=== PATIENT | male | born 1960 | race Caucasian/White ===

== ENCOUNTER 2023-09-28 21:39 | Inpatient (IN) | payer BC, SELFPAY ==
[2023-09-28 18:53] VITALS: BMI 35.2
--- NOTE | 2023-09-28 18:55 | ED.GENMED ---
History of Present Illness
General
Chief Complaint: Withdrawal Symptoms
Time Seen by Provider: 09/28/23 18:55
History of Present Illness
History of Present Illness:
HPI: The patient presents due to concerns for DTs/alcohol withdrawal. He was seen here in 2021 with chest pain and alcoholism. He states that he last drank alcohol yesterday. EMS found him to be in atrial fibrillation. The patient has a vague
general unwell feeling. He feels tremulous and somewhat anxious. He also describes paresthesias
EXAM:
GENERAL: Well appearing in no distress
HEENT: Moist oral mucosa
CARDIOVASCULAR: No murmurs, tachycardic heart rate, r irregular egular rhythm, No chest wall tenderness
PULMONARY: No respiratory distress, breath sounds are clear and equal
ABDOMEN: Soft with no peritoneal signs, no tenderness
NEUROLOGIC: Good strength in all extremities, asterixis is noted
PSYCHIATRIC: Appropriate mental status, normal insight and judgement
EXTREMITIES: Nontender, no edema, moves all extremities equally
SKIN: No rash, no lesions
TIME OF INITIAL ENCOUNTER: 7 PM
NUMBER AND COMPLEXITY OF PROBLEMS ADDRESSED AT THE ENCOUNTER
� Chronic conditions affecting care: High blood pressure, has had A-fib in the past, alcoholism
� Acute Exacerbation and/or Progression of Chronic Illness: This is an acute problem
� Differential Diagnosis includes: Alcohol withdrawal, delirium tremens, dehydration, electrolyte abnormality, atrial fibrillation
AMOUNT AND/OR COMPLEXITY OF DATA TO BE REVIEWED AND ANALYZED
� I performed an independent evaluation of and my interpretation is:
EKG: EKG shows A-fib with a rate of 111 and right bundle branch block, the post cardioversion 10/19/2021 EKG also showed right bundle branch block
CT:
X-rays:
Laboratory Studies: CBC unremarkable, MCV 74, potassium slightly low 3.4, magnesium normal at 0.8, troponin 0.035
Other:
� Review of other/old records: I reviewed old records including cardiac evaluation�the patient had normal coronaries but was found to have an EF of 35 to 40% with moderate global hypokinesis
� Clinical information was obtained by an independent historian: EMS
� Prescriptions/Medications Considered but not given:
� Further testing considered but not performed:
RISK OF COMPLICATIONS AND/OR MORBIDITY OR MORTALITY OF PATIENT MANAGEMENT
� Social determinants of health affecting care: Lives at home
� Discussion with other providers: Discussed with Dr. Smith treatment for alcohol withdrawal as opposed to going on [facility]. Hospitalist for admission
� Escalation of care including admission/observation vs risk of discharge considered: The patient was tachycardic and tremulous upon arrival. He was given IV fluids and 2 mg of IV Ativan. His initial CIWA score is 15. The
patient does not appear well enough to return home at this time. He is persistently tachycardic.
Past History
Past History
ED Past Medical History: HTN and Other (Gout, pilonidal cyst)
ED Past Surgical History: Orthopedic
Social History
Tobacco: Non-smoker
Alcohol: Daily
Drug: None
Personal:
Living: with family
Employment: Employed
Family History
Family History: Other (Nonsignificant)
Phy Exam
Physical Exam
Physical Exam:
See HPI
Course
Orders/Labs/Results
Orders:
Orders
09/28/23 18:56
ECG [Electrocardiogram (*1)] Urgent
Reason for Study: Atrial Fibrillation
EKG- Treatment ONCE
09/28/23 19:00
0.9% Sodium Chloride 1000 ml [Nss] 1,000 ml IV BOLUS
Lorazepam [Ativan] 2 mg IV NOW STA
09/28/23 19:05
Alcohol Urgent
Complete Blood Count/With Diff Urgent
Comprehensive Metabolic Panel Urgent
Magnesium Urgent
TSH Reflex To Free T4 Urgent
Troponin I Urgent
09/28/23 19:42
Lorazepam [Ativan] 2 mg IV NOW STA
09/28/23 19:48
Magnesium Sulfate 4 Gram/100Ml [Magnesium Sulfate] 4 gram in 100 ml IV NOW
09/28/23 20:21
Metoprolol [Lopressor] 5 mg IV NOW STA
CR Chest - 2 Views Stat
Comment:
Reason For Exam: sob
09/28/23 20:22
Potassium Chloride [KCl] 40 meq PO NOW STA
09/28/23 20:31
Admit/Transfer Patient As Directed
Co-Sign Provider:
Level of Care: Inpatient admission
Assign to:: Telemetry
Physician / Group: avelino
Diagnosis: alcohol withdrawal
Reason for Telemetry: Arrhythmia
Date to Stop Telemetry: 10/01/23
Time to Stop Telemetry: 11:00
Reason for Hospitalization: alcohol withdrawal
Expected length of stay greater than two midnights?: Yes
ELOS- Estimated Length of Stay in days: 3
I certify the patient meets the requirements for IP care: Yes
09/28/23 20:32
Code Status As Directed
Resuscitation Status: Full Code
09/28/23 21:37
Add On- LAB Urgent
Tests Added?: Alcohol
10/01/23 11:00
DC Protocol for Telemetry ONCE
Abnormal Lab Results
09/28/23
19:05
MCV 73.6 L fL
(80.0-94.0)
MCH 24.6 L pg
(27.0-31.0)
RDW 21.6 H %
(11.5-14.5)
Absolute Neuts (auto) 6.6 H 10^3/uL
(1.4-6.5)
Absolute Monos (auto) 0.8 H 10^3/uL
(0.1-0.6)
Lymphocytes % 18.6 L %
(20.5-51.1)
Sodium 127 L mmol/L
(135-145)
Potassium 3.4 L mmol/L
(3.5-5.1)
Chloride 83 L mmol/L
(98-107)
BUN 8 L mg/dl
(9-20)
Glucose 100 H mg/dl
(70-99)
Magnesium 0.8 L* mg/dl
(1.6-2.3)
AST 133 H U/L
(17-59)
ALT 65 H U/L
(0-50)
Alkaline Phosphatase 205 H U/L
(38-126)
Troponin I 0.035 H* ng/ml
Total Protein 8.4 H g/dl
(6.3-8.2)
09/28/23 19:05
09/28/23 19:05
Vital Signs
Initial and Last Documented VS:
Initial Vital Signs
Temp Pulse Resp Pulse Ox
97.5 F 114 20 95
09/28/23 18:53 09/28/23 18:53 09/28/23 18:53 09/28/23 18:53
Last Documented Vital Signs
Temp Pulse Resp BP Pulse Ox
97.5 F 117 21 158/104 96
09/28/23 18:53 09/28/23 21:30 09/28/23 21:30 09/28/23 20:39 09/28/23 21:30
*Critical Care Note
Total Time (30-74mins, 75-104mins- exclusive of procedures): 60minutes
comment:
The patient is persistently tachycardic with rapid atrial fibrillation. I emergently discussed case with cardiology. He was given benzos and vital signs were continuously monitored. His magnesium is critically low and was given IV replacement
emergently.
ED Attending Note
-
Portions of this chart may have been created with voice recognition software.� Occasional wrong word or��sound alike� substitutions may have occurred due to the inherent limitations of voice recognition software.
Discharge Plan
Departure
Patient Disposition: Admit
Date of Disposition: 09/28/23
Time of Disposition: 20:01
Presentation/result/management discussed w/ accepting MD/DO: Hospitalist
Patient with high blood pressure during this ER visit?: Yes
Discharge Problem:
Atrial fibrillation with rapid ventricular response, Alcohol withdrawal, Hypomagnesemia
Interventions
Interventions:
*Risk Screen - Suicide Last Done: 09/28/23 18:53
*General Assessment Last Done: 09/28/23 18:53
*Neglect/Abuse Screening Last Done: 09/28/23 18:53
ED- Fall Risk Assessment Last Done: 09/28/23 19:37
*ED COVID-19 Vaccine History Last Done: 09/28/23 19:10
ED- Neurological Assessment Last Done: 09/28/23 19:37
ED-Psychological Assessment Last Done: 09/28/23 19:37
[2023-09-28] MEDS: ATIVAN 2 MG IV ×2 (19:07→19:47)
[2023-09-28] MEDS: NSS 1000 IV ×2 (19:07→23:39)
[2023-09-28 19:10] LABS: % Basophils 1.1 % (0-2); % Eosinophils 0.4 % (0-6); % Immature Granulocytes 0.3 % (0-0.5); % Lymphocytes 18.6 % (20.5-51.1); % Monocytes 8.8 % (1.7-9.3); % Neutrophils 70.8 % (42.2-75.2); Absolute Basophils 0.1 10^3/uL (0-0.2); Absolute Lymphocytes 1.8 10^3/uL (1.2-3.4); Absolute Monocytes 0.8 10^3/uL (0.1-0.6); Absolute Neutrophils 6.6 10^3/uL (1.4-6.5); Hemoglobin 14.7 g/dL (13.0-18.0); Mean Corp Hgb Conc. 33.4 g/dL (33.0-37.0); Mean Corpuscular Hgb 24.6 pg (27.0-31.0); Mean Corpuscular Volume 73.6 fL (80.0-94.0); Mean Platelet Volume 8.6 fL (7.4-10.4); Nucleated Red Blood Cells % 0 % (-); Platelet Count 252 10^3/uL (130-400); Red Blood Cell Count 5.98 10^6/uL (4.70-6.10); Red Cell Dist. Width 21.6 % (11.5-14.5); White Blood Cell Count 9.4 10^3/uL (4.8-10.8)
[2023-09-28 19:39] LABS: Troponin I 0.035 ng/ml
[2023-09-28 19:42] LABS: ALT (SGPT) 65 U/L (0-50); AST (SGOT) 133 U/L (17-59); Albumin 4.8 g/dl (3.5-5.0); Alkaline Phosphatase 205 U/L (38-126); Blood Urea Nitrogen 8 mg/dl (9-20); Calcium 9.7 mg/dl (8.4-10.2); Carbon Dioxide 23 mmol/L (22-30); Estimated Creatinine Clearance 116 ml/min; Glucose 100 mg/dl (70-99); Magnesium 0.8 mg/dl (1.6-2.3); Total Bilirubin 1.3 mg/dl (0.2-1.3); Total Protein 8.4 g/dl (6.3-8.2); eGFR > 60.00
[2023-09-28 19:50] LABS: Chloride 83 mmol/L (98-107); Potassium 3.4 mmol/L (3.5-5.1); Sodium 127 mmol/L (135-145)
[2023-09-28 19:56] LABS: TSH Reflex To Free T4 1.22 uIU/ml (0.47-4.68)
[2023-09-28 20:00] VITALS: BP 149/102
--- NOTE | 2023-09-28 20:02 | HPS.HSE ---
Family Physician
<YOANA Lemus - Last Filed: 09/28/23 20:42>
-
Family Physician:
Chief Complaint
<YOANA Lemus - Last Filed: 09/28/23 20:42>
-
Muscle cramps
Tremors
History of Present Illness
63-year-old with past medical history for A-fib presented to us with numbness to his feet and muscle cramps. Patient complained of short of breath, worse with activity. Denied any chest pain. Patient denied any headache dizziness syncopal
episode. Patient denied any fever chills, congestion or cough. Denied abdominal pain, nausea, vomiting or diarrhea. Patient denied dysuria hematuria. Since 2021, he was not drinking alcohol until a month ago. He started drinking 3 glasses of
vodka with Gatorade. His last drink was yesterday. Today he feels very shaky.
Patient received a dose of Ativan in the ER. Neuro electrolyte imbalance. Repleted with IV mag, oral KCl admitted for further management.
Medical History
<YOANA Lemus - Last Filed: 09/28/23 20:42>
Past Medical History
Past Medical History: Reports Other
Additional Past Medical History:
Permanent A-fib
Hypertension
Right bundle branch block
Gout
Alcohol abuse
Past Surgical History: Reports Other
Additional Past Surgical History:
Cardioversion
Teeth implant
Social History
Tobacco: Non-smoker
Alcohol: Daily
Drug: None
Personal:
Living: With Family
Employment: Employed
Family History
Family History: Not pertinent
Allergies / Home Medications
Allergies reflects when Allergies were last updated in [facility].
Home Medications with original date entered in [facility]
Allergy/Medication List:
Allergies
Allergy/AdvReac Type Severity Reaction Status Date / Time
losartan potassium Allergy Swelling Verified 10/16/21 19:18
[From Cozaar]
Home Medications
apixaban 5 mg tablet (Eliquis) 5 mg PO BID #60 tabs 10/19/21
metoprolol succinate 100 mg tablet,extended release 24 hr 100 mg PO BID #60 tabs 10/19/21
diltiazem HCl 180 mg capsule,extended release 24 hr, controlled (DILT-XR) 180 mg PO DAILY 09/28/23
Review of Systems
<YOANA Lemus - Last Filed: 09/28/23 20:42>
-
Constitutional: Reports No Symptoms
EENT: Reports No Symptoms
Respiratory: Reports Trouble Breathing
Cardiac: Reports No Symptoms
Abdomen/GI: Reports No Symptoms
: Reports No Symptoms
Musculoskeletal: Reports Other (Muscle cramps, numbness)
Skin: Reports No Symptoms
Neurological: Reports No Symptoms
Endocrine: Reports No Symptoms
Hematologic/Lymphatic: Reports No Symptoms
Psych: Reports No Symptoms
Physical Exam
<YOANA Lemus - Last Filed: 09/28/23 20:42>
Vital Signs
Vital Signs
Temp Pulse Resp Pulse Ox
97.5 F 114 20 95
09/28/23 18:53 09/28/23 18:53 09/28/23 18:53 09/28/23 18:53
Physical Exam
General: Well Developed, Well Nourished and No Apparent Distress
HEENT: NormoCephalic, Moist mucous membranes and Atraumatic
Respiratory: Clear
Cardiac: S1/S2 and Regular Rhythm; No Murmur or Rub
GI: Soft, Non Tender, Non Distended and Normal Bowel Sounds; No Organomegaly
Rectal: Deferred by Provider
Musculoskeletal: No Clubbing, No Cyanosis and No Edema
Skin: No Rash
Neuro: AO x 3 and Nonfocal/grossly intact
Psych: Calm
Laboratory Results
<YOANA Lemus - Last Filed: 09/28/23 20:42>
-
09/28/23 19:05
09/28/23 19:05
Laboratory Results
Total Bilirubin 1.3 mg/dl (0.2-1.3) 09/28/23 19:05
AST 133 U/L (17-59) H 09/28/23 19:05
ALT 65 U/L (0-50) H 09/28/23 19:05
Alkaline Phosphatase 205 U/L (38-126) H 09/28/23 19:05
Troponin I 0.035 ng/ml H* 09/28/23 19:05
Data Reviewed
<YOANA Lemus - Last Filed: 09/28/23 20:42>
-
Lab Data: Labs Reviewed by me
Impression/Plan
<YOANA Lemus - Last Filed: 09/28/23 20:42>
-
# Alcohol withdrawal
-On arrival CIWA score is 15
-Monitor MSAS score
-alcohol protocol
-CM consulted
# Permanent A-fib with RVR
-Heart rate in 120s in ER
-EKG A-fib with RVR, right bundle branch block, T wave abnormality
-Will give a dose of Lopressor 5 mg IV in the ER
-Metoprolol and diltiazem continued
-Eliquis continued
-Cardiology consulted
# Hypomagnesemia/hyponatremia likely from alcohol abuse
-Sodium 127, K3.4, mag 0.8
-Received magnesium in the ER
-Repleted with oral KCl
-received one liter NS in ER
-Will initiate on fluids once a chest x-ray resulted
-Monitor BMP in a.m.
# Elevated transaminase likely from alcohol intake
-AST 133, ALT 65, alkaline phosphatase 205
-No complaints of abdominal pain
-Monitor LFTs in a.m.
# Chronic troponin elevation
- Trop 0.035
-No complaints of chest pain
-Continue to trend
# Hypertension
-Blood pressure elevated in ER
-IV Lopressor in ER
-Monitor vital signs
# DVT prophylaxis
-Eliquis
# CODE STATUS
-Full code
<Gaurav Argueta, DO - Last Filed: 09/28/23 21:44>
-
# Alcohol withdrawal
-On arrival CIWA score is 15
-Monitor MSAS score
-alcohol protocol
-CM consulted
# Permanent A-fib with RVR
-Heart rate in 120s in ER
-EKG A-fib with RVR, right bundle branch block, T wave abnormality
-Will give a dose of Lopressor 5 mg IV in the ER
-Metoprolol and diltiazem continued
-Eliquis continued
-Cardiology consulted
# Hypomagnesemia/hyponatremia likely from alcohol abuse
-Sodium 127, K3.4, mag 0.8
-Received magnesium in the ER
-Repleted with oral KCl
-received one liter NS in ER
-Will initiate on fluids once a chest x-ray resulted
-Monitor BMP in a.m.
# Elevated transaminase likely from alcohol intake
-AST 133, ALT 65, alkaline phosphatase 205
-No complaints of abdominal pain
-Monitor LFTs in a.m.
# Chronic troponin elevation
- Trop 0.035
-No complaints of chest pain
-Continue to trend
# Hypertension
-Blood pressure elevated in ER
-IV Lopressor in ER
-Monitor vital signs
# DVT prophylaxis
-Eliquis
# CODE STATUS
-Full code
Attending Attestation:
HPI:
Briefly this is a 63yo M with PMH Atrial Fibrillation on Eliquis, Alcohol Abuse, Alcoholic Hepatitis who presents to ER for malaise and concern for ETOH withdrawal'DTs'. Pt reports relapse and drinking 3 glasses of vodka/Gatorade daily, last drink
last night. States he was previously at [facility] and is interested in quitting but unable to give further details. Reports feet being cold, numbness in lips, muscle cramps. +tremors worsening. Denies RUSSELL, recent illness, dizziness/LH, CP,
Palps, wheezing, cough, sob, abd pain, n/v/d/c, dysuria, calf or leg pain. Lives with and child. Regarding afib pt does state he was prescribed Cardizem recently but never picked up from pharmacy.
ER course: Presents Tmax 97.5, HR 131, BP 158/104, RR 22, Sat 90% RA. CXR NAD. EKG AFib RVR. Na 127. K 3.4. Mag 0.8. Cl 83. Tbili 1.3. AST/ALT 135/65. AP 205. Trop 0.035. TSH wnl. S/P 4gm IV mag and 2mg IV ativan x 2 in ER.
Physical Exam
General: Tremulous, No apparent distress, Following commands
HEENT: NC/AT. No scleral icterus. No exudates in oropharynx. Dry MM.
Cardiac: IRR, Tachy, +S1/S2, No M/R/G.
Pulm: CTA b/l, no accessory muscle use.
GI: Soft, NT/ND. +BS, no rebound/guarding
: No CVA tenderness. No Feliz
Ext: MAEx4. No LE Edema.
MSK: 5/5 throughout. Sensation grossly intact.
Neuro: AAOx3, No focal deficits
A/P:
Alcohol withdrawal
- CIWA 15 on admission. S/P 2mg IV ativan with marked improvement
- Continue CIWA monitoring. Alcohol withdrawal protocol, Prn Ativan
- MV/FA/Thiamine
- Monitor electrolytes and replete accordingly.
- Check ETOH level
- CM consult. Pt does report being interested in cessation
Atrial Fibrillation wtih RVR / Elevated Trop
- Likely precipitated by ETOH abuse/electrolyte def
- EKG reviewed. No acute ischemic changes
- Trop 0.035. Trend
- Replete K> 4.0. Mag >2.0.
- Give 5mg IV lopressorx1. Continue cardizem (pt never picked up from pharmacy)
- Continue home BB and eliquis for A.C.
- Cardio consulted in ER
Hypokalemia/Hypomag - Replete and trend
Hyponatremia
- Na 127. Examines volume depleted. Will give IVF and trend
- Consider fluid restriction in setting of beerpotomania.
Transaminitis
- Consistent with alcoholic hepatitis
- Abdominal exam benign. Trend LFTs
HTN
- Continue home cardizem and BB.
- Further recs per cardio
Code Status: Full code
DVT ppx: Eliquis
[2023-09-28] MEDS: MAGNESIUM SULFATE 100 IV (20:16)
[2023-09-28] MEDS: KCL 40 MEQ PO (20:37)
[2023-09-28 20:38] VITALS: BP 158/104
[2023-09-28] MEDS: LOPRESSOR 5 MG IV (20:39)
[2023-09-28 22:28] VITALS: BP 164/111
[2023-09-28 22:33] LABS: Alcohol None Detected
[2023-09-28] MEDS: ATIVAN 1 MG IV (22:35)
[2023-09-28 22:57] VITALS: BMI 34.4
[2023-09-28 23:00] VITALS: BP 154/113
--- NOTE | 2023-09-28 23:19 | W.PN.UPDATE ---
Update Note
Progress Note Update
Please refer to attestation to MAINTENANCE ENGINEER note for attending history/assessment/plan
[2023-09-28] MEDS: THIAMINE INJECTION 200 MG IV (23:38)
[2023-09-28 23:50] LABS: GGTP 463 U/L (15-73); Phosphorus 2.9 mg/dl (2.5-4.5)
[2023-09-28 23:53] LABS: APTT 35.2 Sec (23.4-35.0); INR 1.33; PT 16.3 Sec (11.4-14.6)
[2023-09-28 23:56] LABS: B-Hydroxybutyrate 3.44 mmol/L (0.02-0.27)
[2023-09-28 23:58] LABS: Alcohol None Detected
[2023-09-29] VITALS (8 sets, daily range): BP systolic 129–177; BP diastolic 78–117; BMI 34.4; BMI 35.5
[2023-09-29] MEDS: ATIVAN 1 MG PO ×6 (00:43→20:27)
--- NOTE | 2023-09-29 00:51 | PTCARENOTE ---
Patient arrived from the ED via stretcher at approximately 2245. Patient slid self from stretcher to bed x1 assist. Patient AAOx3, drowsy. Slightly forgetful @ times. MSAS completed upon arrival to floor - see documentation. Vital signs as
documented. Assessment as documented. Patient oriented to room. Bed in lowest position. Call george within reach. Bed alarm in place due to patient being forgetful @ times.
--- NOTE | 2023-09-29 00:55 | PTCARENOTE ---
Patient's BP elevated on admission at 154/113, HR 112. Patient offering no complaints. Patient's BP rechecked at approximately 0000 - BP 152/109. Manual BP done - 156/98. Patient continues to offer no complaints. RESOURCE DEVELOPMENT MANAGER notified. No new orders at this
time.
[2023-09-29 03:12] LABS: Troponin I 0.043 ng/ml
[2023-09-29] MEDS: LOPRESSOR 5 MG IV ×2 (03:34→09:39)
--- NOTE | 2023-09-29 03:48 | PTCARENOTE ---
Patient's 0300 BP 162/117, HR 109. Manual BP taken - 166/104. Patient offering no complaints. Patient's HR on telemonitor alarming up to 150s while ambulating to bathroom. Patient's only complaint is 'feeling shaky' when sitting to standing. JOB SITE SUPERINTENDENT
notified. One time dose of IV lopressor ordered and given. Telemonitor strip placed in chart.
[2023-09-29 03:57] LABS: Urine Albumin 2+ (Neg - Trace); Urine Bilirubin Negative (Negative); Urine Character Clear (Clear); Urine Color Yellow; Urine Glucose Negative (Negative); Urine Ketone 2+ (Negative); Urine Leukocyte Negative (Negative); Urine Nitrite Negative (Negative); Urine Occult Blood 1+ (Negative); Urine Specific Gravity 1.015 (<1.030); Urine Urobilinogen Negative (Neg - 1+); Urine pH 6.5 (5.0-9.0)
[2023-09-29 04:11] LABS: Benzodiazepines Positive (Negative)
[2023-09-29 04:12] LABS: Amphetamines Negative (Negative); Barbiturates Negative (Negative); Buprenorphine Negative (Negative); Cocaine Negative (Negative); Marijuana Negative (Negative); Methadone Negative (Negative); Methamphetamines Negative (Negative); Opiates Negative (Negative); Phencyclidine Negative (Negative); Tricyclic Antidepressants Negative (Negative)
[2023-09-29 04:26] LABS: Fentanyl, Urine Negative (Negative); Urine Bacteria Few (Negative); Urine Squamous Cell 0-2 /LPF (Few); Urine White Cell 0-2 /HPF (0-5)
--- NOTE | 2023-09-29 08:00 | PTCARENOTE ---
Patient lethargic, difficult to rouse with sternal rub, able to be woken up and answer orientation questions correctly before quickly falling back asleep. Patient with mild tremor, moderately diaphoretic, denies any chest pain, SOB, or nausea. HR
120s-130s afib on tele monitor. MD made aware, to come to bedside to assess patient.
[2023-09-29 08:15] LABS: Hematocrit 40.8 % (39.0-52.0); Hemoglobin 12.7 g/dL (13.0-18.0); Mean Corp Hgb Conc. 31.1 g/dL (33.0-37.0); Mean Corpuscular Hgb 24.5 pg (27.0-31.0); Mean Corpuscular Volume 78.6 fL (80.0-94.0); Mean Platelet Volume 9.3 fL (7.4-10.4); Platelet Count 189 10^3/uL (130-400); Red Blood Cell Count 5.19 10^6/uL (4.70-6.10); Red Cell Dist. Width 21.3 % (11.5-14.5); White Blood Cell Count 7.1 10^3/uL (4.8-10.8)
[2023-09-29 08:28] LABS: Glycohemoglobin (HgbA1c) 5.4 % (4.0-5.6)
[2023-09-29 08:41] LABS: Blood Urea Nitrogen 9 mg/dl (9-20); Carbon Dioxide 29 mmol/L (22-30); Chloride 90 mmol/L (98-107); Estimated Creatinine Clearance 116 ml/min; Glucose 79 mg/dl (70-99); Magnesium 1.7 mg/dl (1.6-2.3); Potassium 4.5 mmol/L (3.5-5.1); Sodium 130 mmol/L (135-145); eGFR > 60.00
[2023-09-29 08:47] LABS: Troponin I 0.052 ng/ml
[2023-09-29] MEDS: THERAGRAN 1 TABLET PO (09:13)
[2023-09-29] MEDS: CARDIZEM CD 180 MG PO (09:13)
[2023-09-29] MEDS: TOPROL XL 100 MG PO ×2 (09:13→20:16)
[2023-09-29] MEDS: FOLVITE 1 MG PO (09:14)
[2023-09-29] MEDS: ELIQUIS 5 MG PO ×2 (09:14→20:18)
[2023-09-29] MEDS: THIAMINE INJECTION 200 MG IV ×2 (09:17→15:00)
--- NOTE | 2023-09-29 10:00 | PTCARENOTE ---
Addendum entered by Emmanuelle Martínez RN 09/29/23 11:16:
Patient HR after PRN lopressor improved to 90s-low 100s afib on monitor. Patient resting in bed. MD made aware, no new orders at this time.
Original Note:
Patient OOB to bathroom with x1 assist, HR increased to 160s afib sustained on monitor. Patient denies any chest pain, lightheadedness or SOB. made aware, PRN lopressor ordered, administered by this RN.
--- NOTE | 2023-09-29 10:36 | W.PN.HOSP.TC ---
Today's Communication/Plan
-
Continue with withdrawal protocol
Continue with p.o. meds
IV Lopressor
Monitor electrolytes closely
Trend troponin
Assessment / Plan
Assessment / Plan
# Alcohol withdrawal
# Acute alcohol abuse on daily basis
-On arrival CIWA score is 15
-Monitor MSAS score
-alcohol protocol
-CM consulted
# Permanent A-fib with RVR
-Currently sinus tachycardia at times
-Lopressor as needed ordered
-Metoprolol and diltiazem continued
-Eliquis continued
# Elevated troponin likely secondary to tachycardia
-No chest pain. Monitor. Continue to trend till downtrend noted.
# Hypomagnesemia/hyponatremia likely from alcohol abuse
-Tolerating diet. Monitor electrolytes.
-Sodium improving.
# Elevated transaminase likely from alcohol intake
-AST 133, ALT 65, alkaline phosphatase 205
-No complaints of abdominal pain
-Monitor LFTs in a.m.
# Primary hypertension likely elevated in the setting of withdrawal
-Continue Lopressor and Cardizem
-Monitor vital signs
# DVT prophylaxis
-Eliquis
# CODE STATUS
-Full code
Anticipated Discharge: > 48 hours
Subjective/Interval History
-
Date of Service: September 29, 2023
Patient stated he relapsed and drinks on a daily basis.
Last drink was 2 days ago
Currently sinus tachycardia
Received multiple doses of Ativan
Woke up and ate 100% of his breakfast
Objective Data
-
Labs:
Laboratory Results
09/28/23 09/29/23
23:27 06:57
WBC 7.1
Hgb 12.7 L
Hct 40.8
Plt Count 189 D
PT 16.3 H
INR 1.33
APTT 35.2 H
Sodium 130 L
Potassium 4.5 D
Chloride 90 L
Carbon Dioxide 29
BUN 9
Creatinine 0.9
Glucose 79
Calcium 9.0
Vital Signs:
Vital Signs
Temp Pulse Resp BP Pulse Ox
97.4 F 160 20 149/88 95
09/29/23 07:10 09/29/23 09:39 09/29/23 07:10 09/29/23 09:39 09/29/23 07:10
I&O
09/28/23 09/29/23 09/30/23
06:59 06:59 06:59
Intake Total 1060 / 1060
Balance 1060 / 1060
Physical Exam
-
General: Well Developed and No Apparent Distress
HEENT: Normocephalic, Atraumatic and Moist Mucous Membranes
Respiratory: Clear to Auscultation
Cardiac: Regular Rhythm, S1/S2 and Tachycardic; Negative Murmur, Rub or Gallop
GI: Soft, Nontender, Nondistended and Normal Bowel Sounds; Negative Organomegaly
Rectal: Deferred by Provider
Musculoskeletal: No Clubbing, No Cyanosis and No Edema
Skin: Negative Rash
Neuro: Awake, No Motor Deficits and Nonfocal/Grossly Intact
Psych: Anxious
Data Reviewed
-
Total Time Spent with Patient (in minutes): 56
--- NOTE | 2023-09-29 11:48 | CM ---
CM attempted to meet with pt bedside- sleeping soundly
Woke up briefly and fell back asleep
Call with spouse/Deborah
They reside in a [address] with 1 [address] through front
Full flight to 2nd floor
Pt is independent with his [facility]
No DME/VN/SNF hx
PCP- Phil Almodovar
Rx- [facility]
Pt attended an inpt detox center in [place] in Jun 2023
He was attending outpt services at [facility] in [place]
Spouse is hopeful that pt will resume D/A services on dc
Plan to follow up with pt regarding [facility] and D/A services
Will follow for dc planning needs
Pt is not on home oxygen
Discharge Disposition- home, follow for [facility] and oxygen needs
[2023-09-29 13:31] LABS: Troponin I 0.049 ng/ml
[2023-09-29] MEDS: MOTRIN 400 MG PO (14:59)
--- NOTE | 2023-09-29 16:45 | PTCARENOTE ---
Patient's SaO2 in mid 80s while asleep, breathing through mouth; patient's 2L NC increased to 4L without improvement. MD made aware, nonrebreather mask placed on patient while asleep, SaO2 improved to 100%.
[2023-09-30] MEDS: THIAMINE INJECTION 200 MG IV ×3 (00:04→15:56)
[2023-09-30 03:29] VITALS: BP 160/107
[2023-09-30 07:10] VITALS: BP 142/102
[2023-09-30 07:51] LABS: Hematocrit 42.5 % (39.0-52.0); Hemoglobin 13.1 g/dL (13.0-18.0); Mean Corp Hgb Conc. 30.8 g/dL (33.0-37.0); Mean Corpuscular Hgb 24.4 pg (27.0-31.0); Mean Corpuscular Volume 79.3 fL (80.0-94.0); Mean Platelet Volume 9.2 fL (7.4-10.4); Platelet Count 189 10^3/uL (130-400); Red Blood Cell Count 5.36 10^6/uL (4.70-6.10); Red Cell Dist. Width 21.3 % (11.5-14.5)
[2023-09-30 08:12] LABS: Blood Urea Nitrogen 10 mg/dl (9-20); Carbon Dioxide 29 mmol/L (22-30); Chloride 91 mmol/L (98-107); Estimated Creatinine Clearance 95 ml/min; Glucose 88 mg/dl (70-99); Magnesium 1.4 mg/dl (1.6-2.3); Potassium 4.2 mmol/L (3.5-5.1); Sodium 131 mmol/L (135-145); eGFR > 60.00
[2023-09-30] MEDS: CARDIZEM CD 240 MG PO (08:24)
[2023-09-30] MEDS: THERAGRAN 1 TABLET PO (08:25)
[2023-09-30] MEDS: ELIQUIS 5 MG PO ×2 (08:25→21:10)
[2023-09-30] MEDS: FOLVITE 1 MG PO (08:25)
[2023-09-30] MEDS: TOPROL XL 100 MG PO ×2 (08:25→21:10)
[2023-09-30] MEDS: MAGNESIUM SULFATE 100 IV (09:18)
--- NOTE | 2023-09-30 10:17 | W.PN.HOSP.TC ---
Today's Communication/Plan
-
ECHO in am
replete mag
MSAS protocol
Assessment / Plan
Assessment / Plan
# Alcohol withdrawal
# Acute alcohol abuse on daily basis
-On arrival CIWA score is 15
-Monitor MSAS score
-alcohol protocol
-CM consulted
# Permanent A-fib with RVR
-Lopressor as needed ordered
-Metoprolol and diltiazem continued. diltiazem dose increased to 240mg
-Eliquis continued
# Elevated troponin likely secondary to tachycardia/alcohol abuse
-No chest pain. Monitor.
-ECHO in am
# Hypomagnesemia/hyponatremia likely from alcohol abuse
-Tolerating diet. Monitor electrolytes.
-Sodium improving.
# Elevated transaminase likely from alcohol intake
-AST 133, ALT 65, alkaline phosphatase 205
-No complaints of abdominal pain
-Monitor LFTs in a.m.
#Nocturnal hypoxemia
-Nocturnal O2 studied
-Suspected JULY/OHSA. OP sleep study recommended
# Primary hypertension likely elevated in the setting of withdrawal
-Continue Lopressor and Cardizem
-Monitor vital signs
# DVT prophylaxis
-Eliquis
# CODE STATUS
-Full code
Anticipated Discharge: 24 - 48 hours
Subjective/Interval History
-
Date of Service: September 30, 2023
requiring o2 and NRB at night
Objective Data
-
Labs:
Laboratory Results
09/30/23
06:32
WBC 8.0
Hgb 13.1
Hct 42.5
Plt Count 189
Sodium 131 L
Potassium 4.2
Chloride 91 L
Carbon Dioxide 29
BUN 10
Creatinine 1.1
Glucose 88
Calcium 10.0
Vital Signs:
Vital Signs
Temp Pulse Resp BP Pulse Ox
97.9 F 92 18 142/102 98
09/30/23 07:10 09/30/23 08:25 09/30/23 07:10 09/30/23 08:25 09/30/23 10:10
I&O
09/29/23 09/30/23 10/01/23
06:59 06:59 06:59
Intake Total 1060 / 1060 2099
Balance 1060 / 1060 2099
Physical Exam
-
General: Well Developed and No Apparent Distress
HEENT: Normocephalic, Atraumatic, Moist Mucous Membranes and Oxygen
Respiratory: Clear to Auscultation
Cardiac: Regular Rhythm, S1/S2 and Tachycardic; Negative Murmur, Rub or Gallop
GI: Soft, Nontender, Nondistended and Normal Bowel Sounds; Negative Organomegaly
Rectal: Deferred by Provider
Musculoskeletal: No Clubbing, No Cyanosis and No Edema
Skin: Negative Rash
Neuro: Awake, No Motor Deficits and Nonfocal/Grossly Intact
Psych: Calm and Anxious
Data Reviewed
-
Total Time Spent with Patient (in minutes): 55
[2023-09-30 11:30] VITALS: BP 136/100
[2023-09-30 15:10] VITALS: BP 133/94
--- NOTE | 2023-09-30 15:45 | PTCARENOTE ---
Patient's tele monitor alarming noting episode of pause; HR recovered on monitor immediately after episode to controlled afib in 80-90s. Patient resting in bed, states no complaints at this time. MD made aware, telemetry strip sent to MD and placed
in chart; no new orders at this time.
[2023-09-30 19:10] VITALS: BP 130/93
[2023-09-30 22:44] VITALS: BP 137/81
[2023-10-01] MEDS: THIAMINE INJECTION 200 MG IV ×3 (00:42→15:04)
[2023-10-01 03:33] VITALS: BP 139/96
--- NOTE | 2023-10-01 06:28 | W.PN.HOSP.TC ---
Today's Communication/Plan
-
discharge
Assessment / Plan
Assessment / Plan
General: Well Developed and No Apparent Distress
HEENT: Normocephalic, Atraumatic, Moist Mucous Membranes and Oxygen
Respiratory: Clear to Auscultation
Cardiac: Regular Rhythm, S1/S2 and Tachycardic; Negative Murmur, Rub or Gallop
GI: Soft, Nontender, Nondistended and Normal Bowel Sounds; Negative Organomegaly
Musculoskeletal: No Clubbing, No Cyanosis and No Edema
Skin: Negative Rash
Neuro: Awake, No Motor Deficits and Nonfocal/Grossly Intact
Psych: Calm cooperative
63M afib htn RBBB Gout ETOH use d/o p/w ETOH withdrawal and afib rvr.
# Alcohol withdrawal
# Acute alcohol abuse on daily basis
-On arrival CIWA score is 15
-Withdrawal symptoms since improved, no Ativan since 09/28
-Case mgmt consult appreciated
-patient reported preference to follow up with outpatient ETOH rehab
# Permanent A-fib with RVR
-Lopressor as needed ordered
-Metoprolol and diltiazem continued. diltiazem dose increased to 240mg
-Eliquis continued
# Elevated troponin likely secondary to tachycardia/alcohol abuse
-No chest pain. Trended to peak 0.052 since trended down
-ECHO appreciated EF 50-55% non significant change from prior ECHO 10/17/2021
# Hypomagnesemia/hyponatremia likely from alcohol abuse
-Tolerating diet. Monitor electrolytes.
-Sodium improving.
-Fluid Restriction
-Mag supplementation started
# Mild transaminitis likely from alcohol intake
-outpt follow up lab with primary care recommneded
#Nocturnal hypoxemia
-Nocturnal O2 study appreciated significant desaturation overnight. Bedtime oxygen supplementation 3L recommended while awaiting outpatient sleep study for CPAP.
-Patient reported having oxygen already available at home. Declined home oxygen set up.
# Primary hypertension likely elevated in the setting of withdrawal
-Continue Lopressor and Cardizem
-Monitor vital signs
# DVT prophylaxis
-Eliquis
# CODE STATUS
-Full code
Medically stable for discharge home with outpatient follow up recommendations
Total Time Preparing Discharge ___50____ minutes including examination of the patient, summary of the hospital stay, instructions for continuing care to all relevant caregivers; and preparation of discharge records, prescriptions, and referral
forms if necessary.
Anticipated Discharge: Today
Subjective/Interval History
-
Date of Service: October 01, 2023
Seen and examined at bedside in no acute distress sitting up comfortably in bed. Denies any new acute issues at this time. Reports overall feeling well. Ambulating without issues. Eager to go home.
Objective Data
-
Labs:
Laboratory Results
10/01/23
05:03
WBC Pending
Hgb Pending
Hct Pending
Plt Count Pending
Sodium Pending
Potassium Pending
Chloride Pending
Carbon Dioxide Pending
BUN Pending
Creatinine Pending
Glucose Pending
Calcium Pending
Vital Signs:
Vital Signs
Temp Pulse Resp BP Pulse Ox
97.6 F 100 20 139/96 95
10/01/23 03:33 10/01/23 03:33 10/01/23 03:33 10/01/23 03:33 10/01/23 03:58
I&O
09/29/23 09/30/23 10/01/23
06:59 06:59 06:59
Intake Total 1060 / 1060 2099 264
Balance 1060 / 1060 2099
[2023-10-01 06:39] LABS: Hematocrit 39.5 % (39.0-52.0); Hemoglobin 12.3 g/dL (13.0-18.0); Mean Corp Hgb Conc. 31.1 g/dL (33.0-37.0); Mean Corpuscular Hgb 24.5 pg (27.0-31.0); Mean Corpuscular Volume 78.7 fL (80.0-94.0); Mean Platelet Volume 9.2 fL (7.4-10.4); Platelet Count 178 10^3/uL (130-400); Red Blood Cell Count 5.02 10^6/uL (4.70-6.10); Red Cell Dist. Width 21.2 % (11.5-14.5); White Blood Cell Count 10.5 10^3/uL (4.8-10.8)
[2023-10-01 07:00] VITALS: BP 127/93
[2023-10-01 07:06] LABS: Blood Urea Nitrogen 14 mg/dl (9-20); Calcium 9.7 mg/dl (8.4-10.2); Carbon Dioxide 28 mmol/L (22-30); Chloride 92 mmol/L (98-107); Estimated Creatinine Clearance 95 ml/min; Glucose 85 mg/dl (70-99); Potassium 3.7 mmol/L (3.5-5.1); Sodium 128 mmol/L (135-145); eGFR > 60.00
[2023-10-01] MEDS: THERAGRAN 1 TABLET PO (08:25)
[2023-10-01] MEDS: ELIQUIS 5 MG PO (08:25)
[2023-10-01] MEDS: FOLVITE 1 MG PO (08:25)
[2023-10-01] MEDS: TOPROL XL 100 MG PO (08:25)
[2023-10-01] MEDS: CARDIZEM CD 240 MG PO (08:25)
[2023-10-01 09:45] LABS: Magnesium 1.5 mg/dl (1.6-2.3)
[2023-10-01 11:00] VITALS: BP 110/70
[2023-10-01 15:00] VITALS: BP 140/94
[2023-10-01] MEDS: MAGNESIUM OXIDE 500 MG PO (15:04)
--- NOTE | 2023-10-01 15:55 | W.DCSUMMARY ---
Discharge Summary
Discharge Data
Date of Admission: 09/28/23
Date of Discharge: 10/01/23
-
Pending Results: No
Hospital Course
63M afib htn RBBB Gout ETOH use d/o p/w ETOH withdrawal and afib rvr. On arrival CIWA score was 15, withdrawal symptoms since improved, no Ativan since 09/28. Alcohol cessation was counseled. Patient reported preference to follow up with
outpatient drug/alcohol rehab on discharge. Permanent A-fib with RVR, home Metoprolol and diltiazem were continued. Rate control improved with diltiazem dose increase to 240mg daily. Home Eliquis was continued. Elevated troponin likely secondary
to tachycardia/alcohol abuse. No chest pain. Troponin trended to peak 0.052 since trended down. ECHO appreciated EF 50-55% non significant change from prior ECHO 10/17/2021. Hypomagnesemia/hyponatremia likely from alcohol abuse, Sodium
improving, patient was recommended to continue with Fluid Restriction and oral Mag supplementation started. Mild transaminitis likely from alcohol intake, outpt follow up lab with primary care was recommended. Nocturnal hypoxemia, nocturnal O2
study appreciated significant desaturation overnight. Bedtime oxygen supplementation 3L recommended while awaiting outpatient sleep study for CPAP. Patient reported having oxygen already available at home. Declined home oxygen set up. Medically
stable, patient was discharged home with outpatient follow up recommendations.
Discharge Plan
-
Patient Disposition: Home (Routine Discharge)
Discharge Diagnosis/Procedures: Alcohol Withdrawal, atrial fibrillation with rapid ventricular rate, hypomagnesemia, hyponatremia, mild transaminitis likely secondary to alcohol use, hypertension
Condition: Fair
Diet: Low Cholesterol and Restrict fluids to 64 oz
Activity: As tolerated
Driving Restrictions: Not until seen by your Dr
Bathing Restrictions: None
Blood Work: Please repeat CBC, CMP, and Magnesium level with primary care provider in 1 week of discharge.
Others Tests: Please follow up with primary care provider for outpatient sleep study.
Activity Restrictions/Additional Instructions:
Please follow up with primary care provider in 1 week of discharge.
Cardizem has been increased to 240 mg daily for better rate and blood pressure control.
Magnesium supplementation has been started for low magnesium.
Multivitamin has been prescribed for nutrition support.
Colchicine is recommended to remain on hold for now due to potential source of muscle pain and potential interaction with Cardizem. Please follow up with primary care provider and/or other healthcare provider involved in your care before
considering to resume.
Please take medications as prescribed/recommended and follow up with primary care provider and/or other healthcare provider involved in your care for refills and/or further adjustments to your medication regimen as necessary.
Instructions: Alcohol Use Disorder (DC)
Referrals:
Isac Almodovar, [Family Provider] - in one week
Prescriptions:
New
diltiazem HCl 240 mg Capsule,Extended Release 24hr
240 mg PO DAILY 30 Days Qty: 30 0RF
magnesium oxide 500 mg magnesium Tablet
500 mg PO DAILY 30 Days Qty: 30 0RF
multivitamin with folic acid [Tab-A-Jay Jay] 400 mcg Tablet
1 tab PO DAILY 30 Days Qty: 30 0RF
Continued
metoprolol succinate 100 MG tablet extended release 24 hr
100 mg PO BID Qty: 60 0RF
Eliquis 5 MG tablet
5 mg PO BID Qty: 60 0RF
Held
colchicine 0.6 mg Tablet
0.6 mg PO DAILY
Hold Instructions: Possible source of muscle pain, also potential interaction with Cardizem. Follow up with primary care provider before considering to resume
Discontinued
diltiazem HCl [DILT-XR] 180 mg Capsule,Ext.Rel 24h Degradable
180 mg PO DAILY
Discharge Orders:
Discharge Patient (As Directed); Ordered 10/01/23
Ordered By: Jose J Ochoa
Discharge Date and Time
Discharge Date/Time: 10/01/23 16:38
Print Language: [place]OT[place]
--- NOTE | 2023-10-01 17:11 | CM ---
Discharged to home with no recommendations for additional skilled services. Patient arranged for transport home.
== END 2023-10-01 16:38 | disposition home or self-care (01) | DRG 897 ==
LOC: 2 NORTH 21:39
PROVIDERS: Hospitalist; Registered Nurse; ADMITTING PHYSICIAN Internal Medicine; ATTENDING PHYSICIAN Internal Medicine; EMERGENCY PHYSICIAN Emergency Medicine; FAMILY PHYSICIAN Family Medicine
DX: F10.239 Alcohol dependence with withdrawal, unspecified (principal); I48.21 Permanent atrial fibrillation; E87.1 Hypo-osmolality and hyponatremia; E83.42 Hypomagnesemia; I11.9 Hypertensive heart disease without heart failure; Z79.01 Long term (current) use of anticoagulants
CPT/HCPCS: 71046; 80048; 80053; 80306; 80307; 81003; 81015; 82010; 82077; 82977; 83036; 83735; 84100; 84443; 84484; 85025; 85027; 85610; 85730; 93005; 93306; 94762; 96361; 96365; 96366; 96375; 96376; 99291

== ENCOUNTER 2023-11-15 15:52 | Inpatient (IN) | payer BC, SELFPAY ==
[2023-11-15] VITALS (15 sets, daily range): BP systolic 140–188; BP diastolic 88–123; BMI 36.5
--- NOTE | 2023-11-15 12:41 | ED.GENMED ---
History of Present Illness
General
Chief Complaint: Withdrawal Symptoms
Source: patient
Exam Limitations: none
Time Seen by Provider: 11/15/23 12:36
Travel History
Have you had any contact with someone who has COVID-19?: No
Do you have any symptoms of coronavirus? Fever > 100 degrees, chills, cough, shortness of breath, sore throat, loss of taste or smell, muscle aches, or headache?: No
History of Present Illness
History of Present Illness:
See MDM
Past History
Past History
ED Past Medical History: HTN and Other (Gout, pilonidal cyst)
ED Past Surgical History: Orthopedic
Social History
Tobacco: Non-smoker
Alcohol: Daily
Drug: None
Personal:
Living: with family
Employment: Employed
Family History
Family History: Other (Nonsignificant)
Phy Exam
Physical Exam
Physical Exam:
See MDM
Scores
Withdrawal Assessment of Alcohol
Withdrawal Assessment Completed?: Yes
Nausea and Vomiting: Mild nausea with no vomiting
Tactile Disturbances: Very mild itching, pins and needles, burning or numbness
Tremor: Not visible, but can be felt fingertip to fingertip
Auditory Disturbances: Not present
Paroxysmal Sweats: No sweat visible
Visual Disturbances: Not present
Anxiety: Mild anxiety
Headache, Fullness in Head: Very mild
Agitation: Normal activity
Orientation and clouding of sensorium: Oriented and can do serial additions
Total CIWA Score: 5
Alcohol Withdrawal Medication Recommendation: Equal to MSAS Score 0-4. Monitor & re-assess q2hrs, NO MEDICATION NEEDED
Course
Orders/Labs/Results
Orders:
Orders
11/15/23 12:32
Complete Blood Count/With Diff Urgent
Comprehensive Metabolic Panel Urgent
11/15/23 12:40
Lorazepam [Ativan] 2 mg IV NOW STA
11/15/23 12:43
0.9% Sodium Chloride 1000 ml [Nss] 1,000 ml IV BOLUS
Abnormal Lab Results
11/15/23
12:32
Hgb 12.7 L g/dL
(13.0-18.0)
Hct 38.1 L %
(39.0-52.0)
MCV 76.7 L fL
(80.0-94.0)
MCH 25.6 L pg
(27.0-31.0)
RDW 15.2 H %
(11.5-14.5)
Absolute Neuts (auto) 7.3 H 10^3/uL
(1.4-6.5)
Absolute Lymphs (auto) 0.6 L 10^3/uL
(1.2-3.4)
Neutrophils % 83.9 H %
(42.2-75.2)
Lymphocytes % 7.4 L %
(20.5-51.1)
Sodium 123 L mmol/L
(135-145)
Chloride 81 L mmol/L
(98-107)
Glucose 137 H mg/dl
(70-99)
Total Bilirubin 1.4 H mg/dl
(0.2-1.3)
AST 97 H U/L
(17-59)
Alkaline Phosphatase 177 H U/L
(38-126)
Total Protein 8.3 H g/dl
(6.3-8.2)
11/15/23 12:32
11/15/23 12:32
Vital Signs
Initial and Last Documented VS:
Initial Vital Signs
Temp Pulse Resp BP Pulse Ox
98.7 F 104 26 188/119 88
11/15/23 12:24 11/15/23 12:24 11/15/23 12:24 11/15/23 12:24 11/15/23 12:24
Last Documented Vital Signs
Temp Pulse Resp BP Pulse Ox
98.7 F 90 20 185/114 94
11/15/23 12:24 11/15/23 13:30 11/15/23 13:30 11/15/23 13:00 11/15/23 13:30
MDM/Problems Addressed
Differential Diagnosis Includes:
HPI and MDM Narrative:
63-year-old male presenting for evaluation of alcohol withdrawal. Patient was drinking a pint of alcohol a day and he tripled this over the past few days. He stopped drinking altogether last night and developed shortness of breath, nausea and
shakiness. Patient feels he is going through alcohol withdrawal. I discussed admission versus [facility] versus discharge. Patient thinks he will be able to go home. Will give IV Ativan and continue to reassess
Physical exam
General: Mildly uncomfortable
HEENT: protecting airway. Mildly dry mucous membranes
Neck: appears supple
CV: No evidence of cyanosis. Tachycardic and irregular
Resp: No accessory muscle use
Abd: Non-distended
Extremities: No deformities
Neuro: alert
Psych: Normal affect
Skin: Intact
Problems Addressed including Acute and Chronic Conditions affecting care:
1. Alcohol withdrawal
Acuity: acute
Prognosis: unstable
Details: Will give IV Ativan and continue to reassess
2. hyponatremia
Acuity: acute
Prognosis: un likely in setting of alcohol abuse. Patient clinically dry. Patient was already started IV stable
Details:
Updates
On reassessment after IV Ativan, patient appears much more comfortable. However, patient found to have sodium of 123. Will admit
Differential Diagnosis (but not limited to): Alcohol withdrawal, dehydration
Testing considered: UDS
Drug therapy (if applicable): OTC meds, please see d/c instruction regarding Rx drugs
Amount and/or Complexity of Data Reviewed
Clinical info obtained from: Patient
External data reviewed: N/A
Labs I independently reviewed (but not limited to): Hyponatremia
Radiology: N/A
Pulse Ox: not hypoxic
EKG independently reviewed: N/A
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
Critical Care: N/A
Risk of Complication:
Social Determinants of health: Good social support
Discussed with other providers: Hospitalist
Escalation of Care includes Admit/Obs: given the history of alcohol abuse and the low sodium, will admit
Occasional wrong word or 'sound a like' substitutions may have occurred due to the inherent limitations of voice recognition software. Read the chart carefully and recognize, using context, where substitutions have occurred.
*Critical Care Note
Total Time (30-74mins, 75-104mins- exclusive of procedures): Not Applicable
ED Attending Note
-
Portions of this chart may have been created with voice recognition software.� Occasional wrong word or��sound alike� substitutions may have occurred due to the inherent limitations of voice recognition software.
Discharge Plan
Departure
Patient Disposition: Admit
Date of Disposition: 11/15/23
Time of Disposition: 14:14
Admit to: Telemetry
Presentation/result/management discussed w/ accepting MD/DO: Hospitalist
Discharge Problem:
Acute hyponatremia, Alcohol withdrawal
Prescriptions:
No Action
metoprolol succinate 100 MG tablet extended release 24 hr
100 mg PO BID Qty: 60 0RF
Eliquis 5 MG tablet
5 mg PO BID Qty: 60 0RF
colchicine 0.6 mg Tablet
0.6 mg PO DAILY
Hold Instructions: Possible source of muscle pain, also potential interaction with Cardizem. Follow up with primary care provider before considering to resume
diltiazem HCl 240 mg Capsule,Extended Release 24hr
240 mg PO DAILY 30 Days Qty: 30 0RF
magnesium oxide 500 mg magnesium Tablet
500 mg PO DAILY 30 Days Qty: 30 0RF
multivitamin with folic acid [Tab-A-Jay Jay] 400 mcg Tablet
1 tab PO DAILY 30 Days Qty: 30 0RF
Referrals:
UNKNOWN - PT DOES,NOT KNOW [Family Provider] -
Interventions
Interventions:
*Risk Screen - Suicide Last Done: 11/15/23 12:28
*General Assessment Last Done: 11/15/23 12:28
*Neglect/Abuse Screening Last Done: 11/15/23 12:28
ED- Fall Risk Assessment Last Done: 11/15/23 13:10
*ED COVID-19 Vaccine History Last Done: 11/15/23 12:28
ED- Neurological Assessment Last Done: 11/15/23 12:30
ED-Psychological Assessment Last Done: 11/15/23 12:30
Discharge Date and Time
Print Language: [place]
[2023-11-15] MEDS: ATIVAN 2 MG IV (12:43)
[2023-11-15] MEDS: NSS 1000 IV (12:45)
[2023-11-15 12:46] LABS: % Basophils 0.7 % (0-2); % Eosinophils 0.1 % (0-6); % Immature Granulocytes 0.5 % (0-0.5); % Lymphocytes 7.4 % (20.5-51.1); % Monocytes 7.4 % (1.7-9.3); % Neutrophils 83.9 % (42.2-75.2); Absolute Basophils 0.1 10^3/uL (0-0.2); Absolute Lymphocytes 0.6 10^3/uL (1.2-3.4); Absolute Monocytes 0.6 10^3/uL (0.1-0.6); Absolute Neutrophils 7.3 10^3/uL (1.4-6.5); Hematocrit 38.1 % (39.0-52.0); Hemoglobin 12.7 g/dL (13.0-18.0); Mean Corp Hgb Conc. 33.3 g/dL (33.0-37.0); Mean Corpuscular Hgb 25.6 pg (27.0-31.0); Mean Corpuscular Volume 76.7 fL (80.0-94.0); Mean Platelet Volume 8.6 fL (7.4-10.4); Nucleated Red Blood Cells % 0 % (-); Platelet Count 238 10^3/uL (130-400); Red Blood Cell Count 4.97 10^6/uL (4.70-6.10); Red Cell Dist. Width 15.2 % (11.5-14.5); White Blood Cell Count 8.7 10^3/uL (4.8-10.8)
[2023-11-15 13:13] LABS: ALT (SGPT) 41 U/L (0-50); AST (SGOT) 97 U/L (17-59); Albumin 4.4 g/dl (3.5-5.0); Alkaline Phosphatase 177 U/L (38-126); Blood Urea Nitrogen 13 mg/dl (9-20); Calcium 9.3 mg/dl (8.4-10.2); Carbon Dioxide 26 mmol/L (22-30); Chloride 81 mmol/L (98-107); Estimated Creatinine Clearance > 125 ml/min; Glucose 137 mg/dl (70-99); Potassium 3.5 mmol/L (3.5-5.1); Sodium 123 mmol/L (135-145); Total Bilirubin 1.4 mg/dl (0.2-1.3); Total Protein 8.3 g/dl (6.3-8.2); eGFR > 60.00
--- NOTE | 2023-11-15 15:07 | HPS.HSE ---
Family Physician
-
Family Physician: NOT KNOW UNKNOWN - PT DOES
Chief Complaint
-
Nausea
History of Present Illness
63M Obesity Afib HTN Gout chronic hypomagnesemia ETOH use d/o p/w nausea dry heaves shaking patient attributes to alcohol withdrawal. Patient was recently evaluated and treated at this facility for alcohol withdrawal early September 2023. Since
discharge patient reports obtaining dental implants and subsequently starting drinking heavily for the last month d/t the pain. Reports trying to taper himself to 3 glasses of vodka yesterday and subsequently started familiar symptoms of
withdrawal. Symptoms improve in ED with once IV ativan 2 mg. However ED evaluation was notable for afib rvr hypertensive urgency and Hyponatremia 123. Patient subsequently admitted for further evaluation mgmt alcohol withdrawal, afib rvr, and
hyponatremia.
Medical History
Past Medical History
Past Medical History: Reports Other (as above)
Past Surgical History: Reports Other (as above)
Social History
Tobacco: Non-smoker
Alcohol: Daily
Drug: None
Personal:
Living: With Family
Employment: Employed
Family History
Family History: Not pertinent (reviewed)
Allergies / Home Medications
Allergies reflects when Allergies were last updated in [employer]
Home Medications with original date entered in [employer]
Allergy/Medication List:
Allergies
Allergy/AdvReac Type Severity Reaction Status Date / Time
losartan potassium Allergy Swelling Verified 10/16/21 19:18
[From Cozaar]
Home Medications
apixaban 5 mg tablet (Eliquis) 5 mg PO BID Blood Clot Prevention/Tx 11/15/23
diltiazem HCl 240 mg capsule,extended release 24 hr 240 mg PO DAILY Arrhythmia 11/15/23
magnesium oxide 500 mg PO DAILY Electrolyte Repletion 11/15/23
metoprolol succinate 100 mg tablet,extended release 24 hr 100 mg PO BID Blood Pressure 11/15/23
Review of Systems
-
A 12 point ROS was completed and negative except as noted: Yes
Constitutional: Reports Other (as below)
Physical Exam
Vital Signs
Vital Signs
Temp Pulse Resp BP Pulse Ox
98.7 F 101 23 169/106 92
11/15/23 12:24 11/15/23 15:00 11/15/23 15:00 11/15/23 14:00 11/15/23 15:00
Physical Exam
General: Other (as below)
Laboratory Results
-
11/15/23 12:32
11/15/23 12:32
Laboratory Results
Total Bilirubin 1.4 mg/dl (0.2-1.3) H 11/15/23 12:32
AST 97 U/L (17-59) H 11/15/23 12:32
ALT 41 U/L (0-50) 11/15/23 12:32
Alkaline Phosphatase 177 U/L (38-126) H 11/15/23 12:32
Impression/Plan
-
ROS
General: Denies fever chills unexpected weight loss, reports sweating
Neuro: Denies seizure loss of consciousness reports dizziness shaking
Psych: denies depression hallucinations confusion manic episodes
Endocrine: Denies polyuria polydipsia polyphagia heat/cold intolerance
HEENT: Denies blindness visual disturbances epistaxis
Pulmonary: denies coughing hemoptysis sneezing sob dyspnea on exertion
Cardiovascular: denies chest pain palpitations leg swelling
Hematology: denies signs symptoms of anemia easy bruising/bleeding
Gastrointestinal: reports nausea dry heaves
Genito-Urinary: denies retention incontinence dysuria
Musculoskeletal: denies joint pain weakness
Dermatology: denies rash laceration bruising
Physical Exam
General: No pallor, cyanosis, or jaundice Obese
HEENT: Throat clear. PERRLA Normocephalic atraumatic
NECK: Supple. No JVD Carotid Bruits
RESPIRATORY: Lungs clear to auscultation. No crackles wheezes stridor
CVS: Irregularly Irregular tachy
ABDOMEN: Soft, non-tender. No distension. BS+/normal.
EXTREMITIES: No peripheral cyanosis or edema.
CAR MANAGER: AOx3 fine tremors noted on outstretched hands
IMPRESSION:
63M Obesity Afib HTN Gout chronic hypomagnesemia ETOH use d/o p/w nausea dry heaves shaking patient attributes to alcohol withdrawal. Patient was recently evaluated and treated at this facility for alcohol withdrawal early September 2023. Since
discharge patient reports obtaining dental implants and subsequently starting drinking heavily for the last month d/t the pain. Reports trying to taper himself to 3 glasses of vodka yesterday and subsequently started familiar symptoms of
withdrawal. Symptoms improve in ED with once IV ativan 2 mg. However ED evaluation was notable for afib rvr hypertensive urgency and Hyponatremia 123. Patient subsequently admitted for further evaluation mgmt alcohol withdrawal, afib rvr, and
hyponatremia.
PLAN:
#Hyponatremia likely 2/2 ETOH abuse
received 1L NS bolus in ED
monitor Na
Fluid restriction 60 oz
#A-fib with RVR
-Patient reports compliance with medications, though with alcohol abuse withdrawal nausea, unclear how much and how consistently patient has actually received.
-IVU admit dilt gtt, IV lopressor prn for now
-cont home metoprolol with holding parameters tonight, eventually restart home cardizem PO in AM depending on clinical progress.
-Home Eliquis continued
# Primary hypertension likely elevated in the setting of withdrawal
-Cardizem, Metoprolol as above
-prn Hydralazine SBP>160 or DBP>100
# Alcohol withdrawal
# Daily Heavy Drinking
#mild transaminitis likely d/t alcohol abuse (LFTs improved from prior values however)
Case mgmt consult
Cont MSAS protocol
Ativan prn
Thiamine Folate supplementation
PT/OT eval
#Chronic Hypomagnesemia
cont jaida oral Mag
check level
# DVT prophylaxis
-Eliquis
# CODE STATUS
-Full code
I spent a total of 80 minutes with the patient or on the floor. More than 50% of this time involved counseling and coordination of care.
[2023-11-15] MEDS: CARDIZEM 125 IV (15:47)
[2023-11-15] MEDS: ATIVAN 1 MG PO ×2 (17:05→19:10)
[2023-11-15] MEDS: MAGNESIUM SULFATE 100 IV (17:49)
--- NOTE | 2023-11-15 19:33 | PTCARENOTE ---
Received patient from the ED to 2244. IV cardizem infusing at 5mg/hr, remains in AF with HR 100's. Mag rider ordered, INT LAC flushed and infiltrated. IV access obtained by IV team. Oriented to the room and plan of care. Admission assessment
completed. Patient appears calm and is cooperative. Call george within reach.
[2023-11-15] MEDS: ELIQUIS 5 MG PO (19:56)
[2023-11-15] MEDS: THIAMINE INJECTION 200 MG IV (19:56)
[2023-11-15] MEDS: TOPROL XL 100 MG PO (19:56)
--- NOTE | 2023-11-15 20:00 | PTCARENOTE ---
Received pt at handoff. AOX3. Drowsy but arousable to voice. Tele- afib w/ pvcs. Cardizem gtt infusing at 5ml/hr in L arm and Magnesium gtt infusing at 25ml/hr in R arm. At 1905 pt rings and reports 'feeling funny.' Appears anxious. BP 163/113. HR
100s. POX 97% RA. MSAS 5. Pt reports feeling tingling in feet. Mildly diaphoretic. Reports feeling nausea but no vomiting. 1mg PO ativan given as ordered per MSAS protocol. Pt reports drinking about 1 pint per day before coming into the hospital.
Plan of care reviewed w/ pt. Call ariel w/in reach.
--- NOTE | 2023-11-15 21:10 | PTCARENOTE ---
Pt reports feeling better. MSAS 3. HR 100s. Mildly diaphoretic. Pt remains drowsy and arousable to voice. Currently in bed; call george w/in reach.
[2023-11-16] VITALS (13 sets, daily range): BP systolic 96–147; BP diastolic 51–97; PULSE 111–128; O2SAT 93; BMI 35.8
[2023-11-16 05:03] LABS: Hematocrit 36.6 % (39.0-52.0); Hemoglobin 12.2 g/dL (13.0-18.0); Mean Corp Hgb Conc. 33.3 g/dL (33.0-37.0); Mean Corpuscular Hgb 25.6 pg (27.0-31.0); Mean Corpuscular Volume 76.9 fL (80.0-94.0); Mean Platelet Volume 8.8 fL (7.4-10.4); Platelet Count 245 10^3/uL (130-400); Red Blood Cell Count 4.76 10^6/uL (4.70-6.10); Red Cell Dist. Width 15.7 % (11.5-14.5); White Blood Cell Count 11.5 10^3/uL (4.8-10.8)
[2023-11-16 06:26] LABS: Blood Urea Nitrogen 16 mg/dl (9-20); Calcium 9.1 mg/dl (8.4-10.2); Carbon Dioxide 32 mmol/L (22-30); Chloride 84 mmol/L (98-107); Estimated Creatinine Clearance > 125 ml/min; Glucose 108 mg/dl (70-99); Magnesium 1.9 mg/dl (1.6-2.3); Potassium 4.1 mmol/L (3.5-5.1); Sodium 124 mmol/L (135-145); eGFR > 60.00
--- NOTE | 2023-11-16 07:25 | W.PN.HOSP.TC ---
Today's Communication/Plan
-
MSAS protocol
blood pressure control
rate control
cont anticoagulation
PT/OT
Avoid QT prolonging medications
Assessment / Plan
Assessment / Plan
Physical Exam
General: No pallor, cyanosis, or jaundice Obese
HEENT: Throat clear. PERRLA Normocephalic atraumatic
NECK: Supple. No JVD Carotid Bruits
RESPIRATORY: Lungs clear to auscultation. No crackles wheezes stridor
CVS: Irregularly Irregular tachy
ABDOMEN: Soft, non-tender. No distension. BS+/normal.
EXTREMITIES: No peripheral cyanosis or edema.
SEARCH ANALYST: AOx3
IMPRESSION:
63M Obesity Afib HTN Gout chronic hypomagnesemia ETOH use d/o p/w nausea dry heaves shaking patient attributes to alcohol withdrawal. Patient was recently evaluated and treated at this facility for alcohol withdrawal early September 2023. Since
discharge patient reports obtaining dental implants and subsequently starting drinking heavily for the last month d/t the pain. Reports trying to taper himself to 3 glasses of vodka yesterday and subsequently started familiar symptoms of
withdrawal. Symptoms improve in ED with once IV ativan 2 mg. However ED evaluation was notable for afib rvr hypertensive urgency and Hyponatremia 123. Patient subsequently admitted for further evaluation mgmt alcohol withdrawal, afib rvr, and
hyponatremia.
PLAN:
#Hyponatremia likely 2/2 ETOH abuse
received 1L NS bolus in ED
monitor Na
Fluid restriction 60 oz
#A-fib with RVR
#QT prolongation
-Patient reports compliance with medications, though with alcohol abuse withdrawal nausea, unclear how much and how consistently patient has actually received.
-IVU admit dilt gtt transitioned to home PO cardizem
-IV lopressor prn
-cont home metoprolol with holding parameters
-Home Eliquis continued
-Cardio eval appreciated
-monitor and replete electrolytes as necessary
Mentation slow possible metabolic encephalopathy
-CT head appreciated no acute abn's, small to mod volume of nonspecific leukoariosis
-MRI head appreciated not acute abn's, signs of relatively advanced atrophy for patient's age noted
# Primary hypertension likely elevated in the setting of withdrawal
-Cardizem, Metoprolol as above
-prn Hydralazine SBP>160 or DBP>100
# Alcohol withdrawal
# Daily Heavy Drinking
#mild transaminitis likely d/t alcohol abuse (LFTs improved from prior values however)
Case mgmt consult
Cont MSAS protocol
Ativan prn
Thiamine Folate supplementation
PT/OT eval
#Chronic Hypomagnesemia
cont jaida oral Mag
check level
# DVT prophylaxis
-Eliquis
PT/OT appreciated home health
# CODE STATUS
-Full code
Discussed with patient at bedside and patient's Deborah over phone
I spent a total of 56 minutes with the patient or on the floor. More than 50% of this time involved counseling and coordination of care.
Anticipated Discharge: > 48 hours
Subjective/Interval History
-
Date of Service: November 16, 2023
Seen and examined at bedside in no acute distress sitting up comfortably in chair. Reports overall feeling well resolution of numbness sensation lips.
Objective Data
-
Labs:
Laboratory Results
11/16/23 11/16/23
04:33 05:54
WBC 11.5 H
Hgb 12.2 L
Hct 36.6 L
Plt Count 245
Sodium Cancelled 124 L
Potassium Cancelled 4.1
Chloride Cancelled 84 L
Carbon Dioxide Cancelled 32 H
BUN Cancelled 16
Creatinine Cancelled 0.8
Glucose Cancelled 108 H
Calcium Cancelled 9.1
Vital Signs:
Vital Signs
Temp Pulse Resp BP Pulse Ox
98.2 F 65 22 105/51 95
11/16/23 07:07 11/16/23 07:07 11/16/23 07:07 11/16/23 07:07 11/16/23 07:07
I&O
11/15/23 11/16/23 11/17/23
06:59 06:59 06:59
Intake Total 540 / 540
Output Total 1700 / 1700
Balance -1160 / -1160
[2023-11-16] MEDS: CARDIZEM CD 240 MG PO (08:52)
[2023-11-16] MEDS: ELIQUIS 5 MG PO ×2 (08:55→19:53)
[2023-11-16] MEDS: TOPROL XL 100 MG PO ×2 (08:55→19:53)
[2023-11-16] MEDS: FOLVITE 1 MG PO (08:55)
[2023-11-16] MEDS: THIAMINE INJECTION 200 MG IV ×2 (08:56→19:53)
[2023-11-16] MEDS: MAGNESIUM OXIDE 500 MG PO (08:56)
--- NOTE | 2023-11-16 10:10 | CON.CAR ---
Addendum entered and electronically signed by Ana Paula Sandoval MD 11/16/23 11:59:
I saw and examined the patient.
The SIGNAL TOWER DIRECTOR's note was reviewed and I agree with the note.
Comment: He is feeling much better. Rates are improved with home medications. He is withdrawing from ETOH so may see some lability in his rates. Continue current medications.
Original Note:
Consultation
Consultation Request
Date/Time Consultation Requested: 11/16/23 9:20a
Date/Time Consultation Performed: 11/16/23 10a
Requesting Provider: Dr. Ochoa
Performing Provider: YOANA Frausto for Dr. Sandoval
Reason for Consultation: rapid Afib
Medical History
-
Chief Complaint: ETOH withdrawl
History of Present Illness:
Mr. Suárez is a 63 yo male with paroxysmal atrial fibrillation on Eliquis (DCCV 10/2021), nonischemic cardiomyopathy EF 40% 10/2021 echo now with improved EF 50-55% on echo 10/01/23 and 04/2023, obesity, and EtOH abuse,�who presents to the ER with ETOH
withdrawal symptoms. He usually drinks a pint of ETOH a day and tried cutting back to 3 drinks a day, then yesterday he stopped drinking completely. He is admitted to the hospitalist service and we are consulted for rapid Afib rates and
hypertensive emergency on admit. He denies any cardiac symptoms presently. He is continued on his outpatient Toprol and Diltiazem and Eliquis. He is unaware of his irregular rapid heart beat currently. OAC with Eliquis, no missed doses or
abnormal bleeding. �
Past Medical History
Past Medical History: Other (as above)
Past Surgical History: Other (as above)
Social History
Tobacco: Non-Smoker
Alcohol: Daily
Employment: Employed
Family History
Family History: Reviewed & Not Pertinent
Allergies / Home Medications
Allergy/AdvReac Type Severity Reaction Status Date / Time
losartan potassium Allergy Swelling Verified 10/16/21 19:18
[From [facility]]
�Medication �Instructions �Recorded �Confirmed �Type
apixaban 5 mg tablet (Eliquis) 5 mg PO BID Blood Clot 11/15/23 11/15/23 History
Prevention/Tx
diltiazem HCl 240 mg 240 mg PO DAILY Arrhythmia 11/15/23 11/15/23 History
capsule,extended release 24 hr
magnesium oxide 500 mg PO DAILY Electrolyte 11/15/23 11/15/23 History
Repletion
metoprolol succinate 100 mg 100 mg PO BID Blood Pressure 11/15/23 11/15/23 History
tablet,extended release 24 hr
Review of Systems
-
History Source: Patient
All other systems: Negative unless noted
Physical Exam
Vital Signs
Temp Pulse Resp BP Pulse Ox
98.2 F 123 22 97/68 92
11/16/23 07:07 11/16/23 10:04 11/16/23 07:07 11/16/23 10:04 11/16/23 10:04
Lab Results
11/16/23 04:33
11/16/23 05:54
Physical Exam
General: Well Developed, No Apparent Distress and Other (morbidly obese)
HEENT: Normocephalic and Anicteric
Respiratory: Clear and Non Labored Respirations
Cardiac: S1/S2 and Irregular Rhythm (rapid Afib)
Breast: Deferred by me
GI: Soft, Non Tender and Normal Bowel Sounds
Rectal: Deferred by Provider
Genito-urinary: No Costovertebral Tender
Musculoskeletal: No Clubbing, No Cyanosis and No Edema
Skin: Warm and Dry
Neuro: AO x 3
Hematologic/Lymphatic: No Lymphadenopathy
Psych: Calm
Impression / Plan
-
Afib - paroxysmal, recurrent.
- in the setting of acute ETOH withdrawal and HTN emergency.
- rates improving with Toprol and Diltiazem PO, continue.
- OAC with Eliquis, no missed doses or abnormal bleeding, continue Eliquis.
HTN emergency - acute on admit.
- improved BP on meds, continue.
NICM - resolved, normal LVEF 50-55% on echo 09/2023.
- continue Toprol and Diltiazem.
ETOH abuse - acute withdrawal symptoms.
- he tried to cut back on ETOH then stopped yesterday at home.
- h/o rehab/withdrawal symptoms September 2023.
Morbid obesity - chronic.
- lifestyle modifications, diet/exercise guidelines were reviewed with patient.
Data Reviewed
-
EKG: Other (ordered EKG today)
Medical Tests (Nuc Med, Echo etc): Report Reviewed by me (echo 10/01/23: EF 50-55%, enlarged RV with normal RV function. echo 04/25/2023: EF 50 to 55%. Prior echo 10/19/2021 with EF 40%)
Labs: Labs Reviewed by me
Old Records: Reviewed
[2023-11-16 10:56] LABS: Iron 112 ug/dl (49-181)
[2023-11-16 11:05] LABS: Percent Saturation 27 % (20-50); Total Iron Binding Capacity 411 ug/dl (261-462)
[2023-11-16 12:30] LABS: Venous Blood Gas HCO3 32.5 mmol/L (22-27); Venous Blood Gas pCO2 49 mmHg (35-48); Venous Blood Gas pH 7.43 (7.32-7.43); Venous Blood Gas pO2 69 mmHg (30-50)
[2023-11-16 12:55] LABS: Folate > 20.0 ng/ml (2.76-20); Vitamin B12 668 pg/ml (239-931)
--- NOTE | 2023-11-16 15:22 | CM ---
spoke to pt in room, he is prev indep, lives with his in a 2 story home with 2 steps to enter. he refused any etoh conseling information or [employer] phone number. he denies any dc planning needs. plan is for dc to home when medically stable.
[2023-11-16] MEDS: MELATONIN 5 MG PO (22:17)
[2023-11-17] VITALS (7 sets, daily range): BP systolic 111–142; BP diastolic 72–92
--- NOTE | 2023-11-17 00:47 | PTCARENOTE ---
Assumed care of patient at change of shift. Patient AAOx3, tele monitor shows Afib w/ BBBC, and HR in the 90-110's. Denies any pain. Patient rings appropriately for assistance, and requires standby assist to bathroom. Denies any dizziness. MSAS
scored a 1-2 d/t HR. Call george in reach.
[2023-11-17 03:02] LABS: Hematocrit 32.5 % (39.0-52.0); Hemoglobin 11.1 g/dL (13.0-18.0); Mean Corp Hgb Conc. 34.2 g/dL (33.0-37.0); Mean Corpuscular Volume 76.1 fL (80.0-94.0); Mean Platelet Volume 8.6 fL (7.4-10.4); Platelet Count 214 10^3/uL (130-400); Red Blood Cell Count 4.27 10^6/uL (4.70-6.10); Red Cell Dist. Width 15.9 % (11.5-14.5); White Blood Cell Count 12.7 10^3/uL (4.8-10.8)
[2023-11-17 03:28] LABS: Blood Urea Nitrogen 20 mg/dl (9-20); Calcium 10.3 mg/dl (8.4-10.2); Carbon Dioxide 28 mmol/L (22-30); Chloride 85 mmol/L (98-107); Estimated Creatinine Clearance 75 ml/min; Glucose 110 mg/dl (70-99); Magnesium 1.7 mg/dl (1.6-2.3); Phosphorus 2.5 mg/dl (2.5-4.5); Potassium 3.7 mmol/L (3.5-5.1); Sodium 124 mmol/L (135-145); eGFR 56.83
--- NOTE | 2023-11-17 08:23 | W.PN.HOSP.TC ---
Today's Communication/Plan
-
IVF NS gentle hydration HORTENSIA
cont diet fluid restriction for hyponatremia
Alcohol withdrawal protocol
start prednisone for gout flare
Assessment / Plan
Assessment / Plan
Physical Exam
General: No pallor, cyanosis, or jaundice Obese
HEENT: Throat clear. PERRLA Normocephalic atraumatic
NECK: Supple. No JVD Carotid Bruits
RESPIRATORY: Lungs clear to auscultation. No crackles wheezes stridor
CVS: Irregularly Irregular tachy
ABDOMEN: Soft, non-tender. No distension. BS+/normal.
EXTREMITIES: No peripheral cyanosis or edema. Erythema tenderness swelling b/l feet big toes
RELATIONSHIP CONSULTANT: AOx3
IMPRESSION:
63M Obesity Afib HTN Gout chronic hypomagnesemia ETOH use d/o p/w nausea dry heaves shaking patient attributes to alcohol withdrawal. Patient was recently evaluated and treated at this facility for alcohol withdrawal early September 2023. Since
discharge patient reports obtaining dental implants and subsequently starting drinking heavily for the last month d/t the pain. Reports trying to taper himself to 3 glasses of vodka yesterday and subsequently started familiar symptoms of
withdrawal. Symptoms improve in ED with once IV ativan 2 mg. However ED evaluation was notable for afib rvr hypertensive urgency and Hyponatremia 123. Patient subsequently admitted for further evaluation mgmt alcohol withdrawal, afib rvr, and
hyponatremia.
PLAN:
#A-fib with RVR
#QT prolongation
-Patient reports compliance with medications, though with alcohol abuse withdrawal nausea, unclear how much and how consistently patient has actually received.
-IVU admit dilt gtt transitioned to home PO cardizem
-IV lopressor prn
-cont home metoprolol with holding parameters
-Home Eliquis continued
-Cardio eval appreciated
-monitor and replete electrolytes as necessary
Mentation slow possible metabolic encephalopathy
-CT head appreciated no acute abn's, small to mod volume of nonspecific leukoariosis
-MRI head appreciated not acute abn's, signs of relatively advanced atrophy for patient's age noted
-mentation since improved
# Primary hypertension likely elevated in the setting of withdrawal
-Cardizem, Metoprolol as above
-prn Hydralazine SBP>160 or DBP>100
# Alcohol withdrawal
# Daily Heavy Drinking
#mild transaminitis likely d/t alcohol abuse (LFTs improved from prior values however)
Case mgmt consult
Cont MSAS protocol
Ativan prn
Thiamine Folate supplementation
PT/OT eval
#Hyponatremia likely 2/2 ETOH abuse
received 1L NS bolus in ED
monitor Na
Fluid restriction 60 oz reduced to 50 oz with persistent hyponatremia
HORTENSIA
likely prerenal dehydration
IVF gentle hydration
#Hypomagnesemia
Initial Mg 1.0 since improved
monitor and replete as necessary
#Gout flare
prednisone 40 mg daily started
# DVT prophylaxis
-Eliquis
PT/OT appreciated home health
# CODE STATUS
-Full code
Discussed with patient at bedside and patient's Deborah over phone
I spent a total of 56 minutes with the patient or on the floor. More than 50% of this time involved counseling and coordination of care.
Anticipated Discharge: 24 - 48 hours
Subjective/Interval History
-
Date of Service: November 17, 2023
New onset b/l feet pain. Patient reports similar to prior gout attacks. Tremors resolved.
Objective Data
-
Labs:
Laboratory Results
11/17/23
02:52
WBC 12.7 H
Hgb 11.1 L
Hct 32.5 L
Plt Count 214
Sodium 124 L
Potassium 3.7
Chloride 85 L
Carbon Dioxide 28
BUN 20
Creatinine 1.4 H
Glucose 110 H
Calcium 10.3 H
Vital Signs:
Vital Signs
Temp Pulse Resp BP Pulse Ox
98.6 F 100 22 137/88 94
11/17/23 08:20 11/17/23 05:00 11/17/23 08:20 11/17/23 02:41 11/17/23 08:20
I&O
11/16/23 11/17/23 11/18/23
06:59 06:59 06:59
Intake Total 540 / 540 240 / 240
Output Total 1700 / 1700
Balance -1160 / -1160 240 / 240
[2023-11-17] MEDS: CARDIZEM CD 240 MG PO (09:10)
[2023-11-17] MEDS: FOLVITE 1 MG PO (09:11)
[2023-11-17] MEDS: ELIQUIS 5 MG PO ×2 (09:11→20:05)
[2023-11-17] MEDS: TOPROL XL 100 MG PO ×2 (09:11→20:04)
[2023-11-17] MEDS: MAGNESIUM OXIDE 500 MG PO (09:11)
[2023-11-17] MEDS: THIAMINE INJECTION 200 MG IV ×2 (09:12→20:05)
[2023-11-17] MEDS: DELTASONE 40 MG PO (10:20)
[2023-11-17] MEDS: NSS 1000 IV ×2 (10:22→23:36)
--- NOTE | 2023-11-17 14:19 | W.PN.CD ---
Today's Communication / Plan
-
cotninue typical op medications
I will sign off an return as needed.
Impression / Plan
-
Afib - paroxysmal, recurrent.
- in the setting of acute ETOH withdrawal and HTN emergency.
- rates improving with Toprol and Diltiazem PO, continue.
- OAC with Eliquis, no missed doses or abnormal bleeding, continue Eliquis.
-continue current doses, some mariam noted with sleep but likely sleep apnea--recommend op eval
HTN emergency - acute on admit.
- improved BP on meds, continue.
NICM - resolved, normal LVEF 50-55% on echo 09/2023.
- continue Toprol and Diltiazem.
ETOH abuse - acute withdrawal symptoms.
- he tried to cut back on ETOH then stopped yesterday at home.
- h/o rehab/withdrawal symptoms September 2023.
Morbid obesity - chronic.
- lifestyle modifications, diet/exercise guidelines were reviewed with patient.
Sujective:
he has no complaint
Physical Exam
Vital Signs/Labs
Vital Signs
Temp Pulse Resp BP Pulse Ox
98.3 F 102 20 118/85 95
11/17/23 11:42 11/17/23 12:00 11/17/23 11:42 11/17/23 11:43 11/17/23 11:42
11/16/23 11/17/23 11/18/23
06:59 06:59 06:59
Actual Weight 125.5 kg 123 kg
11/17/23 02:52
11/17/23 02:52
Magnesium 1.7 mg/dl (1.6-2.3) 11/17/23 02:52
Physical Exam
Constitutional: No acute distress, Comfortable and Confusion
Cardiovascular: Pedal edema is absent, JVD pressure is normal, Systolic murmur absent, Diastolic murmur absent and Rhythm/rate is irregular
Respiratory: Respiratory effort normal, Lungs clear to auscul., Wheeze Absent, Crackles Absent and Rhonchi Absent
Neuro/Psych: AO x 3
Data Reviewed
-
Date of Service: November 17, 2023
--- NOTE | 2023-11-17 16:10 | PTCARENOTE ---
Pt remains in atrial fib with RBBB at a rate 90-120's. Some bradycardia noted while pt was sleeping down to 37-40's, pt denies any knowledge of having sleep apnea, 2L oxygen placed on pt while sleeping. notified.
--- NOTE | 2023-11-17 17:21 | PTCARENOTE ---
Pt reported 'flare up' of his gout in both feet with pain rated at 5/10. notified, prednisone given, pain stayed @4-5/10 which pt states is acceptable.
[2023-11-18] VITALS (8 sets, daily range): BP systolic 110–151; BP diastolic 67–95; PULSE 80; O2SAT 94; BMI 36.0
[2023-11-18 04:36] LABS: Hemoglobin 11.3 g/dL (13.0-18.0); Mean Corp Hgb Conc. 32.3 g/dL (33.0-37.0); Mean Corpuscular Volume 80.5 fL (80.0-94.0); Mean Platelet Volume 9.1 fL (7.4-10.4); Platelet Count 250 10^3/uL (130-400); Red Blood Cell Count 4.35 10^6/uL (4.70-6.10); Red Cell Dist. Width 15.9 % (11.5-14.5); White Blood Cell Count 11.2 10^3/uL (4.8-10.8)
[2023-11-18 05:02] LABS: Blood Urea Nitrogen 21 mg/dl (9-20); Calcium 10.3 mg/dl (8.4-10.2); Carbon Dioxide 30 mmol/L (22-30); Chloride 87 mmol/L (98-107); Estimated Creatinine Clearance 81 ml/min; Glucose 115 mg/dl (70-99); Magnesium 1.7 mg/dl (1.6-2.3); Phosphorus 4.3 mg/dl (2.5-4.5); Potassium 4.3 mmol/L (3.5-5.1); Sodium 126 mmol/L (135-145); eGFR > 60.00
--- NOTE | 2023-11-18 07:58 | W.PN.HOSP.TC ---
Today's Communication/Plan
-
Stable for downgrade to Tele
cont fluid restriction, IVF NS
monitor Na renal function
cont steroids
ETOH withdrawal appears resolved at this time
Assessment / Plan
Assessment / Plan
Physical Exam
General: No pallor, cyanosis, or jaundice Obese
HEENT: Throat clear. PERRLA Normocephalic atraumatic
NECK: Supple. No JVD Carotid Bruits
RESPIRATORY: Lungs clear to auscultation. No crackles wheezes stridor
CVS: Irregularly Irregular tachy
ABDOMEN: Soft, non-tender. No distension. BS+/normal.
EXTREMITIES: No peripheral cyanosis or edema. Erythema tenderness swelling b/l feet big toes
CHROME PLATER: AOx3
IMPRESSION:
63M Obesity Afib HTN Gout chronic hypomagnesemia ETOH use d/o p/w nausea dry heaves shaking patient attributes to alcohol withdrawal. Patient was recently evaluated and treated at this facility for alcohol withdrawal early September 2023. Since
discharge patient reports obtaining dental implants and subsequently starting drinking heavily for the last month d/t the pain. Reports trying to taper himself to 3 glasses of vodka yesterday and subsequently started familiar symptoms of
withdrawal. Symptoms improve in ED with once IV ativan 2 mg. However ED evaluation was notable for afib rvr hypertensive urgency and Hyponatremia 123. Patient subsequently admitted for further evaluation mgmt alcohol withdrawal, afib rvr, and
hyponatremia.
PLAN:
#A-fib with RVR
#QT prolongation
-Patient reports compliance with medications, though with alcohol abuse withdrawal nausea, unclear how much and how consistently patient has actually received.
-IVU admit dilt gtt transitioned to home PO cardizem
-IV lopressor prn
-cont home metoprolol with holding parameters
-Home Eliquis continued
-Cardio eval appreciated
-monitor and replete electrolytes as necessary
Mentation slow possible metabolic encephalopathy
-CT head appreciated no acute abn's, small to mod volume of nonspecific leukoariosis
-MRI head appreciated not acute abn's, signs of relatively advanced atrophy for patient's age noted
-mentation since improved, appears baseline at this time
# Primary hypertension likely elevated in the setting of withdrawal
-Cardizem, Metoprolol as above
-prn Hydralazine SBP>160 or DBP>100
# Alcohol withdrawal
# Daily Heavy Drinking
#mild transaminitis likely d/t alcohol abuse (LFTs improved from prior values however)
Case mgmt consult
Cont MSAS protocol
Ativan prn (has not required since 11/14)
Thiamine Folate supplementation
#Hyponatremia likely 2/2 ETOH abuse
monitor Na
Fluid restriction 60 oz reduced to 50 oz with persistent hyponatremia, cont
HORTENSIA
likely prerenal dehydration
IVF gentle hydration, cont
#Hypomagnesemia
Initial Mg 1.0 since improved
monitor and replete as necessary
#Gout flare
prednisone 40 mg daily started, cont
# DVT prophylaxis
-Eliquis
PT/OT appreciated no needs
# CODE STATUS
-Full code
Medically stable for downgrade to Tele
Discussed with patient at bedside and patient's Deborah over phone
I spent a total of 50 minutes with the patient or on the floor. More than 50% of this time involved counseling and coordination of care.
Anticipated Discharge: 24 - 48 hours
Subjective/Interval History
-
Date of Service: November 18, 2023
Reports bilateral feet pain but otherwise feels well. Withdrawal symptoms resolved.
Objective Data
-
Labs:
Laboratory Results
11/18/23
04:00
WBC 11.2 H
Hgb 11.3 L
Hct 35.0 L
Plt Count 250
Sodium 126 L
Potassium 4.3
Chloride 87 L
Carbon Dioxide 30
BUN 21 H
Creatinine 1.3
Glucose 115 H
Calcium 10.3 H
Vital Signs:
Vital Signs
Temp Pulse Resp BP Pulse Ox
98.0 F 96 18 143/92 94
11/18/23 07:54 11/18/23 07:50 11/18/23 07:54 11/18/23 07:50 11/18/23 07:54
I&O
11/17/23 11/18/23 11/19/23
06:59 06:59 06:59
Intake Total 240 / 240 2430 / 2430
Balance 240 / 240 2430 / 2430
[2023-11-18] MEDS: FOLVITE 1 MG PO (08:39)
[2023-11-18] MEDS: ELIQUIS 5 MG PO ×2 (08:39→19:55)
[2023-11-18] MEDS: TOPROL XL 100 MG PO ×2 (08:39→19:56)
[2023-11-18] MEDS: MAGNESIUM OXIDE 500 MG PO (08:39)
[2023-11-18] MEDS: DELTASONE 40 MG PO (08:39)
[2023-11-18] MEDS: CARDIZEM CD 240 MG PO (08:39)
[2023-11-18] MEDS: THIAMINE INJECTION 200 MG IV (08:40)
[2023-11-18] MEDS: NSS 1000 IV (13:38)
--- NOTE | 2023-11-18 19:31 | PTCARENOTE ---
Pt reports that his gout pain is under control at a 09/25. Pt seen by PT and walked independently in halls. Telemetry shows atrial fib with RBBB at a rate of 80-110.IV fluids continuing today.
[2023-11-18] MEDS: VITAMIN B1 100 MG PO (19:56)
[2023-11-19] VITALS (11 sets, daily range): BP systolic 129–147; BP diastolic 79–102; BMI 36.9
[2023-11-19] MEDS: NSS 1000 IV (03:24)
[2023-11-19 04:19] LABS: Hematocrit 31.2 % (39.0-52.0); Mean Corp Hgb Conc. 32.1 g/dL (33.0-37.0); Mean Corpuscular Hgb 25.9 pg (27.0-31.0); Mean Corpuscular Volume 80.8 fL (80.0-94.0); Platelet Count 214 10^3/uL (130-400); Red Blood Cell Count 3.86 10^6/uL (4.70-6.10); Red Cell Dist. Width 16.5 % (11.5-14.5); White Blood Cell Count 15.2 10^3/uL (4.8-10.8)
[2023-11-19 04:40] LABS: Calcium 9.9 mg/dl (8.4-10.2); Carbon Dioxide 29 mmol/L (22-30); Estimated Creatinine Clearance 76 ml/min; Magnesium 1.6 mg/dl (1.6-2.3); Phosphorus 4.5 mg/dl (2.5-4.5); eGFR 56.83
[2023-11-19 04:50] LABS: Blood Urea Nitrogen 30 mg/dl (9-20); Chloride 95 mmol/L (98-107); Glucose 97 mg/dl (70-99); Potassium 4.5 mmol/L (3.5-5.1); Sodium 132 mmol/L (135-145)
[2023-11-19] MEDS: DELTASONE 40 MG PO (09:08)
[2023-11-19] MEDS: VITAMIN B1 100 MG PO ×2 (09:08→20:07)
[2023-11-19] MEDS: CARDIZEM CD 240 MG PO (09:09)
[2023-11-19] MEDS: ELIQUIS 5 MG PO ×2 (09:09→20:06)
[2023-11-19] MEDS: FOLVITE 1 MG PO (09:09)
[2023-11-19] MEDS: MAGNESIUM OXIDE 500 MG PO ×2 (09:09→20:06)
[2023-11-19] MEDS: TOPROL XL 100 MG PO ×2 (09:10→20:06)
--- NOTE | 2023-11-19 09:35 | W.PN.HOSP.TC ---
Today's Communication/Plan
-
Check urinalysis, urine sodium
Bladder scan
Change fluids to hypertonic
Assessment / Plan
Assessment / Plan
CVS: S1-S2 normal
Chest: CTA B/L
Abdomen: Soft, NT / Bowel sounds present
Extremities: No edema, normal pulses
PLUGGER: Non focal exam
63M Obesity Afib HTN Gout chronic hypomagnesemia ETOH use d/o p/w nausea dry heaves shaking patient attributes to alcohol withdrawal. Patient was recently evaluated and treated at this facility for alcohol withdrawal early September 2023. Since
discharge patient reports obtaining dental implants and subsequently starting drinking heavily for the last month d/t the pain. Reports trying to taper himself to 3 glasses of vodka yesterday and subsequently started familiar symptoms of
withdrawal. Symptoms improve in ED with once IV ativan 2 mg. However ED evaluation was notable for afib rvr hypertensive urgency and Hyponatremia 123. Patient subsequently admitted for further evaluation mgmt alcohol withdrawal, afib rvr, and
hyponatremia.
#A-fib with RVR
#QT prolongation
-Patient reports compliance with medications, though with alcohol abuse withdrawal nausea, unclear how much and how consistently patient has actually received.
-Cardizem gtt transitioned to home PO cardizem
-IV lopressor prn
-cont home metoprolol with holding parameters
-Home Eliquis continued
# Leukocytosis-likely secondary to steroids
# Anemia-check iron studies
#Mentation slow possible metabolic encephalopathy
-CT head appreciated no acute abn's, small to mod volume of nonspecific leukoariosis
-MRI head appreciated not acute abn's, signs of relatively advanced atrophy for patient's age noted
-mentation since improved, appears baseline at this time
# Primary hypertension likely elevated in the setting of withdrawal
-Cardizem, Metoprolol as above
-prn Hydralazine SBP>160 or DBP>100
# Alcohol withdrawal
# Daily Heavy Drinking
#mild transaminitis likely d/t alcohol abuse (LFTs improved from prior values however)
Case mgmt consult
Cont MSAS protocol
Ativan prn (has not required since 11/14)
Thiamine Folate supplementation
#Hyponatremia likely 2/2 ETOH abuse
monitor Na
Fluid restriction 60 oz reduced to 50 oz with persistent hyponatremia, cont
Check urinalysis and urine sodium
#HORTENSIA
Bladder scan for PVR
likely prerenal dehydration
IVF gentle hydration,
#Hypomagnesemia
Initial Mg 1.0 since improved
monitor and replete as necessary
#Gout flare
prednisone 40 mg daily started, cont
Check uric acid level
# Obesity-BMI 36.9
# Ex-smoker
# DVT prophylaxis
-Eliquis
# CODE STATUS
-Full code
D/W RN
Anticipated Discharge: Within 24 hours
Subjective/Interval History
-
Date of Service: November 19, 2023
Objective Data
-
Labs:
Laboratory Results
11/19/23
03:24
WBC 15.2 H
Hgb 10.0 L
Hct 31.2 L
Plt Count 214
Sodium 132 L
Potassium 4.5
Chloride 95 L
Carbon Dioxide 29
BUN 30 H
Creatinine 1.4 H
Glucose 97
Calcium 9.9
Vital Signs:
Vital Signs
Temp Pulse Resp BP Pulse Ox
98.8 F 86 16 134/88 97
11/19/23 07:12 11/19/23 09:10 11/19/23 07:12 11/19/23 09:10 11/19/23 07:12
I&O
11/18/23 11/19/23 11/20/23
06:59 06:59 06:59
Intake Total 2430 / 2430 2220 / 2220
Balance 0 / 24290 / 2219
[2023-11-19 10:20] LABS: Uric Acid 7.5 mg/dl (3.5-8.5)
[2023-11-19 10:48] LABS: Urine Albumin 1+ (Neg - Trace); Urine Bilirubin Negative (Negative); Urine Character Clear (Clear); Urine Color Yellow; Urine Glucose Negative (Negative); Urine Ketone Negative (Negative); Urine Leukocyte Negative (Negative); Urine Nitrite Negative (Negative); Urine Occult Blood Negative (Negative); Urine Urobilinogen Negative (Neg - 1+)
--- NOTE | 2023-11-19 10:49 | PTCARENOTE ---
received patient this am, monitor shows NSR with BBC. VSS. patient ambulates in hallway with IV pole, NSS @ 70cc/hr. MSAS completed as ordered. Dr. Perez in room, aware of Cr 1.4, urine obtained and sent to lab. patient able to shower. will
bladder scan patient on next void. IVF changed to D5NS infusing at 75cc/hr.
[2023-11-19 10:55] LABS: Urine Bacteria Few (Negative); Urine Red Blood Cell 0-2 /HPF (0-2); Urine Squamous Cell 0-2 /LPF (Few); Urine White Cell 0-2 /HPF (0-5)
[2023-11-19] MEDS: D5/0.9% SODIUM CHLORIDE 1000 IV (11:20)
[2023-11-19 11:38] LABS: Urine Sodium 60 mmol/L (30-90)
--- NOTE | 2023-11-19 15:10 | CM ---
Chart reviewed. Patient is independent of ADLS, lives with his in a 2 STH, 2STE, 0 DME. Patient currently with no discharge needs. Plan is to return home. CM to follow
--- NOTE | 2023-11-19 15:34 | PTOTSP ---
Received new PT consult. Patient is independent with functional mobility. No skilled PT needs at this time. Will D/C PT services.
[2023-11-20] MEDS: D5/0.9% SODIUM CHLORIDE 1000 IV (00:08)
[2023-11-20 04:08] VITALS: BP 142/95
--- NOTE | 2023-11-20 04:34 | PTCARENOTE ---
Pt reports sleeping well t/o night. Tele- afib w/ BBBC. Pt has no c/o pain/discomfort/SOB. Labs drawn and sent. Call ariel w/in mig[facility].
[2023-11-20 04:56] LABS: Blood Urea Nitrogen 38 mg/dl (9-20); Calcium 10.3 mg/dl (8.4-10.2); Carbon Dioxide 27 mmol/L (22-30); Chloride 102 mmol/L (98-107); Estimated Creatinine Clearance 82 ml/min; Glucose 117 mg/dl (70-99); Magnesium 1.7 mg/dl (1.6-2.3); Potassium 4.6 mmol/L (3.5-5.1); Sodium 138 mmol/L (135-145); eGFR > 60.00
[2023-11-20 07:39] VITALS: BP 134/88
--- NOTE | 2023-11-20 08:15 | PTCARENOTE ---
Assumed care of pt from prev nsg shift AAOx3 w/no c/o pain or SOB. Pt OOB to CH & ambulating freq in the rm & halls. Pt's VS stable w/HR in the 70's, BP 134/88. Pt is in Afib in a controlled rate on tlemetry monitoring. Pt anticipated D/C today.
Advised pt he needs to be seen by the MDs first. Pt agreeable to plan of care. Call george within reach & no addtl needs at this time.
--- NOTE | 2023-11-20 08:48 | W.PN.HOSP.TC ---
Today's Communication/Plan
-
Mag rider
Then discharge
Assessment / Plan
Assessment / Plan
CVS: S1-S2 normal
Chest: CTA B/L
Abdomen: Soft, NT / Bowel sounds present
Extremities: No edema, normal pulses
3RD GRADE TEACHER: Non focal exam
63M Obesity Afib HTN Gout chronic hypomagnesemia ETOH use d/o p/w nausea dry heaves shaking patient attributes to alcohol withdrawal. Patient was recently evaluated and treated at this facility for alcohol withdrawal early September 2023. Since
discharge patient reports obtaining dental implants and subsequently starting drinking heavily for the last month d/t the pain. Reports trying to taper himself to 3 glasses of vodka yesterday and subsequently started familiar symptoms of
withdrawal. Symptoms improve in ED with once IV ativan 2 mg. However ED evaluation was notable for afib rvr hypertensive urgency and Hyponatremia 123. Patient subsequently admitted for further evaluation mgmt alcohol withdrawal, afib rvr, and
hyponatremia.
#A-fib with RVR
#QT prolongation
-Patient reports compliance with medications, though with alcohol abuse withdrawal nausea, unclear how much and how consistently patient has actually received.
-Cardizem gtt transitioned to home PO cardizem
-cont home metoprolol
-Home Eliquis continued
# Leukocytosis-likely secondary to steroids
# Anemia-check iron studies
#Mentation slow possible metabolic encephalopathy
-CT head appreciated no acute abn's, small to mod volume of nonspecific leukoariosis
-MRI head appreciated not acute abn's, signs of relatively advanced atrophy for patient's age noted
-mentation since improved, appears baseline at this time
# Primary hypertension likely elevated in the setting of withdrawal
-Cardizem, Metoprolol as above
-prn Hydralazine SBP>160 or DBP>100
# Alcohol withdrawal
# Daily Heavy Drinking
#mild transaminitis likely d/t alcohol abuse (LFTs improved from prior values however)
Case mgmt consult
Cont MSAS protocol
Ativan prn (has not required since 11/14)
Thiamine Folate supplementation
#Hyponatremia likely 2/2 ETOH abuse
Normalized with FR
#HORTENSIA
Likely pre renal
Improving.
Will do BMP as OP
#Hypomagnesemia
Initial Mg 1.0 since improved
monitor and replete as necessary
#Gout flare
prednisone 40 mg daily started, cont
uric acid level- 7.5
# Obesity-BMI 36.9
# Ex-smoker
# DVT prophylaxis
-Eliquis
# CODE STATUS
-Full code
D/W RN
Spoke to and updated.
Follow up care discussed.
Discharge coordination time 32 min
Anticipated Discharge: Today
Subjective/Interval History
-
Date of Service: November 20, 2023
Objective Data
-
Labs:
Laboratory Results
11/20/23
04:16
Sodium 138
Potassium 4.6
Chloride 102
Carbon Dioxide 27
BUN 38 H
Creatinine 1.3
Glucose 117 H
Calcium 10.3 H
Vital Signs:
Vital Signs
Temp Pulse Resp BP Pulse Ox
98.8 F 77 16 134/88 96
11/20/23 07:36 11/20/23 08:00 11/20/23 07:36 11/20/23 07:39 11/20/23 07:36
I&O
11/19/23 11/20/23 11/21/23
06:59 06:59 06:59
Intake Total 2220 / 2220 580 / 580
Balance 2220 / 2220 580 / 580
--- NOTE | 2023-11-20 08:58 | W.DS.TRANS ---
Addendum entered and electronically signed by Missael Perez MD 11/20/23 16:48:
Dictation- [id number]
Original Note:
DC Summary - Financial Services Assistant
-
Discharge Instructions:
Discharge Diagnosis/Procedures Atrial fibrillation, anemia alcohol withdrawal,
hypertension, low sodium, acute kidney injury,
hypomagnesemia, gout flare
Diet Restrict fluids to 48 oz
Activity As tolerated
Driving Restrictions As prior to admission
Blood Work CMP 1 week
Instructions:
Stand-Alone Forms:
Changes to Home Medications: Yes
Discharge Medications:
DC Medications w/original date entered in [facility]
apixaban 5 mg tablet (Eliquis) 5 mg PO BID Blood Clot Prevention/Tx 11/15/23
diltiazem HCl 240 mg capsule,extended release 24 hr 240 mg PO DAILY Arrhythmia 11/15/23
magnesium oxide 500 mg PO DAILY Electrolyte Repletion 11/15/23
metoprolol succinate 100 mg tablet,extended release 24 hr 100 mg PO BID Blood Pressure 11/15/23
famotidine 20 mg tablet (Pepcid) 20 mg PO BID Gastrointestinal issue #20 tabs 11/20/23
prednisone 10 mg tablet See Rx Instructions .Route .COMPLEX Gout #20 tabs 11/20/23
thiamine HCl (vitamin B1) 100 mg tablet 100 mg PO BID Supplement #20 tabs 11/20/23
Home Medication Changes
new
famotidine 20 mg tablet (Pepcid) 20 mg PO BID Gastrointestinal issue #20 tabs 11/20/23
prednisone 10 mg tablet See Rx Instructions .Route .COMPLEX Gout #20 tabs 11/20/23
thiamine HCl (vitamin B1) 100 mg tablet 100 mg PO BID Supplement #20 tabs 11/20/23
Pending Results: No
[2023-11-20] MEDS: MAGNESIUM OXIDE 500 MG PO (08:59)
[2023-11-20] MEDS: DELTASONE 40 MG PO (08:59)
[2023-11-20] MEDS: VITAMIN B1 100 MG PO (08:59)
[2023-11-20] MEDS: MAGNESIUM SULFATE 102 GRAMS IV (08:59)
[2023-11-20] MEDS: ELIQUIS 5 MG PO (09:00)
[2023-11-20] MEDS: CARDIZEM CD 240 MG PO (09:00)
[2023-11-20] MEDS: TOPROL XL 100 MG PO (09:00)
[2023-11-20] MEDS: FOLVITE 1 MG PO (09:00)
[2023-11-20] MEDS: FLUSH (NSS) 2 FLUSH IV (09:04)
[2023-11-20 10:26] VITALS: BP 134/90
--- NOTE | 2023-11-20 11:00 | PTCARENOTE ---
Pt D/C'd to w/personal belongings including cell phone & recreation coordinator & clothing. Pt's IV lines D/C'd & instructions discussed w/pt. Pt escorted via WC by staff w/ providing transportation to home.
== END 2023-11-20 11:36 | disposition home or self-care (01) | DRG 896 ==
LOC: IVU 15:52
PROVIDERS: ADMITTING PHYSICIAN Internal Medicine; ATTENDING PHYSICIAN Hospitalist; CONSULT PHYSICIAN Internal Medicine Cardiovascular Disease; EMERGENCY PHYSICIAN Student in an Organized Health Care Education/Training Program
DX: F10.139 Alcohol abuse with withdrawal, unspecified (principal); G93.41 Metabolic encephalopathy; E87.1 Hypo-osmolality and hyponatremia; N17.9 Acute kidney failure, unspecified; I48.0 Paroxysmal atrial fibrillation; E66.01 Morbid (severe) obesity due to excess calories; I10 Essential (primary) hypertension; M1A.9XX0 Chronic gout, unspecified, without tophus (tophi); I16.0 Hypertensive urgency; E83.42 Hypomagnesemia; D64.9 Anemia, unspecified; K29.20 Alcoholic gastritis without bleeding; Z68.36 Body mass index [BMI] 36.0-36.9, adult; Z79.01 Long term (current) use of anticoagulants; Z79.899 Other long term (current) drug therapy; Z87.891 Personal history of nicotine dependence
CPT/HCPCS: 70450; 70551; 80048; 80053; 81003; 81015; 82607; 82746; 82805; 83540; 83550; 83735; 84100; 84300; 84550; 85025; 85027; 93005; 96361; 96374; 97116; 97163; 97167; 99285

== ENCOUNTER 2024-01-14 18:58 | Inpatient (IN) | payer BC, SELFPAY ==
[2024-01-14] VITALS (20 sets, daily range): BP systolic 89–138; BP diastolic 46–92; PULSE 2–82; BMI 43.3; BMI 42.4
[2024-01-14 15:26] LABS: Hemoglobin 10.8 g/dL (13.0-18.0); Mean Corp Hgb Conc. 28.4 g/dL (33.0-37.0); Mean Corpuscular Hgb 22.5 pg (27.0-31.0); Mean Corpuscular Volume 79.2 fL (80.0-94.0); Mean Platelet Volume 9.1 fL (7.4-10.4); Platelet Count 317 10^3/uL (130-400); Red Cell Dist. Width 16.8 % (11.5-14.5); White Blood Cell Count 7.8 10^3/uL (4.8-10.8)
[2024-01-14 15:28] LABS: INR 1.42; PT 17.2 Sec (11.4-14.6)
[2024-01-14 15:29] LABS: APTT 39.2 Sec (23.4-35.0)
[2024-01-14 15:34] LABS: Ammonia 17 umol/L (9-30)
[2024-01-14 15:43] LABS: ALT (SGPT) 27 U/L (0-50); AST (SGOT) 46 U/L (17-59); Alkaline Phosphatase 158 U/L (38-126); Blood Urea Nitrogen 36 mg/dl (9-20); Calcium 9.4 mg/dl (8.4-10.2); Carbon Dioxide 26 mmol/L (22-30); Chloride 104 mmol/L (98-107); Estimated Creatinine Clearance 87 ml/min; Glucose 80 mg/dl (70-99); Potassium 5.2 mmol/L (3.5-5.1); Sodium 139 mmol/L (135-145); Total Bilirubin 0.5 mg/dl (0.2-1.3); Total Protein 7.2 g/dl (6.3-8.2); eGFR > 60.00
[2024-01-14 15:48] LABS: Alcohol 62 mg/dl
[2024-01-14 16:11] LABS: % Basophils 1.2 % (0-2); % Eosinophils 4.3 % (0-6); % Immature Granulocytes 0.3 % (0-0.5); % Lymphocytes 31.6 % (20.5-51.1); % Monocytes 18.8 % (1.7-9.3); % Neutrophils 43.8 % (42.2-75.2); Absolute Basophils 0.1 10^3/uL (0-0.2); Absolute Eosinophils 0.3 10^3/uL (0-0.7); Absolute Lymphocytes 2.5 10^3/uL (1.2-3.4); Absolute Monocytes 1.5 10^3/uL (0.1-0.6); Absolute Neutrophils 3.4 10^3/uL (1.4-6.5); Nucleated Red Blood Cells % 0 % (-)
[2024-01-14 16:12] LABS: Hypochromasia 1+; Normal RBC Morphology No
[2024-01-14 16:12] LABS: Venous Blood Gas B.E. -4.1 mmol/L (-4 to +4); Venous Blood Gas HCO3 24.8 mmol/L (22-27); Venous Blood Gas pCO2 65 mmHg (35-48); Venous Blood Gas pO2 73 mmHg (30-50)
[2024-01-14 16:13] LABS: Ovalocytes 1+; Polychromasia Slight
[2024-01-14 16:21] LABS: Venous Blood Gas pH 7.19 (7.32-7.43)
--- NOTE | 2024-01-14 16:56 | ED.GENMED ---
History of Present Illness
General
Chief Complaint: Fainting/Passed Out
Source: patient and spouse
Time Seen by Provider: 01/14/24 15:01
History of Present Illness
History of Present Illness:
63-year-old male who presents after a syncopal episode. The patient recently has been little more sleepy during the day and falls asleep easily. states he also snores. Today he was working on his car and at his baseline when she saw that he
collapsed. She went out and saw that he was breathing shallow and was unconscious. EMS arrived. pt had an apparent minor head injury. Patient offers no complaints but is altered on arrival. He is somewhat somnolent but does answer questions. He
does report he had am alcohol drink or 2. Denies any other complaints but it is notable that his history taking is difficult.
Past History
Past History
ED Past Medical History: Arrthythmia (Atrial fibrillation), HTN and Other (Gout, pilonidal cyst)
ED Past Surgical History: Orthopedic
Social History
Tobacco: Former smoker
Alcohol: Daily
Drug: None
Personal:
Living: with family
Employment: Employed
Family History
Family History: Other (Nonsignificant)
Phy Exam
Physical Exam
Physical Exam:
CONSTITUTIONAL Patient alert and oriented to person. Obese. Somnolent. Vital signs reviewed.
HEAD small scalp hematoma noted
EYES eyelids normal to inspection, Pupils equally round and reactive to light, Extraocular muscles intact, Conjunctiva normal, Sclera normal.
NECK normal range of motion, Trachea midline, no jugular venous distention.
RESPIRATORY CHEST No respiratory distress noted, Chest expansion equal, diminished at bilateral bases
CARDIOVASCULAR irregularly irregular.
ABDOMEN lower abdominal edema noted at the pannus
UPPER EXTREMITY range of motion normal, Motor strength normal, no cyanosis, no edema.
LOWER EXTREMITY range of motion normal, Motor strength normal, no cyanosis, bilateral edema noted.
NEURO no pronator drift. No focal deficits. Somewhat somnolent does arouse to voice
Course
Orders/Labs/Results
Orders:
Orders
01/14/24 14:50
Electrocardiogram (*1) Urgent
Reason for Study: Syncope
EKG- Treatment ONCE
01/14/24 14:59
CT Head W/o Iv Contrast Urgent
Comment:
Reason For Exam: hit head.
01/14/24 15:01
Alcohol Urgent
B-Hydroxybutyrate Urgent
Comment: ADDON
Complete Blood Count/With Diff Urgent
Comprehensive Metabolic Panel Urgent
Protime/PTT Urgent
01/14/24 15:08
Ammonia Urgent
NT-proBNP Urgent
Comment: ADDON
01/14/24 16:04
Venous Blood Gas Urgent
%Oxygen/Room Air: 2L
01/14/24 16:27
CR Chest Portable - 1 View Urgent
Comment:
Reason For Exam: hypoxia
Reason Study Needs to be Portable: Patient Unstable
01/14/24 16:55
Furosemide [Lasix] 40 mg IV NOW STA
Bipap [RESP] Urgent
Patient to use own unit?: No
Inspiratory Pressure (cm H2O): 15
Expiratory Pressure (cm H2O): 5
01/14/24 16:58
Add On- LAB Urgent
Tests Added?: bnp
01/14/24 18:02
Rx Incentive Spirometry [RESP] Routine
Frequency: q1h while awake
01/14/24 18:03
Case Management Consult Once
Case Management Consult: Other
Comment: Substance abuse counseling
0.9% Sodium Chloride [Nss (Preservative Free)] See Protocol IV PRN PRN
FOLic ACID [Folvite] 1 mg 0.9% Sodium Chloride 50 ml [Nss] 50 ml IV DAILYPRN
Lorazepam [Ativan] 1 mg IV Q1HPRN PRN
Lorazepam [Ativan] 1 mg PO Q2HPRN PRN
Lorazepam [Ativan] 2 mg IV Q1HPRN PRN
MSAS SCORE As Directed
MSAS Score 0-4: Repeat MSAS every 2 hours until 0-4 for three consecutive assessments, then every 4 hours x 48
hours.
MSAS Score 5-7: For MILD withdrawl symptoms. Repeat MSAS and RASS every 2 hours
MSAS Score 8-11: For MODERATE withdrawal symptoms. Repeat MSAS and RASS every 1 hour. Consider ICU or IMU
level of care.
MSAS Score > 11: For SEVERE withdrawal symptoms. Repeat MSAS and RASS every 1 hour. Notify provider, consider
ICU level of care.
MSAS Additional Instructions: If no improvement or no decrease in score from severe to moderate within 12
hours, consult psychiatry
MSAS Notify Provider: Notify provider if patient requires more than 10 mg of Lorazepam in eight hour period.
01/14/24 18:07
Admit/Transfer Patient As Directed
Co-Sign Provider:
Level of Care: Inpatient admission
Assign to:: ICU
Physician / Group: gallito
Diagnosis: acute hypoxic respiratory failure
Reason for Hospitalization: acute hypoxic respiratory failure
Expected length of stay greater than two midnights?: Yes
ELOS- Estimated Length of Stay in days: 3
I certify the patient meets the requirements for IP care: Yes
PRN Pain Medication Management As Directed
May give lesser potent ordered pain med per pt: Yes
preference::
Protocol:: Medication orders for pain may be administered in a
manner that supports deferring to patient preference
when the pt is:
- Requesting an ordered lesser potent pain medication.
Least to most potent pain medications are defined
as: acetaminophen < NSAID < tramadol < opioids
(morphine, oxycodone, hydromorphone).
- Requesting a lesser dose of the same medication IF
ORDERED.
- Requesting a less intrusive route of administration
if both routes are prescribed by the provider (PO <
IV).
01/14/24 18:09
Code Status As Directed
Resuscitation Status: Full Code
01/14/24 18:11
Solar [employer] Consult Routine
Consulting Provider: Simon Chavez
Was physician already notified: Yes
01/14/24 18:14
Arterial Blood Gas Urgent
%Oxygen/Room Air: bipap
01/14/24 18:37
Add On- LAB Urgent
Tests Added?: b-hydroxybutyrate
01/14/24 20:00
Thiamine Injection 200 mg IV Q12
01/15/24 08:00
FOLic ACID [Folvite] 1 mg PO DAILY
01/17/24 20:00
Thiamine HCl [Vitamin B1] 100 mg PO BID
Abnormal Lab Results
01/14/24 01/14/24 01/14/24
15:01 16:04 18:14
Hgb 10.8 L g/dL
(13.0-18.0)
Hct 38.0 L %
(39.0-52.0)
MCV 79.2 L fL
(80.0-94.0)
MCH 22.5 L pg
(27.0-31.0)
MCHC 28.4 L g/dL
(33.0-37.0)
RDW 16.8 H %
(11.5-14.5)
Absolute Monos (auto) 1.5 H 10^3/uL
(0.1-0.6)
Monocytes % 18.8 H %
(1.7-9.3)
PT 17.2 H Sec
(11.4-14.6)
APTT 39.2 H Sec
(23.4-35.0)
pH 7.22 L
(7.35-7.45)
pCO2 65 H mmHg
(35-48)
pO2 79 L mmHg
(83-108)
VBG pH 7.19 L*
(7.32-7.43)
VBG pCO2 65 H mmHg
(35-48)
VBG pO2 73 H mmHg
(30-50)
Potassium 5.2 H mmol/L
(3.5-5.1)
BUN 36 H mg/dl
(9-20)
Alkaline Phosphatase 158 H U/L
(38-126)
01/14/24 15:01
01/14/24 15:01
Vital Signs
Initial and Last Documented VS:
Initial Vital Signs
Temp Pulse Resp BP Pulse Ox
98.2 F 103 24 95/50 81
01/14/24 14:49 01/14/24 14:49 01/14/24 14:49 01/14/24 14:49 01/14/24 14:49
Last Documented Vital Signs
Temp Pulse Resp BP Pulse Ox
98.2 F 71 30 105/63 95
01/14/24 14:49 01/14/24 18:52 01/14/24 18:52 01/14/24 18:52 01/14/24 18:30
MDM/Problems Addressed
MDM/Problems Addressed:
Hypercarbic respiratory failure, hypoxia, RV failure, LV failure, volume overload, chronic atrial fibrillation, head injury, change in mental status
*Radiology
Radiology exam reviewed: preliminary read by ED provider (Enlarged cardiac silhouette, pulmonary edema)
*Pulse Oximetry
Patient hypoxic: yes
*EKG
Interpreted by ED Provider?: Yes
Interpretation: abnormal
Rate: tachycardiac
Rhythm: a-fib
Ischemia: non-specific ST changes
*Implementation Director Interpretation
Rate: normal
Interpretation: abnormal
Rhythm: a-fib
*Critical Care Note
Total Time (30-74mins, 75-104mins- exclusive of procedures): 65 minutes
Data Reviewed
Source: patient and spouse
Prescriptions/Medications Considered But Not Given:
Considered antibiotics but do not suspect infectious source as he is afebrile and white count normal
Patient Management
Discussion with other providers: Hospitalist
Escalation/DeEscalation of care consider admission/obs:
63-year-old male who presents hypoxic and altered. Found to be acidotic and hypercarbic. I suspect he has longstanding obstructive sleep apnea now hypercarbia with RV failure. Likely has had pulmonary hypertension. Bedside ultrasound shows trace
pericardial effusion but no large pericardial effusion. Trial of BiPAP. If this fails, may need intubation. Being diuresed now. Admit to ICU. Case discussed with Dr. Arnold
ED Attending Note
-
Portions of this chart may have been created with voice recognition software.� Occasional wrong word or��sound alike� substitutions may have occurred due to the inherent limitations of voice recognition software.
Discharge Plan
Departure
Patient Disposition: Admit
Date of Disposition: 01/14/24
Time of Disposition: 16:57
Admit to: IMU
Presentation/result/management discussed w/ accepting MD/DO: Hospitalist
Discharge Problem:
Acute respiratory failure with hypoxia and hypercapnia, JULY (obstructive sleep apnea), Volume overload, RVF (right ventricular failure), CHF (congestive heart failure)
Interventions
Interventions:
*Risk Screen - Suicide Last Done: 01/14/24 14:49
*General Assessment Last Done: 01/14/24 14:49
*Neglect/Abuse Screening Last Done: 01/14/24 14:49
ED- Fall Risk Assessment Last Done: 01/14/24 14:49
*ED COVID-19 Vaccine History Last Done: 01/14/24 14:49
ED- Cardiac Assessment Last Done: 01/14/24 14:49
ED- Neurological Assessment Last Done: 01/14/24 14:49
[2024-01-14] MEDS: LASIX 40 MG IV (17:05)
--- NOTE | 2024-01-14 17:23 | HPS.HSE ---
Family Physician
-
Family Physician: Juan C Weaver
Chief Complaint
-
syncope
History of Present Illness
63 year old with PMH fort atrial fib, HTN, GOUT presented to us with syncopal episode at home. as per , she saw working in the garage. he was behind the car. she saw him slowly falling backwards. he did hit the side of the head on the floor. he
lost LOC for few seconds. noticed his hands and face were changing to purplish color. patient denied chest pain, sob. denied RUSSELL. denied fever, chills. denied abdominal pain,n,v,d. denied dysuria or hematuria. noted B/L LE edema.
patient received iv Lasix in ER. patient on BiPAP. admitting for further management.
Medical History
Past Medical History
Past Medical History: Reports Other
Additional Past Medical History:
Alcoholic cardiomyopathy
Hyperlipidemia
Bundle branch block
Paroxysmal A-fib
Hypertension
Sleep-related hypoventilation
Gout
Alcohol abuse
Past Surgical History: Reports None and Other
Social History
Tobacco: Non-smoker
Alcohol: Daily
Drug: None
Personal:
Living: With Family
Family History
Family History: Not pertinent
Allergies / Home Medications
Allergies reflects when Allergies were last updated in [employer].
Home Medications with original date entered in [employer]
Allergy/Medication List:
Allergies
Allergy/AdvReac Type Severity Reaction Status Date / Time
losartan potassium Allergy Swelling Verified 10/16/21 19:18
[From [facility]]
Home Medications
apixaban 5 mg tablet (Eliquis) 5 mg PO BID Blood Clot Prevention/Tx 11/15/23
metoprolol succinate 100 mg tablet,extended release 24 hr 100 mg PO BID Blood Pressure 11/15/23
thiamine HCl (vitamin B1) 100 mg tablet 100 mg PO BID Supplement #20 tabs 11/20/23
diltiazem HCl 180 mg capsule,24 hr,extended release 180 mg PO DAILY 01/14/24
magnesium oxide 500 mg PO DAILY 01/14/24
naproxen sodium 220 mg tablet (Aleve) 440 mg PO DAILYPRN PRN mild pain 01/14/24
Review of Systems
-
Constitutional: Reports No Symptoms
EENT: Reports No Symptoms
Respiratory: Reports No Symptoms
Cardiac: Reports No Symptoms
Abdomen/GI: Reports No Symptoms
: Reports No Symptoms
Musculoskeletal: Reports No Symptoms
Skin: Reports No Symptoms
Neurological: Reports No Symptoms and Other (passed out)
Endocrine: Reports No Symptoms
Hematologic/Lymphatic: Reports No Symptoms
Psych: Reports No Symptoms
Physical Exam
Vital Signs
Vital Signs
Temp Pulse Resp BP Pulse Ox
98.2 F 73 24 109/72 90
01/14/24 14:49 01/14/24 17:00 01/14/24 17:00 01/14/24 17:00 01/14/24 17:00
Physical Exam
General: Well Developed, Well Nourished and No Apparent Distress
HEENT: NormoCephalic, Moist mucous membranes and Atraumatic
Respiratory: Decreased Breath Sounds
Cardiac: S1/S2 and Regular Rhythm; No Murmur or Rub
GI: Soft, Non Tender, Non Distended and Normal Bowel Sounds; No Organomegaly
Rectal: Deferred by Provider
Musculoskeletal: No Clubbing, No Cyanosis and Other (LE edema)
Skin: No Rash
Neuro: AO x 3 and Nonfocal/grossly intact
Psych: Calm
Laboratory Results
-
01/14/24 15:01
01/14/24 15:01
Laboratory Results
PT 17.2 Sec (11.4-14.6) H 01/14/24 15:01
INR 1.42 01/14/24 15:01
APTT 39.2 Sec (23.4-35.0) H 01/14/24 15:01
Total Bilirubin 0.5 mg/dl (0.2-1.3) 01/14/24 15:01
AST 46 U/L (17-59) 01/14/24 15:01
ALT 27 U/L (0-50) 01/14/24 15:01
Alkaline Phosphatase 158 U/L (38-126) H 01/14/24 15:01
Data Reviewed
-
Diagnostic Radiology: Report Reviewed by me
Lab Data: Labs Reviewed by me
Impression/Plan
-
# Syncopal episode likely from acute respiratory failure with hypoxia and hypercapnia
-head CT with No acute intracranial abnormality. Right frontoparietal subgaleal hematoma without underlying acute calvarial fracture.
-PT/OT consult
-Bipap continued
-wean BiPAP as tolerated.
#Acute respiratory failure with hypoxia and hypercapnia likely from CHF exacerbation
-chest x ray with Moderate bilateral lower lobe opacities (right larger than left). Diagnostic possibilities are (1) bilateral lower lobe atelectasis or (2) aspiration pneumonitis. Suspected small bilateral pleural effusions.Pulmonary vascular
distention with suggestion of mild pulmonary edema.Stable severe enlargement of the cardiomediastinal silhouette.ly from CHF exacerbation
-Bedside ultrasound shows trace pericardial effusion but no large pericardial effusion
-continue BiPAP
-wean as tolerated
-lasix 40mg iv daily
-Obtain echocardiogram
-Repeat ABG at 1900
-Trend troponin
-Cardiology consulted
-
#Right frontoparietal subgaleal hematoma without underlying acute calvarial fracture.
-continue to monitor.
#anemia likely chronic
-hgb 10.8
-no active bleeding
-ctm
#hyperkalemia likely from fluid overload
- K 5.2
-diuresing patient
-ctm
# Permanent A-fib
-Metoprolol, diltiazem and Eliquis continued
-EKG with A-fib with right bundle branch block
# Alcohol abuse
-Start drinking last week
-Cont MSAS protocol
# Obesity-BMI 43.2
# Ex-smoker
# DVT prophylaxis
-Eliquis
# CODE STATUS
-Full code
--- NOTE | 2024-01-14 17:57 | W.PN.UPDATE ---
Update Note
Progress Note Update
I saw and examined the patient.
The INSTRUCTOR MILITARY SCIENCE or PA's note was reviewed and I agree with the note.
Comment: This note is in addition to INSTRUCTOR [employer]'s H&P
63-year-old male with past medical history of atrial fibrillation, hypertension, gout, alcohol use with abuse, morbid obesity came to the hospital after syncopal episode. Per spouse at bedside she is outpatient passing out in the garage. Per
spouse patient skin color also turned blue at that time. In the ER patient was found to be hypercarbic and hypoxic respiratory failure. Currently slowly improving on BiPAP. Chest x-ray with fluid overload. Check echo. Cardiology evaluation.
Lasix. Patient will need sleep study. Admit to ICU at this time as still tachypneic on BiPAP. Discussed with CT surgery nothing acute at this time. If patient exam changes then get CT head. Repeat labs later today. Patient appears to be still
drinking, alcohol level 62 on admission. Chest x-ray with possible atelectasis and aspiration pneumonitis. Currently without any leukocytosis, fever. Will hold off on antibiotics.
General: Well Developed, Well Nourished and No Apparent Distress
HEENT: NormoCephalic, Moist mucous membranes and Atraumatic
Respiratory: Decreased Breath Sounds
Cardiac: S1/S2 and Regular Rhythm; No Murmur or Rub
GI: Soft, Non Tender, Non Distended and Normal Bowel Sounds; No Organomegaly
Rectal: Deferred by Provider
Musculoskeletal: No Clubbing, No Cyanosis and Other (LE edema)
Skin: No Rash
Neuro: AO x 3 and Nonfocal/grossly intact
Psych: Calm
Total Critical Care Time___62__ minutes. I was immediately available to the patient and staff. I personally examined, reviewed labs, diagnostic images/reports, interpretations, treatment plans, discussed patient care with other providers and
family or caregivers (if patient is unable to make decisions), entered orders as appropriate and documented the medical record.
[2024-01-14 18:03] LABS: NT-proBNP 4160 pg/ml
[2024-01-14 18:29] LABS: B.E. -2.1 mmol/L; HCO3 26.6 mmol/L (21-28); O2 Saturation % 95.2 % (94-98); PCO2 65 mmHg (35-48); PO2 79 mmHg (83-108); pH 7.22 (7.35-7.45)
[2024-01-14 19:41] LABS: B-Hydroxybutyrate 0.12 mmol/L (0.02-0.27)
--- NOTE | 2024-01-14 20:30 | PTCARENOTE ---
re'd patient from ER. MSAS 1. pt drowsy but arousable to voice, oriented x3. afib on monitor w/ BBB, HR 70-80s. on bipap 16/8 6L, denies SOB, diminished breath sounds. urinal at bedside, voioded 450ml upon arrival. repeat ABG sent. call george with
patient, care ongoing.
[2024-01-14] MEDS: TOPROL XL 100 MG PO (20:42)
[2024-01-14] MEDS: THIAMINE INJECTION 200 MG IV (20:42)
[2024-01-14] MEDS: ELIQUIS 5 MG PO (20:42)
[2024-01-14 20:54] LABS: B.E. -0.9 mmol/L; HCO3 27.4 mmol/L (21-28); PCO2 64 mmHg (35-48); PO2 75 mmHg (83-108); pH 7.24 (7.35-7.45)
[2024-01-14 21:19] LABS: Troponin I 0.042 ng/ml
--- NOTE | 2024-01-14 22:27 | PTCARENOTE ---
pt more lethargic, opens eyes and groans to sternal rub, ICU SIGN PAINTER made aware and at bedside. pt remains on bipap 16/5 5L, satting 92%. VBG sent.
[2024-01-14 22:32] LABS: Venous Blood Gas B.E. -0.6 mmol/L (-4 to +4); Venous Blood Gas HCO3 29.1 mmol/L (22-27); Venous Blood Gas O2 Sat % 88.4 %; Venous Blood Gas pO2 61 mmHg (30-50)
[2024-01-14 22:33] LABS: Venous Blood Gas pCO2 78 mmHg (35-48); Venous Blood Gas pH 7.18 (7.32-7.43)
[2024-01-14] MEDS: DIPRIVAN 100 IV (23:09)
--- NOTE | 2024-01-14 23:18 | W.PN.ANESINT ---
Anesthesia Intubation Note
- Intubation Note
Intubation Note:
Diagnosis: respiratory failure
Blade: live glidescope 3
Tube Size: 8.0
Depth: 24cm at lip
Side Taped center
Drugs Used: 200 mg propofol, 50mg rocuronium
Grade View: 1
EtCO2 Present: + ETCO2 change
Atraumatic: yes
Attempts: 1
Insertion Start and Stop Time: 3121-8701
SaO2 Pre: 90
SaO2 Post: 100
Glidescope Used: yes
Other Airway Adjustments:
Pre-Oxygenated: yes
Portable Chest X-Ray:
RSI:
Suctioned:
Bilateral Breath Sounds Confirmed: b/l breath sounds confirmed, no breath sounds audible over abdomen.
Vent Settings:
Settings per ___Attending Physician
Amarilis Harris CRNA
--- NOTE | 2024-01-14 23:20 | W.PN.UPDATE ---
Update Note
Progress Note Update
Notify by bedside nurse that patient is less responsive. On assessment, patient moans�to noxious, unable to keep eye open and communicate. Venous blood gas ordered. Results showed worsen hypercapnia and acidosis despite in bipap therapy .
Decision made to intubate patient. �Patient intubated uneventfully. updated.�
[2024-01-14] MEDS: SUBLIMAZE 50 MCG IV (23:24)
[2024-01-14 23:31] LABS: Triglycerides 144 mg/dl (10-149)
[2024-01-15] VITALS (54 sets, daily range): BP systolic 76–124; BP diastolic 33–75; BMI 42.4
[2024-01-15] MEDS: SUBLIMAZE 50 MCG IV ×3 (00:04→20:00)
[2024-01-15] MEDS: SUBLIMAZE 100 IV ×2 (00:05→16:28)
[2024-01-15] MEDS: LEVOPHED 250 IV (00:27)
[2024-01-15 00:35] LABS: B.E. 0.5 mmol/L; O2 Saturation % 96.9 % (94-98); PCO2 45 mmHg (35-48); PO2 82 mmHg (83-108); pH 7.37 (7.35-7.45)
--- NOTE | 2024-01-15 00:45 | PTCARENOTE ---
2245- pt remains lethargic, VBG worsening. ICU PROJECT LANDSCAPE ARCHITECT contacetd via phone, decision to intubate made. MULTICRAFT OPERATOR at bedside.
2300- intubated with #8 ETT, 24 at lip. vent settings: AC 05-008-1-100%. coarse breath sounds noted. CXR obtained. copious amount of clear, thick oral secretions noted. benjamin inserted, 1100mL drained initially. OGT inserted and connected to LIWS.
prop and fent gtts initiated. BP 80s/50s, levo initiated to maintain MAP >65. b/l soft wrist restraints placed.
0045- ABG sent, vent settings adjusted: AC 16-550-8-90%. pt satting 99%. care ongoing.
--- NOTE | 2024-01-15 02:19 | PTCARENOTE ---
repeat head CT done for mental status change prior to intubation.
[2024-01-15] MEDS: DIPRIVAN 100 IV ×6 (02:54→23:30)
[2024-01-15 03:29] LABS: Hematocrit 30.7 % (39.0-52.0); Hemoglobin 9.2 g/dL (13.0-18.0); Mean Corpuscular Hgb 22.2 pg (27.0-31.0); Mean Corpuscular Volume 74.2 fL (80.0-94.0); Mean Platelet Volume 9.2 fL (7.4-10.4); Platelet Count 294 10^3/uL (130-400); Red Blood Cell Count 4.14 10^6/uL (4.70-6.10); Red Cell Dist. Width 16.6 % (11.5-14.5); White Blood Cell Count 7.1 10^3/uL (4.8-10.8)
--- NOTE | 2024-01-15 03:49 | PTCARENOTE ---
AM labs sent. afib, HR 60s on monitor. levo gtt currently off. ETT adjusted, vent settings: AC 16-16/550/8/80%. pt continues with large amount of clear thick secretions. OGT and benjamin intact. care ongoing.
[2024-01-15 03:58] LABS: ALT (SGPT) 22 U/L (0-50); AST (SGOT) 38 U/L (17-59); Albumin 3.2 g/dl (3.5-5.0); Alkaline Phosphatase 133 U/L (38-126); Blood Urea Nitrogen 34 mg/dl (9-20); Carbon Dioxide 26 mmol/L (22-30); Chloride 105 mmol/L (98-107); Direct Bilirubin 0.3 mg/dl (0.0-0.4); Estimated Creatinine Clearance 86 ml/min; Glucose 59 mg/dl (70-99); HDL Cholesterol 43 mg/dl; LDL Cholesterol, Calculated 43 mg/dl; Magnesium 1.5 mg/dl (1.6-2.3); Potassium 4.7 mmol/L (3.5-5.1); Sodium 138 mmol/L (135-145); Total Bilirubin 0.8 mg/dl (0.2-1.3); Total Cholesterol 109 mg/dl (50-199); Total Protein 5.9 g/dl (6.3-8.2); Triglyceride 119 mg/dl (10-149); Very Low Density Lipoprotein 23 mg/dl (0-30); eGFR > 60.00
[2024-01-15 04:08] LABS: Calcium 9.4 mg/dl (8.4-10.2)
[2024-01-15 04:15] LABS: Troponin I 0.056 ng/ml
[2024-01-15 04:27] LABS: TSH Reflex To Free T4 0.81 uIU/ml (0.47-4.68)
[2024-01-15] MEDS: DEXTROSE 50% SYRINGE 12.5 GRAMS IV (04:33)
[2024-01-15] MEDS: MAGNESIUM SULFATE 50 IV (04:33)
[2024-01-15 05:11] LABS: Glucose - Point of Care 98 mg/dl (70-99)
[2024-01-15] MEDS: TOPROL XL PO (07:50)
[2024-01-15] MEDS: MIRALAX 17 GRAMS TUBE (07:56)
[2024-01-15] MEDS: FOLVITE 1 MG PO (07:56)
[2024-01-15] MEDS: THIAMINE INJECTION 200 MG IV ×2 (07:56→19:39)
[2024-01-15] MEDS: ELIQUIS 5 MG PO (07:56)
[2024-01-15] MEDS: LASIX 40 MG IV ×2 (07:57→16:28)
[2024-01-15] MEDS: NSS (PRESERVATIVE FREE) 10 ML IV (07:57)
[2024-01-15] MEDS: PROTONIX IV 40 MG IV (07:57)
--- NOTE | 2024-01-15 08:57 | CON.INTV ---
Addendum entered and electronically signed by Simon Chavez MD 01/15/24 19:45:
Additional problem: Suspected aspiration pneumonia
- Check sputum Cx, check urine antigens for Legionella + strep pneumonia, and blood culture. Empirically start antibiotics with Unasyn � will treat for at least 7 days.
- Trend procal to assure we have source control
Original Note:
Consultation
Consultation Request
Date/Time Consultation Requested: 01/14/2024 - 1810
Date/Time Consultation Performed: 01/15/2024 - 854
Requesting Provider: YOANA Lemus
Performing Provider: Simon Chavez MD
Reason for Consultation: Respiratory Failure/Intubated
Medical History
-
Chief Complaint: Passed out and hit head on car
History of Present Illness:
63-year-old male with a past medical history of alcoholism, gout, hypertension and history of A-fib on [email or web address] who presents with passing out while working on his car. He reported that he hit the right side of his head on the car. He states he had
a couple beers earlier in the afternoon. Patient was drowsy in the ER. CT head showed no acute intracranial abnormality. It did show a 1.3 cm calcified right frontal parietal meningioma. Initial vitals showed he was afebrile to 98.2 �F,
tachycardic to 103 bpm, breathing at 24 breaths/min, BP 95/50 and saturating 81% on room air which improved to 93% with 6 L/min nasal cannula. Initial labs showed WBC 7.8, Hb 10.8, acute hypercapnia with blood gas pH 7.19 with pCO2 65, initial
serum bicarbonate of 26, potassium 5.2, proBNP 4160 (no prior to compare to), with alcohol level of 62 and beta hydroxybutyrate 0.12. Initial CXR showed moderate bilateral lower lobe opacities (R >L) with small bilateral pleural effusions and
pulmonary vascular distention suggestive of mild pulmonary edema. Lasix 40 mg IV push x 1 was given, and patient required BiPAP. Patient was admitted to the ICU for further care. Unfortunately his hypercapnia persisted and worsened with pCO2 rise
in the 78 and he was intubated. Critical care services consulted for additional management/recommendations.
Pt seen this AM and was evaluated. Pt was briefly started on vasopressors after being intubated, now off with BP 109/63, HR 79, SpO2 93% on AC/VC 550/16/50/8. VTe is 540mL, PIP is [id number], breathing at 16 b/min. Sedated on fentanyl at 50mcg/hr
and prop at 30mcg/kg/min. I spoke with patient's who said that the patient had been hiding drinking alcohol from her at least for the last several days or so. He had previously stopped for over a month.
PMHx: Hypertension, gout, alcoholism, history of A-fib on Eliquis
PSHx: Cardiac cath
Past Medical History
Past Medical History: Other (Above as per HPI)
Past Surgical History: Other (Above as per HPI)
Social History
Tobacco: Non-smoker
Alcohol: Chronic Alcoholic
Drug: None
Personal:
Living: With Family
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
Family History
Family History: Reviewed & Not Pertinent and CAD (No pertinent history of CAD)
Allergies / Home Medications
Allergies
Allergy/AdvReac Type Severity Reaction Status Date / Time
losartan potassium Allergy Swelling Verified 10/16/21 19:18
[From Cozaar]
Home Medications
�Medication �Instructions �Recorded �Confirmed �Last Taken �Type
apixaban 5 mg tablet (Eliquis) 5 mg PO BID Blood Clot 11/15/23 01/14/24 Unknown History
Prevention/Tx
metoprolol succinate 100 mg 100 mg PO BID Blood Pressure 11/15/23 01/14/24 Unknown History
tablet,extended release 24 hr
thiamine HCl (vitamin B1) 100 mg 100 mg PO BID Supplement #20 tabs 11/20/23 01/14/24 1 Month Ago Rx
tablet ~12/15/23
diltiazem HCl 180 mg capsule,24 180 mg PO DAILY 01/14/24 01/14/24 Unknown History
hr,extended release
magnesium oxide 500 mg PO DAILY 01/14/24 01/14/24 Unknown History
naproxen sodium 220 mg tablet 440 mg PO DAILYPRN PRN mild pain 01/14/24 01/14/24 Unknown History
(Aleve)
Review of Systems
-
Unable to Obtain full review of systems at this time due to: Patient Intubation
Vitals / Labs / Diagnostic Testing
Vital Signs
Temp Pulse Resp BP Pulse Ox
97.5 F 75 16 107/59 95
01/15/24 08:18 01/15/24 07:45 01/15/24 07:45 01/15/24 07:30 01/15/24 07:54
Lab Data
01/15/24 02:59
01/15/24 02:59
Laboratory Results
01/14/24 01/14/24 01/14/24
15:01 18:14 20:45
PT 17.2 H
INR 1.42
APTT 39.2 H
pH 7.22 L 7.24 L
pCO2 65 H 64 H
pO2 79 L 75 L
HCO3 26.6 27.4
O2 Delivery Level Not Reportable
01/15/24
00:26
PT
INR
APTT
pH 7.37
pCO2 45
pO2 82 L
HCO3 26.0
O2 Delivery Level
Diagnostic Testing:
Physical Exam
-
HEENT: Normocephalic, Anicteric, Other (Thick neck) and Other (ETT in place)
Cardiovascular: S1/S2 and Peripheral Edema (+1 lower extremity pitting edema)
Respiratory: Wheeze (Negative), Rales (Bibasilar), Rhonchi (Negative), Accessory Resp Muscle Use (Negative) and Other (Mechanical breath sounds are bilaterally)
GI: Soft, Distended (Abdominal obesity), Non Tender and Normal Bowel Sounds
Neurology: Tremors (Negative) and Other (Sedated)
Skin: Warm and Dry
General: Respiratory Distress (Negative) and Chills (Negative)
Assessment
-
Assessment: 63-year-old male with a past medical history of alcoholism, gout, hypertension and history of A-fib on [employer] who presents with passing out while working on his car. He reported that he hit the right side of his head on the car. He
states he had a couple beers earlier in the afternoon. Patient was drowsy in the ER. CT head showed no acute intracranial abnormality. It did show a 1.3 cm calcified right frontal parietal meningioma. Initial vitals showed he was afebrile to
98.2 �F, tachycardic to 103 bpm, breathing at 24 breaths/min, BP 95/50 and saturating 81% on room air which improved to 93% with 6 L/min nasal cannula. Initial labs showed WBC 7.8, Hb 10.8, acute hypercapnia with blood gas pH 7.19 with pCO2 65,
initial serum bicarbonate of 26, potassium 5.2, proBNP 4160 (no prior to compare to), with alcohol level of 62 and beta hydroxybutyrate 0.12. Initial CXR showed moderate bilateral lower lobe opacities (R >L) with small bilateral pleural effusions
and pulmonary vascular distention suggestive of mild pulmonary edema. Lasix 40 mg IV push x 1 was given, and patient required BiPAP. Patient was admitted to the ICU for further care. Unfortunately his hypercapnia persisted and worsened with pCO2
rise in the 78 and he was intubated. Critical care services consulted for additional management/recommendations.
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
Impression:
#Acute respiratory failure with hypercapnia + hypoxia requiring mechanical ventilation
#Abnormal CXR with pulmonary vascular congestion and pleural effusions likely due to acute decompensated heart failure
#Elevated troponin likely due to demand ischemia with type II CA
#Syncopal episode with fall resulting in right frontoparietal hematoma without acute calvarial fracture
#Alcoholism
#Anemia
#Hx of A-fib on Eliquis
Plan:
- Continue mechanical ventilation with daily SAT/SBT
- Maintain SpO2 >90-94% by titrating PEEP + FiO2
- Daily blood gas and adjust ventialtor as needed
- Goal plateau pressure <30
- Aggressively diurese to maintain net negative fluid balance of >1.5-2L per day, as BP and sCr tolerate
- Replete electrolytes with K>4, Mg>2
- Check 2D-echo with cardiology consult
- Continue MSAS with thiamine and folate
- Once extubated, have [facility] speak with him about alcohol rehab/AA
- Rate control with goal HR<110
- Continue CCB and BB, but use short acting given he is intubated and meds will go through NGT
- Trend troponin until peaks
- Maintain MAP>65
- Maintain euglycemia with goal BG 140-180
- prn nebulized bronchodilators
- After pt extubated then will start incentive spirometer
- stress ulcer ppx
- DVT ppx: Initially his Eliquis was held given right frontoparietal hematoma; ok to resume Eliquis tonight, would re-check CT head in 12-24 hrs after giving Eliquis to assure hematoma not expanding
Critical care statement: A total of 40 minutes of critical care time was provided for this patient today. This includes management of unstable vital signs, evaluation of the patient at bedside, reviewing the patient's pertinent medical records
including radiographs, microbiology, laboratory evaluations, and discussion with primary team, consultants, pharmacy, nutrition, physical therapy, case management, charge nurse, critical care nursing, and respiratory therapy.
--- NOTE | 2024-01-15 09:05 | CON.CAR ---
Addendum entered and electronically signed by Rex Machado MD 01/15/24 10:58:
Patient seen and examined in collaboration with [employer]; agree with below.
-63-year-old male with nonischemic cardiomyopathy (with recovered EF), persistent atrial fibrillation (on Eliquis), alcohol abuse, and obesity who presented with syncope; patient was found to have hypercapnic respiratory failure and was subsequently
intubated.
-Will obtain echocardiogram to reassess cardiac function.
-Lasix 40 mg IV BID.
-Eliquis being held for now for right frontoparietal hematoma.
-Continue dispute resolution specialist; will follow.
Original Note:
Consultation
Consultation Request
Date/Time Consultation Requested: 01/14/2024 20:00
Date/Time Consultation Performed: 01/15/2024 09:05
Requesting Provider: YOANA Lemus
Performing Provider: YOANA Ayala for Dr. Machado
Reason for Consultation: Acute heart failure exacerbation
Medical History
-
Chief Complaint: Syncope
History of Present Illness:
Jus Suárez is a 63-year-old male with persistent atrial fibrillation (on apixaban), nonischemic cardiomyopathy (LVEF 40% 10/2021, normalized), gout, and EtOH abuse who presented to the emergency department with a syncopal episode. No
tonic-clonic activity but he did have cyanosis. He was brought in by his . Per the medical record, he was working on his car when he collapsed. On arrival he was somnolent but was able to answer questions. A head CT in the ER demonstrated no
acute findings other than a right frontoparietal subgaleal hematoma without fracture. His chest x-ray showed moderate bilateral lower lobe opacities, small bilateral pleural effusions, and mild pulmonary edema. He was placed on BiPAP. He was
given intravenous furosemide. His weight today is 141 kg, last documented weight here in November 126 kg. Overnight, he became less responsive. VBG showed worsening hypercapnia and acidosis and he was intubated.
Past Medical History
Past Medical History: Arrhythmias (Persistent atrial fibrillation), CHF (NICM with recovered EF), HTN, Psychiatric (EtOH abuse) and Other (Gout)
Social History
Tobacco: Other (Unable to obtain)
Alcohol: Other (Unable to obtain)
Personal:
Living: With Family
Family History
Family History: Unable to Obtain
Allergies / Home Medications
Allergy/AdvReac Type Severity Reaction Status Date / Time
losartan potassium Allergy Swelling Verified 10/16/21 19:18
[From Cozaar]
�Medication �Instructions �Recorded �Confirmed �Type
apixaban 5 mg tablet (Eliquis) 5 mg PO BID Blood Clot 11/15/23 01/14/24 History
Prevention/Tx
metoprolol succinate 100 mg 100 mg PO BID Blood Pressure 11/15/23 01/14/24 History
tablet,extended release 24 hr
thiamine HCl (vitamin B1) 100 mg 100 mg PO BID Supplement #20 tabs 11/20/23 01/14/24 Rx
tablet
diltiazem HCl 180 mg capsule,24 180 mg PO DAILY 01/14/24 01/14/24 History
hr,extended release
magnesium oxide 500 mg PO DAILY 01/14/24 01/14/24 History
naproxen sodium 220 mg tablet 440 mg PO DAILYPRN PRN mild pain 01/14/24 01/14/24 History
(Aleve)
Review of Systems
-
Unable to obtain full review of systems at this time due to: Patient Intubation
Physical Exam
Vital Signs
Temp Pulse Resp BP Pulse Ox
97.5 F 75 16 107/59 95
01/15/24 08:18 01/15/24 07:45 01/15/24 07:45 01/15/24 07:30 01/15/24 07:54
Lab Results
01/15/24 02:59
01/15/24 02:59
Troponin I 0.056 ng/ml H* D 01/15/24 02:59
[id number] Pept Cancelled 01/14/24 16:56
Physical Exam
General: No Apparent Distress, Comfortable and Intubated
HEENT: Moist Mucous Membranes
Respiratory: Crackles and Other (Ventilator assisted respirations)
Cardiac: S1/S2, Irregular Rhythm and Peripheral Edema
Breast: Deferred by me
GI: Soft, Non Tender, Non Distended and Normal Bowel Sounds
Rectal: Deferred by Provider
Genito-urinary: No Costovertebral Tender
Musculoskeletal: No Clubbing, No Cyanosis and Edema (Bilateral lower extremity edema)
Skin: Warm and Dry
Neuro: AO x 3
Hematologic/Lymphatic: No Lymphadenopathy
Psych: Calm
Impression / Plan
-
Acute hypoxic respiratory failure with hypercapnia
-Failed BiPAP, currently intubated on 60% FiO2 and PEEP 12.0
-Heart failure management as below
HFpEF, recovered NICM, acute
-Diuresis with furosemide 40 mg IV twice daily, he will require a diuretic on discharge
-Admit weight 141.7 kg, last admission weight 11/2023 was 126.7 kg
-Case management to brown SGLT2i
-Daily weight, I/O, and BMP with diuresis
-Heart failure education after extubation
-Update echocardiogram
Persistent atrial fibrillation
-Currently rate controlled, will need to convert diltiazem and metoprolol succinate to short acting medications so that can be crushed for NG tube
-Oral Anticoagulation: Apixaban 5 mg twice daily unable to confirm if he had missed doses
-[id number]: score at least 2 (Heart failure, HTN)
Abnormal troponin, likely nonischemic myocardial injury in the setting of acute heart failure exacerbation
-Troponin 0.056, trend to peak
-EKG appears stable
Hypertension, some hypotension overnight
Right frontal parietal subgaleal hematoma status post syncope
RBBB, chronic
EtOH abuse, per primary service, full cessation recommended
Obesity, BMI 42, he would benefit from weight loss
Data Reviewed
-
EKG: Report Reviewed by me (Atrial fibrillation, RB, inferior T wave abnormality, rate 84)
Radiology: Report Reviewed by me (CXR: Moderate bilateral lower lobe opacities (right larger than left). Diagnostic possibilities are (1) bilateral lower lobe atelectasis or (2) aspiration pneumonitis. Suspected small bilateral pleural effusions.)
CT Scan: Report Reviewed by me (Head: No acute intracranial abnormality. Right frontoparietal subgaleal hematoma without underlying acute calvarial fracture.)
Labs: Labs Reviewed by me
Old Records: Reviewed
--- NOTE | 2024-01-15 10:02 | CM ---
CM following re: discharge planning.
Reviewed pt's chart, met with pt.
Pt is a 63 year old male, admitted with primary dx of Syncope. Pt currently intubated, continue supportive care.
Pt lives with spouse in a 2SH, 1 step to enter. Pt is independent ion all areas [employer]OND[employer] CONNECTOR [employer]. Pt with sig history of alcohol abuse. Pt went to [facility] for detox in June 2023 and was going to [facility] for outpatient services.
CM will meet with pt regarding substance abuse problem to offer resources when clinically appropriate.
Leal checked for:
Jardiance 10 mg daily - $50.00 for 30 day supply
Farxiga 10 mg daily - $10.00 for 30 day supply
PCP: Juan C Valdez
Pharmacy: [facility]
D/C plan: uncertain at this time, probably home with family.
CM will follow with discharge plan updates as hospitalization progresses
[2024-01-15 10:54] LABS: Glucose - Point of Care 73 mg/dl (70-99)
[2024-01-15 11:22] LABS: Procalcitonin 0.27 ng/ml (0.0-0.25)
[2024-01-15 12:04] LABS: Glycohemoglobin (HgbA1c) 5.6 % (4.0-5.6)
[2024-01-15] MEDS: LOPRESSOR 25 MG TUBE ×2 (12:32→18:33)
--- NOTE | 2024-01-15 13:20 | PTCARENOTE ---
Pt sedated on fentanyl and propofol. Afib with BBB. Vent settings A/C 16/550/50%/8 Lungs CTA. DRAWER UPFITTER weaning FiO2. OG tube d/c'd. DHT placed. XRAY ordered for placement. New order received for tube feeds. Feliz with large amount clear yellow
urine. At times UO >400ml/hr after pt received IV Lasix this am. See I&Os. All other assessments unchanged.
--- NOTE | 2024-01-15 13:20 | W.PN.HOSP.TC ---
Today's Communication/Plan
-
monitor vital signs and see plan
Currently intubated and sedated
Check echo
Continue with rate control meds
Continue with IV Lasix
Monitor urine output
check procal
wean sedation as tolerated
Assessment / Plan
Assessment / Plan
General: Well Developed, intubated
HEENT: NormoCephalic, intubated
Respiratory: ventillator Breath Sounds
Cardiac: S1/S2 and irregular Rhythm
GI: Soft, Non Tender, Non Distended and Normal Bowel Sounds
Musculoskeletal: No Clubbing, No Cyanosis and Other (LE edema)
Neuro: sedated
Psych: Calm
Acute hypercarbic hypoxic respiratory failure
Suspect secondary to acute CHF with preserved EF, recovered nonischemic cardiomyopathy
Continue with IV Lasix
Echo
Cardiology following
CXR noted; could have pneumonemia vs atelectasis. check procal
Persistent atrial fibrillation
Currently rate controlled; on metoprolol, Dilt
Eliquis currently on hold due to hematoma, restart per auction clerk
Syncopal episode likely from acute respiratory failure with hypoxia and hypercapnia
-head CT with No acute intracranial abnormality. Right frontoparietal subgaleal hematoma without underlying acute calvarial fracture.
#Right frontoparietal subgaleal hematoma without underlying acute calvarial fracture.
-continue to monitor. This was discussed on admission with neurosurgery recommended to monitor.
Mild troponin elevation likely nonischemic myocardial injury
Monitor
#anemia likely chronic
-no active bleeding
-ctm
Hypomagnesemia
Replete
#hyperkalemia
Improving
# Alcohol abuse
-Start back drinking last week
-Cont MSAS protocol
# Obesity-BMI 43.2
# Ex-smoker
# DVT prophylaxis
-Eliquis
# CODE STATUS
-Full code
I spent a total of 53 minutes with the patient or on the floor. More than 50% of this time involved counseling and coordination of care.
Anticipated Discharge: > 48 hours
Subjective/Interval History
-
Date of Service: January 15, 2024
intubated
Objective Data
-
Labs:
Laboratory Results
01/15/24
02:59
WBC 7.1
Hgb 9.2 L
Hct 30.7 L
Plt Count 294
Sodium 138
Potassium 4.7
Chloride 105
Carbon Dioxide 26
BUN 34 H
Creatinine 1.3
Glucose 59 L
Calcium 9.4
Total Bilirubin 0.8
AST 38
ALT 22
Alkaline Phosphatase 133 H
Vital Signs:
Vital Signs
Temp Pulse Resp BP Pulse Ox
97.5 F 75 16 107/59 93
01/15/24 12:37 01/15/24 07:45 01/15/24 07:45 01/15/24 07:30 01/15/24 11:45
I&O
01/14/24 01/15/24 01/16/24
06:59 06:59 06:59
Intake Total 534.2 / 564.8 304.2 / 304.2
Output Total 1979 1550 / 1550
Balance -1445.8 / -1415.2 -1245.8 / -1245.8
[2024-01-15] MEDS: UNASYN IV ×2 (14:49→19:39)
[2024-01-15] MEDS: CARDIZEM 60 MG TUBE (16:52)
--- NOTE | 2024-01-15 17:54 | PTCARENOTE ---
SpO2 decreased to 88% while turned during bed bath. Placed on 100% FiO2, sat pt up and suctioned for clear thin sputum. Remained 90% on 50% Fio2. Increased FiO2 to 60%, SpO2 92% at this time.
Urine output >2500ml so far this shift.
All other assessments unchanged.
[2024-01-15] MEDS: ELIQUIS 5 MG TUBE (19:39)
--- NOTE | 2024-01-15 20:30 | PTCARENOTE ---
rec'd patient. assessment as documented. pt intubated, prop/fent gtts infusing. opens eyes, nods y/n. b/l soft wrist restraints in place. afib on monitor, HR 60s with BBB. #8 ETT, 24 at lip, vent settings: AC 16/550/8/60%. large amt of clear thick
secretions. diminished breath sounds. TF infusing through R nare DHT. benjamin intact. CHG bath, oral care and sxn, benjamin care provided. pt repositioned, extremities elevated on pillows. care ongoing.
[2024-01-15] MEDS: LOPRESSOR TUBE (23:29)
[2024-01-15] MEDS: CARDIZEM TUBE (23:29)
[2024-01-16] VITALS (21 sets, daily range): BP systolic 104–133; BP diastolic 56–89; BMI 40.9
[2024-01-16] MEDS: UNASYN IV ×4 (01:59→19:02)
[2024-01-16] MEDS: DIPRIVAN 100 IV ×7 (03:08→22:53)
[2024-01-16 03:24] LABS: Venous Blood Gas B.E. 5.3 mmol/L (-4 to +4); Venous Blood Gas O2 Sat % 99.2 %; Venous Blood Gas pCO2 38 mmHg (35-48); Venous Blood Gas pH 7.49 (7.32-7.43); Venous Blood Gas pO2 144 mmHg (30-50)
--- NOTE | 2024-01-16 03:27 | PTCARENOTE ---
AM labs sent. prop/fent gtts continue. oral care/sxn provided. vent settings unchanged. pt repositioned, extremities elevated. care ongoing.
[2024-01-16 03:28] LABS: Hematocrit 30.9 % (39.0-52.0); Hemoglobin 9.6 g/dL (13.0-18.0); Mean Corp Hgb Conc. 31.1 g/dL (33.0-37.0); Mean Corpuscular Hgb 22.5 pg (27.0-31.0); Mean Corpuscular Volume 72.4 fL (80.0-94.0); Mean Platelet Volume 9.6 fL (7.4-10.4); Platelet Count 262 10^3/uL (130-400); Red Blood Cell Count 4.27 10^6/uL (4.70-6.10); Red Cell Dist. Width 16.9 % (11.5-14.5); White Blood Cell Count 6.8 10^3/uL (4.8-10.8)
[2024-01-16 03:54] LABS: ALT (SGPT) 19 U/L (0-50); AST (SGOT) 33 U/L (17-59); Alkaline Phosphatase 130 U/L (38-126); Blood Urea Nitrogen 35 mg/dl (9-20); Calcium 9.2 mg/dl (8.4-10.2); Carbon Dioxide 29 mmol/L (22-30); Chloride 103 mmol/L (98-107); Direct Bilirubin 0.3 mg/dl (0.0-0.4); Estimated Creatinine Clearance 80 ml/min; Glucose 97 mg/dl (70-99); Magnesium 1.7 mg/dl (1.6-2.3); Phosphorus 3.6 mg/dl (2.5-4.5); Potassium 3.9 mmol/L (3.5-5.1); Sodium 137 mmol/L (135-145); Total Bilirubin 0.8 mg/dl (0.2-1.3); Total Protein 5.8 g/dl (6.3-8.2); eGFR 56.83
[2024-01-16] MEDS: LOPRESSOR TUBE ×4 (05:05→23:55)
[2024-01-16] MEDS: FOLVITE 1 MG PO (07:04)
[2024-01-16] MEDS: ELIQUIS 5 MG TUBE ×2 (07:04→19:02)
[2024-01-16] MEDS: CARDIZEM 60 MG TUBE ×2 (07:04→16:43)
[2024-01-16] MEDS: THIAMINE INJECTION 200 MG IV ×2 (07:04→19:02)
[2024-01-16] MEDS: MIRALAX 17 GRAMS TUBE (07:04)
[2024-01-16] MEDS: NSS (PRESERVATIVE FREE) 10 ML IV (07:05)
[2024-01-16] MEDS: PROTONIX IV 40 MG IV (07:05)
[2024-01-16] MEDS: LASIX 40 MG IV ×2 (07:05→15:11)
--- NOTE | 2024-01-16 07:31 | PTCARENOTE ---
pt received from previous rn- ett to vent- see settings as charted. oral care provided- pt suctioned for thick clear secretions. pt arouses to name and tactile- able to nod yes and no appropriately, and follow simple commands. afib with a bundle
branch block on the monitor. benjamin draining yellow urine. right nare dobhoff at 65cm- tolerating tube feeds, advanced rate as per order. all safety precautions in place.
--- NOTE | 2024-01-16 08:34 | W.PN.CD ---
Today's Communication / Plan
-
continue diuresis
continue rate control
monitor for etoh w/d
Impression / Plan
-
Acute hypoxic respiratory failure with hypercapnia
-Failed BiPAP, currently intubated on 60% FiO2 and PEEP 12.0
-Heart failure management as below
HFpEF, recovered NICM, acute
-persistent RVE with hypokinesis, doesn't appear new. LVEF normal
-Diuresing with furosemide 40 mg IV twice daily,will continue
- he will require a diuretic on discharge
-Admit weight 141.7 kg, last admission weight 11/2023 was 126.7 kg
-Case management to brown SGLT2i
-Daily weight, I/O, and BMP with diuresis
-Heart failure education after extubation
Persistent atrial fibrillation
-Currently rate controlled, continue diltiazem and metoprolol short acting formulations through the NG tube
-Oral Anticoagulation: Apixaban 5 mg twice daily unable to confirm if he had missed doses
-once extubated will need to discuss etoh use and eliquis to ensure ongoing candidacy
-[id number]: score at least 2 (Heart failure, HTN)
Abnormal troponin, likely nonischemic myocardial injury in the setting of acute heart failure exacerbation and hypercapceic respiratory failure
-Troponin 0.056 peak
-EKG appears stable
Hypertension, some hypotension overnight
Right frontal parietal subgaleal hematoma status post syncope
RBBB, chronic
EtOH abuse, per primary service, full cessation recommended
-monitor for withdrawal
Obesity, BMI 42, he would benefit from weight loss
Subjective:
he is inubated and sedated
CCT 31 minutes
Data Reviewed:
TTE 01/15/24:
CONCLUSIONS
Normal left ventricular size and systolic function without regional wall motion
abnormality.
Mild concentric left ventricular hypertrophy.
In limited views, the right ventricle appears to be dilated with reduced
systolic function
No significant valvular disease.
Compared to the echo images on 10/01/2023, the findings are likely similar.
However on today's study the proximal ascending aorta was not well-seen.
Physical Exam
Vital Signs/Labs
Vital Signs
Temp Pulse Resp BP Pulse Ox
97.7 F 80 16 122/74 94
01/16/24 06:55 01/16/24 07:04 01/16/24 06:30 01/16/24 07:04 01/16/24 07:30
01/15/24 01/16/24 01/17/24
06:59 06:59 06:59
Actual Weight 141.7 kg 136.8 kg
01/16/24 03:13
01/16/24 03:13
PT 17.2 Sec (11.4-14.6) H 01/14/24 15:01
INR 1.42 01/14/24 15:01
APTT 39.2 Sec (23.4-35.0) H 01/14/24 15:01
Magnesium 1.7 mg/dl (1.6-2.3) 01/16/24 03:13
Triglycerides 119 mg/dl (10-149) 01/15/24 02:59
LDL Cholesterol, Calc 43 mg/dl 01/15/24 02:59
VLDL Cholesterol, Calc 23 mg/dl (0-30) 01/15/24 02:59
HDL Cholesterol 43 mg/dl 01/15/24 02:59
01/14/24 01/14/24
15:08 16:56
[id number] Pept 4160 Cancelled
LAB Results
01/14/24 01/15/24 01/15/24
20:38 02:59 10:33
Troponin I 0.042 H* 0.056 H* D 0.040 H* D
Physical Exam
Constitutional: Comfortable and Other (sedated and intubated)
Cardiovascular: Systolic murmur absent, Diastolic murmur absent, Rhythm/rate is irregular and Pedal edema present (1+ legs b;l)
Respiratory: Respiratory effort normal, Lungs clear to auscul., Wheeze Absent, Crackles Absent and Rhonchi Absent
Neuro/Psych: AO x 3
Data Reviewed
-
Date of Service: January 16, 2024
EKG: Other (tele: rate controlled fib with rbbb)
X-Ray/CT/US/MRI/NUC/PET: Image Personally Visualized and interpreted (ett high, mod pulm edema persists report states c/f right ll pna vs effusion)
--- NOTE | 2024-01-16 08:49 | W.PN.INTV ---
Today's Communication / Plan
Recommendations
Aggressive diuresis
Mechanical ventilation with daily SAT/SBT
BB + CCB
Monitor for alcohol withdrawal/DT
Consider starting phenobarbital versus Librium prior to extubating
Continue tube feeds
CXR tomorrow
CT head today to assure no intracranial O'Dandre causing his outward gaze and also make sure his right frontoparietal hematoma stable
Assessment
-
Assessment: 63-year-old male with a past medical history of alcoholism, gout, hypertension and history of A-fib on Eliquis who presents with passing out while working on his car. He reported that he hit the right side of his head on the car. He
states he had a couple beers earlier in the afternoon. Patient was drowsy in the ER. CT head showed no acute intracranial abnormality. It did show a 1.3 cm calcified right frontal parietal meningioma. Initial vitals showed he was afebrile to
98.2 �F, tachycardic to 103 bpm, breathing at 24 breaths/min, BP 95/50 and saturating 81% on room air which improved to 93% with 6 L/min nasal cannula. Initial labs showed WBC 7.8, Hb 10.8, acute hypercapnia with blood gas pH 7.19 with pCO2 65,
initial serum bicarbonate of 26, potassium 5.2, proBNP 4160 (no prior to compare to), with alcohol level of 62 and beta hydroxybutyrate 0.12. Initial CXR showed moderate bilateral lower lobe opacities (R >L) with small bilateral pleural effusions
and pulmonary vascular distention suggestive of mild pulmonary edema. Lasix 40 mg IV push x 1 was given, and patient required BiPAP. Patient was admitted to the ICU for further care. Unfortunately his hypercapnia persisted and worsened with pCO2
rise in the 78 and he was intubated. Critical care services consulted for additional management/recommendations.
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
Impression:
#Acute respiratory failure with hypercapnia + hypoxia requiring mechanical ventilation
#Abnormal CXR with pulmonary vascular congestion and pleural effusions likely due to acute decompensated heart failure
#Acute HFpEF with dilated RV with reduced RV systolic function (enlarged RV is chronic, RV systolic function reduction is new)
#Elevated troponin likely due to demand ischemia with type II MT
#Syncopal episode with fall resulting in right frontoparietal hematoma without acute calvarial fracture
#Alcoholism
#Anemia
#Hx of A-fib on Eliquis
Plan:
- Continue mechanical ventilation with daily SAT/SBT
- Maintain SpO2 >90-94% by titrating PEEP + FiO2
- Daily blood gas and adjust ventilator as needed
- Goal plateau pressure <30
- Aggressively diuresis to maintain net negative fluid balance of >1.5-2L per day, as BP and sCr tolerate
- Replete electrolytes with K>4, Mg>2
- Cardiology consulted and recommendations appreciated
- Continue MSAS with thiamine and folate
- Once extubated, have Be Cares speak with him about alcohol rehab/AA
- Monitor for signs of alcohol withdrawal
- Check CT head given upwards eye deviation as patient is on Eliquis with recent fall and head trauma
- Rate control with goal HR<110
- Continue CCB and BB, but use short acting given he is intubated and meds will go through NGT
- Troponin peaked at 0.056 on 01/15/2024 no need to continue trending at this point
- Maintain MAP>65
- Maintain euglycemia with goal BG 140-180
- prn nebulized bronchodilators
- After pt extubated then will start incentive spirometer
- stress ulcer ppx
- DVT ppx: Initially his Eliquis was held given right frontoparietal hematoma; resume Eliquis last night, repeat CT head today to assure hematoma not expanding
updated at bedside and all questions were answered.
Critical care statement: A total of 38 minutes of critical care time was provided for this patient today. This includes management of unstable vital signs, evaluation of the patient at bedside, reviewing the patient's pertinent medical records
including radiographs, microbiology, laboratory evaluations, and discussion with primary team, consultants, pharmacy, nutrition, physical therapy, case management, charge nurse, critical care nursing, and respiratory therapy.
Subjective Dataa
Subjective Data
Date of Service:
Date of Service: January 16, 2024
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
Subjective:
Patient seen and evaluated this morning. No acute events reported overnight. Remains intubated on AC 550/16/60%/5. PIP 20-24, VTe: 526mL and breathing at 16b/min. Follows simple commands. Sedated on propofol at 30mcg/kg/min and fentanyl at
50mcg/hr. TF on at 40mL/hr. I/O net negative 2L last 24 hrs. Minimal ETT secretions. Awakens to verbal and tactile stimuli, has frequent upward eye deviation however he is following all commands and has no tonic-clonic movements seen at bedside.
Review of Systems
General: Unobtainable - Sedation (intubation)
Objective Data
Data Reviewed
Vital Signs / I&O / Oxygen:
Vital Signs
Temp Pulse Resp BP Pulse Ox
97.7 F 68 16 105/66 90
01/16/24 06:55 01/16/24 09:00 01/16/24 09:00 01/16/24 09:00 01/16/24 09:00
Intake and Output
01/15/24 01/16/24 01/17/24
06:59 06:59 06:59
Intake Total 534.2 / 564.8 1763.8 / 1849.4 307.4 / 307.4
Output Total 1979 / 1979 3825 / 3900 775 / 775
Balance -1445.8 / -1415.2 -2061.2 / -2050.6 -467.6 / -467.6
SaO2 [A/C] 94
SaO2 90
Nasal Cannula flow liters per 6
minute
Physical Exam
General: Respiratory Distress (negative), Comfortable and Other (Morbidly obese male, intubated/sedated)
HEENT: Normocephalic, Anicteric and Other (Thick neck)
Cardiovascular: S1-S2 and Peripheral Edema (+1 lower extremity pitting edema)
Respiratory: Wheeze (negative), Crackles (Bibasilar), Rhonchi (negative), Non-Labored Respirations and ET Tube
GI: Soft, Distended (Abdominal obesity), Non Tender and Normal Bowel Sounds
Neurology: Tremors (negative) and Other (Sedated but opens eyes and follows commands; frequent upward eye deviation that corrects when you asked patient to look straight head)
Skin: Warm, Dry and Jaundice (negative)
Labs/Micro/Reports
Lab Data
01/16/24 03:13
01/16/24 03:13
Microbiology
01/15/24 14:26 Nose Nasal Screen MRSA (PCR) - Final
MRSA not detected - performed by PCR methodology.
01/15/24 14:26 Endotracheal Gram Stain - Preliminary
01/15/24 14:26 Urine Legionella Urinary Antigen - Final
Negative for Legionella pneumophila Serogroup 1 antigen.
A negative result does not rule out the possiblity of
Legionella infection due to other serogroups or species of
Legionella. Clinical correlation is recommended.
01/15/24 14:26 Urine Streptococcus pneumoniae Antigen (M - Final
Negative for Streptococcus pneumoniae antigen.
A negative result does not exclude infection with
Streptococcus pneumoniae. Clinical correlation is
recommended.
--- NOTE | 2024-01-16 11:28 | PTCARENOTE ---
assessment unchanged. plan of care discussed with rounds with Dr. Chavez. turned and repositioned. oral care provided.
[2024-01-16 12:02] LABS: Glucose - Point of Care 107 mg/dl (70-99)
[2024-01-16] MEDS: SUBLIMAZE 100 IV (12:31)
--- NOTE | 2024-01-16 13:12 | W.PN.HOSP.TC ---
Today's Communication/Plan
-
Monitor vitals
See plan
Wean sedation as tolerated
Vent management per ICU
Continue with diuresis
Monitor renal function
Continue antibiotic
Assessment / Plan
Assessment / Plan
General: Well Developed, intubated
HEENT: NormoCephalic, intubated
Respiratory: ventillator Breath Sounds
Cardiac: S1/S2 and irregular Rhythm
GI: Soft, Non Tender, Non Distended and Normal Bowel Sounds
Musculoskeletal: No Clubbing, No Cyanosis and Other (LE edema)
Neuro: sedated
Psych: Calm
Acute hypercarbic hypoxic respiratory failure
Suspect secondary to acute CHF with preserved EF, recovered nonischemic cardiomyopathy
intubated; Vent management per practice director
Continue with IV Lasix
Echo without acute changes
Cardiology following
Currently on propofol, fentanyl for sedation, wean sedation as tolerated
Suspect pneumonia
likely from aspiration when he had syncopal episode
CXR noted; could have pneumonemia vs atelectasis
procal +; started unasyn
Persistent atrial fibrillation
Currently rate controlled; on metoprolol, Dilt
cw Eliquis
Syncopal episode likely from acute respiratory failure with hypoxia and hypercapnia
-head CT with No acute intracranial abnormality. Right frontoparietal subgaleal hematoma without underlying acute calvarial fracture.
#Right frontoparietal subgaleal hematoma without underlying acute calvarial fracture.
-continue to monitor. This was discussed on admission with neurosurgery recommended to monitor. repeat CT without acute changes
Mild troponin elevation likely nonischemic myocardial injury
Monitor
#anemia likely chronic
-no active bleeding
-ctm
Hypomagnesemia
Replete
#hyperkalemia
Improving
# Alcohol abuse
-Started back drinking last week
-Cont MSAS protocol
# Obesity-BMI 43.2
# Ex-smoker
# DVT prophylaxis
-Eliquis
# CODE STATUS
-Full code
I spent a total of 52 minutes with the patient or on the floor. More than 50% of this time involved counseling and coordination of care.
Anticipated Discharge: > 48 hours
Subjective/Interval History
-
Date of Service: January 16, 2024
Intubated
Objective Data
-
Labs:
Laboratory Results
01/16/24
03:13
WBC 6.8
Hgb 9.6 L
Hct 30.9 L
Plt Count 262
Sodium 137
Potassium 3.9
Chloride 103
Carbon Dioxide 29
BUN 35 H
Creatinine 1.4 H
Glucose 97
Calcium 9.2
Total Bilirubin 0.8
AST 33
ALT 19
Alkaline Phosphatase 130 H
Vital Signs:
Vital Signs
Temp Pulse Resp BP Pulse Ox
98 F 72 16 106/64 93
01/16/24 12:00 01/16/24 11:00 01/16/24 11:00 01/16/24 11:00 01/16/24 11:46
I&O
01/15/24 01/16/24 01/17/24
06:59 06:59 06:59
Intake Total 534.2 / 564.8 1763.8 / 1849.4 834.2 / 834.2
Output Total 1979 / 1979 3825 / 3900 1150 / 1150
Balance -1445.8 / -1415.2 -2061.2 / -2050.6 -315.8 / -315.8
--- NOTE | 2024-01-16 13:43 | CM ---
CM following re: discharge planning.
Reviewed pt's chart, met with pt. Per Rounds meeting, pt remains intubated, continue supportive care.
Pt lives with spouse in a 2SH, 1 step to enter. 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 Pt with sig history of alcohol abuse. Pt went to [facility] for detox in June 2023 and was going to [facility] for outpatient services.
CM will meet with pt regarding substance abuse problem to offer resources when clinically appropriate.
D/C plan: uncertain at this time, probably home with family.
CM will follow with discharge plan updates as hospitalization progresses
--- NOTE | 2024-01-16 14:56 | PTCARENOTE ---
pt awake, following commands, eyes deviating up- unable to look at rn- Dr. Chavez at the bedside- ct head ordered.
[2024-01-16] MEDS: SUBLIMAZE 50 MCG IV ×2 (15:11→19:56)
--- NOTE | 2024-01-16 16:53 | PTCARENOTE ---
pt remains following commands, ct completed. no new orders. dr. vernon at bedside- given updated. assessment unchanged, remains in afib with bbb. see vent settings.
--- NOTE | 2024-01-16 20:30 | PTCARENOTE ---
rec'd patient. assessment as documented. opens eyes, nods y/n appropriately. b/l soft wrist restraints. upward gaze deviation noted. afib on monitor. #8 ETT, 27 at lip, ETT adjusted, oral care and sxn provided. lungs CTA. DHT in place, TF infusing
at goal. no BM noted. benjamin intact, benjamin care done. prop/fent gtts infusing. CHG bath and fresh linens provided. extremities elevated. care ongoing.
--- NOTE | 2024-01-16 21:41 | PTCARENOTE ---
ICU PLANT SAFETY LEADER placed right radial arterial line at bedside. leveled and zeroed.
--- NOTE | 2024-01-16 21:42 | W.PN.UPDATE ---
Update Note
Progress Note Update
Procedure Note: Arterial Line�
� Right Wrist Arrow 20 (08/19)�
Diagnosis:��acute heart failure
IV Line Comments: Uneventful Procedure�
Neo's test completed pre-procedure: Yes�
A-Line Comments: Sterile technique as per standard protocol, Ultrasound guided insertion�
Functioning A-line in situ: Yes�
A-line Insertion Start Time:��2119
A-line in at:��2124
[2024-01-16] MEDS: CARDIZEM TUBE (23:55)
[2024-01-17] VITALS (7 sets, daily range): BP systolic 101–123; BP diastolic 48–75; BMI 40.5
[2024-01-17] MEDS: DIPRIVAN 100 IV ×5 (01:58→19:00)
[2024-01-17] MEDS: UNASYN IV ×4 (01:58→20:19)
[2024-01-17 03:05] LABS: Hematocrit 29.7 % (39.0-52.0); Hemoglobin 9.5 g/dL (13.0-18.0); Mean Corpuscular Hgb 22.1 pg (27.0-31.0); Mean Corpuscular Volume 69.2 fL (80.0-94.0); Mean Platelet Volume 9.1 fL (7.4-10.4); Platelet Count 255 10^3/uL (130-400); Red Blood Cell Count 4.29 10^6/uL (4.70-6.10); Red Cell Dist. Width 17.1 % (11.5-14.5); White Blood Cell Count 8.8 10^3/uL (4.8-10.8)
[2024-01-17 03:16] LABS: B.E. 5.8 mmol/L; HCO3 29.8 mmol/L (21-28); Ionized Calcium 1.15 mMOL/L (1.15-1.33); O2 Saturation % 96.1 % (94-98); PCO2 40 mmHg (35-48); PO2 77 mmHg (83-108); Potassium 3.6 mMOL/L (3.5-5.1); Sodium 136 mMOL/L (136-145); pH 7.48 (7.35-7.45)
[2024-01-17 03:25] LABS: NT-proBNP 801 pg/ml
[2024-01-17 03:31] LABS: ALT (SGPT) 15 U/L (0-50); AST (SGOT) 27 U/L (17-59); Albumin 3.1 g/dl (3.5-5.0); Alkaline Phosphatase 136 U/L (38-126); Blood Urea Nitrogen 36 mg/dl (9-20); Calcium 8.8 mg/dl (8.4-10.2); Carbon Dioxide 29 mmol/L (22-30); Chloride 101 mmol/L (98-107); Direct Bilirubin 0.2 mg/dl (0.0-0.4); Estimated Creatinine Clearance 78 ml/min; Glucose 136 mg/dl (70-99); Magnesium 1.7 mg/dl (1.6-2.3); Sodium 136 mmol/L (135-145); Total Bilirubin 0.8 mg/dl (0.2-1.3); Total Protein 5.9 g/dl (6.3-8.2); Triglycerides 87 mg/dl (10-149); eGFR 56.83
[2024-01-17] MEDS: SUBLIMAZE 100 IV (04:42)
[2024-01-17] MEDS: LOPRESSOR 25 MG TUBE ×3 (04:43→18:05)
--- NOTE | 2024-01-17 05:01 | PTCARENOTE ---
AM labs sent. oral care provided, ETT adjusted. care ongoing.
[2024-01-17] MEDS: SUBLIMAZE 50 MCG IV (05:13)
[2024-01-17] MEDS: LASIX 40 MG IV ×2 (08:38→15:19)
[2024-01-17] MEDS: PROTONIX IV 40 MG IV (08:38)
[2024-01-17] MEDS: NSS (PRESERVATIVE FREE) 10 ML IV (08:38)
[2024-01-17] MEDS: ELIQUIS 5 MG TUBE ×2 (08:39→20:18)
[2024-01-17] MEDS: MIRALAX 17 GRAMS TUBE (08:39)
[2024-01-17] MEDS: THIAMINE INJECTION 200 MG IV (08:39)
[2024-01-17] MEDS: CARDIZEM 60 MG TUBE ×2 (08:39→15:19)
[2024-01-17] MEDS: FOLVITE 1 MG PO (08:39)
--- NOTE | 2024-01-17 08:47 | W.PN.CD ---
Today's Communication / Plan
-
continue diuresis
continue monitor/treatment of etoh w/d
Impression / Plan
-
Acute hypoxic respiratory failure with hypercapnia
-currently intubated on 60% FiO2 and PEEP 12.0
-Heart failure management as below
HFpEF, recovered NICM, acute
-persistent RVE with hypokinesis, doesn't appear new. LVEF normal
-Diuresing with furosemide 40 mg IV twice daily,will continue
- he will require a diuretic on discharge
-Admit weight 141.7 kg, last admission weight 11/2023 was 126.7 kg
-Case management to brown SGLT2i
-Daily weight, I/O, and BMP with diuresis
-Heart failure education after extubation
Persistent atrial fibrillation
-Currently rate controlled, continue diltiazem and metoprolol short acting formulations through the NG tube
-Oral Anticoagulation: Apixaban 5 mg twice daily unable to confirm if he had missed doses
-once extubated will need to discuss etoh use and eliquis to ensure ongoing candidacy
-[id number]: score at least 2 (Heart failure, HTN)
Abnormal troponin, likely nonischemic myocardial injury in the setting of acute heart failure exacerbation and hypercapceic respiratory failure
-Troponin 0.056 peak
-EKG appears stable
Hypertension, some hypotension overnight
Right frontal parietal subgaleal hematoma status post syncope
RBBB, chronic
EtOH abuse, per primary service, full cessation recommended
-monitor for withdrawal
Obesity, BMI 42, he would benefit from weight loss
Subjective:
he is inubated and sedated
CCT 31 minutes
Data Reviewed:
TTE 01/15/24:
CONCLUSIONS
Normal left ventricular size and systolic function without regional wall motion
abnormality.
Mild concentric left ventricular hypertrophy.
In limited views, the right ventricle appears to be dilated with reduced
systolic function
No significant valvular disease.
Compared to the echo images on 10/01/2023, the findings are likely similar.
However on today's study the proximal ascending aorta was not well-seen.
Physical Exam
Vital Signs/Labs
Vital Signs
Temp Pulse Resp BP Pulse Ox
98.1 F 72 16 112/60 93
01/17/24 07:45 01/17/24 08:39 01/17/24 06:00 01/17/24 08:39 01/17/24 08:36
01/16/24 01/17/24 01/18/24
06:59 06:59 06:59
Actual Weight 136.8 kg 135.4 kg
01/17/24 02:55
01/17/24 02:55
PT 17.2 Sec (11.4-14.6) H 01/14/24 15:01
INR 1.42 01/14/24 15:01
APTT 39.2 Sec (23.4-35.0) H 01/14/24 15:01
Magnesium 1.7 mg/dl (1.6-2.3) 01/17/24 02:55
Triglycerides 87 mg/dl (10-149) 01/17/24 02:55
LDL Cholesterol, Calc 43 mg/dl 01/15/24 02:59
VLDL Cholesterol, Calc 23 mg/dl (0-30) 01/15/24 02:59
HDL Cholesterol 43 mg/dl 01/15/24 02:59
01/14/24 01/14/24 01/17/24
15:08 16:56 02:55
Qyk-V-Rutgdkckhca Pept 4160 Cancelled 801
LAB Results
01/14/24 01/15/24 01/15/24
20:38 02:59 10:33
Troponin I 0.042 H* 0.056 H* D 0.040 H* D
Physical Exam
Constitutional: No acute distress
Cardiovascular: Pedal edema is absent, JVD pressure is normal, Systolic murmur absent, Diastolic murmur absent and Pedal edema present
Respiratory: Respiratory effort normal and Other (ventillator sounds)
Neuro/Psych: AO x 3
Data Reviewed
-
Date of Service: January 17, 2024
EKG: Other (afib rate controlled)
--- NOTE | 2024-01-17 08:55 | W.PN.INTV ---
Today's Communication / Plan
Recommendations
Aggressive diuresis
Mechanical ventilation with daily SAT/SBT
BB + CCB
Monitor for alcohol withdrawal/DT --> start ativan to help us weaning off propofol
Consider starting phenobarbital versus Librium prior to extubating
Continue tube feeds
Hopefully can extubate over next 1-2 days
Assessment
-
Assessment: 63-year-old male with a past medical history of alcoholism, gout, hypertension and history of A-fib on Eliquis who presents with passing out while working on his car. He reported that he hit the right side of his head on the car. He
states he had a couple beers earlier in the afternoon. Patient was drowsy in the ER. CT head showed no acute intracranial abnormality. It did show a 1.3 cm calcified right frontal parietal meningioma. Initial vitals showed he was afebrile to
98.2 �F, tachycardic to 103 bpm, breathing at 24 breaths/min, BP 95/50 and saturating 81% on room air which improved to 93% with 6 L/min nasal cannula. Initial labs showed WBC 7.8, Hb 10.8, acute hypercapnia with blood gas pH 7.19 with pCO2 65,
initial serum bicarbonate of 26, potassium 5.2, proBNP 4160 (no prior to compare to), with alcohol level of 62 and beta hydroxybutyrate 0.12. Initial CXR showed moderate bilateral lower lobe opacities (R >L) with small bilateral pleural effusions
and pulmonary vascular distention suggestive of mild pulmonary edema. Lasix 40 mg IV push x 1 was given, and patient required BiPAP. Patient was admitted to the ICU for further care. Unfortunately his hypercapnia persisted and worsened with pCO2
rise in the 78 and he was intubated. Critical care services consulted for additional management/recommendations.
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
Impression:
#Acute respiratory failure with hypercapnia + hypoxia requiring mechanical ventilation
#Abnormal CXR with pulmonary vascular congestion and pleural effusions due to acute decompensated heart failure
#Acute HFpEF with dilated RV with reduced RV systolic function (enlarged RV is chronic, RV systolic function reduction is new)
#Elevated troponin likely due to demand ischemia with type II NV
#Syncopal episode with fall resulting in right frontoparietal hematoma without acute calvarial fracture
#Suspected aspiration pneumonia with bilateral opacities
#Alcoholism
#Anemia
#Hx of A-fib on Eliquis
#Focal ovoid calcification along the left posterior paramedian tentorium measuring 13 mm likely a small calcified meningioma
Plan:
- Continue mechanical ventilation with daily SAT/SBT
- Tomorrow will do SBT with PS 5, PEEP of 0 and if does well after 30 mins to 2 hours, then will extubate to BiPAP
- Maintain SpO2 >90-94% by titrating PEEP + FiO2
- Daily blood gas and adjust ventilator as needed
- Goal plateau pressure <30
- Aggressively diuresis to maintain net negative fluid balance of >1.5-2L per day, as BP and sCr tolerate
- Replete electrolytes with K>4, Mg>2
- Cardiology consulted and recommendations appreciated
- Continue MSAS with thiamine and folate
- Start ativan 1mg q6hr while we reduce propofol dosing to help avoid EtOH withdrawal
- Once extubated, have Be Cares speak with him about alcohol rehab/AA
- Monitor for signs of alcohol withdrawal
- CT head negative from 01/16/2024 - done due to upwards eye deviation as patient is on Eliquis with recent fall and head trauma
- Started antibiotics with Unasyn on 01/14 given syncopal event with bilateral opacities and suspected aspiration pneumonia. Procalcitonin slowly rising but he also is in a mild HORTENSIA.
- Follow-up respiratory culture (collected 01/15/2024) - NGTD; urine antigens for Legionella + strep pneumonia are both negative; MRSA is negative; trend procal to assure we have source control
- Rate control with goal HR<110
- Continue CCB and BB, but use short acting given he is intubated and meds will go through NGT
- Troponin peaked at 0.056 on 01/15/2024 no need to continue trending at this point
- Maintain MAP>65
- Maintain euglycemia with goal BG 140-180
- prn nebulized bronchodilators
- After pt extubated then will start incentive spirometer
- stress ulcer ppx
- DVT ppx: Initially his Eliquis was held given right frontoparietal hematoma; resumed Eliquis on 01/14; Repeated CT head on 01/15 to assure hematoma not expanding, which it is not
Critical care statement: A total of 41 minutes of critical care time was provided for this patient today. This includes management of unstable vital signs, evaluation of the patient at bedside, reviewing the patient's pertinent medical records
including radiographs, microbiology, laboratory evaluations, and discussion with primary team, consultants, pharmacy, nutrition, physical therapy, case management, charge nurse, critical care nursing, and respiratory therapy.
Subjective Dataa
Subjective Data
Date of Service:
Date of Service: January 17, 2024
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
Subjective:
Patient seen and evaluated today at bedside. Net -345 cc over the last 24 hours. Pt sedated on propofol at 40mcg/kg/min and fentanyl at 50mcg/hr. Minimal ETT secretions. Desaturated to 70s when he turned to the left during nursing care. He does
follow commands when sedation is lowered and is in no acute distress with no seizure activity seen. He still continues to look upwards although it does improve when you instruct him to look forward.
Review of Systems
General: Unobtainable - Sedation
Objective Data
Data Reviewed
Vital Signs / I&O / Oxygen:
Vital Signs
Temp Pulse Resp BP Pulse Ox
98.1 F 72 16 112/60 93
01/17/24 07:45 01/17/24 08:39 01/17/24 06:00 01/17/24 08:39 01/17/24 08:36
Intake and Output
01/16/24 01/17/24 01/18/24
06:59 06:59 06:59
Intake Total 1763.8 / 1849.4 2814.4 / 2814.4
Output Total 3825 / 3900 3160 / 3160
Balance -2061.2 / -2050.6 -345.6 / -345.6
SaO2 [A/C] 94
SaO2 93
Nasal Cannula flow liters per 6
minute
Physical Exam
General: Respiratory Distress (negative), Comfortable and Other (Morbidly obese male, intubated/sedated)
HEENT: Normocephalic, Anicteric and Other (Thick neck)
Cardiovascular: S1-S2 and Peripheral Edema (+1 lower extremity pitting edema)
Respiratory: Wheeze (negative), Crackles (Bibasilar), Rhonchi (negative), Non-Labored Respirations and ET Tube
GI: Soft, Distended (Abdominal obesity), Non Tender and Normal Bowel Sounds
Neurology: Tremors (negative) and Other (Sedated but opens eyes and follows commands; frequent upward eye deviation that corrects when you asked patient to look straight head)
Skin: Warm, Dry and Jaundice (negative)
Labs/Micro/Reports
Lab Data
01/17/24 02:55
01/17/24 02:55
Laboratory Results
01/17/24
02:55
pH 7.48 H
pCO2 40
pO2 77 L
HCO3 29.8 H
O2 Delivery Level
Microbiology
01/15/24 14:26 Blood/Venous Blood Culture - Preliminary
No Growth in 24 hours- Final report to follow
01/15/24 14:26 Endotracheal Respiratory Culture - Preliminary
Usual Respiratory Renata
01/15/24 14:26 Endotracheal Gram Stain - Preliminary
01/15/24 14:26 Nose Nasal Screen MRSA (PCR) - Final
MRSA not detected - performed by PCR methodology.
01/15/24 14:26 Urine Legionella Urinary Antigen - Final
Negative for Legionella pneumophila Serogroup 1 antigen.
A negative result does not rule out the possiblity of
Legionella infection due to other serogroups or species of
Legionella. Clinical correlation is recommended.
01/15/24 14:26 Urine Streptococcus pneumoniae Antigen (M - Final
Negative for Streptococcus pneumoniae antigen.
A negative result does not exclude infection with
Streptococcus pneumoniae. Clinical correlation is
recommended.
--- NOTE | 2024-01-17 10:00 | PTCARENOTE ---
pt on vent sedated, afib on monitor , BP adequate, pt is diuresing from Lasix given , pt labs noted , at bedside , updated on plan of care
--- NOTE | 2024-01-17 10:52 | PN.CDI ---
CDI
- -
CDI:
Physician Documentation Request
Admit Date: 01/14/24 18:58
Dear Doctor Clayton,
Patient admitted with respiratory failure and acute heart failure.
Troponin noted to be elevated.
Inventory Associate And Driver progress note states 'Elevated troponin likely due to demand ischemia with type II MN'
Hospitalist and cardiology notes state likely nonischemic myocardial injury
In an attempt to clarify potentially conflicting documentation, please clarify the etiology of the elevated troponin:
Nonischemic myocardial injury
Type II MN demand ischemia
Other
Use of terms such as suspected, likely, concern for, or probable (associated with a specific diagnosis that is being evaluated, monitored, or treated as if it exists) are acceptable and can be coded in the inpatient setting, when documented at the
time of discharge.
Thank you,
Dayanna Seay RN, BSN
CDI Specialist
tiger text
Please use your independent medical judgment in providing your response.
--- NOTE | 2024-01-17 12:27 | W.PN.HOSP.TC ---
Today's Communication/Plan
-
Monitor vital signs see plan
Continue antibiotics
Continue Lasix
Monitor urine output
Wean sedation as tolerated
Continues to be intubated
Assessment / Plan
Assessment / Plan
General: Well Developed, intubated
HEENT: NormoCephalic, intubated
Respiratory: ventillator Breath Sounds
Cardiac: S1/S2 and irregular Rhythm
GI: Soft, Non Tender, Non Distended and Normal Bowel Sounds
Musculoskeletal: No Clubbing, No Cyanosis and Other (LE edema)
Neuro: sedated
Psych: Calm
Acute hypercarbic hypoxic respiratory failure
Suspect secondary to acute CHF with preserved EF, recovered nonischemic cardiomyopathy
intubated; Vent management per offender employment specialist
Continue with IV Lasix
Echo without acute changes
Cardiology following
Currently on propofol, fentanyl for sedation, wean sedation as tolerated
Suspect pneumonia
likely from aspiration when he had syncopal episode
CXR noted; could have pneumonemia vs atelectasis
procal +; started unasyn
Persistent atrial fibrillation
Currently rate controlled; on metoprolol, Dilt
cw Eliquis
Syncopal episode likely from acute respiratory failure with hypoxia and hypercapnia
-head CT with No acute intracranial abnormality. Right frontoparietal subgaleal hematoma without underlying acute calvarial fracture.
#Right frontoparietal subgaleal hematoma without underlying acute calvarial fracture.
-continue to monitor. This was discussed on admission with neurosurgery recommended to monitor. repeat CT without acute changes
Mild troponin elevation likely nonischemic myocardial injury
Monitor
#anemia likely chronic
-no active bleeding
-ctm
Hypomagnesemia
Replete
#hyperkalemia
Improving
# Alcohol abuse
-Started back drinking last week
-Cont MSAS protocol
# Obesity-BMI 43.2
# Ex-smoker
# DVT prophylaxis
-Eliquis
# CODE STATUS
-Full code
I spent a total of 51 minutes with the patient or on the floor. More than 50% of this time involved counseling and coordination of care.
Anticipated Discharge: > 48 hours
Subjective/Interval History
-
Date of Service: January 17, 2024
Intubated
Objective Data
-
Labs:
Laboratory Results
01/17/24
02:55
WBC 8.8
Hgb 9.5 L
Hct 29.7 L
Plt Count 255
HCO3 29.8 H
Sodium 136
Potassium 4.0
Chloride 101
Carbon Dioxide 29
BUN 36 H
Creatinine 1.4 H
Glucose 136 H
Calcium 8.8
Total Bilirubin 0.8
AST 27
ALT 15
Alkaline Phosphatase 136 H
Vital Signs:
Vital Signs
Temp Pulse Resp BP Pulse Ox
98.1 F 72 16 112/60 93
01/17/24 07:45 01/17/24 08:39 01/17/24 06:00 01/17/24 08:39 01/17/24 08:36
I&O
01/16/24 01/17/24 01/18/24
06:59 06:59 06:59
Intake Total 1763.8 / 1849.4 2814.4 / 2814.4
Output Total 3825 / 3900 3160 / 3160
Balance -2061.2 / -2050.6 -345.6 / -345.6
[2024-01-17] MEDS: ATIVAN 1 MG IV ×2 (12:43→18:05)
[2024-01-17] MEDS: SENOKOT-S 1 TABLET PO ×2 (12:44→20:19)
[2024-01-17 13:16] LABS: B.E. 6.8 mmol/L; HCO3 31.9 mmol/L (21-28); O2 Saturation % 93.9 % (94-98); PCO2 47 mmHg (35-48); PO2 70 mmHg (83-108); pH 7.44 (7.35-7.45)
--- NOTE | 2024-01-17 14:18 | PTCARENOTE ---
pt currently weaning on cpap and Ps 5/5 40% , he started at 1100 and tolerating well , hes following commands and moving extremities as appropriate , he continues to have an upward gaze , he is able to tract you in room and moves head side to side
as the upward gaze continues , he has been off sedation and opioids since start of vent wean , ABG on vent wean 7.44/47/70/31.9 , results give to Dr Chavez , plan is to wean pt on CPAP and PS today and continue with aggressive diureses then for
probable wean tomorrow , pt currently had urine output of 1400 thus far
--- NOTE | 2024-01-17 15:48 | CM ---
Patient continues process of weaning in ICU. CM will continue to follow for discharge planning needs.
Plan; TBD pending functional status ventilation weaning
--- NOTE | 2024-01-17 18:14 | PTCARENOTE ---
no change in assessments , pt vent settings changed back to pervious settings at 1600
[2024-01-17] MEDS: VITAMIN B1 100 MG PO (20:19)
[2024-01-18] VITALS: BP 104/63
[2024-01-18] MEDS: LOPRESSOR TUBE (00:29)
[2024-01-18] MEDS: ATIVAN 1 MG IV ×4 (00:29→17:31)
[2024-01-18] MEDS: CARDIZEM TUBE (00:30)
[2024-01-18] MEDS: DIPRIVAN 100 IV ×4 (00:32→19:12)
[2024-01-18] MEDS: UNASYN IV ×4 (02:18→20:23)
[2024-01-18] MEDS: SUBLIMAZE 100 IV (03:41)
[2024-01-18 04:00] VITALS: BP 107/59
[2024-01-18 05:42] LABS: Hemoglobin 9.9 g/dL (13.0-18.0); Mean Corp Hgb Conc. 30.9 g/dL (33.0-37.0); Mean Corpuscular Hgb 22.3 pg (27.0-31.0); Mean Corpuscular Volume 72.2 fL (80.0-94.0); Platelet Count 266 10^3/uL (130-400); Red Blood Cell Count 4.43 10^6/uL (4.70-6.10); Red Cell Dist. Width 17.1 % (11.5-14.5); White Blood Cell Count 10.4 10^3/uL (4.8-10.8)
[2024-01-18 05:53] LABS: ALT (SGPT) 15 U/L (0-50); AST (SGOT) 55 U/L (17-59); Alkaline Phosphatase 206 U/L (38-126); Blood Urea Nitrogen 31 mg/dl (9-20); Calcium 8.2 mg/dl (8.4-10.2); Carbon Dioxide 29 mmol/L (22-30); Chloride 101 mmol/L (98-107); Estimated Creatinine Clearance 73 ml/min; Glucose 134 mg/dl (70-99); Magnesium 1.8 mg/dl (1.6-2.3); Phosphorus 4.9 mg/dl (2.5-4.5); Potassium 3.9 mmol/L (3.5-5.1); Sodium 137 mmol/L (135-145); Total Bilirubin 1.2 mg/dl (0.2-1.3); eGFR 52.31
[2024-01-18 06:00] VITALS: BMI 41.3
[2024-01-18] MEDS: LOPRESSOR 25 MG TUBE ×3 (06:04→17:31)
[2024-01-18] MEDS: LASIX 40 MG IV ×2 (07:52→17:31)
--- NOTE | 2024-01-18 07:52 | W.PN.CD ---
Today's Communication / Plan
-
Continue diuresis.
Wean vent.
Procalcitonin level?
Impression / Plan
-
Impression/Plan: 63 y/o male with EtOH use, RBBB, persistent atrial fibrillation admitted after syncope while working on his car, found to have HFpEF with severe hypoxic/hypercapneic respiratory failure requiring intubation/mechanical ventilation.
#Acute hypoxic/hypercapneic respiratory failure
-Acute, improving.
-Currently intubated on 60% FiO2 and PEEP 12.0.
-Pulm/CC is weaning vent.
-Heart failure management as below.
-Fever x1. Monitor for the time being, but this raises the possibility of underlying infection/PNA. CXR difficult to discern.
-RSBI near 100. He may not be ready to extubate yet.
#HFpEF, recovered NICM
-Acute.
-Persistent RVE with hypokinesis, doesn't appear new. LVEF 55-60%.
-Admit weight 141.7 kg, last admission weight 11/2023 was 126.7 kg. Currently weight
-Continue to diurese with furosemide 40 mg IV twice daily.
-He will require a diuretic on discharge.
-Case management to brown SGLT2i.
-Daily weight, I/O, and BMP with diuresis.
-Heart failure education after extubation.
-Uptitrate GDMT after extubation and as hemodynamics will permit.
#HORTENSIA
-Acute.
-Creatinine up to 1.5.
-Could certainly be within the margin of error.
-BUN/Cr ratio not extremity high.
-Feliz catheter in place - doubt obstruction.
-No obvious offending medications beyond furosemide - no evidence of dehydration/intravascular depletion.
-Monitor. He may need a RHC if his volume is in question.
#Persistent atrial fibrillation
-Currently in AF.
-Rate controlled with diltiazem and metoprolol short acting formulations through the NG tube.
-[id number]: score at least 2 (Heart failure, HTN).
-Oral Anticoagulation: Apixaban 5 mg twice daily unable to confirm if he had missed doses.
-Once extubated will need to discuss EtOH use and apixaban to ensure ongoing candidacy.
#Abnormal troponin
-Nonischemic myocardial injury in the setting of acute heart failure exacerbation and hypercapceic respiratory failure.
-Troponin 0.056 peak (with low level variance, not consistent with acute plaque rupture).
-EKG appears stable.
#Hypertension
-Chronic with some hypotension overnight.
-Continue metoprolol and diltiazem for rate control. Diltiazem can be changed to digoxin if hypotension becomes an issue.
#EtOH abuse
-Chronic.
-Per primary service.
-Full cessation recommended.
-Monitor for withdrawal. Patient was given folate, thiamine.
#Obesity
-Chronic.
-BMI = 42.
-He would benefit from weight loss.
#Right frontal parietal subgaleal hematoma status post syncope
#RBBB, chronic
Critical Care Time = 35 minutes.
Subjective/Interval History:
Intubated sedated.
Weight is up today (138 kg) but I am incredulous given his UOP.
Febrile to 38.9 x1 yesterday.
Underwent SBT yesterday.
DATA:
TTE 01/15/24:
CONCLUSIONS
Normal left ventricular size and systolic function without regional wall motion
abnormality.
Mild concentric left ventricular hypertrophy.
In limited views, the right ventricle appears to be dilated with reduced
systolic function
No significant valvular disease.
Compared to the echo images on 10/01/2023, the findings are likely similar.
However on today's study the proximal ascending aorta was not well-seen.
Physical Exam
Vital Signs/Labs
Vital Signs
Temp Pulse Resp BP Pulse Ox
37.7 C 73 16 113/59 93
01/18/24 07:00 01/18/24 07:00 01/18/24 07:00 01/18/24 06:04 01/18/24 07:00
01/16/24 01/17/24 01/18/24
11:59 11:59 11:59
Actual Weight 136.8 kg 135.4 kg 138 kg
01/18/24 05:06
01/18/24 05:06
PT 17.2 Sec (11.4-14.6) H 01/14/24 15:01
INR 1.42 01/14/24 15:01
APTT 39.2 Sec (23.4-35.0) H 01/14/24 15:01
Magnesium 1.8 mg/dl (1.6-2.3) 01/18/24 05:06
Triglycerides 87 mg/dl (10-149) 01/17/24 02:55
LDL Cholesterol, Calc 43 mg/dl 01/15/24 02:59
VLDL Cholesterol, Calc 23 mg/dl (0-30) 01/15/24 02:59
HDL Cholesterol 43 mg/dl 01/15/24 02:59
01/14/24 01/14/24 01/17/24
15:08 16:56 02:55
Caa-N-Pdwhzbgxrhp Pept 4160 Cancelled 801
LAB Results
01/15/24
10:33
Troponin I 0.040 H* D
Physical Exam
Constitutional: No acute distress and Comfortable
EENT: Anicteric and Moist mucous membranes
Cardiovascular: Rhythm & rate is regular, Rhythm/rate is irregular, Pedal edema present, JVD present, S1S2 is normal and Murmur/rub/gallop absent
Respiratory: Wheeze Absent, Crackles Absent, Rhonchi Absent and Labored respirations
GI: Soft, Distention absent, Flat, Non tender and Normal bowel sounds
Neuro/Psych: Other (Intubated/sedated.)
Data Reviewed
-
Date of Service: January 18, 2024
Medical Decision Making: Reviewed Test Results, Independent Historian Assessment and Test Interpretation
EKG: Tracing Personally Visualized and interpreted and Report Reviewed by me
Echo: Tracing Personally Visualized and interpreted and Report Reviewed by me
X-Ray/CT/US/MRI/NUC/PET: Image Personally Visualized and interpreted and Report Reviewed by me
Medical Tests (PFT, Pathology etc): Image Personally Visualized and interpreted and Report Reviewed by me
Labs: Labs Reviewed by me
Old Records: Reviewed
[2024-01-18] MEDS: FOLVITE 1 MG PO (07:53)
[2024-01-18] MEDS: MIRALAX 17 GRAMS TUBE (07:53)
[2024-01-18] MEDS: VITAMIN B1 100 MG PO ×2 (07:53→20:24)
[2024-01-18] MEDS: ELIQUIS 5 MG TUBE ×2 (07:53→20:23)
[2024-01-18 08:00] VITALS: BP 109/64
[2024-01-18] MEDS: CARDIZEM 60 MG TUBE ×2 (08:44→16:40)
[2024-01-18] MEDS: SENOKOT-S 1 TABLET PO ×2 (08:44→20:23)
--- NOTE | 2024-01-18 08:52 | W.PN.INTV ---
Today's Communication / Plan
Recommendations
Given worsening creatinine, hold Lasix and check CT chest to assess degree of pulmonary edema versus pneumonia
Mechanical ventilation with daily SAT/SBT
BB + CCB
Monitor for alcohol withdrawal/DT --> continue ativan to help us weaning off propofol
Consider starting phenobarbital versus Librium prior to extubating
Continue tube feeds
Hopefully can extubate today or tomorrow
Assessment
-
Assessment: 63-year-old male with a past medical history of alcoholism, gout, hypertension and history of A-fib on Eliquis who presents with passing out while working on his car. He reported that he hit the right side of his head on the car. He
states he had a couple beers earlier in the afternoon. Patient was drowsy in the ER. CT head showed no acute intracranial abnormality. It did show a 1.3 cm calcified right frontal parietal meningioma. Initial vitals showed he was afebrile to
98.2 �F, tachycardic to 103 bpm, breathing at 24 breaths/min, BP 95/50 and saturating 81% on room air which improved to 93% with 6 L/min nasal cannula. Initial labs showed WBC 7.8, Hb 10.8, acute hypercapnia with blood gas pH 7.19 with pCO2 65,
initial serum bicarbonate of 26, potassium 5.2, proBNP 4160 (no prior to compare to), with alcohol level of 62 and beta hydroxybutyrate 0.12. Initial CXR showed moderate bilateral lower lobe opacities (R >L) with small bilateral pleural effusions
and pulmonary vascular distention suggestive of mild pulmonary edema. Lasix 40 mg IV push x 1 was given, and patient required BiPAP. Patient was admitted to the ICU for further care. Unfortunately his hypercapnia persisted and worsened with pCO2
rise in the 78 and he was intubated. Critical care services consulted for additional management/recommendations.
Chronic conditions PHYSICAL MEDICINE PHYSICIAN: Hypertension, gout, alcoholism, history of A-fib on Eliquis
Impression:
#Acute respiratory failure with hypercapnia + hypoxia requiring mechanical ventilation due to combination of CHF-exacerbation and CAP
#Abnormal CXR with pulmonary vascular congestion and pleural effusions due to acute decompensated heart failure
#Acute HFpEF with dilated RV with reduced RV systolic function (enlarged RV is chronic, RV systolic function reduction is new)
#Elevated troponin likely due to demand ischemia with type II WI
#Syncopal episode with fall resulting in right frontoparietal hematoma without acute calvarial fracture
#Suspected aspiration pneumonia/CAP with bilateral opacities (suspected R-sided PNA more predominantly as he has chronic L-sided atelectasis)
#HORTENSIA
#Alcoholism
#Anemia
#Hx of A-fib on Eliquis
#Focal ovoid calcification along the left posterior paramedian tentorium measuring 13 mm likely a small calcified meningioma
Plan:
- Continue mechanical ventilation with daily SAT/SBT
- Do SBT with PS 5, PEEP of 5-8 with plans to extubate today
- Maintain SpO2 >90-94% by titrating PEEP + FiO2
- Daily blood gas and adjust ventilator as needed
- Goal plateau pressure <30
- Cr is rising, left side of hemithorax appears at baseline from prior CXR, however R-hemithorax appears opacified - difficult given his weight to determine if it is more pulmonary edema vs pneumonia --> check CT chest
- Hold diuresis for now , trend sCr
- Replete electrolytes with K>4, Mg>2
- Cardiology consulted and recommendations appreciated
- Continue MSAS with thiamine and folate
- Continue ativan 1mg q6hr while we reduce propofol dosing to help avoid EtOH withdrawal
- Once extubated we will reassess and stop every 6 Ativan dosing to avoid over-sedation
- Once extubated, have [facility] speak with him about alcohol rehab/AA
- Monitor for signs of alcohol withdrawal
- CT head negative from 01/16/2024 - done due to upwards eye deviation as patient is on Eliquis with recent fall and head trauma
- Started antibiotics with Unasyn on 01/14 given syncopal event with bilateral opacities and suspected aspiration pneumonia. Procalcitonin slowly rising but he also is in a mild HORTENSIA.
- Follow-up respiratory culture (collected 01/15/2024) - NGTD; urine antigens for Legionella + strep pneumonia are both negative; MRSA is negative; trend procal to assure we have source control
- Rate control with goal HR<110
- Continue CCB and BB, but use short acting given he is intubated and meds will go through NGT
- Troponin peaked at 0.056 on 01/15/2024 no need to continue trending at this point
- Maintain MAP>65
- Given worsening creatinine, hold Lasix and check CT chest to assess degree of pulmonary edema versus pneumonia
- Maintain euglycemia with goal BG 140-180
- prn nebulized bronchodilators
- After pt extubated then will start incentive spirometer
- stress ulcer ppx
- DVT ppx: Initially his Eliquis was held given right frontoparietal hematoma; resumed Eliquis on 01/14; Repeated CT head on 01/15 to assure hematoma not expanding, which it is not
Critical care statement: A total of 38 minutes of critical care time was provided for this patient today. This includes management of unstable vital signs, evaluation of the patient at bedside, reviewing the patient's pertinent medical records
including radiographs, microbiology, laboratory evaluations, and discussion with primary team, consultants, pharmacy, nutrition, physical therapy, case management, charge nurse, critical care nursing, and respiratory therapy.
Subjective Dataa
Subjective Data
Date of Service:
Date of Service: January 18, 2024
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
Subjective:
Patient seen and evaluated at bedside. Having off-white/yellow ETT secretions that are thick. On PST this am at 5/5. Sats dropped to 86% with FiO2 raised from 40% to 50%. Flipped back to AC/VC, at 16/550/50%/8, PIP 29, breathing at at 20b/min
with VTe of 526. Following commands, continuing to have upwards gaze. Pt's , Deborah, at bedside, and I answered all her questions.
Review of Systems
General: Unobtainable - Sedation
Objective Data
Data Reviewed
Vital Signs / I&O / Oxygen:
Vital Signs
Temp Pulse Resp BP Pulse Ox
99.8 F 82 25 113/59 93
01/18/24 07:00 01/18/24 09:34 01/18/24 09:34 01/18/24 06:04 01/18/24 09:34
Intake and Output
01/17/24 01/18/24 01/19/24
06:59 06:59 06:59
Intake Total 2814.4 / 2933.5 1554.4 / 1656.4 423.0 / 423.0
Output Total 3160 / 3260 2400 / 2400 840 / 840
Balance -345.6 / -326.5 -845.6 / -743.6 -417.0 / -417.0
SaO2 [CPAP/PSV] 93
SaO2 [A/C] 93
SaO2 93
Nasal Cannula flow liters per 6
minute
Physical Exam
General: Respiratory Distress (negative), Comfortable and Other (Morbidly obese male, intubated/sedated)
HEENT: Normocephalic, Anicteric and Other (Thick neck)
Cardiovascular: S1-S2 and Peripheral Edema (+1 lower extremity pitting edema)
Respiratory: Wheeze (negative), Crackles (Bibasilar), Rhonchi (negative), Non-Labored Respirations and ET Tube
GI: Soft, Distended (Abdominal obesity), Non Tender and Normal Bowel Sounds
Neurology: Tremors (negative) and Other (Sedated but opens eyes and follows commands; frequent upward eye deviation that corrects when you asked patient to look straight head)
Skin: Warm, Dry and Jaundice (negative)
Labs/Micro/Reports
Lab Data
01/18/24 05:06
01/18/24 05:06
Laboratory Results
01/17/24
13:00
pH 7.44
pCO2 47
pO2 70 L
HCO3 31.9 H
O2 Delivery Level
Microbiology
01/15/24 14:26 Blood/Venous Blood Culture - Preliminary
No Growth in 48 hours- Final report to follow
01/15/24 14:26 Endotracheal Respiratory Culture - Final
Usual Respiratory Renata
01/15/24 14:26 Endotracheal Gram Stain - Final
01/15/24 14:26 Nose Nasal Screen MRSA (PCR) - Final
MRSA not detected - performed by PCR methodology.
01/15/24 14:26 Urine Legionella Urinary Antigen - Final
Negative for Legionella pneumophila Serogroup 1 antigen.
A negative result does not rule out the possiblity of
Legionella infection due to other serogroups or species of
Legionella. Clinical correlation is recommended.
01/15/24 14:26 Urine Streptococcus pneumoniae Antigen (M - Final
Negative for Streptococcus pneumoniae antigen.
A negative result does not exclude infection with
Streptococcus pneumoniae. Clinical correlation is
recommended.
[2024-01-18 09:20] VITALS: BP_SYST 109
[2024-01-18 09:34] VITALS: BP_SYST 109
--- NOTE | 2024-01-18 11:35 | PTCARENOTE ---
SBT less than one hour. Pt became tachypneic and SpO2 decreased to 86%. Sedation restarted at low rate and pt placed back on A/C. Discussed with MD. Will attempt another SBT after CT scan today. All other assessments unchanged. updated.
--- NOTE | 2024-01-18 13:11 | W.PN.HOSP.TC ---
Today's Communication/Plan
-
Monitor vital signs
see plan
CT chest today
Wean vent as tolerated
Wean sedation as tolerated
Monitor urine output
cw abx
Discussed with spouse at bedside
Assessment / Plan
Assessment / Plan
General: Well Developed, intubated
HEENT: NormoCephalic, intubated
Respiratory: ventillator Breath Sounds
Cardiac: S1/S2 and irregular Rhythm
GI: Soft, Non Tender, Non Distended and Normal Bowel Sounds
Musculoskeletal: No Clubbing, No Cyanosis and Other (LE edema)
Neuro: sedated
Psych: Calm
Acute hypercarbic hypoxic respiratory failure
Suspect secondary to acute CHF with preserved EF, recovered nonischemic cardiomyopathy
intubated; Vent management per sustainability director
now holding lasix
Echo without acute changes
Cardiology following
Currently on propofol, fentanyl for sedation, wean sedation as tolerated
CT chest to differentiate CHF and pneumonia
wean vent as tolerated
Suspect pneumonia
likely from aspiration when he had syncopal episode
CXR noted; could have pneumonemia vs atelectasis
procal +; started unasyn
fever 8/1; monitor
Persistent atrial fibrillation
Currently rate controlled; on metoprolol, Dilt
cw Eliquis
Syncopal episode likely from acute respiratory failure with hypoxia and hypercapnia
-head CT with No acute intracranial abnormality. Right frontoparietal subgaleal hematoma without underlying acute calvarial fracture.
#Right frontoparietal subgaleal hematoma without underlying acute calvarial fracture.
-continue to monitor. This was discussed on admission with neurosurgery recommended to monitor. repeat CT without acute changes
Mild troponin elevation likely nonischemic myocardial injury
Monitor
#anemia likely chronic
-no active bleeding
-ctm
Hypomagnesemia
#hyperkalemia
Improving
# Alcohol abuse
-Started back drinking last week
-Cont MSAS protocol
on IV ativan
# Obesity-BMI 43.2
# Ex-smoker
# DVT prophylaxis
-Eliquis
# CODE STATUS
-Full code
I spent a total of 52 minutes with the patient or on the floor. More than 50% of this time involved counseling and coordination of care.
Anticipated Discharge: > 48 hours
Subjective/Interval History
-
Date of Service: January 18, 2024
Continues to be intubated
Objective Data
-
Labs:
Laboratory Results
01/18/24
05:06
WBC 10.4
Hgb 9.9 L
Hct 32.0 L
Plt Count 266
Sodium 137
Potassium 3.9
Chloride 101
Carbon Dioxide 29
BUN 31 H
Creatinine 1.5 H
Glucose 134 H
Calcium 8.2 L
Total Bilirubin 1.2
AST 55
ALT 15
Alkaline Phosphatase 206 H
Vital Signs:
Vital Signs
Temp Pulse Resp BP Pulse Ox
99.9 F 83 16 109/64 95
01/18/24 11:02 01/18/24 12:00 01/18/24 12:00 01/18/24 08:00 01/18/24 12:00
I&O
01/17/24 01/18/24 01/19/24
06:59 06:59 06:59
Intake Total 2814.4 / 2933.5 1554.4 / 1656.4 822.0 / 822.0
Output Total 3160 / 3260 2400 / 2400 1125 / 1125
Balance -345.6 / -326.5 -845.6 / -743.6 -303.0 / -303.0
--- NOTE | 2024-01-18 13:13 | CM ---
CM following re: discharge planning.
Reviewed pt's chart, met with pt. Per Rounds meeting, pt remains intubated, continue supportive care.
Pt lives with spouse in a 2SH, 1 step to enter. Pt is independent in all areas [employer] [employer]. Pt with sig history of alcohol abuse. Pt went to [facility] for detox in June 2023 and was going to [facility] for outpatient services.
CM will meet with pt regarding substance abuse problem to offer resources when clinically appropriate.
D/C plan: uncertain at this time, continue supportive care.
CM will follow with discharge plan updates as hospitalization progresses
--- NOTE | 2024-01-18 15:32 | PTCARENOTE ---
Pt returned from CT with RN and IT OPERATIONS SPECIALIST. Awaiting results. Remains sedated on Fentanyl and Propofol. Discussed with MD. SBT in am.
Core temp 99.5
Lungs course. Thick yellow secretions orally and via ETT.
Afib 70s. General +2 edema.
sonia urine via benjamin.
Tolerating tube feeds.
No BM. Hyperactive BS.
All other assessments unchanged.
--- NOTE | 2024-01-18 20:31 | PTCARENOTE ---
Received pt vented/sedated; pt briefly opens eyes to voice and shifts LE's. Afib on the monitor, +2-3 edema to LE. #8ETT, 27 at the lip, see vent settings flow sheet. NAD, lungs diminished but CTA. DHT in place to R nare, TF infusing at goal of
65mL/hr, +bowel sounds. Feliz in place draining dark yellow/sonia urine. No BM noted, hyperactive and loud bowel sounds. Remainder of assessment as documented. Pt repositioned, mouth care provided, SCD's in place. Fentanyl/Propofol gtt's infusing.
POC ongoing.
--- NOTE | 2024-01-18 23:02 | PTCARENOTE ---
Assessment remains unchanged, no BM noted, bejnamin care provided. POC ongoing.
[2024-01-19] VITALS (10 sets, daily range): BP systolic 107–145; BP diastolic 61–89; BMI 40.7
[2024-01-19] MEDS: CARDIZEM TUBE (00:22)
[2024-01-19] MEDS: LOPRESSOR TUBE (00:22)
[2024-01-19] MEDS: ATIVAN 1 MG IV ×2 (00:24→05:31)
[2024-01-19] MEDS: NSS (PRESERVATIVE FREE) 1 ML IV ×2 (00:25→05:32)
[2024-01-19] MEDS: DIPRIVAN 100 IV ×2 (00:37→06:17)
[2024-01-19] MEDS: UNASYN IV ×4 (01:54→19:03)
--- NOTE | 2024-01-19 04:05 | PTCARENOTE ---
Pt's assessment remains unchanged from previous. Hygiene performed with CHG wipes, new gown provided. No BM noted. Mouth care performed. Pt tolerated all steps of hygiene well.
[2024-01-19 04:39] LABS: Hemoglobin 9.8 g/dL (13.0-18.0); Mean Corp Hgb Conc. 30.6 g/dL (33.0-37.0); Mean Corpuscular Hgb 22.3 pg (27.0-31.0); Mean Corpuscular Volume 72.7 fL (80.0-94.0); Platelet Count 249 10^3/uL (130-400); Red Cell Dist. Width 17.2 % (11.5-14.5); White Blood Cell Count 12.2 10^3/uL (4.8-10.8)
[2024-01-19 05:01] LABS: Blood Urea Nitrogen 32 mg/dl (9-20); Calcium 8.8 mg/dl (8.4-10.2); Carbon Dioxide 30 mmol/L (22-30); Chloride 101 mmol/L (98-107); Estimated Creatinine Clearance 84 ml/min; Glucose 147 mg/dl (70-99); Magnesium 1.9 mg/dl (1.6-2.3); Phosphorus 4.4 mg/dl (2.5-4.5); Potassium 4.1 mmol/L (3.5-5.1); Sodium 138 mmol/L (135-145); eGFR > 60.00
[2024-01-19 05:08] LABS: Procalcitonin 0.87 ng/ml (0.0-0.25)
[2024-01-19 05:12] LABS: NT-proBNP 1770 pg/ml
[2024-01-19] MEDS: LOPRESSOR 25 MG TUBE ×4 (05:34→23:51)
[2024-01-19] MEDS: CARDIZEM 60 MG TUBE ×3 (08:35→23:51)
[2024-01-19] MEDS: SENOKOT-S 1 TABLET PO (08:37)
[2024-01-19] MEDS: ELIQUIS 5 MG TUBE ×2 (08:37→19:02)
[2024-01-19] MEDS: LASIX 40 MG IV ×2 (08:37→17:25)
[2024-01-19] MEDS: MIRALAX 17 GRAMS TUBE (08:37)
[2024-01-19] MEDS: FOLVITE 1 MG PO (08:38)
[2024-01-19] MEDS: VITAMIN B1 100 MG PO ×2 (08:38→19:02)
--- NOTE | 2024-01-19 08:58 | W.PN.INTV ---
Today's Communication / Plan
Recommendations
CT chest done on 01/17 shows evidence of bilateral pneumonia + bilateral pleural effusions and acute decompensated heart failure; continue antibiotics, start DuoNebs and continue with IV Lasix
SBT tolerated today on 10/20 � check ABG and plan to extubate
BiPAP on backup as he likely has sleep apnea/OHS
Nursing bedside swallowing evaluation s/p extubation
Continue BB + CCB
Monitor for alcohol withdrawal/DT --> continue ativan to help us weaning off propofol
Consider starting phenobarbital vs Librium after extubation as he will be off propofol at that time
Assessment
-
Assessment: 63-year-old male with a past medical history of alcoholism, gout, hypertension and history of A-fib on Eliquis who presents with passing out while working on his car. He reported that he hit the right side of his head on the car. He
states he had a couple beers earlier in the afternoon. Patient was drowsy in the ER. CT head showed no acute intracranial abnormality. It did show a 1.3 cm calcified right frontal parietal meningioma. Initial vitals showed he was afebrile to
98.2 �F, tachycardic to 103 bpm, breathing at 24 breaths/min, BP 95/50 and saturating 81% on room air which improved to 93% with 6 L/min nasal cannula. Initial labs showed WBC 7.8, Hb 10.8, acute hypercapnia with blood gas pH 7.19 with pCO2 65,
initial serum bicarbonate of 26, potassium 5.2, proBNP 4160 (no prior to compare to), with alcohol level of 62 and beta hydroxybutyrate 0.12. Initial CXR showed moderate bilateral lower lobe opacities (R >L) with small bilateral pleural effusions
and pulmonary vascular distention suggestive of mild pulmonary edema. Lasix 40 mg IV push x 1 was given, and patient required BiPAP. Patient was admitted to the ICU for further care. Unfortunately his hypercapnia persisted and worsened with pCO2
rise in the 78 and he was intubated. Critical care services consulted for additional management/recommendations.
Chronic conditions EGG CRATER: Hypertension, gout, alcoholism, history of A-fib on Eliquis
Impression:
#Acute respiratory failure with hypercapnia + hypoxia requiring mechanical ventilation due to combination of CHF-exacerbation and CAP
#Abnormal CXR with pulmonary vascular congestion and pleural effusions due to acute decompensated heart failure
#Acute HFpEF with dilated RV with reduced RV systolic function (enlarged RV is chronic, RV systolic function reduction is new)
#Elevated troponin likely due to demand ischemia with type II CT
#Syncopal episode with fall resulting in right frontoparietal hematoma without acute calvarial fracture
#CAP (bilateral) likely due to aspiration with bilateral opacities
#HORTENSIA
#Alcoholism
#Anemia
#Hx of A-fib on Eliquis
#Focal ovoid calcification along the left posterior paramedian tentorium measuring 13 mm likely a small calcified meningioma
Plan:
- Continue mechanical ventilation with daily SAT/SBT
- Tolerating SBT today on 10/20--> obtain ABG after 1-2 hours and plan to extubate today
- prn nebulized bronchodilators and start DuoNebs TID to help pt expectorate given his PNA
- Until extubated, adjust ventilator as needed
- Goal plateau pressure <30
- Maintain SpO2 >90-94% by titrating PEEP + FiO2
- Cr has now improved --> continue diuresis given continued bilateral pleural effusions seen on CT chest from 01/18/2024 and +1 LE bilateral edema
- Trend sCr
- Replete electrolytes with K>4, Mg>2
- Cardiology consulted and recommendations appreciated
- Continue MSAS with thiamine and folate
- Continue ativan 1mg q6hr while we reduce propofol dosing to help avoid EtOH withdrawal
- Once extubated we will reassess and stop every 6 Ativan dosing to avoid over-sedation
- Once extubated, have Be Cares speak with him about alcohol rehab/AA
- Monitor for signs of alcohol withdrawal
- CT head negative from 01/16/2024 - done due to upwards eye deviation as patient is on Eliquis with recent fall and head trauma
- Started antibiotics with Unasyn on 01/14 given syncopal event with bilateral opacities and suspected aspiration pneumonia. Procalcitonin slowly rising but he also is in a mild HORTENSIA.
- Follow-up respiratory culture (collected 01/15/2024) - NGTD; urine antigens for Legionella + strep pneumonia are both negative; MRSA is negative; trend procal to assure we have source control
- Rate control with goal HR<110
- Continue CCB and BB, but use short acting given he is intubated and meds will go through NGT
- Troponin peaked at 0.056 on 01/15/2024 no need to continue trending at this point
- Maintain MAP>65
- Maintain euglycemia with goal BG 140-180
- After pt extubated then will start incentive spirometer
- stress ulcer ppx
- DVT ppx: Initially his Eliquis was held given right frontoparietal hematoma; resumed Eliquis on 01/14; Repeated CT head on 01/15 to assure hematoma not expanding, which it is not
Critical care statement: A total of 41 minutes of critical care time was provided for this patient today. This includes management of unstable vital signs, evaluation of the patient at bedside, reviewing the patient's pertinent medical records
including radiographs, microbiology, laboratory evaluations, and discussion with primary team, consultants, pharmacy, nutrition, physical therapy, case management, charge nurse, critical care nursing, and respiratory therapy.
Subjective Dataa
Subjective Data
Date of Service:
Date of Service: January 19, 2024
Chief Complaint: Podiatry Doctor Follow Up
Subjective:
Patient seen and evaluated at bedside. SBT on 10/20, sedation turned off and he is following commands. BP 133/66 via A-line, heart rate 83 and saturating 93% on 40% FiO2. Minimal ETT secretions.
Review of Systems
General: Other (Unable to obtain as patient is intubated)
Objective Data
Data Reviewed
Vital Signs / I&O / Oxygen:
Vital Signs
Temp Pulse Resp BP Pulse Ox
98.4 F 71 23 130/67 93
01/19/24 07:51 01/19/24 10:15 01/19/24 10:15 01/19/24 08:37 01/19/24 10:15
Intake and Output
01/18/24 01/19/24 01/20/24
06:59 06:59 06:59
Intake Total 1554.4 / 1656.4 3112.7 / 3222.2 538.5 / 538.5
Output Total 2400 / 2400 3120 / 3185 645 / 645
Balance -845.6 / -743.6 -7.3 / 37.2 -106.5 / -106.5
SaO2 [CPAP/PSV] 93
SaO2 [A/C] 99
SaO2 93
Nasal Cannula flow liters per 6
minute
Physical Exam
General: Respiratory Distress (negative), Comfortable and Other (Morbidly obese male, intubated)
HEENT: Normocephalic, Anicteric and Other (Thick neck)
Cardiovascular: S1-S2 and Peripheral Edema (+1 bilateral lower extremity pitting edema)
Respiratory: Wheeze (negative), Crackles (Bibasilar), Rhonchi (negative), Non-Labored Respirations and ET Tube
GI: Soft, Distended (Abdominal obesity), Non Tender and Normal Bowel Sounds
Neurology: Tremors (negative) and Other (Follows commands; frequent upward eye deviation that corrects when you asked patient to look straight head)
Skin: Warm, Dry and Jaundice (negative)
Labs/Micro/Reports
Lab Data
01/19/24 04:21
01/19/24 04:21
Microbiology
01/15/24 14:26 Blood/Venous Blood Culture - Preliminary
No Growth in 72 hours- Final report to follow
01/15/24 14:26 Endotracheal Respiratory Culture - Final
Usual Respiratory Renata
01/15/24 14:26 Endotracheal Gram Stain - Final
--- NOTE | 2024-01-19 09:28 | W.PN.CD ---
Today's Communication / Plan
-
-Still failing weaning trials.
-Continue Lasix 40 mg IV twice daily.
Impression / Plan
-
Impression/Plan: 63 y/o male with EtOH use, RBBB, persistent atrial fibrillation admitted after syncope while working on his car, found to have HFpEF with severe hypoxic/hypercapneic respiratory failure requiring intubation/mechanical ventilation.
#Acute hypoxic/hypercapneic respiratory failure
-Still failing weaning trials.
-Management as per client support manager.
#Acute HFpEF, recovered NICM
-Persistent RVE with hypokinesis, doesn't appear new. LVEF 55-60%.
-Admit weight 141.7 kg, last admission weight 11/2023 was 126.7 kg. Currently weight
-Continue Lasix 40 mg IV twice daily.
-He will require a diuretic on discharge.
-Case management to brown SGLT2i.
-Daily weight, I/O, and BMP with diuresis.
-Heart failure education after extubation.
-Uptitrate GDMT after extubation and as hemodynamics will permit.
#HORTENSIA
-Acute.
-Creatinine up to 1.5 --> 1.3 today.
-Continue to monitor renal function.
#Persistent atrial fibrillation
-Currently in AF.
-Rate controlled with diltiazem and metoprolol short acting formulations through the NG tube.
-[id number]: score at least 2 (Heart failure, HTN).
-Oral Anticoagulation: On Apixaban 5 mg twice daily; unable to confirm if he had missed doses at home.
-Once extubated will need to discuss EtOH use and apixaban to ensure ongoing candidacy.
#Abnormal troponin
-acute nonischemic myocardial injury in the setting of acute heart failure exacerbation and hypercapceic respiratory failure.
-Troponin 0.056 peak (with low level variance, not consistent with acute plaque rupture).
-EKG appears stable.
#Hypertension
-BP stable.
-Continue metoprolol and diltiazem for rate control. Diltiazem can be changed to digoxin if hypotension becomes an issue.
#EtOH abuse
-Chronic.
-Per primary service.
-Full cessation recommended.
-Monitor for withdrawal. Patient was given folate, thiamine.
#Obesity
-Chronic.
-BMI = 42.
-He would benefit from weight loss.
#Right frontal parietal subgaleal hematoma status post syncope
#RBBB, chronic
Critical Care Time = 38 minutes.
Subjective/Interval History:
No major events overnight. Remains intubated.
DATA:
TTE 01/15/24:
CONCLUSIONS
Normal left ventricular size and systolic function without regional wall motion
abnormality.
Mild concentric left ventricular hypertrophy.
In limited views, the right ventricle appears to be dilated with reduced
systolic function
No significant valvular disease.
Compared to the echo images on 10/01/2023, the findings are likely similar.
However on today's study the proximal ascending aorta was not well-seen.
Physical Exam
Vital Signs/Labs
Vital Signs
Temp Pulse Resp BP Pulse Ox
98.4 F 65 17 130/67 96
01/19/24 07:51 01/19/24 08:37 01/19/24 06:00 01/19/24 08:37 01/19/24 08:37
01/18/24 01/19/24 01/20/24
06:59 06:59 06:59
Actual Weight 138 kg 135.9 kg
01/19/24 04:21
01/19/24 04:21
PT 17.2 Sec (11.4-14.6) H 01/14/24 15:01
INR 1.42 01/14/24 15:01
APTT 39.2 Sec (23.4-35.0) H 01/14/24 15:01
Magnesium 1.9 mg/dl (1.6-2.3) 01/19/24 04:21
Triglycerides 87 mg/dl (10-149) 01/17/24 02:55
LDL Cholesterol, Calc 43 mg/dl 01/15/24 02:59
VLDL Cholesterol, Calc 23 mg/dl (0-30) 01/15/24 02:59
HDL Cholesterol 43 mg/dl 01/15/24 02:59
01/14/24 01/14/24 01/17/24
15:08 16:56 02:55
Miu-K-Ksvqrdfqahp Pept 4160 Cancelled 801
01/19/24
04:21
Pmh-X-Pxwgrhbohwa Pept 177
Physical Exam
Constitutional: No acute distress
EENT: Anicteric
Cardiovascular: Systolic murmur absent, Rhythm/rate is irregular, Pedal edema present (Trace) and S1S2 is normal
Respiratory: Other (On vent; coarse bilateral breath sounds)
Neuro/Psych: Other (Intubated/sedated)
Other: Skin (Warm, dry, intact)
Data Reviewed
-
Date of Service: January 19, 2024
EKG: Tracing Personally Visualized and interpreted (Telemetry: Rate-controlled atrial fibrillation)
Medical Tests (PFT, Pathology etc): Discussed with Nurse
Labs: Labs Reviewed by me
Critical Care Time (in minutes): 36
--- NOTE | 2024-01-19 10:49 | PTCARENOTE ---
Pt with his eyes open. Following simple commands. He is able to lift his head off the bed, and elevate his legs off the bed when asked. He was reoriented to place, time and the events of his hospitalization. He was informed he is weaning on the
ventilator, and our hopes id to be able to remove the breathing tube some point today. He nodded his head in understanding.
--- NOTE | 2024-01-19 11:59 | W.PN.HOSP.TC ---
Today's Communication/Plan
-
Monitor vital signs see plan
Wean vent as tolerated
Wean sedation
Continue Lasix
Continue antibiotics
Monitor leukocytosis
Maintain Feliz
Assessment / Plan
Assessment / Plan
General: Well Developed, intubated
HEENT: NormoCephalic, intubated
Respiratory: ventillator Breath Sounds
Cardiac: S1/S2 and irregular Rhythm
GI: Soft, Non Tender, Non Distended and Normal Bowel Sounds
Musculoskeletal: No Clubbing, No Cyanosis and Other (LE edema)
Neuro: sedated
Psych: Calm
Acute hypercarbic hypoxic respiratory failure
Suspect secondary to acute CHF with preserved EF, recovered nonischemic cardiomyopathy
intubated; Vent management per supervisor particleboard
lasix restarted
Echo without acute changes
Cardiology following
Currently on propofol, fentanyl for sedation, wean sedation as tolerated
CT chest 01/17 with pleural effusion and pulmonary edema
wean vent as tolerated
Suspect pneumonia
likely from aspiration when he had syncopal episode
CXR noted
procal +; started unasyn
fever 01/16; monitor
leukocytosis; if continues to be elevated and have fever then consider ID evaluation
Persistent atrial fibrillation
Currently rate controlled; on metoprolol, Dilt
cw Eliquis
Syncopal episode likely from acute respiratory failure with hypoxia and hypercapnia
-head CT with No acute intracranial abnormality. Right frontoparietal subgaleal hematoma without underlying acute calvarial fracture.
#Right frontoparietal subgaleal hematoma without underlying acute calvarial fracture.
-continue to monitor. This was discussed on admission with neurosurgery recommended to monitor. repeat CT without acute changes
Mild troponin elevation likely nonischemic myocardial injury
Monitor
#anemia likely chronic
-no active bleeding
-ctm
Hypomagnesemia
#hyperkalemia
Improving
# Alcohol abuse
-Started back drinking last week
-Cont MSAS protocol
on IV ativan
# Obesity-BMI 43.2
# Ex-smoker
# DVT prophylaxis
-Eliquis
# CODE STATUS
-Full code
I spent a total of 53 minutes with the patient or on the floor. More than 50% of this time involved counseling and coordination of care.
Anticipated Discharge: > 48 hours
Subjective/Interval History
-
Date of Service: January 19, 2024
intubated
Objective Data
-
Labs:
Laboratory Results
01/19/24 01/19/24
04:21 11:45
WBC 12.2 H
Hgb 9.8 L
Hct 32.0 L
Plt Count 249
HCO3 Pending
Sodium 138
Potassium 4.1
Chloride 101
Carbon Dioxide 30
BUN 32 H
Creatinine 1.3
Glucose 147 H
Calcium 8.8
Vital Signs:
Vital Signs
Temp Pulse Resp BP Pulse Ox
98.8 F 71 23 107/61 93
01/19/24 11:25 01/19/24 11:03 01/19/24 11:03 01/19/24 08:45 01/19/24 11:25
I&O
01/18/24 01/19/24 01/20/24
06:59 06:59 06:59
Intake Total 1554.4 / 1656.4 3112.7 / 3222.2 628.5 / 628.5
Output Total 2400 / 2400 3120 / 3185 820 / 820
Balance -845.6 / -743.6 -7.3 / 37.2 -191.5 / -191.5
[2024-01-19 12:15] LABS: B.E. 6.7 mmol/L; HCO3 31.9 mmol/L (21-28); O2 Saturation % 93.1 % (94-98); PCO2 48 mmHg (35-48); PO2 69 mmHg (83-108); pH 7.43 (7.35-7.45)
[2024-01-19] MEDS: DUONEB 3 ML INH ×2 (12:48→20:07)
--- NOTE | 2024-01-19 18:39 | PTCARENOTE ---
Pt was encouraged to breath in through his nose. He is mouth breathing. Once he breaths in through his nose his pulse ox is 90-92%. Frequent moist productive cough.
[2024-01-19] MEDS: SENOKOT-S PO (19:04)
--- NOTE | 2024-01-19 19:37 | PTCARENOTE ---
Received pt resting in bed. Pt drowsy/lethargic, arouses easily to verbal stimuli; AAOx3, slow speech, garbled at times, denies pain. Pt tolerating 6L O2 NC, SpO2 93%. Pt has a hx of sleep apnea, denies use of a mask at home. Pt has a strong, moist
cough with thick white/frothy sputum, able to excrete sputum with a yankauer with assistance, mouth care performed. Hyperactive bowel sounds, liquid stools this afternoon. Feliz remains in place draining yellow/sonia urine. Pt is very pleasant,
offers no complaints, resting in bed comfortably at this time.
--- NOTE | 2024-01-19 22:47 | PTCARENOTE ---
Pt's monitor alarmed a loss of waveform for pt's A-line, entered pt's room immediately following; pt found with A-line tubing in his hand and blood on his gown/pillow under his arm. Pressure immediately placed to pt's R radial artery with cessation
of bleeding after a few minutes of pressure. 4x4 gauze dressing put in place. Pt remains AAOx3, SpO2 dropping into the high 80's when he falls asleep. RT voiced concerns for utilizing CPAP at this time due to copious secretions pt is coughing in the
Yankauer. Mouth suctioned of excess secretions, simple mask with 10L O2 placed on pt, SpO2 93-95% while pt is asleep. Remainder of pt's assessment unchanged.
--- NOTE | 2024-01-19 22:49 | RESPNOTE ---
pt placed on 10L simple mask
[2024-01-20] VITALS (27 sets, daily range): BP systolic 116–149; BP diastolic 64–97; PULSE 2–94; BMI 39.8
[2024-01-20] MEDS: UNASYN IV ×4 (02:08→19:54)
--- NOTE | 2024-01-20 03:08 | PTCARENOTE ---
Pt remains in restraints at this time, pt is a risk for pulling out IV's/dobb teddy. Pt is intermittently restless, but tolerating restraints. SpO2 96% on simple mask with 10L O2.
[2024-01-20 04:56] LABS: Hematocrit 37.3 % (39.0-52.0); Hemoglobin 10.9 g/dL (13.0-18.0); Mean Corp Hgb Conc. 29.2 g/dL (33.0-37.0); Mean Corpuscular Hgb 21.8 pg (27.0-31.0); Mean Corpuscular Volume 74.5 fL (80.0-94.0); Mean Platelet Volume 9.5 fL (7.4-10.4); Platelet Count 317 10^3/uL (130-400); Red Blood Cell Count 5.01 10^6/uL (4.70-6.10); Red Cell Dist. Width 17.2 % (11.5-14.5); White Blood Cell Count 11.4 10^3/uL (4.8-10.8)
[2024-01-20 05:25] LABS: Blood Urea Nitrogen 32 mg/dl (9-20); Calcium 9.3 mg/dl (8.4-10.2); Carbon Dioxide 33 mmol/L (22-30); Chloride 99 mmol/L (98-107); Estimated Creatinine Clearance 91 ml/min; Glucose 128 mg/dl (70-99); Potassium 4.2 mmol/L (3.5-5.1); Sodium 139 mmol/L (135-145); Triglycerides 85 mg/dl (10-149); eGFR > 60.00
[2024-01-20] MEDS: LOPRESSOR 25 MG TUBE ×2 (05:43→12:09)
[2024-01-20] MEDS: MIRALAX TUBE (07:26)
[2024-01-20] MEDS: LASIX 40 MG IV ×2 (07:31→16:02)
[2024-01-20] MEDS: CARDIZEM 60 MG TUBE ×3 (07:32→23:11)
[2024-01-20] MEDS: VITAMIN B1 100 MG PO ×2 (07:32→19:54)
[2024-01-20] MEDS: FOLVITE 1 MG PO (07:32)
[2024-01-20] MEDS: ELIQUIS 5 MG TUBE ×2 (07:32→19:54)
[2024-01-20] MEDS: DUONEB 3 ML INH ×3 (07:37→19:37)
--- NOTE | 2024-01-20 09:02 | W.PN.INTV ---
Today's Communication / Plan
Recommendations
Antibiotics to complete 7-day course
Diuresis with reassessment of volume status daily
Cardiology on board; I presume we will transition from IV Lasix to PO over the next day or two
Start nocturnal BiPAP due to high risk of JULY; check venous blood gas tomorrow morning to assess pH + pCO2
DuoNebs
DEPENDENCY PROGRAM DIRECTOR eval
Continue BB + CCB
MSAS
Patient is stable for downgrade out of ICU to IMU level care. Pulmonary service will continue to follow along. I will arrange for outpatient office visit for PFTs/6MWT and discussion of sleep disordered breathing.
Assessment
-
Assessment: 63-year-old male with a past medical history of alcoholism, gout, hypertension and history of A-fib on Vitasoft who presents with passing out while working on his car. He reported that he hit the right side of his head on the car. He
states he had a couple beers earlier in the afternoon. Patient was drowsy in the ER. CT head showed no acute intracranial abnormality. It did show a 1.3 cm calcified right frontal parietal meningioma. Initial vitals showed he was afebrile to
98.2 �F, tachycardic to 103 bpm, breathing at 24 breaths/min, BP 95/50 and saturating 81% on room air which improved to 93% with 6 L/min nasal cannula. Initial labs showed WBC 7.8, Hb 10.8, acute hypercapnia with blood gas pH 7.19 with pCO2 65,
initial serum bicarbonate of 26, potassium 5.2, proBNP 4160 (no prior to compare to), with alcohol level of 62 and beta hydroxybutyrate 0.12. Initial CXR showed moderate bilateral lower lobe opacities (R >L) with small bilateral pleural effusions
and pulmonary vascular distention suggestive of mild pulmonary edema. Lasix 40 mg IV push x 1 was given, and patient required BiPAP. Patient was admitted to the ICU for further care. Unfortunately his hypercapnia persisted and worsened with pCO2
rise in the 78 and he was intubated. Critical care services consulted for additional management/recommendations.
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
Impression:
#Acute respiratory failure with hypercapnia + hypoxia requiring mechanical ventilation due to combination of CHF-exacerbation and CAP
- Intubated 01/14/2024
- Extubated 01/19/2024
#Abnormal CXR with pulmonary vascular congestion and pleural effusions due to acute decompensated heart failure
#Acute HFpEF with dilated RV with reduced RV systolic function (enlarged RV is chronic, RV systolic function reduction is new)
#Elevated troponin likely due to demand ischemia with type II [place]
#Syncopal episode with fall resulting in right frontoparietal hematoma without acute calvarial fracture
#CAP (bilateral) likely due to aspiration with bilateral opacities
#HORTENSIA - improved
#Alcoholism
#Anemia
#Hx of A-fib on Eliquis
#Focal ovoid calcification along the left posterior paramedian tentorium measuring 13 mm likely a small calcified meningioma
Plan:
-Patient successfully extubated to nasal cannula on 01/19/2024
- Continue supplemental oxygen and titrate to maintain SpO2 >90-94%
- prn nebulized bronchodilators and continue DuoNebs TID to help pt expectorate given his PNA
- Given his thick neck and at high risk for JULY, start nocturnal BiPAP and check venous blood gas tomorrow morning to assure venous pH + pCO2 are stable
- Cr has now improved --> continue diuresis given continued bilateral pleural effusions seen on CT chest from 01/18/2024 and +1 LE bilateral edema
- Trend sCr
- Replete electrolytes with K>4, Mg>2
- Cardiology consulted and recommendations appreciated
- Continue MSAS with thiamine and folate
- prn ativan
- Have [facility]ares speak with him about alcohol rehab/AA
- Monitor for signs of alcohol withdrawal
- CT head negative from 01/16/2024 - done due to upwards eye deviation as patient is on Eliquis with recent fall and head trauma
- Started antibiotics with Unasyn on 01/14 given syncopal event with bilateral opacities and suspected aspiration pneumonia. Procalcitonin slowly rising but he also is in a mild HORTENSIA
- Re-check procal tomorrow to assure we have source control
- Follow-up respiratory culture (collected 01/15/2024) - NGTD; urine antigens for Legionella + strep pneumonia are both negative; MRSA is negative
- Rate control with goal HR<110
- Continue CCB and BB, but use short acting given he is intubated and meds will go through NGT
- Troponin peaked at 0.056 on 01/15/2024 no need to continue trending at this point
- Maintain MAP>65
- Maintain euglycemia with goal BG 140-180
- As of this morning, patient remains on tube feeds; DEPENDENCY PROGRAM DIRECTOR evaluation and start diet if patient cleared
- Start incentive spirometer
- stress ulcer ppx
- DVT ppx: Initially his Eliquis was held given right frontoparietal hematoma; resumed Eliquis on 01/14; Repeated CT head on 01/15 to assure hematoma not expanding, which it is not
Patient is stable for downgrade out of ICU to IMU level care. Pulmonary service will continue to follow along. I will arrange for outpatient office visit for PFTs/6MWT and discussion of sleep disordered breathing.
Total time spent today was 75 minutes for this encounter. Time includes reviewing laboratory test/imaging results, reviewing pertinent medical records, obtaining and reviewing medical history, performing an appropriate exam, ordering medications,
tests and procedures. Time also includes documentation of this encounter, coordinating patient care and communicating with other healthcare professionals. Total time does not include separately billed tests performed on this date of service.
Subjective Dataa
Subjective Data
Date of Service:
Date of Service: January 20, 2024
Chief Complaint: Sponge Maker Follow Up
Subjective:
Seen and evaluated today at bedside. He is sleepy but much more awake today, answering my questions appropriately and no more upwards vertical gaze preference. Saturating 94% on 5 L/min. Heart rate 86, BP 133/79.
Review of Systems
General: Other (Negative unless mentioned above)
Objective Data
Data Reviewed
Vital Signs / I&O / Oxygen:
Vital Signs
Temp Pulse Resp BP Pulse Ox
98.6 F 70 27 121/82 92
01/20/24 07:10 01/20/24 11:00 01/20/24 11:00 01/20/24 11:00 01/20/24 11:00
Intake and Output
01/19/24 01/20/24 01/21/24
06:59 06:59 06:59
Intake Total 3112.7 / 3222.2 2778.5 / 2993.5 695 / 695
Output Total 3120 / 3185 4735 / 4860 1250 / 1250
Balance -7.3 / 37.2 -1956.5 / -1866.5 -555 / -555
SaO2 [CPAP/PSV] 94
SaO2 [A/C] 99
SaO2 92
Nasal Cannula flow liters per 6
minute
Physical Exam
General: Respiratory Distress (negative), Comfortable and Other (Morbidly obese male)
HEENT: Normocephalic, Anicteric and Other (Thick neck)
Cardiovascular: S1-S2 and Peripheral Edema (+1 bilateral lower extremity pitting edema)
Respiratory: Wheeze (negative), Crackles (Bibasilar), Rhonchi (negative) and Non-Labored Respirations
GI: Soft, Distended (Abdominal obesity), Non Tender and Normal Bowel Sounds
Neurology: Awake and Tremors (negative)
Skin: Warm, Dry and Jaundice (negative)
Labs/Micro/Reports
Lab Data
01/20/24 04:26
01/20/24 04:26
Laboratory Results
01/19/24
12:03
pH 7.43
pCO2 48
pO2 69 L
HCO3 31.9 H
O2 Delivery Level
Microbiology
01/15/24 14:26 Blood/Venous Blood Culture - Preliminary
No Growth in 4 days- Final report to follow
01/15/24 14:26 Endotracheal Respiratory Culture - Final
Usual Respiratory Renata
01/15/24 14:26 Endotracheal Gram Stain - Final
--- NOTE | 2024-01-20 09:16 | PTCARENOTE ---
Rec'd care of patient at 0700. Patient drowsy but arousable. Oriented x2/3. Forgetful at times. Garbled speech. Per , this is baseline. Afib on tele monitor. Rate controlled. Trace edema in b/l LE. Palpable pulses. Transitioned from simple mask
to 6L nc. Scattered rhonchi throughout. Tachypneic. Occasional moist, productive cough. +BS. Abdomen round/obese/soft. Right nare DHT in place with TFs running at goal rate. Patient incontinent of multiple liquid stools. Rectal trumpet placed with
immediate drainage of a large amount of liquid brown stool. Miralax held. Voiding via benjamin catheter. Peripheral INTs flushed and capped. Cardiology at bedside. IV diuretics ordered clarified.
--- NOTE | 2024-01-20 11:23 | W.PN.CD ---
Today's Communication / Plan
-
-Patient extubated yesterday.
-Continue Lasix 40 mg IV twice daily.
-Creatinine improving, 1.5 --> 1.3 --> 1.2 today.
Impression / Plan
-
Impression/Plan: 63 y/o male with EtOH use, RBBB, persistent atrial fibrillation admitted after syncope while working on his car, found to have HFpEF with severe hypoxic/hypercapneic respiratory failure requiring intubation/mechanical ventilation.
#Acute hypoxic/vent-dependent hypercapnic respiratory failure:
-Patient extubated yesterday.
#Acute HFpEF, recovered NICM
-Persistent RVE with hypokinesis, doesn't appear new. LVEF 55-60%.
-Admit weight 141.7 kg, last admission weight 11/2023 was 126.7 kg. Currently weight
-Continue Lasix 40 mg IV twice daily.
-He will require a diuretic on discharge.
-Case management to brown SGLT2i.
-Daily weight, I/O, and BMP with diuresis.
-Heart failure education.
-Uptitrate GDMT as hemodynamics will permit.
#HORTENSIA
-Acute.
-Creatinine improving, 1.5 --> 1.3 --> 1.2 today.
-Continue to monitor renal function.
#Persistent atrial fibrillation
-Currently in AF.
-Rate controlled with diltiazem and metoprolol short acting formulations through the NG tube.
-[id number]: score at least 2 (Heart failure, HTN).
-Oral Anticoagulation: On Apixaban 5 mg twice daily; unable to confirm if he had missed doses at home.
-Once extubated will need to discuss EtOH use and apixaban to ensure ongoing candidacy.
#Abnormal troponin
-acute nonischemic myocardial injury in the setting of acute heart failure exacerbation and hypercapnic respiratory failure.
-Troponin 0.056 peak (with low level variance, not consistent with acute plaque rupture).
-EKG appears stable.
#Hypertension
-BP stable.
-Continue PO metoprolol and diltiazem for rate control. Diltiazem can be changed to digoxin if hypotension becomes an issue.
#EtOH abuse
-Chronic.
-Per primary service.
-Full cessation recommended.
-Monitor for withdrawal. Patient was given folate, thiamine.
#Obesity
-Chronic.
-BMI = 42.
-He would benefit from weight loss.
#Right frontal parietal subgaleal hematoma status post syncope
#RBBB, chronic
Critical Care Time = 37 minutes.
Subjective/Interval History:
No major events overnight. Patient extubated yesterday.
DATA:
TTE 01/15/24:
CONCLUSIONS
Normal left ventricular size and systolic function without regional wall motion
abnormality.
Mild concentric left ventricular hypertrophy.
In limited views, the right ventricle appears to be dilated with reduced
systolic function
No significant valvular disease.
Compared to the echo images on 10/01/2023, the findings are likely similar.
However on today's study the proximal ascending aorta was not well-seen.
Physical Exam
Vital Signs/Labs
Vital Signs
Temp Pulse Resp BP Pulse Ox
98.6 F 70 27 121/82 92
01/20/24 07:10 01/20/24 11:00 01/20/24 11:00 01/20/24 11:00 01/20/24 11:00
01/19/24 01/20/24 01/21/24
06:59 06:59 06:59
Actual Weight 135.9 kg 133.1 kg
01/20/24 04:26
01/20/24 04:26
PT 17.2 Sec (11.4-14.6) H 01/14/24 15:01
INR 1.42 01/14/24 15:01
APTT 39.2 Sec (23.4-35.0) H 01/14/24 15:01
Magnesium 1.9 mg/dl (1.6-2.3) 01/19/24 04:21
Triglycerides 85 mg/dl (10-149) 01/20/24 04:26
LDL Cholesterol, Calc 43 mg/dl 01/15/24 02:59
VLDL Cholesterol, Calc 23 mg/dl (0-30) 01/15/24 02:59
HDL Cholesterol 43 mg/dl 01/15/24 02:59
01/14/24 01/14/24 01/17/24
15:08 16:56 02:55
Ivw-B-Iowyjkfpkcn Pept 4160 Cancelled 801
01/19/24
04:21
Bld-A-Voaseudmexy Pept 1770
Physical Exam
Constitutional: No acute distress and Comfortable
EENT: Anicteric
Cardiovascular: Pedal edema is absent, Systolic murmur absent, Rhythm/rate is irregular and S1S2 is normal
Respiratory: Respiratory effort normal, Wheeze Absent and Rhonchi Present
GI: Soft
Neuro/Psych: AO x 3
Other: Skin (Warm, dry, intact)
Data Reviewed
-
Date of Service: January 20, 2024
EKG: Tracing Personally Visualized and interpreted (Telemetry: Atrial fibrillation (rate-controlled))
Medical Tests (PFT, Pathology etc): Discussed with Nurse
Labs: Labs Reviewed by me
Critical Care Time (in minutes): 38
--- NOTE | 2024-01-20 11:24 | PTCARENOTE ---
Patient repositioned for comfort. No complaints. UOP roughly 300-400 mL/hour post [address] Arnold, maintain benjamin catheter. No other changes in assessment.
--- NOTE | 2024-01-20 12:44 | W.PN.HOSP.TC ---
Today's Communication/Plan
-
Monitor vital signs see plan
Continue with diuresis
Continue with nebs
Monitor mental status
Wean oxygen as tolerated
Monitor for withdrawal
Assessment / Plan
Assessment / Plan
General: Well Developed, on nasal cannula
HEENT: NormoCephalic, anicteric
Respiratory: Positive crackles
Cardiac: S1/S2 and irregular Rhythm
GI: Soft, Non Tender, Non Distended and Normal Bowel Sounds
Musculoskeletal: No Clubbing, No Cyanosis and Other (LE edema)
Neuro: sedated
Psych: Calm
Acute hypercarbic hypoxic respiratory failure
Suspect secondary to acute CHF with preserved EF, recovered nonischemic cardiomyopathy
Status post extubation 01/19/2024, currently on mid flow
lasix restarted
Echo without acute changes
Cardiology following
CT chest 01/17 with pleural effusion and pulmonary edema
Speech consult
+ benjamin; voiding trial when patient is more alert
Currently on tube feeding; on restraints
cw nebs
Suspect pneumonia
likely from aspiration when he had syncopal episode
CXR noted
procal +; started unasyn
fever 01/16; monitor
leukocytosis; if continues to be elevated and have fever then consider ID evaluation
Persistent atrial fibrillation
Currently rate controlled; on metoprolol, Dilt
cw Eliquis
Syncopal episode likely from acute respiratory failure with hypoxia and hypercapnia
-head CT with No acute intracranial abnormality. Right frontoparietal subgaleal hematoma without underlying acute calvarial fracture.
#Right frontoparietal subgaleal hematoma without underlying acute calvarial fracture.
-continue to monitor. This was discussed on admission with neurosurgery recommended to monitor. repeat CT without acute changes
Mild troponin elevation likely nonischemic myocardial injury
Monitor
#anemia likely chronic
-no active bleeding
-ctm
Hypomagnesemia
#hyperkalemia
Resolved
# Alcohol abuse
-Started back drinking last week
-Cont MSAS protocol
on IV ativan
# Obesity-BMI 43.2
# Ex-smoker
# DVT prophylaxis
-Eliquis
# CODE STATUS
-Full code
I spent a total of 52 minutes with the patient or on the floor. More than 50% of this time involved counseling and coordination of care.
Anticipated Discharge: > 48 hours
Subjective/Interval History
-
Date of Service: January 20, 2024
on nasal cannula
Objective Data
-
Labs:
Laboratory Results
01/20/24
04:26
WBC 11.4 H
Hgb 10.9 L
Hct 37.3 L
Plt Count 317 D
Sodium 139
Potassium 4.2
Chloride 99
Carbon Dioxide 33 H
BUN 32 H
Creatinine 1.2
Glucose 128 H
Calcium 9.3
Vital Signs:
Vital Signs
Temp Pulse Resp BP Pulse Ox
98.7 F 79 20 133/79 95
01/20/24 11:10 01/20/24 12:39 01/20/24 12:39 01/20/24 12:09 01/20/24 12:39
I&O
01/19/24 01/20/24 01/21/24
06:59 06:59 06:59
Intake Total 3112.7 / 3222.2 2778.5 / 2993.5 895 / 895
Output Total 3120 / 3185 4735 / 4860 1550 / 1550
Balance -7.3 / 37.2 -1956.5 / -1866.5 -655 / -655
--- NOTE | 2024-01-20 13:01 | PTCARENOTE ---
Speech therapist at bedside. Patient tolerating PO intake.
--- NOTE | 2024-01-20 13:18 | PTOTSP ---
Speech Language Pathology
63M with admission for acute respiratory failure and recent extubation p/w with clinical s/s of a mildly impaired oropharyngeal swallow. Unable to r/o silent aspiration at bedside this date. Aspiration risk is increased 2/2 lethargy, AMS, and recent
intubation >48 hours.
Recommendations:
1. Trial soft and bite sized solids (IDDSI 6), thin liquids; if overt s/s of aspiration or penetration downgrade to puree/thins until speech re-eval
2. Meds whole vs crushed in puree
3. Strategies: small bites, slow rate, FULL SUPERVISION, PARTIAL assistance, only feed when awake/alert
4. Aspiration precautions
5. CONSTRUCTION PROJECT MGR service to follow up at the acute care level, assess diet level tolerance, and provide dysphagia tx as needed. If not tolerating current diet level, may require video swallow study to determine safest and least restrictive diet level.
--- NOTE | 2024-01-20 14:08 | PTCARENOTE ---
Family at bedside. Updated on plan of care. Fatimah killian'd. Lunch ordered.
--- NOTE | 2024-01-20 14:17 | PTCARENOTE ---
Patient downgraded to IMU level of care. Tolerating PO intake. No s/s aspiration.
--- NOTE | 2024-01-20 16:29 | PTCARENOTE ---
Patient placed on BiPAP by RT.
--- NOTE | 2024-01-20 17:53 | TRANSFER ---
Addendum entered by Brittany Beatty RN 01/20/24 17:55:
updated.
Original Note:
Patient transported in bed with belongings to IMU room 3348.
[2024-01-20] MEDS: LOPRESSOR 5 MG IV ×2 (18:09→21:09)
[2024-01-21] VITALS (16 sets, daily range): BP systolic 110–181; BP diastolic 75–147; PULSE 2–116; O2SAT 95; BMI 38.2
[2024-01-21] MEDS: LOPRESSOR 5 MG IV ×4 (01:19→23:42)
[2024-01-21] MEDS: UNASYN IV ×4 (01:19→19:50)
--- NOTE | 2024-01-21 04:00 | PTCARENOTE ---
Assume care from AM RN. AAOx1 to 2. Forgetful, confused, flat affect, anxious and uncooperative at times. pt has the tendency to drowsy. Afib w/ BBB 80's-110's the monitor. +1 BLLE edema. Lung sounds are diminished and coarse at the bases, SaO2
94% 6L. Productive milton thick mucus. Pt wore BIPAP fro 1 hr and refused. Pt constantly taking it off,respiratory notified. Abd round, full and obese. Pt remains with benjamin catheter and rectal tube. Q2 turn. Call george within reach.
[2024-01-21 05:22] LABS: Venous Blood Gas B.E. 9.7 mmol/L (-4 to +4); Venous Blood Gas HCO3 36.1 mmol/L (22-27); Venous Blood Gas O2 Sat % 89.2 %; Venous Blood Gas pCO2 57 mmHg (35-48); Venous Blood Gas pH 7.41 (7.32-7.43); Venous Blood Gas pO2 58 mmHg (30-50)
[2024-01-21 05:34] LABS: % Basophils 0.8 % (0-2); % Eosinophils 5.3 % (0-6); % Immature Granulocytes 0.4 % (0-0.5); % Lymphocytes 12.9 % (20.5-51.1); % Neutrophils 67.6 % (42.2-75.2); Absolute Basophils 0.1 10^3/uL (0-0.2); Absolute Eosinophils 0.6 10^3/uL (0-0.7); Absolute Immature Granulocytes 0.1 10^3/uL (0-0.05); Absolute Lymphocytes 1.5 10^3/uL (1.2-3.4); Absolute Monocytes 1.6 10^3/uL (0.1-0.6); Absolute Neutrophils 8.1 10^3/uL (1.4-6.5); Hematocrit 34.7 % (39.0-52.0); Hemoglobin 10.4 g/dL (13.0-18.0); Mean Corpuscular Hgb 21.4 pg (27.0-31.0); Mean Corpuscular Volume 71.3 fL (80.0-94.0); Mean Platelet Volume 9.8 fL (7.4-10.4); Nucleated Red Blood Cells % 0 % (-); Platelet Count 350 10^3/uL (130-400); Red Blood Cell Count 4.87 10^6/uL (4.70-6.10); Red Cell Dist. Width 17.2 % (11.5-14.5); White Blood Cell Count 11.9 10^3/uL (4.8-10.8)
[2024-01-21 05:55] LABS: Blood Urea Nitrogen 33 mg/dl (9-20); Calcium 9.6 mg/dl (8.4-10.2); Carbon Dioxide 34 mmol/L (22-30); Chloride 96 mmol/L (98-107); Estimated Creatinine Clearance 88 ml/min; Glucose 101 mg/dl (70-99); Magnesium 1.7 mg/dl (1.6-2.3); Phosphorus 4.7 mg/dl (2.5-4.5); Potassium 4.2 mmol/L (3.5-5.1); Sodium 138 mmol/L (135-145); eGFR > 60.00
[2024-01-21 05:56] LABS: Procalcitonin 0.73 ng/ml (0.0-0.25)
[2024-01-21 06:05] LABS: NT-proBNP 2220 pg/ml
--- NOTE | 2024-01-21 07:22 | W.PN.HOSP.TC ---
Today's Communication/Plan
-
continue diuresis
PT/OT
remove benjamin in next 1-2 days
Assessment / Plan
Assessment / Plan
Mr. Jus Suárez is a 63 yo man with hx afib, HTN, gout presents to the ER on 01/13 after a syncopal episode at home found to be 2/2 acute hypoxic and hypercarbic respiratory failure requiring mechanical ventilation. He was found to be in heart
failure. Syncopal episode resulted in right frontoparietal hematoma without acute calvarial fracture or ICH, stable. Hospital admission c/b metabolic encephalopathy and alcohol withdrawal.
HEAD CT 01/15
IMPRESSION:
No evidence of acute intracranial abnormality.
CHEST CT 01/17
IMPRESSION:
There is cardiomegaly with small-moderate bilateral pleural effusions larger on the right than the left and associated compressive atelectasis in both lower lobes but no pulmonary edema
CXR 01/18
IMPRESSION:
No significant interval change. Low lung volumes with moderate right and small left pleural effusions with adjacent atelectasis.
Acute hypercarbic hypoxic respiratory failure with VDRF
Suspect secondary to acute CHF with preserved EF, recovered nonischemic cardiomyopathy
Status post extubation 01/19/2024, currently on mid flow
-CT chest 01/17 with pleural effusion and pulmonary edema
-Echo without acute changes
-appreciate cardiology and restaurant area director consults
-continue nebulizers
-nocturnal BiPAP
-outpatient pulm follow up for PFTs/6MWT; sleep study
HORTENSIA
-creatinine improving with diuresis
TME
+ benjamin; voiding trial when patient is more alert
-diet advanced on 01/19 - IDDSI
-PT/OT re-ordered
Suspect pneumonia
likely from aspiration when he had syncopal episode
-+ procal, IV Unasyn started on 01/14 - today is day 7
Persistent atrial fibrillation
-Currently rate controlled; on metoprolol, Dilt
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
# Alcohol abuse
Alcohol Withdrawal
-Started back drinking last week
-Cont MSAS protocol with IV Ativan PRN
Syncopal episode likely from acute respiratory failure with hypoxia and hypercapnia
-head CT with No acute intracranial abnormality. Right frontoparietal subgaleal hematoma without underlying acute calvarial fracture.
#Right frontoparietal subgaleal hematoma without underlying acute calvarial fracture.
-continue to monitor. This was discussed on admission with neurosurgery recommended to monitor. repeat CT without acute changes
Mild troponin elevation likely nonischemic myocardial injury
-peaked at 0.056
#anemia likely chronic
-no active bleeding
-ctm
Hypomagnesemia
#hyperkalemia
Resolved
# Obesity-BMI 43.2
# Ex-smoker
# DVT prophylaxis
-Eliquis
# CODE STATUS
-Full code
I spent a total of 52 minutes with the patient or on the floor. More than 50% of this time involved counseling and coordination of care.
Anticipated Discharge: > 48 hours
Subjective/Interval History
-
Date of Service: January 21, 2024
states he is feeling better
knows where he is because he fell down
denies pain
Objective Data
-
Labs:
Laboratory Results
01/21/24
05:05
WBC 11.9 H
Hgb 10.4 L
Hct 34.7 L
Plt Count 350
Sodium 138
Potassium 4.2
Chloride 96 L
Carbon Dioxide 34 H
BUN 33 H
Creatinine 1.2
Glucose 101 H
Calcium 9.6
Vital Signs:
Vital Signs
Temp Pulse Resp BP Pulse Ox
99.4 F 119 16 149/90 92
01/21/24 03:25 01/21/24 06:15 01/21/24 06:00 01/21/24 06:00 01/20/24 20:00
I&O
01/20/24 01/21/24 01/22/24
06:59 06:59 06:59
Intake Total 2778.5 / 2993.5 1765 / 1765
Output Total 4735 / 4860 5100 / 5100
Balance -1956.5 / -1866.5 -3335 / -3335
Review of Systems
-
History Source: Patient
All other systems: Reviewed and negative
Physical Exam
-
General: No Apparent Distress and Obese
HEENT: PERRLA
Respiratory: Rales
Cardiac: S1/S2 and Irregular Rhythm
GI: Nontender
Genito-urinary: Benjamin
Musculoskeletal: No Edema
Skin: Warm and Dry; Negative Rash
Neuro: AO x 3 and Sedated
Psych: Calm
Data Reviewed
-
Diagnostic Radiology: Report Reviewed by me
Labs: Labs Reviewed by me
[2024-01-21] MEDS: DUONEB 3 ML INH ×3 (07:43→19:54)
[2024-01-21] MEDS: LASIX 40 MG IV (08:36)
[2024-01-21] MEDS: CARDIZEM 60 MG TUBE (08:41)
[2024-01-21] MEDS: VITAMIN B1 100 MG PO ×2 (08:42→19:50)
[2024-01-21] MEDS: FOLVITE 1 MG PO (08:42)
[2024-01-21] MEDS: ELIQUIS 5 MG TUBE ×2 (08:42→19:50)
[2024-01-21] MEDS: MIRALAX 17 GRAMS TUBE (08:42)
--- NOTE | 2024-01-21 09:21 | PTCARENOTE ---
Pt AAOx1-2 . Flat, forgetfull at times. Pt has benjamin for retention. and a rectal trumpet. Pt on 6 L O2 . Lungs are coarse. Working with therapy , now OOb to chair. Chair alarm on
--- NOTE | 2024-01-21 11:16 | W.PN.CD ---
Today's Communication / Plan
-
Convert metoprolol IV and short acting diltiazem to long acting oral formulations.
Change furosemide to 80 mg PO daily.
Add dapagliflozin 10 mg daily. Case management consult.
If renal function remains stable, add ACEI/ARB/ARNi tomorrow.
Impression / Plan
-
Impression/Plan: 63 y/o male with EtOH use, RBBB, persistent atrial fibrillation admitted after syncope while working on his car, found to have HFpEF with severe hypoxic/hypercapneic respiratory failure requiring intubation/mechanical ventilation.
#Acute hypoxic/vent-dependent hypercapnic respiratory failure:
-Patient extubated 01/19/2024.
-CT chest shows pleural effusions, R>L with compressive atelectasis but no pulmonary edema.
-VBG: pH = 7.41, pCO2 = 57 (normal < 48), pO2 = 58 (normal 30-50), HCO3 = 36.1.
-Treating for HFpEF (now euvolemic), COPD and PNA (procalcitonin 0.73, on ampicillin/sulbactam).
#Acute HFpEF, recovered NICM
-Persistent RVE with hypokinesis, doesn't appear new. LVEF 55-60%.
-Admit weight 141.7 kg, last admission weight 11/2023 was 126.7 kg. Currently weight 127.6 kg.
-Convert furosemide to 80 mg PO daily and monitor weight. Metabolic alkylosis is likely combination of chronic CO2 retention and contraction from diuretics.
-He will require a diuretic on discharge.
-Convert metoprolol tartrate IV to metoprolol succinate 25 mg daily.
-Start dapagliflozin 10 mg daily. Case management consult.
-If renal function remains stable, we will add ARNi/ACEI/ARB tomorrow.
#HORTENSIA
-Resolved.
#Persistent atrial fibrillation
-Currently in AF.
-Convert rate control to metoprolol succinate 25 mg daily and diltiazem 240 mg daily.
-[id number]: score >/= 2 (Heart failure, HTN).
-Oral Anticoagulation: On Apixaban 5 mg twice daily; unable to confirm if he had missed doses at home.
-Once extubated will need to discuss EtOH use and apixaban to ensure ongoing candidacy.
#Abnormal troponin
-Acute nonischemic myocardial injury in the setting of acute heart failure exacerbation and hypercapnic respiratory failure.
-Troponin 0.056 peak (with low level variance, not consistent with acute plaque rupture).
-EKG appears stable.
#Hypertension
-BP stable.
-Continue PO metoprolol and diltiazem for rate control. Diltiazem can be changed to digoxin if hypotension becomes an issue.
#EtOH abuse
-Chronic.
-Per primary service.
-Full cessation recommended.
-Monitor for withdrawal. Patient was given folate, thiamine.
#Obesity
-Chronic.
-BMI = 42.
-He would benefit from weight loss.
#Right frontal parietal subgaleal hematoma status post syncope
#RBBB, chronic
Subjective/Interval History:
Patient is awake/alert but forgetful.
Feliz catheter and rectal trumpet in place.
Transferred to IMU.
Weight 127.6 kg today (a significant drop from yesterday, 133.1 kg). This is fairly close to dry weight.
Febrile to 38.2 at 7:50 AM this morning.
HR between 90-110.
BP typically running between 120-149/79-94. Most recent BP 181/147 (?).
Remains on 5-6 LNC.
DATA:
TTE 01/15/24:
CONCLUSIONS
Normal left ventricular size and systolic function without regional wall motion
abnormality.
Mild concentric left ventricular hypertrophy.
In limited views, the right ventricle appears to be dilated with reduced
systolic function
No significant valvular disease.
Compared to the echo images on 10/01/2023, the findings are likely similar.
However on today's study the proximal ascending aorta was not well-seen.
CT Chest, 01/18/2024:
IMPRESSION:
There is cardiomegaly with small-moderate bilateral pleural effusions larger on the right than the left and associated compressive atelectasis in both lower lobes but no pulmonary edema.
Physical Exam
Vital Signs/Labs
Vital Signs
Temp Pulse Resp BP Pulse Ox
37.1 C 108 20 181/147 93
01/21/24 11:10 01/21/24 10:33 01/21/24 07:44 01/21/24 10:33 01/21/24 09:36
01/19/24 01/20/24 01/21/24
11:59 11:59 11:59
Actual Weight 135.9 kg 133.1 kg 127.6 kg
01/21/24 05:05
01/21/24 05:05
PT 17.2 Sec (11.4-14.6) H 01/14/24 15:01
INR 1.42 01/14/24 15:01
APTT 39.2 Sec (23.4-35.0) H 01/14/24 15:01
Magnesium 1.7 mg/dl (1.6-2.3) 01/21/24 05:05
Triglycerides 85 mg/dl (10-149) 01/20/24 04:26
LDL Cholesterol, Calc 43 mg/dl 01/15/24 02:59
VLDL Cholesterol, Calc 23 mg/dl (0-30) 01/15/24 02:59
HDL Cholesterol 43 mg/dl 01/15/24 02:59
01/14/24 01/14/24 01/17/24
15:08 16:56 02:55
Jrp-A-Ltynrcjcbpg Pept 4160 Cancelled 801
01/19/24 01/21/24
04:21 05:05
Oph-Q-Dqgpjduxcwf Pept 1770 2220
Physical Exam
Constitutional: No acute distress and Comfortable
EENT: Anicteric and Moist mucous membranes
Cardiovascular: Pedal edema is absent, JVD pressure is normal, S1S2 is normal and Murmur/rub/gallop absent
Respiratory: Respiratory effort normal and Other (Decreased throughout.)
GI: Soft, Distention absent, Flat, Non tender and Normal bowel sounds
Neuro/Psych: AO x 3
Data Reviewed
-
Date of Service: January 21, 2024
Medical Decision Making: Reviewed Test Results, Independent Historian Assessment and Test Interpretation
EKG: Tracing Personally Visualized and interpreted and Report Reviewed by me
Echo: Tracing Personally Visualized and interpreted and Report Reviewed by me
X-Ray/CT/US/MRI/NUC/PET: Image Personally Visualized and interpreted and Report Reviewed by me
Labs: Labs Reviewed by me
Old Records: Reviewed
[2024-01-21] MEDS: TOPROL XL 25 MG PO (12:30)
[2024-01-21] MEDS: FARXIGA 10 MG PO (12:30)
--- NOTE | 2024-01-21 16:10 | W.PN.PUL3 ---
Today's Communication / Plan
-
continue nocturnal BiPAP
Repeat x-ray 01/22
Continue antibiotics
Wean oxygen
Assessment
-
Assessment: 63-year-old male with a past medical history of alcoholism, gout, hypertension and history of A-fib on Eliquis who presents with passing out while working on his car. He reported that he hit the right side of his head on the car. He
states he had a couple beers earlier in the afternoon. Patient was drowsy in the ER. CT head showed no acute intracranial abnormality. It did show a 1.3 cm calcified right frontal parietal meningioma. Initial vitals showed he was afebrile to
98.2 �F, tachycardic to 103 bpm, breathing at 24 breaths/min, BP 95/50 and saturating 81% on room air which improved to 93% with 6 L/min nasal cannula. Initial labs showed WBC 7.8, Hb 10.8, acute hypercapnia with blood gas pH 7.19 with pCO2 65,
initial serum bicarbonate of 26, potassium 5.2, proBNP 4160 (no prior to compare to), with alcohol level of 62 and beta hydroxybutyrate 0.12. Initial CXR showed moderate bilateral lower lobe opacities (R >L) with small bilateral pleural effusions
and pulmonary vascular distention suggestive of mild pulmonary edema. Lasix 40 mg IV push x 1 was given, and patient required BiPAP. Patient was admitted to the ICU for further care. Unfortunately his hypercapnia persisted and worsened with pCO2
rise in the 78 and he was intubated. Critical care services consulted for additional management/recommendations.
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
Impression:
#Acute respiratory failure with hypercapnia + hypoxia requiring mechanical ventilation due to combination of CHF-exacerbation and CAP
- Intubated 01/14/2024
- Extubated 01/19/2024
#Abnormal CXR with pulmonary vascular congestion and pleural effusions due to acute decompensated heart failure
#Acute HFpEF with dilated RV with reduced RV systolic function (enlarged RV is chronic, RV systolic function reduction is new)
#Elevated troponin likely due to demand ischemia with type II SD
#Syncopal episode with fall resulting in right frontoparietal hematoma without acute calvarial fracture
#CAP (bilateral) likely due to aspiration with bilateral opacities
#HORTENSIA - improved
#Alcoholism
#Anemia
#Hx of A-fib on Eliquis
#Focal ovoid calcification along the left posterior paramedian tentorium measuring 13 mm likely a small calcified meningioma
Plan:
Patient appears to be improved objectively and subjectively
Venous blood gas noted, tolerating BiPAP
Chest exam is clear
Moving forward
Continue nebulized therapy, airway clearance measures
Continue nocturnal BiPAP
Continue with diuresis per cardiology
Continue MSAS with thiamine and folate
CT head negative from 01/16/2024 - done due to upwards eye deviation as patient is on Eliquis with recent fall and head trauma
Mildly elevated pro-calcitonin noted
Follow-up respiratory culture (collected 01/15/2024) - NGTD; urine antigens for Legionella + strep pneumonia are both negative; MRSA is negative
Consider repeat chest x-ray, will order for 01/22
Aspiration precautions
GI prophylaxis
DVT ppx: Initially his Eliquis was held given right frontoparietal hematoma; resumed Eliquis on 01/14; Repeated CT head on 01/15 to assure hematoma not expanding, which it is not
Subjective Data
-
Date of Service:
Date of Service: January 21, 2024
Subjective:
Patient evaluated and 01/20, late entry
Patient tolerating BiPAP, denies shortness of breath, chest pain. Remains on supplemental oxygen.
Objective Data
Data Reviewed
Vital Signs / I&O / Oxygen:
Vital Signs
Temp Pulse Resp BP Pulse Ox
99.3 F 107 20 149/80 95
01/21/24 15:30 01/21/24 14:57 01/21/24 14:57 01/21/24 14:00 01/21/24 14:57
Intake and Output
01/20/24 01/21/24 01/22/24
06:59 06:59 06:59
Intake Total 2778.5 / 2993.5 1765 / 1765 720 / 720
Output Total 4735 / 4860 5100 / 5100
Balance -1956.5 / -1866.5 -3335 / -3335 720 / 720
SaO2 [CPAP/PSV] 94
SaO2 [A/C] 99
SaO2 95
Nasal Cannula flow liters per 5
minute
Physical Exam
General: Comfortable
HEENT: Normocephalic, Anicteric and Other ( Large neck)
Cardiovascular: S1-S2, Regular Rhythm and Murmur (n)
Respiratory: Wheeze (n), Crackles (n), Rhonchi (n) and Non-Labored Respirations
GI: Soft, Non Distended ( obese) and Non Tender
Neurology: Awake and Alert
Skin: Good Color and Cyanosis (n)
Labs/Micro/Reports
Lab Data
01/21/24 05:05
01/21/24 05:05
Microbiology
01/15/24 14:26 Blood/Venous Blood Culture - Final
No Growth - Final Report
--- NOTE | 2024-01-21 16:16 | CM ---
Patient with Dx Acute hypercarbic hypoxic respiratory failure with VDRF - extubated 01/18, suspect secondary to acute CHF, HORTENSIA, TME, Etoh withdrawal, syncopal episode - Right frontoparietal subgaleal hematoma. O2 5L. Receiving IV Abx, IV Lasix.
MSAS 5.
PT/OT; requires heavy assistance of 2, inconsistently following simple commands, impaired memory, recommend skilled rehab.
Met with patient who seemed somewhat confused and unable to hold a conversation.
Spoke with patient's Deborah; the whole family visited yesterday and he knew them however he doesn't remember what happened to him. agreeable to patient going to SNF for rehab however is unfamiliar with the SNFs in the local area-
discussed some SNFs in and near [place] and provided [facility] ratings. works during the day so visits in the evening. Offered to send SNF list & she agrees---> sent to [email or web address].
Plan follow up with for SNF preferences.
--- NOTE | 2024-01-21 20:57 | PTCARENOTE ---
Received pt from rafael CHAUDHRY. Pt is AAOx2 (time), MSAS Q4, flat, forgetful/confused, garbled/slow speech. Afib w/ BBB on the monitor. On 6L NC, bipap 12/5 @ 4L HS, lungs coarse/diminished, tachypneic. Feliz in place, hygiene provided. Incont of
stool. Tylenol given for temp of 101. Pt is laying comfortable in bed with call george in reach.
[2024-01-21] MEDS: TYLENOL 650 MG PO (23:42)
[2024-01-22] VITALS (14 sets, daily range): BP systolic 100–149; BP diastolic 62–116; PULSE 2–92; BMI 38.0
[2024-01-22] MEDS: UNASYN IV ×4 (02:54→20:20)
[2024-01-22 03:39] LABS: Hemoglobin 10.4 g/dL (13.0-18.0); Mean Corp Hgb Conc. 30.6 g/dL (33.0-37.0); Mean Corpuscular Hgb 22.2 pg (27.0-31.0); Mean Corpuscular Volume 72.5 fL (80.0-94.0); Platelet Count 352 10^3/uL (130-400); Red Blood Cell Count 4.69 10^6/uL (4.70-6.10); Red Cell Dist. Width 17.1 % (11.5-14.5); White Blood Cell Count 11.3 10^3/uL (4.8-10.8)
[2024-01-22 03:40] LABS: Blood Urea Nitrogen 35 mg/dl (9-20); Calcium 9.3 mg/dl (8.4-10.2); Carbon Dioxide 32 mmol/L (22-30); Chloride 97 mmol/L (98-107); Estimated Creatinine Clearance 96 ml/min; Glucose 100 mg/dl (70-99); Potassium 4.2 mmol/L (3.5-5.1); Sodium 136 mmol/L (135-145); eGFR > 60.00
[2024-01-22] MEDS: DUONEB 3 ML INH ×3 (07:35→20:18)
--- NOTE | 2024-01-22 07:40 | W.PN.HOSP.TC ---
Addendum entered and electronically signed by Xochilt Hutchison MD 01/22/24 12:58:
Fevers while on Unasyn
check covid
check VSE
Original Note:
Today's Communication/Plan
-
possible discharge tomorrow
last day antibiotics
Assessment / Plan
Assessment / Plan
Mr. Jus Suárez is a 63 yo man with hx afib, HTN, gout presents to the ER on 01/13 after a syncopal episode at home found to be 2/2 acute hypoxic and hypercarbic respiratory failure requiring mechanical ventilation. He was found to be in heart
failure. Syncopal episode resulted in right frontoparietal hematoma without acute calvarial fracture or ICH, stable. Hospital admission c/b metabolic encephalopathy and alcohol withdrawal.
TTE 01/15/24
CONCLUSIONS
Normal left ventricular size and systolic function without regional wall motion
abnormality.
Mild concentric left ventricular hypertrophy.
In limited views, the right ventricle appears to be dilated with reduced
systolic function
No significant valvular disease.
Compared to the echo images on 10/01/2023, the findings are likely similar.
However on today's study the proximal ascending aorta was not well-seen.
HEAD CT 01/15
IMPRESSION:
No evidence of acute intracranial abnormality.
CHEST CT 01/17
IMPRESSION:
There is cardiomegaly with small-moderate bilateral pleural effusions larger on the right than the left and associated compressive atelectasis in both lower lobes but no pulmonary edema
CXR 01/18
IMPRESSION:
No significant interval change. Low lung volumes with moderate right and small left pleural effusions with adjacent atelectasis.
Acute hypercarbic hypoxic respiratory failure with VDRF
Suspect secondary to acute CHF with preserved EF, recovered nonischemic cardiomyopathy
Status post extubation 01/19/2024, currently on mid flow
-CT chest 01/17 with pleural effusion and pulmonary edema
-Echo without acute changes
-appreciate cardiology and microbial specialist consults
-continue nebulizers
-nocturnal BiPAP
-outpatient pulm follow up for PFTs/6MWT; sleep study
-s/p IV diuresis with drop in weight from 144 to 127kg; transitioned to oral lasix on 01/20 (new med)
HORTENSIA
-creatinine improving with diuresis
TME
+ benjamin; voiding trial when patient is more alert
-diet advanced on 01/19 - IDDSI
-PT/OT re-ordered
Suspect pneumonia
likely from aspiration when he had syncopal episode
-+ procal, IV Unasyn started on 01/14 - day 01/25
Persistent atrial fibrillation
-Currently rate controlled; changed to long acting metop/dil
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
# Alcohol abuse
Alcohol Withdrawal
-Started back drinking last week
-Cont MSAS protocol with IV Ativan PRN
Syncopal episode likely from acute respiratory failure with hypoxia and hypercapnia
-head CT with No acute intracranial abnormality. Right frontoparietal subgaleal hematoma without underlying acute calvarial fracture.
#Right frontoparietal subgaleal hematoma without underlying acute calvarial fracture.
-continue to monitor. This was discussed on admission with neurosurgery recommended to monitor. repeat CT without acute changes; Eliquis was resumed
Mild troponin elevation likely nonischemic myocardial injury
-peaked at 0.056
#anemia likely chronic
-no active bleeding
-ctm
Hypomagnesemia
#hyperkalemia
Resolved
# Obesity-BMI 43.2
# Ex-smoker
# DVT prophylaxis
-Eliquis
# CODE STATUS
-Full code
I spent a total of 52 minutes with the patient or on the floor. More than 50% of this time involved counseling and coordination of care.
Anticipated Discharge: 24 - 48 hours
Subjective/Interval History
-
Date of Service: January 22, 2024
no new complaints
Objective Data
-
Labs:
Laboratory Results
01/22/24
03:05
WBC 11.3 H
Hgb 10.4 L
Hct 34.0 L
Plt Count 352
Sodium 136
Potassium 4.2
Chloride 97 L
Carbon Dioxide 32 H
BUN 35 H
Creatinine 1.1
Glucose 100 H
Calcium 9.3
Vital Signs:
Vital Signs
Temp Pulse Resp BP Pulse Ox
99.0 F 103 22 145/86 92
01/22/24 04:34 01/22/24 07:37 01/22/24 07:37 01/22/24 06:00 01/22/24 07:37
I&O
01/21/24 01/22/24 01/23/24
06:59 06:59 06:59
Intake Total 1765 / 1765 1010 / 1010
Output Total 5100 / 5100 1900 / 1900
Balance -3335 / -3335 -890 / -890
Review of Systems
-
History Source: Patient
All other systems: Reviewed and negative
Physical Exam
-
General: No Apparent Distress and Obese
HEENT: PERRLA
Respiratory: Rales
Cardiac: S1/S2 and Irregular Rhythm
GI: Nontender
Genito-urinary: Benjamin
Musculoskeletal: No Edema
Skin: Warm and Dry; Negative Rash
Neuro: AO x 3 and Sedated
Psych: Calm
Data Reviewed
-
Diagnostic Radiology: Report Reviewed by me
Labs: Labs Reviewed by me
--- NOTE | 2024-01-22 08:18 | W.PN.CD ---
Today's Communication / Plan
-
continue current medications
will return at your request
Impression / Plan
-
Impression/Plan: 63 y/o male with EtOH use, RBBB, persistent atrial fibrillation admitted after syncope while working on his car, found to have HFpEF with severe hypoxic/hypercapneic respiratory failure requiring intubation/mechanical ventilation.
#Acute hypoxic/vent-dependent hypercapnic respiratory failure:
-Patient extubated 01/19/2024.
-CT chest shows pleural effusions, R>L with compressive atelectasis but no pulmonary edema.
-VBG: pH = 7.41, pCO2 = 57 (normal < 48), pO2 = 58 (normal 30-50), HCO3 = 36.1.
-Treating for HFpEF (now euvolemic at 137.1kg), COPD and PNA (procalcitonin 0.73, on ampicillin/sulbactam).
-was somnolent this am, continue overnight cpap
#Acute HFpEF, recovered NICM
-Persistent RVE with hypokinesis, doesn't appear new. LVEF 55-60%.
-Admit weight 141.7 kg, last admission weight 11/2023 was 126.7 kg. Currently weight 127.1kg.
-Continue furosemide to 80 mg PO daily and monitor weight.
-He will require a diuretic on discharge.
-Continue metoprolol succinate 25 mg daily.
-Continue dapagliflozin 10 mg daily. Case management consult.
-He is allergy to ARB---neck swelling
-can consider MRA in the future
#HORTENSIA
-Resolved.
#Persistent atrial fibrillation
-Currently in AF.
-Convert rate control to metoprolol succinate 25 mg daily and diltiazem 180 mg daily.
-[id number]: score >/= 2 (Heart failure, HTN).
-Oral Anticoagulation: On Apixaban 5 mg twice daily; unable to confirm if he had missed doses at home.
-Once extubated will need to discuss EtOH use and apixaban to ensure ongoing candidacy.
#Abnormal troponin
-Acute nonischemic myocardial injury in the setting of acute heart failure exacerbation and hypercapnic respiratory failure.
-Troponin 0.056 peak (with low level variance, not consistent with acute plaque rupture).
-EKG appears stable.
#Hypertension
-BP stable.
-Continue PO metoprolol and diltiazem for rate control. Diltiazem can be changed to digoxin if hypotension becomes an issue.
#EtOH abuse
-Chronic.
-Per primary service.
-Full cessation recommended.
-Monitor for withdrawal. Patient was given folate, thiamine.
#Obesity
-Chronic.
-He would benefit from weight loss.
#Right frontal parietal subgaleal hematoma status post syncope
#RBBB, chronic
Subjective/Interval History:
he is lethargic, but agreeable when aroused.
he is denying sob, cp.
DATA:
TTE 01/15/24:
CONCLUSIONS
Normal left ventricular size and systolic function without regional wall motion
abnormality.
Mild concentric left ventricular hypertrophy.
In limited views, the right ventricle appears to be dilated with reduced
systolic function
No significant valvular disease.
Compared to the echo images on 10/01/2023, the findings are likely similar.
However on today's study the proximal ascending aorta was not well-seen.
CT Chest, 01/18/2024:
IMPRESSION:
There is cardiomegaly with small-moderate bilateral pleural effusions larger on the right than the left and associated compressive atelectasis in both lower lobes but no pulmonary edema.
Physical Exam
Vital Signs/Labs
Vital Signs
Temp Pulse Resp BP Pulse Ox
100.0 F 103 22 145/86 92
01/22/24 07:17 01/22/24 07:37 01/22/24 07:37 01/22/24 06:00 01/22/24 07:37
01/21/24 01/22/24 01/23/24
06:59 06:59 06:59
Actual Weight 127.6 kg 127.1 kg
01/22/24 03:05
01/22/24 03:05
PT 17.2 Sec (11.4-14.6) H 01/14/24 15:01
INR 1.42 01/14/24 15:01
APTT 39.2 Sec (23.4-35.0) H 01/14/24 15:01
Magnesium 1.7 mg/dl (1.6-2.3) 01/21/24 05:05
Triglycerides 85 mg/dl (10-149) 01/20/24 04:26
LDL Cholesterol, Calc 43 mg/dl 01/15/24 02:59
VLDL Cholesterol, Calc 23 mg/dl (0-30) 01/15/24 02:59
HDL Cholesterol 43 mg/dl 01/15/24 02:59
01/14/24 01/14/24 01/17/24
15:08 16:56 02:55
Ilc-U-Mzkodosdtcx Pept 4160 Cancelled 801
01/19/24 01/21/24
04:21 05:05
Gvd-M-Eqpsjdfdhij Pept 1770 2220
Physical Exam
Constitutional: No acute distress
Cardiovascular: Pedal edema is absent, JVD pressure is normal, Systolic murmur absent, Diastolic murmur absent and Rhythm/rate is irregular
Respiratory: Respiratory effort normal, Lungs clear to auscul., Wheeze Absent, Crackles Absent and Rhonchi Absent
Neuro/Psych: AO x 3
Data Reviewed
-
Date of Service: January 22, 2024
Medical Decision Making: Review of Case with other Provider (continue current medications)
EKG: Other (tele afib with pvc)
--- NOTE | 2024-01-22 08:26 | W.PN.PUL3 ---
Today's Communication / Plan
-
Chest x-ray today
Continue diuresis
Antibiotics per ID
Wean oxygen
Out of bed to chair, PT/OT, airway clearance
Assessment
-
Assessment: 63-year-old male with a past medical history of alcoholism, gout, hypertension and history of A-fib on Eliquis who presents with passing out while working on his car. He reported that he hit the right side of his head on the car. He
states he had a couple beers earlier in the afternoon. Patient was drowsy in the ER. CT head showed no acute intracranial abnormality. It did show a 1.3 cm calcified right frontal parietal meningioma. Initial vitals showed he was afebrile to
98.2 �F, tachycardic to 103 bpm, breathing at 24 breaths/min, BP 95/50 and saturating 81% on room air which improved to 93% with 6 L/min nasal cannula. Initial labs showed WBC 7.8, Hb 10.8, acute hypercapnia with blood gas pH 7.19 with pCO2 65,
initial serum bicarbonate of 26, potassium 5.2, proBNP 4160 (no prior to compare to), with alcohol level of 62 and beta hydroxybutyrate 0.12. Initial CXR showed moderate bilateral lower lobe opacities (R >L) with small bilateral pleural effusions
and pulmonary vascular distention suggestive of mild pulmonary edema. Lasix 40 mg IV push x 1 was given, and patient required BiPAP. Patient was admitted to the ICU for further care. Unfortunately his hypercapnia persisted and worsened with pCO2
rise in the 78 and he was intubated. Critical care services consulted for additional management/recommendations.
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
Impression:
#Acute respiratory failure with hypercapnia + hypoxia requiring mechanical ventilation due to combination of CHF-exacerbation and CAP
- Intubated 01/14/2024
- Extubated 01/19/2024
#Abnormal CXR with pulmonary vascular congestion and pleural effusions due to acute decompensated heart failure
#Acute HFpEF with dilated RV with reduced RV systolic function (enlarged RV is chronic, RV systolic function reduction is new)
#Elevated troponin likely due to demand ischemia with type II MN
#Syncopal episode with fall resulting in right frontoparietal hematoma without acute calvarial fracture
#CAP (bilateral) likely due to aspiration with bilateral opacities
#HORTENSIA - improved
#Alcoholism
#Anemia
#Hx of A-fib on Eliquis
#Focal ovoid calcification along the left posterior paramedian tentorium measuring 13 mm likely a small calcified meningioma
Plan/recommendations
Patient appears to be improved objectively and subjectively
However, still requiring 4 to 5 L of oxygen
Venous blood gas noted, tolerating BiPAP
Chest exam is clear
Chest x-ray 01/18 with bilateral pleural parenchymal disease
Moving forward
Continue nebulized therapy, airway clearance measures
Continue nocturnal BiPAP
Add IS
Continue with diuresis per cardiology
Repeat chest x-ray today
Negative fluid status noted
Continue MSAS with thiamine and folate
CT head negative from 01/16/2024 - done due to upwards eye deviation as patient is on Eliquis with recent fall and head trauma
Mildly elevated pro-calcitonin noted
Follow-up respiratory culture (collected 01/15/2024) - NGTD; urine antigens for Legionella + strep pneumonia are both negative; MRSA is negative
Remains on Unasyn
Feliz catheter to be DC'd
Aspiration precautions
GI prophylaxis
DVT ppx: Initially his Eliquis was held given right frontoparietal hematoma; resumed Eliquis on 01/14; Repeated CT head on 01/15 to assure hematoma not expanding, which it is not
PT/OT, out of bed to chair
Subjective Data
-
Date of Service:
Date of Service: January 22, 2024
Subjective:
Patient is without complaints. Denies shortness of breath, cough, chest pain, nausea. However during interview, patient proceeded to have productive cough
Objective Data
Data Reviewed
Vital Signs / I&O / Oxygen:
Vital Signs
Temp Pulse Resp BP Pulse Ox
100.0 F 103 22 145/86 92
01/22/24 07:17 01/22/24 07:37 01/22/24 07:37 01/22/24 06:00 01/22/24 07:37
Intake and Output
01/21/24 01/22/24 01/23/24
06:59 06:59 06:59
Intake Total 1765 / 1765 1010 / 1010
Output Total 5100 / 5100 1900 / 1900
Balance -3335 / -3335 -890 / -890
SaO2 [CPAP/PSV] 94
SaO2 [A/C] 99
SaO2 92
Nasal Cannula flow liters per 6
minute
Physical Exam
General: Comfortable
HEENT: Normocephalic, Anicteric and Other ( Large neck)
Cardiovascular: S1-S2, Regular Rhythm and Murmur (n)
Respiratory: Wheeze (n), Crackles (n), Rhonchi (n) and Non-Labored Respirations
GI: Soft, Non Distended ( obese) and Non Tender
Neurology: Awake and Alert
Skin: Good Color and Cyanosis (n)
Labs/Micro/Reports
Lab Data
01/22/24 03:05
01/22/24 03:05
Microbiology
01/15/24 14:26 Blood/Venous Blood Culture - Final
No Growth - Final Report
[2024-01-22] MEDS: CARDIZEM CD 180 MG PO (08:31)
[2024-01-22] MEDS: ELIQUIS 5 MG TUBE ×2 (08:32→20:33)
[2024-01-22] MEDS: FOLVITE 1 MG PO (08:32)
[2024-01-22] MEDS: MIRALAX 17 GRAMS TUBE (08:32)
[2024-01-22] MEDS: FARXIGA 10 MG PO (08:32)
[2024-01-22] MEDS: LASIX 80 MG PO (08:32)
[2024-01-22] MEDS: VITAMIN B1 100 MG PO ×2 (08:32→20:33)
[2024-01-22] MEDS: TOPROL XL 25 MG PO (08:43)
--- NOTE | 2024-01-22 08:57 | CM ---
Addendum entered by Lisa Nicholson RN 01/22/24 16:19:
Discussed with possible LTC plan if patient does not improve in his mentation and his mobility while at SNF for rehab; she will think about whether she would want SNF for LTC vs home with caregivers, as she works.
Spoke with [employer]
Spoke with Isidoro Valencia [facility] (ph [phone]); request for [facility] initiated - SNF is approved for 6 days, subacute level, auth # [id number], from 01/22 to 01/27. Clinical info doesn't need to be faxed for initial auth. NR 01/27 to
[facility] [phone], fax [phone]. Ambulance doesn't need prior approval/auth not provided.
Phone call to patient's Deborah; left message providing update that insurance approved and patient will be able to go to [facility] tomorrow.
Message sent to Jonnathan notifying him SNF auth approved. Await callback.
Plan [facility] tomorrow by ambulance.
Addendum entered by Lisa Nicholson RN 01/22/24 15:55:
Attempted to initiate SNF auth through [employer]- portal access currently unavailable.
Addendum entered by Lisa Nicholson RN 01/22/24 12:12:
SNF referrals reviewed.
Spoke with patient's Deborah again; she agrees to [facility]. Explained insurance process.
Messages with [facility]; informed him agrees to their facility, CM will recontact once insurance approves.
Plan insurance auth for SNF.
Addendum entered by Lisa Nicholson RN 01/22/24 09:38:
Phone call to [facility]; left message requesting response to referrals.
Original Note:
Patient with Dx Acute hypercarbic hypoxic respiratory failure with VDRF - extubated 01/18, suspect secondary to acute CHF, HORTENSIA, TME, Etoh withdrawal, syncopal episode - Right frontoparietal subgaleal hematoma. O2 6L. BiPAP. MSAS 4. Receiving IV
Unasyn. PT & OT recommend skilled rehab. Nurses note 01/20 20:57: forgetful/confused, garbled/slow speech.
Extensive conversation with patient's Deborah re; short term SNF for rehab. Discussed local SNFs and provided [facility] ratings. chooses [facility], [facility], [facility] and [email or web address]. Agree to place SNF referrals.
Message from Dr Hutchison; patient may be ready for d/c tomorrow. IV Abx will be d/c'ed prior to d/c.
2nd CM Consult for [facility] Check Farxiga (first done 01/14 CM note)
Per [employer]- no cost [facility] either 30 days or 90 day supply - and Dr Hutchison informed.
had questions about patient needing BiPAP after d/c---> message to Dr Ngo.
Plan follow up SNF referrals.
--- NOTE | 2024-01-22 12:48 | PTOTSP ---
Dysphagia Therapy
Patient continues to present with signs concerning for mild pharyngeal dysphagia and signs concerning for aspiration with consecutive drinking of thin liquids. He is appropriate to advance to a regular solid texture. He will need supervision and
cues to take small single sips.
Recommend:
1. Regular, Thin Liquids via SINGLE CUP SIPS
2. Medications - whole and/or crushed in puree
3. Strategies: small SINGLE sips/bites, slow rate, FULL SUPERVISION
4. Oral care 3x daily
5. If concerned for silent aspiration contributing to clinical picture consider video swallow study as this cannot be ruled out bedside.
--- NOTE | 2024-01-22 13:26 | PN.CDI ---
CDI
- -
CDI:
Physician Documentation Request
Admit Date: 01/14/24 18:58
Dear Doctor Foster,
Patient admitted with respiratory failure.
Hospitalist progress notes includes a diagnosis of HORTENSIA
Creatinine resulted as follows:
Laboratory Tests
01/14/24 01/15/24 01/16/24
15:01 02:59 03:13
Creatinine 1.3 1.3 1.4 H
01/17/24 01/18/24 01/19/24
02:55 05:06 04:21
Creatinine 1.4 H 1.5 H 1.3
01/20/24 01/21/24 01/22/24
04:26 05:05 03:05
Creatinine 1.2 1.2 1.1
Criteria for HORTENSIA*
1 Increase in serum creatinine by > or = to 0.3 mg/dL (> or = to 26.5 micromol/L) within 48 hours, OR
2 Increase in serum creatinine to > or = to 1.5 times baseline, which is known or presumed to have occurred within 7 days, OR
3 Urine volume < 0.5 nL/kg/hour for six hours
Based on the above information and the recognized standard for rAKI could you please verify this diagnoses is still accurate and reflective of the patient�s condition to ensure quality of the medical record.
Please clarify in the Progress Notes:
�HORTENSIA is/was present and is a clinical diagnosis based on (please include this additional support in the medical record)
�After study HORTENSIA has been ruled out
�Other
Use of terms such as suspected, likely, concern for, or probable (associated with a specific diagnosis that is being evaluated, monitored, or treated as if it exists) are acceptable and can be coded in the inpatient setting, when documented at the
time of discharge.
Thank you,
Dayanna Seay RN, BSN
CDI Specialist
tiger text
Please use your independent medical judgment in providing your response.
[2024-01-22 15:52] LABS: COVID-19 Antigen Negative (Negative)
--- NOTE | 2024-01-22 23:40 | PTCARENOTE ---
Received pt from rafael CHAUDHRY. Pt is AAOx3, flat, forgetful. Afib w/BBB. On 4L NC O2 sat 92%, lungs coarse/diminished. Pt incont of urine. Tylenol given for temp (see MAR). Hygiene provided. Pt is laying comfortable in bed with call george in reach.
[2024-01-22] MEDS: TYLENOL 650 MG PO (23:43)
[2024-01-23] VITALS (14 sets, daily range): BP systolic 97–148; BP diastolic 47–97; PULSE 2–104; O2SAT 96; BMI 37.7; BMI 37.6
[2024-01-23] MEDS: LOPRESSOR 5 MG IV (00:47)
[2024-01-23] MEDS: UNASYN IV ×3 (02:31→13:21)
[2024-01-23 03:29] LABS: Hematocrit 32.6 % (39.0-52.0); Mean Corp Hgb Conc. 30.7 g/dL (33.0-37.0); Mean Corpuscular Hgb 21.6 pg (27.0-31.0); Mean Corpuscular Volume 70.6 fL (80.0-94.0); Mean Platelet Volume 10.2 fL (7.4-10.4); Platelet Count 396 10^3/uL (130-400); Red Blood Cell Count 4.62 10^6/uL (4.70-6.10); Red Cell Dist. Width 17.1 % (11.5-14.5); White Blood Cell Count 12.6 10^3/uL (4.8-10.8)
[2024-01-23 03:52] LABS: Blood Urea Nitrogen 36 mg/dl (9-20); Calcium 9.4 mg/dl (8.4-10.2); Carbon Dioxide 32 mmol/L (22-30); Chloride 95 mmol/L (98-107); Estimated Creatinine Clearance 95 ml/min; Glucose 101 mg/dl (70-99); Potassium 4.1 mmol/L (3.5-5.1); Sodium 134 mmol/L (135-145); Triglycerides 76 mg/dl (10-149); eGFR > 60.00
--- NOTE | 2024-01-23 07:13 | W.PN.PUL3 ---
Today's Communication / Plan
-
Continue BiPAP at night although patient did not tolerate yesterday p.m.
Requires more aggressive airway clearance, incentive spirometry
Aspiration precautions despite negative swallowing evaluation
PT/OT, out of bed to chair
Antibiotics have been discontinued
Assessment
-
Assessment: 63-year-old male with a past medical history of alcoholism, gout, hypertension and history of A-fib on [email or web address]) who presents with passing out while working on his car. He reported that he hit the right side of his head on the car. He
states he had a couple beers earlier in the afternoon. Patient was drowsy in the ER. CT head showed no acute intracranial abnormality. It did show a 1.3 cm calcified right frontal parietal meningioma. Initial vitals showed he was afebrile to
98.2 �F, tachycardic to 103 bpm, breathing at 24 breaths/min, BP 95/50 and saturating 81% on room air which improved to 93% with 6 L/min nasal cannula. Initial labs showed WBC 7.8, Hb 10.8, acute hypercapnia with blood gas pH 7.19 with pCO2 65,
initial serum bicarbonate of 26, potassium 5.2, proBNP 4160 (no prior to compare to), with alcohol level of 62 and beta hydroxybutyrate 0.12. Initial CXR showed moderate bilateral lower lobe opacities (R >L) with small bilateral pleural effusions
and pulmonary vascular distention suggestive of mild pulmonary edema. Lasix 40 mg IV push x 1 was given, and patient required BiPAP. Patient was admitted to the ICU for further care. Unfortunately his hypercapnia persisted and worsened with pCO2
rise in the 78 and he was intubated. Critical care services consulted for additional management/recommendations.
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
Impression:
#Acute respiratory failure with hypercapnia + hypoxia requiring mechanical ventilation due to combination of CHF-exacerbation and CAP
- Intubated 01/14/2024
- Extubated 01/19/2024
#Abnormal CXR with pulmonary vascular congestion and pleural effusions due to acute decompensated heart failure
#Acute HFpEF with dilated RV with reduced RV systolic function (enlarged RV is chronic, RV systolic function reduction is new)
#Elevated troponin likely due to demand ischemia with type II LA
#Syncopal episode with fall resulting in right frontoparietal hematoma without acute calvarial fracture
#CAP (bilateral) likely due to aspiration with bilateral opacities
#HORTENSIA - improved
#Alcoholism
#Anemia
#Hx of A-fib on Eliquis
#Focal ovoid calcification along the left posterior paramedian tentorium measuring 13 mm likely a small calcified meningioma
Plan/recommendations
Patient appears to be improved objectively and subjectively
Fevers noted, ID evaluation noted. Antibiotics discontinued
Patient did not tolerate BiPAP yesterday p.m.
He has been weaned down to 3 L
repeat chest x-ray 01/22/2024 with improved right pleural parenchymal process
Rhonchi with cough noted
Moving forward
Continue nebulized therapy, airway clearance measures
Continue nocturnal BiPAP as he tolerates
Continue IS
Continue with diuresis per cardiology
Negative fluid status noted
Chest x-ray has improved
Continue MSAS with thiamine and folate
CT head negative from 01/16/2024 - done due to upwards eye deviation as patient is on Eliquis with recent fall and head trauma
Mildly elevated pro-calcitonin noted
Follow-up respiratory culture (collected 01/15/2024) - NGTD; urine antigens for Legionella + strep pneumonia are both negative; MRSA is negative
Unasyn discontinued
Feliz catheter discontinued 01/21
Cultures negative today, ID following
Aspiration precautions
GI prophylaxis
DVT ppx: Initially his Eliquis was held given right frontoparietal hematoma; resumed Eliquis on 01/14; Repeated CT head on 01/15 to assure hematoma not expanding, which it is not
PT/OT, out of bed to chair
Disposition efforts
Subjective Data
-
Date of Service:
Date of Service: January 23, 2024
Subjective:
Patient is without complaints. Weaned down to 3 L. Negative fluid balance continues
Did not tolerate BiPAP overnight
Objective Data
Data Reviewed
Vital Signs / I&O / Oxygen:
Vital Signs
Temp Pulse Resp BP Pulse Ox
98.2 F 94 25 113/77 96
01/23/24 03:59 01/23/24 06:00 01/23/24 06:00 01/23/24 06:00 01/22/24 23:00
Intake and Output
01/22/24 01/23/24 01/24/24
06:59 06:59 06:59
Intake Total 1010 / 1010 2620 / 2620
Output Total 1900 / 1900 2700 / 2700
Balance -890 / -890 -80 / -80
SaO2 [CPAP/PSV] 94
SaO2 [A/C] 99
SaO2 96
Nasal Cannula flow liters per 4
minute
Physical Exam
General: Comfortable
HEENT: Normocephalic, Anicteric and Other ( Large neck)
Cardiovascular: S1-S2, Regular Rhythm and Murmur (n)
Respiratory: Wheeze (n), Crackles (n), Rhonchi (Rhonchi with cough) and Non-Labored Respirations
GI: Soft, Non Distended ( obese) and Non Tender
Neurology: Awake and Alert
Skin: Good Color and Cyanosis (n)
Labs/Micro/Reports
Lab Data
01/23/24 03:12
01/23/24 03:12
Microbiology
01/15/24 14:26 Blood/Venous Blood Culture - Final
No Growth - Final Report
--- NOTE | 2024-01-23 07:57 | W.PN.HOSP.TC ---
Today's Communication/Plan
-
fever work-up: UA, blood cultures, VSE; may require ID consult
continue IV Unasyn for now, will need to broaden if patient becomes unstable
continue dilt, metop, eliquis
continue BiPAP qhs
continue to encourage OOB, PT/OT
O2 needs coming down
Assessment / Plan
Assessment / Plan
Mr. Jus Suárez is a 63 yo man with hx afib, HTN, gout presents to the ER on 01/13 after a syncopal episode at home found to be 2/2 acute hypoxic and hypercarbic respiratory failure requiring mechanical ventilation. He was found to be in heart
failure. Syncopal episode resulted in right frontoparietal hematoma without acute calvarial fracture or ICH, stable. Hospital admission c/b metabolic encephalopathy and alcohol withdrawal.
TTE 01/15/24
CONCLUSIONS
Normal left ventricular size and systolic function without regional wall motion
abnormality.
Mild concentric left ventricular hypertrophy.
In limited views, the right ventricle appears to be dilated with reduced
systolic function
No significant valvular disease.
Compared to the echo images on 10/01/2023, the findings are likely similar.
However on today's study the proximal ascending aorta was not well-seen.
HEAD CT 01/15
IMPRESSION:
No evidence of acute intracranial abnormality.
CHEST CT 01/17
IMPRESSION:
There is cardiomegaly with small-moderate bilateral pleural effusions larger on the right than the left and associated compressive atelectasis in both lower lobes but no pulmonary edema
CXR 01/18
IMPRESSION:
No significant interval change. Low lung volumes with moderate right and small left pleural effusions with adjacent atelectasis.
Acute hypercarbic hypoxic respiratory failure with VDRF
Suspect secondary to acute CHF with preserved EF, recovered nonischemic cardiomyopathy
Status post extubation 01/19/2024, currently on mid flow
-CT chest 01/17 with pleural effusion and pulmonary edema
-Echo without acute changes
-appreciate cardiology and spinning doffer consults
-continue nebulizers
-nocturnal BiPAP
-outpatient pulm follow up for PFTs/6MWT; sleep study
-s/p IV diuresis with drop in weight from 144 to 127kg; transitioned to oral lasix on 01/20 (new med)
HORTENSIA
-creatinine was up to 1.5 from baseline 1.1
-creatinine improving with diuresis
TME
+ benjamin; voiding trial when patient is more alert
-diet advanced on 01/19 - IDDSI
-PT/OT re-ordered
Fevers
-patient with temp up to 101.3 last night while he's been on Unasyn
-covid negative, check UA, blood culture, CXR without new PNA
-VSE ordered for today
-may require ID consult
Suspect pneumonia
likely from aspiration when he had syncopal episode
-+ procal, IV Unasyn started on 01/14 - continuing in setting of fevers (day 9)
Persistent atrial fibrillation
-Currently rate controlled; changed to long acting metop/dil
-RN MOBILE Eliquis
# Alcohol abuse
Alcohol Withdrawal
-Started back drinking last week
-Cont MSAS protocol with IV Ativan PRN
Syncopal episode likely from acute respiratory failure with hypoxia and hypercapnia
-head CT with No acute intracranial abnormality. Right frontoparietal subgaleal hematoma without underlying acute calvarial fracture.
#Right frontoparietal subgaleal hematoma without underlying acute calvarial fracture.
-continue to monitor. This was discussed on admission with neurosurgery recommended to monitor. repeat CT without acute changes; Eliquis was resumed
Mild troponin elevation likely nonischemic myocardial injury
-peaked at 0.056
#anemia likely chronic
-no active bleeding
-ctm
Hypomagnesemia
#hyperkalemia
Resolved
# Obesity-BMI 43.2
# Ex-smoker
# DVT prophylaxis
-Eliquis
# CODE STATUS
-Full code
I spent a total of 52 minutes with the patient or on the floor. More than 50% of this time involved counseling and coordination of care.
Anticipated Discharge: 24 - 48 hours
Subjective/Interval History
-
Date of Service: January 23, 2024
awoken from sleep
feeling well
Objective Data
-
Labs:
Laboratory Results
01/23/24
03:12
WBC 12.6 H
Hgb 10.0 L
Hct 32.6 L
Plt Count 396
Sodium 134 L
Potassium 4.1
Chloride 95 L
Carbon Dioxide 32 H
BUN 36 H
Creatinine 1.1
Glucose 101 H
Calcium 9.4
Vital Signs:
Vital Signs
Temp Pulse Resp BP Pulse Ox
98.2 F 102 20 113/77 93
01/23/24 03:59 01/23/24 07:17 01/23/24 07:17 01/23/24 06:00 01/23/24 07:17
I&O
01/22/24 01/23/24 01/24/24
06:59 06:59 06:59
Intake Total 1010 / 1010 2620 / 2620
Output Total 1900 / 1900 2700 / 2700
Balance -890 / -890 -80 / -80
Review of Systems
-
History Source: Patient
All other systems: Reviewed and negative
Physical Exam
-
General: No Apparent Distress and Obese
HEENT: PERRLA
Respiratory: Rales
Cardiac: S1/S2 and Irregular Rhythm
GI: Nontender
Genito-urinary: Benjamin
Musculoskeletal: No Edema
Skin: Warm and Dry; Negative Rash
Neuro: AO x 3 and Sedated
Psych: Calm
Data Reviewed
-
Diagnostic Radiology: Report Reviewed by me
Labs: Labs Reviewed by me
[2024-01-23] MEDS: TOPROL XL 25 MG PO (08:33)
[2024-01-23] MEDS: ELIQUIS 5 MG TUBE ×2 (08:33→20:05)
[2024-01-23] MEDS: LASIX 80 MG PO (08:33)
[2024-01-23] MEDS: MIRALAX 17 GRAMS TUBE (08:33)
[2024-01-23] MEDS: CARDIZEM CD 180 MG PO (08:33)
[2024-01-23] MEDS: VITAMIN B1 100 MG PO ×2 (08:33→20:05)
[2024-01-23] MEDS: FARXIGA 10 MG PO (08:33)
[2024-01-23] MEDS: FOLVITE 1 MG PO (08:34)
[2024-01-23 08:45] LABS: Urine Albumin 1+ (Neg - Trace); Urine Bilirubin Negative (Negative); Urine Character Clear (Clear); Urine Color Yellow; Urine Glucose 2+ (Negative); Urine Ketone Negative (Negative); Urine Leukocyte Negative (Negative); Urine Nitrite Negative (Negative); Urine Occult Blood Negative (Negative); Urine Specific Gravity 1.015 (<1.030); Urine Urobilinogen Negative (Neg - 1+)
--- NOTE | 2024-01-23 09:20 | CM ---
Patient with Dx Acute hypercarbic hypoxic respiratory failure with VDRF - extubated 01/18, HF, Afib, TME, Etoh withdrawal, syncopal episode - Right frontoparietal subgaleal hematoma, suspect PNA, Fevers. O2 3L. BiPAP. VSE Ordered. MSAS 2.
Receiving IV Unasyn. PT & OT recommend skilled rehab.
Message from Dr Hutchison; d/c held due to fever. contacted patient's .
Spoke with [facility]; d/c on hold due to fever/need for fever workup. When ready for d/c, the ph for report [phone], fax [phone].
*SNF auth dates are 01/22 to 01/27.
Plan [facility] when medically ready.
[2024-01-23 09:36] LABS: Procalcitonin 1.05 ng/ml (0.0-0.25)
--- NOTE | 2024-01-23 11:25 | PTCARENOTE ---
Patient sent to OP radiology for VSE.
[2024-01-23 11:44] LABS: Urine Amorphous Seen
[2024-01-23 11:46] LABS: Urine Red Blood Cell 0-2 /HPF (0-2); Urine White Cell 0-2 /HPF (0-5)
--- NOTE | 2024-01-23 12:40 | PTOTSP ---
Video Swallow Study
Summary: Patient presents with minimal changes to oral/pharyngeal stages of swallowing which are overall within functional limits. No aspiration occurred. Please see patient care note for details.
Recommend:
1. Regular, Thin Liquids via SINGLE SIPS
2. Medications - whole and/or crushed in puree
3. Strategies: small SINGLE sips/bites, slow rate, FULL SUPERVISION
4. Oral care 3x daily
5. Will follow up briefly for instruction/carry over of swallowing compensations. Dysphagia therapy not warranted after D/C from acute care.
6. Will follow up for further cognitive linguistic evaluation as able/appropriate.
--- NOTE | 2024-01-23 14:03 | CON.ID ---
Consultation
-
Date/Time Consultation Requested: 01/23/24 12:25
Date/Time Consultation Performed: 01/23/24 14:04
Requesting Provider: Dr Hutchison
Performing Provider: Dr Abraham
Reason for Consultation: fevers, aspiration pneumonia
Chief Complaint / Past History
Chief Complaint
syncope
History of Present Illness
Mr Suárez is a 63 year old male with history notable for EtOH abuse, afib, gout who presented here 01/13 after syncope at home. His saw him slowly falling backwards, slid down and hit the side of his head on the floor, he lost consciousness for
a few seconds, noted hands and face were purplish, EMS called. He was somnolent on arrival to the ER but answered some questions. He 'a drink or two of alcohol' that morning before the episode.
On arrival here 10 days ago patient was initially afebrile, first fever was 01/16 and 102 - this was isolated, then 01/20 he began to spike consistent fevers mostly axillary, single elevated core t to 100.8, BP has been stable throughout the
hospitalization, has been intermittently mildly tachycardic throughout this time, RR initially teens more recently 20-30s, wbc on arrival 7.8 and was normal until 01/18 when he developed leukocytosis to 12.2 which has persisted around that level for
the last 5 days, cr initially 1.3-1.4 on arrival now consistently 1.1, t bili 1.2, ast 55, alt 15, alk phos 206, 01/22 UA no pyuria or bactiuria, 01/21 covid ag negative, arrival blood gas pH 7.19 with pCO2 65, initial serum bicarbonate of 26,
potassium 5.2, proBNP 4160 (no prior), with alcohol level of 62 and beta hydroxybutyrate 0.12, CT head: 1.3 cm calcified parietal meningioma, 01/13 CXR: Moderate bilateral lower lobe opacities (right larger than left). Diagnostic possibilities are
(1) bilateral lower lobe atelectasis or (2) aspiration pneumonitis. Initially placed on Bipap but hypercarbia worsened and patient was intubated 01/13; extubated 01/18. 01/21 CXR: Small left pleural effusion and adjacent atelectasis/consolidation,
slightly improved, tiny right pleural effusion, 01/17 CT chest without contrast: cardiomegaly with small-moderate bilateral pleural effusions larger on the right than the left and associated compressive atelectasis in both lower lobes but no
pulmonary edema. respiratory culture 01/14 normal resp aleksey; urine antigens for Legionella + strep pneumonia are both negative; MRSA nasal screen is negative. Patient has been on unasyn since 01/14 He is now awake and alert reproting no headaches,
sinus tenderness, changes in vision, sore throat, cough, sputum production, nausea, vomiting, diarrhea, suprapubic tenderness, dysuria, rashes, joint pains, tender PIVs. Has a dog that is healthy. Does spend time in the garden/[place] but no known
tick bites. Is on day 9 of empiric unasyn.
Past History
Additional Past Medical History:
HTN, pilonidal cyst
Past Surgical History: Orthopedic
Allergy History:
losartan potassium [From Cozaar] Allergy (Verified 01/22/24 08:49)
Neck swelling
Review of Systems
Vital Signs
Temp Pulse Resp BP Pulse Ox
97.8 F 100 21 109/80 94
01/23/24 07:55 01/23/24 10:00 01/23/24 10:00 01/23/24 12:00 01/23/24 11:06
Physical Exam
Lab / Diagnostic Study Results
01/23/24 03:12
01/23/24 03:12
Abs Immat Gran (auto) 0.1 10^3/uL (0-0.05) H 01/21/24 05:05
Absolute Neuts (auto) 8.1 10^3/uL (1.4-6.5) H 01/21/24 05:05
Absolute Lymphs (auto) 1.5 10^3/uL (1.2-3.4) 01/21/24 05:05
Absolute Monos (auto) 1.6 10^3/uL (0.1-0.6) H 01/21/24 05:05
Absolute Basos (auto) 0.1 10^3/uL (0-0.2) 01/21/24 05:05
Immature Gran % 0.4 % (0-0.5) 01/21/24 05:05
Neutrophils % 67.6 % (42.2-75.2) 01/21/24 05:05
Lymphocytes % 12.9 % (20.5-51.1) L 01/21/24 05:05
Monocytes % 13.0 % (1.7-9.3) H 01/21/24 05:05
Eosinophils % 5.3 % (0-6) 01/21/24 05:05
Basophils % 0.8 % (0-2) 01/21/24 05:05
PT 17.2 Sec (11.4-14.6) H 01/14/24 15:01
INR 1.42 01/14/24 15:01
Procalcitonin 1.05 ng/ml (0.0-0.25) H 01/23/24 08:47
Ur Squamous Epith Cells 6-10 /LPF (Few) 01/23/24 08:28
Microbiology Results
Micro:
01/23/24 08:47 Blood Culture - Pending
Blood/Venous
01/15/24 14:26 Blood Culture - Final
Blood/Venous No Growth - Final Report
01/15/24 14:26 Respiratory Culture - Final
Endotracheal Usual Respiratory Aleksey
Gram Stain - Final
01/15/24 14:26 Nasal Screen MRSA (PCR) - Final
Nose MRSA not detected - performed by PCR methodology.
01/15/24 14:26 Legionella Urinary Antigen - Final
Urine Negative for Legionella pneumophila Serogroup 1 antigen.
A negative result does not rule out the possiblity of
Legionella infection due to other serogroups or species of
Legionella. Clinical correlation is recommended.
Streptococcus pneumoniae Antigen (M - Final
Negative for Streptococcus pneumoniae antigen.
A negative result does not exclude infection with
Streptococcus pneumoniae. Clinical correlation is
recommended.
Assessment / Plan
New Fever as of 01/20
Minimal Leukocytosis since 01/18
Resolved aspiration pneumonitis, persistent atelectasis
- no left shift when last assessed 01/20, no eosinophilia at that time,
- blood cultures x1 was sent today; there was also a single blood culture on arrival 01/14 which is finalized negative
- UA 01/22 no pyuria
- sputum culture was usual resp aleksey
- CXR resolving L sided atelectasis, CT chest 01/17 small-moderate bilateral pleural effusions larger on the right than the left and associated compressive atelectasis in both lower lobes but no pulmonary edema
- covid ag neg 01/21
- q48 hour procalcitonins have been run - recommend against this practice.
- VSE was within normal limits and no aspiration ocured
- day 9 of a unasyn, 01/14-present - stopped.
nonfocal ID ROS, drug fever from unasyn suspected, stopped this drug, follow clinically.
[2024-01-23] MEDS: DUONEB 3 ML INH (14:05)
--- NOTE | 2024-01-23 16:31 | PTCARENOTE ---
Patient sat out in chair for approx 1 hour today. He had no complaints during the day. Ate all meals. Needs help with urinal but was continent. Assessment, care and VS as charted.
[2024-01-24] VITALS (13 sets, daily range): BP systolic 110–148; BP diastolic 60–99; BMI 37.9
--- NOTE | 2024-01-24 00:44 | PTCARENOTE ---
Received pt from day shift RN. HERMANOx3, pleasant, and resting in bed. Pt currently 94% on 3L, coarse and diminished throughout. Wet, non-productive cough at times. Needed assistance with urinal, inc at times. Pt changed and washed. Call george in reach.
[2024-01-24 04:01] LABS: % Basophils 1.2 % (0-2); % Eosinophils 5.7 % (0-6); % Immature Granulocytes 0.7 % (0-0.5); % Lymphocytes 15.2 % (20.5-51.1); % Monocytes 12.2 % (1.7-9.3); Absolute Basophils 0.1 10^3/uL (0-0.2); Absolute Eosinophils 0.7 10^3/uL (0-0.7); Absolute Immature Granulocytes 0.1 10^3/uL (0-0.05); Absolute Lymphocytes 1.8 10^3/uL (1.2-3.4); Absolute Monocytes 1.5 10^3/uL (0.1-0.6); Absolute Neutrophils 7.8 10^3/uL (1.4-6.5); Mean Corp Hgb Conc. 30.3 g/dL (33.0-37.0); Mean Corpuscular Hgb 21.8 pg (27.0-31.0); Mean Corpuscular Volume 71.9 fL (80.0-94.0); Mean Platelet Volume 10.1 fL (7.4-10.4); Nucleated Red Blood Cells % 0 % (-); Platelet Count 445 10^3/uL (130-400); Red Blood Cell Count 4.59 10^6/uL (4.70-6.10); Red Cell Dist. Width 17.2 % (11.5-14.5)
[2024-01-24 04:25] LABS: Blood Urea Nitrogen 35 mg/dl (9-20); Calcium 9.6 mg/dl (8.4-10.2); Carbon Dioxide 32 mmol/L (22-30); Chloride 94 mmol/L (98-107); Estimated Creatinine Clearance 105 ml/min; Glucose 109 mg/dl (70-99); Potassium 4.1 mmol/L (3.5-5.1); Sodium 134 mmol/L (135-145); eGFR > 60.00
--- NOTE | 2024-01-24 06:46 | W.PN.PUL3 ---
Today's Communication / Plan
-
ABG 01/25/2024 in a.m.
PT/OT, out of bed to chair
Wean oxygen
Continue with BiPAP attempts at night. Patient continues to refuse
Assessment
-
Assessment: 63-year-old male with a past medical history of alcoholism, gout, hypertension and history of A-fib on [employer] who presents with passing out while working on his car. He reported that he hit the right side of his head on the car. He
states he had a couple beers earlier in the afternoon. Patient was drowsy in the ER. CT head showed no acute intracranial abnormality. It did show a 1.3 cm calcified right frontal parietal meningioma. Initial vitals showed he was afebrile to
98.2 �F, tachycardic to 103 bpm, breathing at 24 breaths/min, BP 95/50 and saturating 81% on room air which improved to 93% with 6 L/min nasal cannula. Initial labs showed WBC 7.8, Hb 10.8, acute hypercapnia with blood gas pH 7.19 with pCO2 65,
initial serum bicarbonate of 26, potassium 5.2, proBNP 4160 (no prior to compare to), with alcohol level of 62 and beta hydroxybutyrate 0.12. Initial CXR showed moderate bilateral lower lobe opacities (R >L) with small bilateral pleural effusions
and pulmonary vascular distention suggestive of mild pulmonary edema. Lasix 40 mg IV push x 1 was given, and patient required BiPAP. Patient was admitted to the ICU for further care. Unfortunately his hypercapnia persisted and worsened with pCO2
rise in the 78 and he was intubated. Critical care services consulted for additional management/recommendations.
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
Impression:
#Acute respiratory failure with hypercapnia + hypoxia requiring mechanical ventilation due to combination of CHF-exacerbation and CAP
- Intubated 01/14/2024
- Extubated 01/19/2024
#Abnormal CXR with pulmonary vascular congestion and pleural effusions due to acute decompensated heart failure
#Acute HFpEF with dilated RV with reduced RV systolic function (enlarged RV is chronic, RV systolic function reduction is new)
#Elevated troponin likely due to demand ischemia with type II LA
#Syncopal episode with fall resulting in right frontoparietal hematoma without acute calvarial fracture
#CAP (bilateral) likely due to aspiration with bilateral opacities
#HORTENSIA - improved
#Alcoholism
#Anemia
#Hx of A-fib on Eliquis
#Focal ovoid calcification along the left posterior paramedian tentorium measuring 13 mm likely a small calcified meningioma
Plan/recommendations
Patient appears to be improved objectively and subjectively
Unfortunately, continues to refuse nocturnal BiPAP
Fevers improved, antibiotics discontinued, ID following
He has been weaned down to 4 L
repeat chest x-ray 01/22/2024 with improved right pleural parenchymal process
Rhonchi with cough noted
Moving forward
Continue nebulized therapy, airway clearance measures
Continue nocturnal BiPAP as he tolerates. Unfortunately patient continues to refuse for the last 2 nights
Continue IS
Repeat ABG 01/24 in a.m.
Continue with diuresis per cardiology
Negative fluid status noted
Chest x-ray has improved
Continue MSAS with thiamine and folate
CT head negative from 01/16/2024 - done due to upwards eye deviation as patient is on Eliquis with recent fall and head trauma
Mildly elevated pro-calcitonin noted
Follow-up respiratory culture (collected 01/15/2024) - NGTD; urine antigens for Legionella + strep pneumonia are both negative; MRSA is negative
Unasyn discontinued
Feliz catheter discontinued 01/21
Cultures negative today, ID following
Fever curve seems to be improved
Aspiration precautions
GI prophylaxis
DVT ppx: Initially his Eliquis was held given right frontoparietal hematoma; resumed Eliquis on 01/14; Repeated CT head on 01/15 to assure hematoma not expanding, which it is not
PT/OT, out of bed to chair
Disposition efforts
Subjective Data
-
Date of Service:
Date of Service: January 24, 2024
Subjective:
Unfortunately, patient continues to refuse BiPAP at night for the last 2 nights. Witnessed apnea, snoring and hypoxia this morning during my evaluation. Patient arousable but falls asleep easily
Objective Data
Data Reviewed
Vital Signs / I&O / Oxygen:
Vital Signs
Temp Pulse Resp BP Pulse Ox
98.7 F 105 24 120/70 93
01/24/24 03:50 01/24/24 06:04 01/24/24 06:04 01/24/24 06:04 01/24/24 03:37
Intake and Output
01/22/24 01/23/24 01/24/24
06:59 06:59 06:59
Intake Total 1010 / 1010 2620 / 2620 1380 / 1380
Output Total 1900 / 1900 2700 / 2700 2150 / 2150
Balance -890 / -890 -80 / -80 -770 / -770
SaO2 [CPAP/PSV] 94
SaO2 [A/C] 99
SaO2 93
Nasal Cannula flow liters per 4
minute
Physical Exam
General: Comfortable
HEENT: Normocephalic and Other ( Large neck)
Cardiovascular: S1-S2, Regular Rhythm and Murmur (n)
Respiratory: Wheeze (n), Crackles (n), Rhonchi (Rhonchi with cough), Non-Labored Respirations and Other (Witnessed apnea, hypoxia)
GI: Soft, Non Distended ( obese) and Non Tender
Neurology: Lethargic (Arousable from sleep)
Skin: Good Color and Cyanosis (n)
Labs/Micro/Reports
Lab Data
01/24/24 03:43
01/24/24 03:43
--- NOTE | 2024-01-24 08:11 | W.PN.HOSP.TC ---
Today's Communication/Plan
-
monitor fever curve
Unasyn stopped
continue oral lasix
anticipate DC to SNF tomorrow if remains afebrile - updated
Assessment / Plan
Assessment / Plan
Mr. Jus Suárez is a 63 yo man with hx afib, HTN, gout presents to the ER on 01/13 after a syncopal episode at home found to be 2/2 acute hypoxic and hypercarbic respiratory failure requiring mechanical ventilation. He was found to be in heart
failure. Syncopal episode resulted in right frontoparietal hematoma without acute calvarial fracture or ICH, stable. Hospital admission c/b metabolic encephalopathy and alcohol withdrawal.
TTE 01/15/24
CONCLUSIONS
Normal left ventricular size and systolic function without regional wall motion
abnormality.
Mild concentric left ventricular hypertrophy.
In limited views, the right ventricle appears to be dilated with reduced
systolic function
No significant valvular disease.
Compared to the echo images on 10/01/2023, the findings are likely similar.
However on today's study the proximal ascending aorta was not well-seen.
HEAD CT 01/15
IMPRESSION:
No evidence of acute intracranial abnormality.
CHEST CT 01/17
IMPRESSION:
There is cardiomegaly with small-moderate bilateral pleural effusions larger on the right than the left and associated compressive atelectasis in both lower lobes but no pulmonary edema
CXR 01/18
IMPRESSION:
No significant interval change. Low lung volumes with moderate right and small left pleural effusions with adjacent atelectasis.
Acute hypercarbic hypoxic respiratory failure with VDRF
Suspect secondary to acute CHF with preserved EF, recovered nonischemic cardiomyopathy
Status post extubation 01/19/2024, currently on mid flow
-CT chest 01/17 with pleural effusion and pulmonary edema
-Echo without acute changes
-appreciate cardiology and sound effects manager consults
-continue nebulizers
-nocturnal BiPAP
-outpatient pulm follow up for PFTs/6MWT; sleep study
-s/p IV diuresis with drop in weight from 144 to 127kg; transitioned to oral lasix on 01/20 (new med)
HORTENSIA
-creatinine was up to 1.5 from baseline 1.1
-creatinine improved with diuresis
TME
s/p benjamin now removed
-diet advanced on 01/19 - IDDSI
-PT/OT --> planning for SNF
Fevers
-infectious work-up negative
-likely drug fever
-IV Unasyn stopped (s/p 8 days) - afebrile 24 hours
Suspect pneumonia
likely from aspiration when he had syncopal episode
-s/p IV Unasyn
Persistent atrial fibrillation
-Currently rate controlled; changed to long acting metop/dil
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
# Alcohol abuse
Alcohol Withdrawal
-Started back drinking last week
-Cont MSAS protocol with IV Ativan PRN
Syncopal episode likely from acute respiratory failure with hypoxia and hypercapnia
-head CT with No acute intracranial abnormality. Right frontoparietal subgaleal hematoma without underlying acute calvarial fracture.
#Right frontoparietal subgaleal hematoma without underlying acute calvarial fracture.
-continue to monitor. This was discussed on admission with neurosurgery recommended to monitor. repeat CT without acute changes; Eliquis was resumed
Mild troponin elevation likely nonischemic myocardial injury
-peaked at 0.056
#anemia likely chronic
-no active bleeding
-ctm
Hypomagnesemia
#hyperkalemia
Resolved
# Obesity-BMI 43.2
# Ex-smoker
# DVT prophylaxis
-Eliquis
# CODE STATUS
-Full code
I spent a total of 52 minutes with the patient or on the floor. More than 50% of this time involved counseling and coordination of care.
Anticipated Discharge: 24 - 48 hours
Subjective/Interval History
-
Date of Service: January 24, 2024
no new complaints
Objective Data
-
Labs:
Laboratory Results
01/24/24
03:43
WBC 12.0 H
Hgb 10.0 L
Hct 33.0 L
Plt Count 445 H
Sodium 134 L
Potassium 4.1
Chloride 94 L
Carbon Dioxide 32 H
BUN 35 H
Creatinine 1.0
Glucose 109 H
Calcium 9.6
Vital Signs:
Vital Signs
Temp Pulse Resp BP Pulse Ox
98.7 F 105 24 120/70 93
01/24/24 03:50 01/24/24 06:04 01/24/24 06:04 01/24/24 06:04 01/24/24 03:37
I&O
01/23/24 01/24/24 01/25/24
06:59 06:59 06:59
Intake Total 2620 / 2620 1380 / 1380
Output Total 2700 / 2700 2150 / 2150 375 / 375
Balance -80 / -80 -770 / -770 -375 / -375
Review of Systems
-
History Source: Patient
All other systems: Reviewed and negative
Physical Exam
-
General: No Apparent Distress and Obese
HEENT: PERRLA
Respiratory: Rales
Cardiac: S1/S2 and Irregular Rhythm
GI: Nontender
Genito-urinary: Benjamin
Musculoskeletal: No Edema
Skin: Warm and Dry; Negative Rash
Neuro: AO x 3 and Sedated
Psych: Calm
Data Reviewed
-
Diagnostic Radiology: Report Reviewed by me
Labs: Labs Reviewed by me
[2024-01-24] MEDS: LASIX 80 MG PO (08:50)
[2024-01-24] MEDS: FOLVITE 1 MG PO (08:50)
[2024-01-24] MEDS: TOPROL XL 25 MG PO (08:50)
[2024-01-24] MEDS: CARDIZEM CD 180 MG PO (08:50)
[2024-01-24] MEDS: VITAMIN B1 100 MG PO ×2 (08:51→20:06)
[2024-01-24] MEDS: FARXIGA 10 MG PO (08:51)
[2024-01-24] MEDS: ELIQUIS 5 MG TUBE ×2 (08:51→20:06)
[2024-01-24] MEDS: MIRALAX TUBE (08:51)
--- NOTE | 2024-01-24 09:24 | W.PN.ID1 ---
Date of Service
Date of Service: January 24, 2024
Today's Communication
AEC is 684 also mildly suggestive of drug fever - expect this to resolve with stopping unasyn
stable for dc from ID perspective
Assessment / Plan
Fever - resolved x24 hours
Minimal Leukocytosis since 01/18
Eosinophilia
Resolved aspiration pneumonitis, persistent atelectasis
- afebrile x24 hours, note thrombocytosis today, still no left shift, AEC is 684 also mildly suggestive of drug fever - expect this to resolve with stopping unasyn
- blood cultures x1 from 01/22 in progress - no growth to date; there was also a single blood culture on arrival 01/14 which is finalized negative
- q48 hour procalcitonins have been run - recommend against this practice.
- VSE was within normal limits and no aspiration occured
completed a course of unasyn and stopped 01/22
nonfocal ID ROS, drug fever from unasyn suspected, stopped this drug and remains clinically well, stable for dc from ID perspective
Chief Complaint
-: Fever
Subjective / Review of Systems
afebrile x24 hours
no complaints
Vital Signs / Physical Exam
Vital Signs
Vital Signs
Temp Pulse Resp BP Pulse Ox
98.7 F 105 24 115/74 93
01/24/24 03:50 01/24/24 08:50 01/24/24 06:04 01/24/24 08:50 01/24/24 03:37
Physical Exam
Constitutional: No Acute Distress and Comfortable
Cardiovascular: Regular Rate and S1/S2; Negative Murmur or Rub
Pulmonary: Clear and Symmetric; Negative Wheezes or Rales
Gastrointestinal: Soft, Non Tender, Non Distended and Normal Bowel Sounds
Skin: Warm and Dry; Negative Rash or Jaundice
Objective Data
Lab Data
Lab Results
01/24/24 03:43
01/24/24 03:43
PT 17.2 Sec (11.4-14.6) H 01/14/24 15:01
INR 1.42 01/14/24 15:01
APTT 39.2 Sec (23.4-35.0) H 01/14/24 15:01
Estimated Creat Clear 105 ml/min 01/24/24 03:43
Total Bilirubin 1.2 mg/dl (0.2-1.3) 01/18/24 05:06
AST 55 U/L (17-59) 01/18/24 05:06
ALT 15 U/L (0-50) 01/18/24 05:06
Alkaline Phosphatase 206 U/L (38-126) H 01/18/24 05:06
Most recent labs reviewed.
Micro Results:
01/23/24 08:47 Blood Culture - Preliminary
Blood/Venous No Growth in 24 hours- Final report to follow
01/15/24 14:26 Blood Culture - Final
Blood/Venous No Growth - Final Report
01/15/24 14:26 Respiratory Culture - Final
Endotracheal Usual Respiratory Renata
Gram Stain - Final
01/15/24 14:26 Nasal Screen MRSA (PCR) - Final
Nose MRSA not detected - performed by PCR methodology.
01/15/24 14:26 Legionella Urinary Antigen - Final
Urine Negative for Legionella pneumophila Serogroup 1 antigen.
A negative result does not rule out the possiblity of
Legionella infection due to other serogroups or species of
Legionella. Clinical correlation is recommended.
Streptococcus pneumoniae Antigen (M - Final
Negative for Streptococcus pneumoniae antigen.
A negative result does not exclude infection with
Streptococcus pneumoniae. Clinical correlation is
recommended.
--- NOTE | 2024-01-24 09:35 | PTCARENOTE ---
Assumed care of pt from night RN, pt AAOx3, drowsy but verbally arousable. Pt refused Miralax this AM. Compliant with all other meds. Continues on 4L O2 via nc, maintaining SPO2 97%. Will continue to monitor through shift.
--- NOTE | 2024-01-24 16:38 | CM ---
Patient with Dx Acute hypercarbic hypoxic respiratory failure with VDRF - extubated 01/18, HF, Afib, TME, Etoh withdrawal, syncopal episode - Right frontoparietal subgaleal hematoma, suspect PNA, Fevers. O2 4L. Per nursing; AAOx3, drowsy. PT & OT
recommend skilled rehab.
Message from Dr Hutchison; patient can likely go to SNF tomorrow. Updating .
Met with patient and spoke with by phone; both agree to d/c tomorrow if medically ready. IMM completed.
Spoke with Jonnathan, [facility]; they are able to accept the patient tomorrow if he is ready for d/c. The ph for report [phone], fax [phone]. Reviewed that SNF auth dates are 01/22 to 01/27.
Plan probable [facility] tomorrow by ambulance.
[2024-01-24] MEDS: TYLENOL 650 MG PO (17:25)
[2024-01-25] VITALS (15 sets, daily range): BP systolic 94–143; BP diastolic 62–99; PULSE 2–111; O2SAT 94; BMI 37.3
[2024-01-25] MEDS: TYLENOL 650 MG PO (03:49)
[2024-01-25 04:13] LABS: Hematocrit 34.6 % (39.0-52.0); Hemoglobin 10.5 g/dL (13.0-18.0); Mean Corp Hgb Conc. 30.3 g/dL (33.0-37.0); Mean Corpuscular Hgb 21.7 pg (27.0-31.0); Mean Corpuscular Volume 71.5 fL (80.0-94.0); Platelet Count 504 10^3/uL (130-400); Red Blood Cell Count 4.84 10^6/uL (4.70-6.10); Red Cell Dist. Width 17.2 % (11.5-14.5)
--- NOTE | 2024-01-25 04:24 | PTCARENOTE ---
Received patient from day shift. Patient is Ax3, afib on the monitor with a bundle branch block. Patient developed fever of 101.3 axillary at 0400 and Tylenol was given. No other changes overnight. Will continue to monitor the patient.
[2024-01-25 04:32] LABS: Blood Urea Nitrogen 37 mg/dl (9-20); Calcium 9.7 mg/dl (8.4-10.2); Carbon Dioxide 30 mmol/L (22-30); Chloride 93 mmol/L (98-107); Estimated Creatinine Clearance 104 ml/min; Glucose 112 mg/dl (70-99); Potassium 4.6 mmol/L (3.5-5.1); Sodium 131 mmol/L (135-145); eGFR > 60.00
[2024-01-25 05:45] LABS: B.E. 10.2 mmol/L; O2 Saturation % 95.5 % (94-98); PCO2 47 mmHg (35-48); PO2 67 mmHg (83-108); pH 7.48 (7.35-7.45)
--- NOTE | 2024-01-25 07:27 | W.PN.PUL3 ---
Today's Communication / Plan
-
Continue BiPAP
Patient will require follow-up in sleep clinic, home sleep study
ABG reviewed, likely metabolic alkalosis
Weight is down 11 kg since admission
Would continue BiPAP at rehabilitation facility if patient agreeable. Maintain current settings
We will sign off. Please call with questions
Assessment
-
Assessment: 63-year-old male with a past medical history of alcoholism, gout, hypertension and history of A-fib on EliSignosticsis who presents with passing out while working on his car. He reported that he hit the right side of his head on the car. He
states he had a couple beers earlier in the afternoon. Patient was drowsy in the ER. CT head showed no acute intracranial abnormality. It did show a 1.3 cm calcified right frontal parietal meningioma. Initial vitals showed he was afebrile to
98.2 �F, tachycardic to 103 bpm, breathing at 24 breaths/min, BP 95/50 and saturating 81% on room air which improved to 93% with 6 L/min nasal cannula. Initial labs showed WBC 7.8, Hb 10.8, acute hypercapnia with blood gas pH 7.19 with pCO2 65,
initial serum bicarbonate of 26, potassium 5.2, proBNP 4160 (no prior to compare to), with alcohol level of 62 and beta hydroxybutyrate 0.12. Initial CXR showed moderate bilateral lower lobe opacities (R >L) with small bilateral pleural effusions
and pulmonary vascular distention suggestive of mild pulmonary edema. Lasix 40 mg IV push x 1 was given, and patient required BiPAP. Patient was admitted to the ICU for further care. Unfortunately his hypercapnia persisted and worsened with pCO2
rise in the 78 and he was intubated. Critical care services consulted for additional management/recommendations.
Chronic conditions [employer]: Hypertension, gout, alcoholism, history of A-fib on Eliquis
Impression:
#Acute respiratory failure with hypercapnia + hypoxia requiring mechanical ventilation due to combination of CHF-exacerbation and CAP
- Intubated 01/14/2024
- Extubated 01/19/2024
#Abnormal CXR with pulmonary vascular congestion and pleural effusions due to acute decompensated heart failure
#Acute HFpEF with dilated RV with reduced RV systolic function (enlarged RV is chronic, RV systolic function reduction is new)
#Elevated troponin likely due to demand ischemia with type II MT
#Syncopal episode with fall resulting in right frontoparietal hematoma without acute calvarial fracture
#CAP (bilateral) likely due to aspiration with bilateral opacities
#HORTENSIA - improved
#Alcoholism
#Anemia
#Hx of A-fib on Eliquis
#Focal ovoid calcification along the left posterior paramedian tentorium measuring 13 mm likely a small calcified meningioma
Plan/recommendations
Patient appears to be improved objectively and subjectively
Unfortunately, continues to refuse nocturnal BiPAP
Fevers overnight noted, remains off antibiotics
He has been weaned down to 3-4 L, 98%
repeat chest x-ray 01/22/2024 with improved right pleural parenchymal process
Cough with rhonchi seems to be improved
ABG reviewed, compensated respiratory acidemia with metabolic alkalosis
Moving forward
Continue nebulized therapy, airway clearance measures
Continue nocturnal BiPAP as he tolerates. Unfortunately patient continues to refuse for the last 2 nights
Continue IS
Continue with diuresis per cardiology
Negative fluid status noted
Chest x-ray has improved
weight is down 11 kg since admission
Continue MSAS with thiamine and folate
CT head negative from 01/16/2024 - done due to upwards eye deviation as patient is on Eliquis with recent fall and head trauma
Mildly elevated pro-calcitonin noted
Follow-up respiratory culture (collected 01/15/2024) - NGTD; urine antigens for Legionella + strep pneumonia are both negative; MRSA is negative
Unasyn discontinued
Feliz catheter discontinued 01/21
Cultures negative today, ID following
Fever curve noted
Aspiration precautions
GI prophylaxis
DVT ppx: Initially his Eliquis was held given right frontoparietal hematoma; resumed Eliquis on 01/14; Repeated CT head on 01/15 to assure hematoma not expanding, which it is not
PT/OT, out of bed to chair
reviewed importance of BiPAP therapy given comorbidities
Patient will require outpatient sleep study. For now continue as able, continue at rehabilitation
Disposition efforts
We will sign off.
Subjective Data
-
Date of Service:
Date of Service: January 25, 2024
Subjective:
Patient is feeling well. He denies shortness of breath, chest pain, nausea, abdominal pain. He refused BiPAP over the last few days. Fevers noted
Objective Data
Data Reviewed
Vital Signs / I&O / Oxygen:
Vital Signs
Temp Pulse Resp BP Pulse Ox
101.3 F H 103 32 118/83 98
01/25/24 03:30 01/25/24 04:00 01/25/24 04:00 01/25/24 02:00 01/24/24 21:53
Intake and Output
01/24/24 01/25/24 01/26/24
06:59 06:59 06:59
Intake Total 1380 / 1380 1558 / 1558
Output Total 2150 / 2150 3575 / 3575
Balance -770 / -770 -2016 /
SaO2 [CPAP/PSV] 94
SaO2 [A/C] 99
SaO2 98
Nasal Cannula flow liters per 4
minute
Physical Exam
General: Comfortable
HEENT: Normocephalic and Other ( Large neck)
Cardiovascular: S1-S2, Regular Rhythm, Murmur (n) and Peripheral Edema (n)
Respiratory: Wheeze (n), Crackles (n), Rhonchi (Rhonchi with cough) and Non-Labored Respirations
GI: Soft, Non Distended ( obese) and Non Tender
Neurology: Awake and Alert (Conversant, following commands)
Skin: Good Color and Cyanosis (n)
Labs/Micro/Reports
Lab Data
01/25/24 03:55
01/25/24 03:55
Laboratory Results
01/25/24
05:37
pH 7.48 H
pCO2 47
pO2 67 L
HCO3 35.0 H
O2 Delivery Level
Microbiology
01/23/24 08:47 Blood/Venous Blood Culture - Preliminary
No Growth in 24 hours- Final report to follow
--- NOTE | 2024-01-25 08:07 | W.PN.HOSP.TC ---
Today's Communication/Plan
-
F/U further ID recs
will then update on DC plans
Assessment / Plan
Assessment / Plan
Mr. Jus Suárez is a 63 yo man with hx afib, HTN, gout presents to the ER on 01/13 after a syncopal episode at home found to be 2/2 acute hypoxic and hypercarbic respiratory failure requiring mechanical ventilation. He was found to be in heart
failure. Syncopal episode resulted in right frontoparietal hematoma without acute calvarial fracture or ICH, stable. Hospital admission c/b metabolic encephalopathy and alcohol withdrawal.
TTE 01/15/24
CONCLUSIONS
Normal left ventricular size and systolic function without regional wall motion
abnormality.
Mild concentric left ventricular hypertrophy.
In limited views, the right ventricle appears to be dilated with reduced
systolic function
No significant valvular disease.
Compared to the echo images on 10/01/2023, the findings are likely similar.
However on today's study the proximal ascending aorta was not well-seen.
HEAD CT 01/15
IMPRESSION:
No evidence of acute intracranial abnormality.
CHEST CT 01/17
IMPRESSION:
There is cardiomegaly with small-moderate bilateral pleural effusions larger on the right than the left and associated compressive atelectasis in both lower lobes but no pulmonary edema
CXR 01/18
IMPRESSION:
No significant interval change. Low lung volumes with moderate right and small left pleural effusions with adjacent atelectasis.
Acute hypercarbic hypoxic respiratory failure with VDRF
Suspect secondary to acute CHF with preserved EF, recovered nonischemic cardiomyopathy
Status post extubation 01/19/2024, currently on mid flow
-CT chest 01/17 with pleural effusion and pulmonary edema
-Echo without acute changes
-appreciate cardiology and die technician consults
-continue nebulizers
-nocturnal BiPAP
-outpatient pulm follow up for PFTs/6MWT; sleep study
-s/p IV diuresis with drop in weight from 144 to 127kg; transitioned to oral lasix on 01/20 (new med)
HORTENSIA
-creatinine was up to 1.5 from baseline 1.1
-creatinine improved with diuresis
TME
-now resolved
s/p benjamin now removed
-diet advanced
-PT/OT --> planning for SNF
Fevers
-infectious work-up negative
-likely drug fever
-IV Unasyn stopped (s/p 8 days) -
-fevers this AM - discussing case with ID; drug fever can take several days to resolve
Suspect pneumonia
likely from aspiration when he had syncopal episode
-s/p IV Unasyn
Persistent atrial fibrillation
-Currently rate controlled; changed to long acting metop/dil
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
# Alcohol abuse
Alcohol Withdrawal
-Started back drinking last week
-Cont MSAS protocol with IV Ativan PRN
Syncopal episode likely from acute respiratory failure with hypoxia and hypercapnia
-head CT with No acute intracranial abnormality. Right frontoparietal subgaleal hematoma without underlying acute calvarial fracture.
#Right frontoparietal subgaleal hematoma without underlying acute calvarial fracture.
-continue to monitor. This was discussed on admission with neurosurgery recommended to monitor. repeat CT without acute changes; Eliquis was resumed
Mild troponin elevation likely nonischemic myocardial injury
-peaked at 0.056
#anemia likely chronic
-no active bleeding
-ctm
Hypomagnesemia
#hyperkalemia
Resolved
# Obesity-BMI 43.2
# Ex-smoker
# DVT prophylaxis
-Eliquis
# CODE STATUS
-Full code
I spent a total of 52 minutes with the patient or on the floor. More than 50% of this time involved counseling and coordination of care.
Anticipated Discharge: Within 24 hours
Subjective/Interval History
-
Date of Service: January 25, 2024
states he feels fine
no complaints
no pain
Objective Data
-
Labs:
Laboratory Results
01/25/24 01/25/24
03:55 05:37
WBC 12.0 H
Hgb 10.5 L
Hct 34.6 L
Plt Count 504 H
HCO3 35.0 H
Sodium 131 L
Potassium 4.6
Chloride 93 L
Carbon Dioxide 30
BUN 37 H
Creatinine 1.0
Glucose 112 H
Calcium 9.7
Vital Signs:
Vital Signs
Temp Pulse Resp BP Pulse Ox
101.3 F H 103 32 118/83 98
01/25/24 03:30 01/25/24 04:00 01/25/24 04:00 01/25/24 02:00 01/24/24 21:53
I&O
01/24/24 01/25/24 01/26/24
06:59 06:59 06:59
Intake Total 1380 / 1380 1558 / 1558
Output Total 2150 / 2150 3575 / 3575
Balance -770 / -770 -2016 /
Review of Systems
-
History Source: Patient
All other systems: Reviewed and negative
Physical Exam
-
General: No Apparent Distress and Obese
HEENT: PERRLA
Respiratory: Rales
Cardiac: S1/S2 and Irregular Rhythm
GI: Nontender
Genito-urinary: Benjamin
Musculoskeletal: No Edema
Skin: Warm and Dry; Negative Rash
Neuro: AO x 3
Psych: Calm
Data Reviewed
-
Diagnostic Radiology: Report Reviewed by me
Labs: Labs Reviewed by me
[2024-01-25] MEDS: VITAMIN B1 100 MG PO ×2 (08:55→19:44)
[2024-01-25] MEDS: ELIQUIS 5 MG TUBE ×2 (08:55→19:44)
[2024-01-25] MEDS: FARXIGA 10 MG PO (08:55)
[2024-01-25] MEDS: FOLVITE 1 MG PO (08:55)
[2024-01-25] MEDS: LASIX 80 MG PO (08:55)
[2024-01-25] MEDS: CARDIZEM CD 180 MG PO (08:56)
[2024-01-25] MEDS: TOPROL XL 25 MG PO (08:56)
[2024-01-25] MEDS: MIRALAX TUBE (08:56)
--- NOTE | 2024-01-25 09:39 | W.PN.ID1 ---
Date of Service
Date of Service: January 25, 2024
Today's Communication
note elevated alk phos, mild transaminitis
HIDA
start meropenem
Assessment / Plan
Fever - relapsed
Minimal Leukocytosis since 01/18
Thrombocytosis
Eosinophilia - mild
Resolved aspiration pneumonitis, persistent atelectasis
- cbc with diff - note progressive thrombocytosis,
- CMP - alk phos now markedly elevated, ast and alt developing some elevation
- CXR 2 view - minimal possible LL effusion
- chest US - no significant fluid
- repeat covid ag - negative
- ordered HIDA
- start meropenem given recent long course of unasyn, mild persistent eosinophilia
- follow clinically
Chief Complaint
-: Fever
Subjective / Review of Systems
relapse of fevers overnight
BP overall stable
mildly tachycardic
reports no complaints
Vital Signs / Physical Exam
Vital Signs
Vital Signs
Temp Pulse Resp BP Pulse Ox
101.3 F H 104 20 121/78 98
01/25/24 03:30 01/25/24 08:02 01/25/24 08:02 01/25/24 08:02 01/24/24 21:53
Physical Exam
Constitutional: No Acute Distress
Cardiovascular: Regular Rate and S1/S2; Negative Murmur or Rub
Pulmonary: Clear and Symmetric; Negative Wheezes or Rales
Gastrointestinal: Soft, Non Tender, Non Distended and Normal Bowel Sounds
Skin: Warm and Dry; Negative Rash or Jaundice
Objective Data
Lab Data
Lab Results
01/25/24 03:55
01/25/24 03:55
PT 17.2 Sec (11.4-14.6) H 01/14/24 15:01
INR 1.42 01/14/24 15:01
APTT 39.2 Sec (23.4-35.0) H 01/14/24 15:01
Estimated Creat Clear 104 ml/min 01/25/24 03:55
Total Bilirubin 1.2 mg/dl (0.2-1.3) 01/18/24 05:06
AST 55 U/L (17-59) 01/18/24 05:06
ALT 15 U/L (0-50) 01/18/24 05:06
Alkaline Phosphatase 206 U/L (38-126) H 01/18/24 05:06
Most recent labs reviewed note:
wbc similar to previous, thrombocytosis progressing from 445 to 504, no diff today
Na 131 today, cr 1.0
Micro Results:
01/23/24 08:47 Blood Culture - Preliminary
Blood/Venous No Growth in 48 hours- Final report to follow
01/15/24 14:26 Blood Culture - Final
Blood/Venous No Growth - Final Report
01/15/24 14:26 Respiratory Culture - Final
Endotracheal Usual Respiratory Renata
Gram Stain - Final
01/15/24 14:26 Nasal Screen MRSA (PCR) - Final
Nose MRSA not detected - performed by PCR methodology.
01/15/24 14:26 Legionella Urinary Antigen - Final
Urine Negative for Legionella pneumophila Serogroup 1 antigen.
A negative result does not rule out the possiblity of
Legionella infection due to other serogroups or species of
Legionella. Clinical correlation is recommended.
Streptococcus pneumoniae Antigen (M - Final
Negative for Streptococcus pneumoniae antigen.
A negative result does not exclude infection with
Streptococcus pneumoniae. Clinical correlation is
recommended.
Care Review
Plan reviewed with: Physician (Dr Hutchison- paul)
[2024-01-25 10:58] LABS: COVID-19 Antigen Negative (Negative)
[2024-01-25 11:08] LABS: Hematocrit 35.9 % (39.0-52.0); Hemoglobin 10.9 g/dL (13.0-18.0); Mean Corp Hgb Conc. 30.4 g/dL (33.0-37.0); Mean Corpuscular Hgb 21.4 pg (27.0-31.0); Mean Corpuscular Volume 70.4 fL (80.0-94.0); White Blood Cell Count 13.6 10^3/uL (4.8-10.8)
[2024-01-25 11:09] LABS: % Neutrophils 69.5 % (42.2-75.2); Platelet Count 637 10^3/uL (130-400); Red Cell Dist. Width 17.3 % (11.5-14.5)
[2024-01-25 11:10] LABS: % Basophils 1.2 % (0-2); % Eosinophils 4.6 % (0-6); % Immature Granulocytes 0.7 % (0-0.5); Absolute Basophils 0.2 10^3/uL (0-0.2); Absolute Eosinophils 0.6 10^3/uL (0-0.7); Absolute Immature Granulocytes 0.1 10^3/uL (0-0.05); Absolute Lymphocytes 1.8 10^3/uL (1.2-3.4); Absolute Monocytes 1.5 10^3/uL (0.1-0.6); Absolute Neutrophils 9.4 10^3/uL (1.4-6.5); Nucleated Red Blood Cells % 0 % (-)
--- NOTE | 2024-01-25 11:28 | CM ---
Addendum entered by Shital Coffman 01/25/24 11:34:
Ambulance transport forms on chart.
Original Note:
Patient with elevated temp today, oxygen via [place].
PT/OT recommending skilled rehab.
Plan: [facility] once additional w/u completed.
IMM completed 4:45 04/25/24
[facility]
Report# [phone]
fax [phone].
per prior note
[facility] (ph [phone]);
SNF is approved for 6 days, subacute level, auth # [id number], from 01/22 to 01/27.
Clinical info doesn't need to be faxed for initial auth.
NR 01/27 to [facility] [phone], fax [phone].
Ambulance doesn't need prior approval/auth not provided.
--- NOTE | 2024-01-25 14:59 | PN.CDI ---
CDI
- -
CDI:
Physician Documentation Request
Admit Date: 01/14/24 18:58
Dear Doctor Foster
Patient admitted with respiratory failure.
Recent sodium results:
Laboratory Tests
01/22/24 01/23/24 01/24/24
03:05 03:12 03:43
Sodium 136 134 L 134 L
01/25/24
03:55
Sodium 131 L
Please provide a diagnosis that supports the above lab abnormalities and additional evaluation/ monitoring:
hyponatremia
Abnormal lab value clinically insignificant
Other
Use of terms such as suspected, likely, concern for, or probable (associated with a specific diagnosis that is being evaluated, monitored, or treated as if it exists) are acceptable and can be coded in the inpatient setting, when documented at the
time of discharge.
Thank you,
Dayanna Seay RN BSN
CDI Specialist
tiger text
Please use your independent medical judgment in providing your response.
[2024-01-25 15:10] LABS: ALT (SGPT) 65 U/L (0-50); AST (SGOT) 93 U/L (17-59); Albumin 3.6 g/dl (3.5-5.0); Alkaline Phosphatase 965 U/L (38-126); Blood Urea Nitrogen 35 mg/dl (9-20); Carbon Dioxide 35 mmol/L (22-30); Chloride 89 mmol/L (98-107); Estimated Creatinine Clearance 87 ml/min; Glucose 109 mg/dl (70-99); Potassium 4.7 mmol/L (3.5-5.1); Sodium 132 mmol/L (135-145); Total Bilirubin 1.3 mg/dl (0.2-1.3); Total Protein 7.3 g/dl (6.3-8.2); eGFR > 60.00
[2024-01-25] MEDS: MERREM 500 MG IV ×2 (16:05→22:16)
[2024-01-25] MEDS: STERILE WATER FOR INJECTION 10 ML IV ×2 (16:05→22:17)
[2024-01-26] VITALS (12 sets, daily range): BP systolic 95–147; BP diastolic 62–93; PULSE 2–99; BMI 37.2
--- NOTE | 2024-01-26 01:24 | PTCARENOTE ---
Patient is Ax3. Patient wore bipap until 00:10 and then removed but stayed on 4 liters oxygen. will continue to monitor the patient.
[2024-01-26] MEDS: MERREM 500 MG IV (04:14)
[2024-01-26] MEDS: STERILE WATER FOR INJECTION 10 ML IV (04:14)
[2024-01-26 04:32] LABS: % Basophils 1.2 % (0-2); % Eosinophils 5.1 % (0-6); % Immature Granulocytes 0.7 % (0-0.5); % Lymphocytes 12.4 % (20.5-51.1); % Monocytes 10.7 % (1.7-9.3); % Neutrophils 69.9 % (42.2-75.2); Absolute Basophils 0.1 10^3/uL (0-0.2); Absolute Eosinophils 0.6 10^3/uL (0-0.7); Absolute Immature Granulocytes 0.1 10^3/uL (0-0.05); Absolute Lymphocytes 1.4 10^3/uL (1.2-3.4); Absolute Monocytes 1.2 10^3/uL (0.1-0.6); Absolute Neutrophils 7.9 10^3/uL (1.4-6.5); Hematocrit 33.5 % (39.0-52.0); Hemoglobin 10.2 g/dL (13.0-18.0); Mean Corp Hgb Conc. 30.4 g/dL (33.0-37.0); Mean Corpuscular Hgb 21.3 pg (27.0-31.0); Mean Corpuscular Volume 70.1 fL (80.0-94.0); Mean Platelet Volume 9.8 fL (7.4-10.4); Nucleated Red Blood Cells % 0 % (-); Platelet Count 550 10^3/uL (130-400); Red Blood Cell Count 4.78 10^6/uL (4.70-6.10); Red Cell Dist. Width 17.2 % (11.5-14.5); White Blood Cell Count 11.3 10^3/uL (4.8-10.8)
[2024-01-26 04:57] LABS: Blood Urea Nitrogen 32 mg/dl (9-20); Calcium 9.8 mg/dl (8.4-10.2); Carbon Dioxide 33 mmol/L (22-30); Chloride 94 mmol/L (98-107); Estimated Creatinine Clearance 95 ml/min; Glucose 102 mg/dl (70-99); Magnesium 1.9 mg/dl (1.6-2.3); Potassium 4.4 mmol/L (3.5-5.1); Sodium 132 mmol/L (135-145); eGFR > 60.00
--- NOTE | 2024-01-26 05:55 | PTCARENOTE ---
Patient complaining of 7/ b/l foot gout pain. Tylenol is ordered but patient wont take because he says its not effective for his gout pain. call center nurse provider made aware.
[2024-01-26] MEDS: TYLENOL PO (06:07)
[2024-01-26] MEDS: TYLENOL 1000 MG PO (06:16)
[2024-01-26 07:29] LABS: Uric Acid 6.7 mg/dl (3.5-8.5)
--- NOTE | 2024-01-26 07:46 | W.PN.HOSP.TC ---
Today's Communication/Plan
-
start colchicine
RUQ US
Assessment / Plan
Assessment / Plan
Mr. Jus Suárez is a 63 yo man with hx afib, HTN, gout presents to the ER on 01/13 after a syncopal episode at home found to be 2/2 acute hypoxic and hypercarbic respiratory failure requiring mechanical ventilation. He was found to be in heart
failure. Syncopal episode resulted in right frontoparietal hematoma without acute calvarial fracture or ICH, stable. Hospital admission c/b metabolic encephalopathy and alcohol withdrawal.
TTE 01/15/24
CONCLUSIONS
Normal left ventricular size and systolic function without regional wall motion
abnormality.
Mild concentric left ventricular hypertrophy.
In limited views, the right ventricle appears to be dilated with reduced
systolic function
No significant valvular disease.
Compared to the echo images on 10/01/2023, the findings are likely similar.
However on today's study the proximal ascending aorta was not well-seen.
HEAD CT 01/15
IMPRESSION:
No evidence of acute intracranial abnormality.
CHEST CT 01/17
IMPRESSION:
There is cardiomegaly with small-moderate bilateral pleural effusions larger on the right than the left and associated compressive atelectasis in both lower lobes but no pulmonary edema
CXR 01/18
IMPRESSION:
No significant interval change. Low lung volumes with moderate right and small left pleural effusions with adjacent atelectasis.
Acute hypercarbic hypoxic respiratory failure with VDRF
Suspect secondary to acute CHF with preserved EF, recovered nonischemic cardiomyopathy
Status post extubation 01/19/2024, currently on mid flow
-CT chest 01/17 with pleural effusion and pulmonary edema
-Echo without acute changes
-appreciate cardiology and product strategy director consults
-continue nebulizers
-nocturnal BiPAP
-outpatient pulm follow up for PFTs/6MWT; sleep study
-s/p IV diuresis with drop in weight from 144 to 127kg; transitioned to oral lasix on 01/20 (new med)
HORTENSIA
-creatinine was up to 1.5 from baseline 1.1
-creatinine improved with diuresis
TME
-now resolved
s/p benjamin now removed
-diet advanced
-PT/OT --> planning for SNF
Fevers
Elevated liver enzymes
-likely drug fever but fever recurred
-IV Unasyn stopped (s/p 8 days) -
-covid negative x 2; US chest without effusion
-with elevated liver enzymes, hiDA ordered but not clear if would be done today - will start with US, patient NPO while awaiting US
Gout
-new as of morning 01/25
-discussed dosing or colchicine with pharmacy as patient is on Diltiazem --> give 1.2mg x 1 now then wait 3 days and then order 0.3mg daily (diltiazem raises level of colchicine)
Suspect pneumonia
likely from aspiration when he had syncopal episode
-s/p IV Unasyn
Persistent atrial fibrillation
-Currently rate controlled; changed to long acting metop/dil
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
# Alcohol abuse
Alcohol Withdrawal
-Started back drinking last week
-Cont MSAS protocol with IV Ativan PRN
Syncopal episode likely from acute respiratory failure with hypoxia and hypercapnia
-head CT with No acute intracranial abnormality. Right frontoparietal subgaleal hematoma without underlying acute calvarial fracture.
#Right frontoparietal subgaleal hematoma without underlying acute calvarial fracture.
-continue to monitor. This was discussed on admission with neurosurgery recommended to monitor. repeat CT without acute changes; Eliquis was resumed
Mild troponin elevation likely nonischemic myocardial injury
-peaked at 0.056
#anemia likely chronic
-no active bleeding
-ctm
Hypomagnesemia
#hyperkalemia
Resolved
# Obesity-BMI 43.2
# Ex-smoker
# DVT prophylaxis
-Eliquis
# CODE STATUS
-Full code
I spent a total of 52 minutes with the patient or on the floor. More than 50% of this time involved counseling and coordination of care.
Anticipated Discharge: 24 - 48 hours
Subjective/Interval History
-
Date of Service: January 26, 2024
patient states he has gout b/l toes
no abdominal pain, asking if he can eat
nof kari overnight
Objective Data
-
Labs:
Laboratory Results
01/26/24
04:17
WBC 11.3 H
Hgb 10.2 L
Hct 33.5 L
Plt Count 550 H
Sodium 132 L
Potassium 4.4
Chloride 94 L
Carbon Dioxide 33 H
BUN 32 H
Creatinine 1.1
Glucose 102 H
Calcium 9.8
Total Bilirubin Pending
AST Pending
ALT Pending
Alkaline Phosphatase Pending
Vital Signs:
Vital Signs
Temp Pulse Resp BP Pulse Ox
98.8 F 93 22 95/69 90
01/26/24 04:42 01/26/24 06:00 01/26/24 06:00 01/26/24 06:00 01/25/24 19:54
I&O
01/25/24 01/26/24 01/27/24
06:59 06:59 06:59
Intake Total 1558 / 1558 960 / 960
Output Total 3575 / 3575 1050 / 1050
Balance -2016 / -2016 /
Review of Systems
-
History Source: Patient
All other systems: Reviewed and negative
Physical Exam
-
General: No Apparent Distress and Obese
HEENT: PERRLA
Respiratory: Negative Wheezes
Cardiac: S1/S2 and Irregular Rhythm
GI: Nontender
Genito-urinary: Benjamin
Musculoskeletal: No Edema and Other (b/l podagra)
Skin: Warm and Dry; Negative Rash
Neuro: AO x 3
Psych: Calm
Data Reviewed
-
Diagnostic Radiology: Report Reviewed by me
Labs: Labs Reviewed by me
[2024-01-26 07:50] LABS: ALT (SGPT) 58 U/L (0-50); AST (SGOT) 70 U/L (17-59); Alkaline Phosphatase 806 U/L (38-126); Direct Bilirubin 0.6 mg/dl (0.0-0.4); Total Bilirubin 0.9 mg/dl (0.2-1.3)
[2024-01-26] MEDS: CARDIZEM CD 180 MG PO (08:10)
[2024-01-26] MEDS: COLCHICINE 1.2 MG PO (08:10)
[2024-01-26] MEDS: VITAMIN B1 100 MG PO ×2 (08:10→21:18)
[2024-01-26] MEDS: FARXIGA 10 MG PO (08:11)
[2024-01-26] MEDS: ELIQUIS 5 MG TUBE ×2 (08:11→21:18)
[2024-01-26] MEDS: FOLVITE 1 MG PO (08:11)
[2024-01-26] MEDS: LASIX 80 MG PO (08:11)
[2024-01-26] MEDS: MIRALAX TUBE ×2 (08:12→08:15)
[2024-01-26] MEDS: TOPROL XL 25 MG PO (08:12)
--- NOTE | 2024-01-26 09:36 | W.PN.ID1 ---
Date of Service
Date of Service: January 26, 2024
Today's Communication
Agree with colchicine
Assessment / Plan
Fever - relapsed
Minimal Leukocytosis since 01/18 - trending down
Thrombocytosis
Eosinophilia - mild
Resolved aspiration pneumonitis, persistent atelectasis
- cbc with diff - note progressive thrombocytosis,
- CMP - alk phos now markedly elevated, ast and alt developing some elevation
- CXR 2 view - minimal possible LL effusion
- chest US - no significant fluid
- repeat covid ag - negative
- Dr. Abraham ordered HIDA Sunday, imaging not availabe on weekends. ABD US pending
- On empiric meropenem d2
Gout flare
- ? source of fever
-Agree with colchicine
Chief Complaint
-: Fever
Subjective / Review of Systems
Just returned from ABD US. No abd pain.
c/o bilateral hallux pain, has hx gout
Vital Signs / Physical Exam
Vital Signs
Vital Signs
Temp Pulse Resp BP Pulse Ox
98.8 F 98 22 113/83 90
01/26/24 04:42 01/26/24 08:12 01/26/24 06:00 01/26/24 08:12 01/25/24 19:54
Physical Exam
Constitutional: No Acute Distress and Obese
Cardiovascular: Regular Rate and S1/S2
Gastrointestinal: Soft, Non Tender, Non Distended and Normal Bowel Sounds
Extremities: Other (R>L hallux edema, mild erythema, tender)
Neurological: AO x 3
Objective Data
Lab Data
Lab Results
01/26/24 04:17
01/26/24 04:17
PT 17.2 Sec (11.4-14.6) H 01/14/24 15:01
INR 1.42 01/14/24 15:01
APTT 39.2 Sec (23.4-35.0) H 01/14/24 15:01
Estimated Creat Clear 95 ml/min 01/26/24 04:17
Total Bilirubin 0.9 mg/dl (0.2-1.3) 01/26/24 04:17
AST 70 U/L (17-59) H 01/26/24 04:17
ALT 58 U/L (0-50) H 01/26/24 04:17
Alkaline Phosphatase 806 U/L (38-126) H 01/26/24 04:17
Most recent labs reviewed.
Micro Results:
01/23/24 08:47 Blood Culture - Preliminary
Blood/Venous No Growth in 72 hours- Final report to follow
01/15/24 14:26 Blood Culture - Final
Blood/Venous No Growth - Final Report
01/15/24 14:26 Respiratory Culture - Final
Endotracheal Usual Respiratory Renata
Gram Stain - Final
01/15/24 14:26 Nasal Screen MRSA (PCR) - Final
Nose MRSA not detected - performed by PCR methodology.
01/15/24 14:26 Legionella Urinary Antigen - Final
Urine Negative for Legionella pneumophila Serogroup 1 antigen.
A negative result does not rule out the possiblity of
Legionella infection due to other serogroups or species of
Legionella. Clinical correlation is recommended.
Streptococcus pneumoniae Antigen (M - Final
Negative for Streptococcus pneumoniae antigen.
A negative result does not exclude infection with
Streptococcus pneumoniae. Clinical correlation is
recommended.
Care Review
Plan reviewed with: Physician (Dr. Hutchison)
--- NOTE | 2024-01-26 10:05 | W.PN.UPDATE ---
Update Note
Progress Note Update
US without e/o cholecystitis. Discussed results with Dr. Bunch. Will stop IV Meropenem. trend liver enzymes (may be up from prior abx)
Ok to resume diet
[2024-01-26] MEDS: MERREM IV (10:13)
[2024-01-26] MEDS: STERILE WATER FOR INJECTION IV (10:13)
--- NOTE | 2024-01-26 17:39 | PTCARENOTE ---
Assumed care of Pt at shift change. Pt reports increased pain in R foot related to gout - started on colchicine in AM. Pt unable to get OOB today due to gout pain. Bed bath given. AAO x 3; A-fib on monitor; VSS; at bedside - care plan
reviewed. Will continue to monitor and assess.
[2024-01-27] VITALS: BP 124/77
[2024-01-27 00:19] VITALS: BP 133/84
--- NOTE | 2024-01-27 00:24 | PTCARENOTE ---
Patient desatted to 51 percent and heart rate dropped to 39 while asleep on the bipap. Resolved without intervention. bingo manager provider made aware. Vital signs stable.
[2024-01-27 01:36] VITALS: PULSE 2
[2024-01-27 02:00] VITALS: BP 136/94
[2024-01-27 04:45] VITALS: BP 112/74
[2024-01-27 04:55] LABS: % Basophils 1.4 % (0-2); % Eosinophils 8.4 % (0-6); % Immature Granulocytes 0.9 % (0-0.5); % Lymphocytes 17.5 % (20.5-51.1); % Monocytes 11.4 % (1.7-9.3); % Neutrophils 60.4 % (42.2-75.2); Absolute Basophils 0.1 10^3/uL (0-0.2); Absolute Eosinophils 0.7 10^3/uL (0-0.7); Absolute Immature Granulocytes 0.1 10^3/uL (0-0.05); Absolute Lymphocytes 1.5 10^3/uL (1.2-3.4); Absolute Neutrophils 5.3 10^3/uL (1.4-6.5); Hematocrit 35.9 % (39.0-52.0); Hemoglobin 10.8 g/dL (13.0-18.0); Mean Corp Hgb Conc. 30.1 g/dL (33.0-37.0); Mean Corpuscular Hgb 21.6 pg (27.0-31.0); Mean Corpuscular Volume 71.9 fL (80.0-94.0); Nucleated Red Blood Cells % 0 % (-); Platelet Count 568 10^3/uL (130-400); Red Blood Cell Count 4.99 10^6/uL (4.70-6.10); Red Cell Dist. Width 17.5 % (11.5-14.5); White Blood Cell Count 8.8 10^3/uL (4.8-10.8)
[2024-01-27 05:23] LABS: ALT (SGPT) 68 U/L (0-50); AST (SGOT) 88 U/L (17-59); Albumin 3.1 g/dl (3.5-5.0); Alkaline Phosphatase 897 U/L (38-126); Blood Urea Nitrogen 32 mg/dl (9-20); Calcium 9.6 mg/dl (8.4-10.2); Carbon Dioxide 31 mmol/L (22-30); Chloride 94 mmol/L (98-107); Estimated Creatinine Clearance 116 ml/min; Glucose 105 mg/dl (70-99); Potassium 4.9 mmol/L (3.5-5.1); Sodium 132 mmol/L (135-145); Total Bilirubin 0.6 mg/dl (0.2-1.3); Total Protein 6.5 g/dl (6.3-8.2); eGFR > 60.00
--- NOTE | 2024-01-27 05:31 | PTCARENOTE ---
No acute events overnight. Ripped off bipap within 2 hours of it being put on. Afebrile.
[2024-01-27 06:00] VITALS: BMI 36.4
--- NOTE | 2024-01-27 07:19 | W.PN.HOSP.TC ---
Today's Communication/Plan
-
dispo planning
patient and ready for SNF discharge today if bed available - will discuss with CM
Assessment / Plan
Assessment / Plan
Mr. Jus Suárez is a 63 yo man with hx afib, HTN, gout presents to the ER on 01/13 after a syncopal episode at home found to be 2/2 acute hypoxic and hypercarbic respiratory failure requiring mechanical ventilation. He was found to be in heart
failure. Syncopal episode resulted in right frontoparietal hematoma without acute calvarial fracture or ICH, stable. Hospital admission c/b metabolic encephalopathy and alcohol withdrawal.
TTE 01/15/24
CONCLUSIONS
Normal left ventricular size and systolic function without regional wall motion
abnormality.
Mild concentric left ventricular hypertrophy.
In limited views, the right ventricle appears to be dilated with reduced
systolic function
No significant valvular disease.
Compared to the echo images on 10/01/2023, the findings are likely similar.
However on today's study the proximal ascending aorta was not well-seen.
HEAD CT 01/15
IMPRESSION:
No evidence of acute intracranial abnormality.
CHEST CT 01/17
IMPRESSION:
There is cardiomegaly with small-moderate bilateral pleural effusions larger on the right than the left and associated compressive atelectasis in both lower lobes but no pulmonary edema
CXR 01/18
IMPRESSION:
No significant interval change. Low lung volumes with moderate right and small left pleural effusions with adjacent atelectasis.
Acute hypercarbic hypoxic respiratory failure with VDRF
Suspect secondary to acute CHF with preserved EF, recovered nonischemic cardiomyopathy
suspected obstructive sleep apnea
Status post extubation 01/19/2024, currently on mid flow
-CT chest 01/17 with pleural effusion and pulmonary edema
-Echo without acute changes
-appreciate cardiology and computer graphic designer consults
-continue nebulizers
-nocturnal BiPAP
-outpatient pulm follow up for PFTs/6MWT; sleep study
-s/p IV diuresis with drop in weight from 144 to 127kg; transitioned to oral lasix on 01/20 (new med)
HORTENSIA
-creatinine was up to 1.5 from baseline 1.1
-creatinine improved with diuresis
TME
-now resolved
s/p benjamin now removed
-diet advanced
-PT/OT --> planning for SNF
Hyponatremia
-stable on lasix
Fevers
Elevated liver enzymes
-likely drug fever but fever recurred
-IV Unasyn stopped (s/p 8 days) -
-covid negative x 2; US chest without effusion
-with elevated liver enzymes, RUQ US pursued - no e/o cholecystitis
-fevers may have been 2/2 gout (see below)
Gout
-new as of morning 01/25
-discussed dosing or colchicine with pharmacy as patient is on Diltiazem --> give 1.2mg x 1 now then wait 3 days and then order 0.3mg daily (diltiazem raises level of colchicine)
Suspect pneumonia
likely from aspiration when he had syncopal episode
-s/p IV Unasyn
Persistent atrial fibrillation
-Currently rate controlled; changed to long acting metop/dil
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
# Alcohol abuse
Alcohol Withdrawal
-Started back drinking last week
-Cont MSAS protocol with IV Ativan PRN
Syncopal episode likely from acute respiratory failure with hypoxia and hypercapnia
-head CT with No acute intracranial abnormality. Right frontoparietal subgaleal hematoma without underlying acute calvarial fracture.
#Right frontoparietal subgaleal hematoma without underlying acute calvarial fracture.
-continue to monitor. This was discussed on admission with neurosurgery recommended to monitor. repeat CT without acute changes; Eliquis was resumed
Mild troponin elevation likely nonischemic myocardial injury
-peaked at 0.056
#anemia likely chronic
-no active bleeding
-ctm
Hypomagnesemia
#hyperkalemia
Resolved
# Obesity-BMI 43.2
# Ex-smoker
# DVT prophylaxis
-Eliquis
# CODE STATUS
-Full code
I spent a total of 52 minutes with the patient or on the floor. More than 50% of this time involved counseling and coordination of care.
Anticipated Discharge: Within 24 hours
Subjective/Interval History
-
Date of Service: January 27, 2024
feeling well
toes less inflamed
breathing stable
no abdominal pain - eating and drinking well
Objective Data
-
Labs:
Laboratory Results
01/27/24
04:45
WBC 8.8
Hgb 10.8 L
Hct 35.9 L
Plt Count 568 H
Sodium 132 L
Potassium 4.9
Chloride 94 L
Carbon Dioxide 31 H
BUN 32 H
Creatinine 0.9
Glucose 105 H
Calcium 9.6
Total Bilirubin 0.6
AST 88 H
ALT 68 H
Alkaline Phosphatase 897 H
Vital Signs:
Vital Signs
Temp Pulse Resp BP Pulse Ox
98.5 F 99 25 112/74 92
01/27/24 03:20 01/27/24 04:45 01/27/24 04:45 01/27/24 04:45 01/26/24 22:45
I&O
01/26/24 01/27/24 01/28/24
06:59 06:59 06:59
Intake Total 960 / 960 240 / 240
Output Total 1050 / 1050 2079 / 0
Balance -90 / -90 -1840 / -1840
Review of Systems
-
History Source: Patient
All other systems: Reviewed and negative
Physical Exam
-
General: No Apparent Distress and Obese
HEENT: PERRLA
Respiratory: Negative Wheezes
Cardiac: S1/S2 and Irregular Rhythm
GI: Nontender
Genito-urinary: Benjamin
Musculoskeletal: No Edema and Other (b/l podagra improving)
Skin: Warm and Dry; Negative Rash
Neuro: AO x 3
Psych: Calm
Data Reviewed
-
Diagnostic Radiology: Report Reviewed by me
Labs: Labs Reviewed by me
[2024-01-27] MEDS: MIRALAX TUBE (08:18)
--- NOTE | 2024-01-27 08:56 | W.PN.ID1 ---
Date of Service
Date of Service: January 27, 2024
Today's Communication
Treat gout.
Observe off abx.
Assessment / Plan
# Acute gout flare
# Fever/leukocytosis due to gout, resolved on colchicine
- Continue colchicine/gout management
# Elevated transaminases
- Suspect due to recent Unasyn
- ABD US +gallstones without cholecystitis
No abd pain
- No need for HIDA
- Meropenem (d2) dc'd yesterday.
#Resolved aspiration pneumonitis, persistent atelectasis
Chief Complaint
-: Fever
Subjective / Review of Systems
Toes pain slightly better.
Vital Signs / Physical Exam
Vital Signs
Vital Signs
Temp Pulse Resp BP Pulse Ox
98.5 F 99 25 112/74 92
01/27/24 07:36 01/27/24 04:45 01/27/24 04:45 01/27/24 04:45 01/26/24 22:45
Physical Exam
Constitutional: No Acute Distress, Comfortable and Obese
Pulmonary: Clear
Gastrointestinal: Soft, Non Tender, Non Distended and Normal Bowel Sounds
Genito-Urinary: Negative CVA Tenderness
Musculoskeletal: Other (Left MPJ erythema/induration, Right hallux + edema)
Neurological: AO x 3
Objective Data
Lab Data
Lab Results
01/27/24 04:45
01/27/24 04:45
PT 17.2 Sec (11.4-14.6) H 01/14/24 15:01
INR 1.42 01/14/24 15:01
APTT 39.2 Sec (23.4-35.0) H 01/14/24 15:01
Estimated Creat Clear 116 ml/min 01/27/24 04:45
Total Bilirubin 0.6 mg/dl (0.2-1.3) 01/27/24 04:45
AST 88 U/L (17-59) H 01/27/24 04:45
ALT 68 U/L (0-50) H 01/27/24 04:45
Alkaline Phosphatase 897 U/L (38-126) H 01/27/24 04:45
Most recent labs reviewed.
Micro Results:
01/23/24 08:47 Blood Culture - Preliminary
Blood/Venous No Growth in 4 days- Final report to follow
01/15/24 14:26 Blood Culture - Final
Blood/Venous No Growth - Final Report
01/15/24 14:26 Respiratory Culture - Final
Endotracheal Usual Respiratory Renata
Gram Stain - Final
01/15/24 14:26 Nasal Screen MRSA (PCR) - Final
Nose MRSA not detected - performed by PCR methodology.
01/15/24 14:26 Legionella Urinary Antigen - Final
Urine Negative for Legionella pneumophila Serogroup 1 antigen.
A negative result does not rule out the possiblity of
Legionella infection due to other serogroups or species of
Legionella. Clinical correlation is recommended.
Streptococcus pneumoniae Antigen (M - Final
Negative for Streptococcus pneumoniae antigen.
A negative result does not exclude infection with
Streptococcus pneumoniae. Clinical correlation is
recommended.
Care Review
Plan reviewed with: Physician (Dr. Hutchison)
[2024-01-27] MEDS: TYLENOL 650 MG PO (09:29)
[2024-01-27] MEDS: LASIX 80 MG PO (09:30)
[2024-01-27] MEDS: FARXIGA 10 MG PO (09:30)
[2024-01-27] MEDS: FOLVITE 1 MG PO (09:30)
[2024-01-27] MEDS: CARDIZEM CD 180 MG PO (09:30)
[2024-01-27] MEDS: ELIQUIS 5 MG TUBE (09:30)
[2024-01-27] MEDS: VITAMIN B1 100 MG PO (09:31)
[2024-01-27] MEDS: TOPROL XL 25 MG PO (09:31)
--- NOTE | 2024-01-27 09:49 | W.DS.TRANS ---
DC Summary - [employer]
-
Discharge Instructions:
Sleep Apnea Risk High
Discharge Diagnosis/Procedures acute hypoxic/hypercarbic respiratory failure
requiring intubation, acute heart failure
exacerbation, toxic metabolic encephalopathy,
obstructive sleep apnea
Diet Restrict fluids to 48 oz,2 Gram Sodium
Activity As tolerated
Driving Restrictions No driving
Bathing Restrictions None
Other Services PT,OT
Specialty Instructions Weigh Daily
Instructions:
Stand-Alone Forms:
Changes to Home Medications: Yes
Discharge Medications:
DC Medications w/original date entered in [facility]
apixaban 5 mg tablet (Eliquis) 5 mg PO BID Blood Clot Prevention/Tx 11/15/23
diltiazem HCl 180 mg capsule,24 hr,extended release 180 mg PO DAILY Arrhythmia 01/14/24
magnesium oxide 500 mg PO DAILY Supplement 01/14/24
acetaminophen 325 mg tablet 650 mg (2 x 325 mg) PO Q6HPRN PRN mild pain/ fever>100.5F #20 tabs 01/27/24
colchicine 0.6 mg tablet 0.3 mg (1/2 x 0.6 mg) PO DAILY START 01/28 #7 tabs 01/27/24
dapagliflozin propanediol 10 mg tablet 10 mg PO DAILY #30 tabs 01/27/24
folic acid 1 mg tablet 1 mg PO DAILY #30 tabs 01/27/24
furosemide 80 mg tablet 80 mg PO DAILY #30 tabs 01/27/24
metoprolol succinate 25 mg tablet,extended release 24 hr 25 mg PO DAILY #30 tabs 01/27/24
polyethylene glycol 3350 17 gram oral powder packet (HealthyLax) 17 g PO DAILY PRN CONSTIPATION #30 ea 01/27/24
thiamine HCl (vitamin B1) 100 mg tablet 100 mg PO BID #60 tabs 01/27/24
Home Medication Changes
Take your next dose of colchicine (0.3mg) in 3 days (January 28). Then daily 0.3mg daily until attack resolved. Do not take colchicine prior to Erica as you received a 1.2mg dose on Sunday.
You are newly started on Lasix 80mg daily AND Farxiga 10mg daily to help keep fluid off.
Your Metoprolol dosing is decreased from 100mg twice a day to 25mg daily. You are continued on the same Diltiazem dosing
Pending Results: No
--- NOTE | 2024-01-27 10:49 | PTCARENOTE ---
Pt rec'd from previous RN, AOx3, pleasant and cooperative. Plan discussed with Dr. Hutchison and patient, stable for dc to SNF today, updated by MD. Pt remains afebrile, VSS, weaned to room air, assisted oob to chair, amb x1 with RW, gait steady.
+BM in toilet, voiding in urinal. All of breakfast consumed. Occ moist cough noted, lungs dim with fine crackles b/l bases. AM meds given including Lasix and PRN Tylenol for gout pain 10/25, safe environment maintained, call george in hand. Awaiting CM
to finalize dc plan at this time.
--- NOTE | 2024-01-27 11:35 | CM ---
Addendum entered by Liliana Kim 01/27/24 11:56:
broadcast operations manager spoke with patient's , Deborah who will transport patient to [facility] today.
Original Note:
Patient has been accepted at [facility] today, per Jonnathan they are aware that patient has only one day left with Auth but they able to accept patient. broadcast operations manager will reach out to spouse to review transport.
[facility]
Report# [phone]
fax [phone].
[2024-01-27 12:25] VITALS: BP 102/90
--- NOTE | 2024-01-27 13:03 | PTCARENOTE ---
Addendum entered by Cliff Traore RN 01/27/24 14:14:
Report given to RN at [facility] at 14:10. Phone number used [phone].
Addendum entered by Cliff Traore RN 01/27/24 13:06:
2nd attempt to call report, no RN available. Senior Strategy Analyst took down IMU ph number and will have RN call back.
Original Note:
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 Attempted x1 to call report, no answer. Senior Strategy Analyst suggested call back in 15 min.
--- NOTE | 2024-01-27 13:06 | W.DCSUMMARY ---
Discharge Summary
Discharge Data
Date of Admission: 01/14/24
Date of Discharge: 01/27/24
-
Pending Results: No
Hospital Course
Discharging Physician : Dr. Xochilt Hutchison
Disposition : SNF
Primary care physician : Dr. Juan C Weaver
Principal Discharge diagnosis : Acute hypoxic/hypercarbic Respiratory Failure requiring intubation, acute heart failure exacerbation, toxic metabolic encephalopathy, obstructive sleep apnea
Hospital Course :
Mr. Jus Suárez is a 63 yo man with hx afib, HTN, gout presents to the ER on 01/13 after a syncopal episode at home found to be 2/2 acute hypoxic and hypercarbic respiratory failure requiring mechanical ventilation.
Hospital course by problem:
1) Regarding hypoxic/hypercarbic respiratory failure. Patient was intubated on admission and extubated on 01/18. He was found to be in heart failure. Cardiology and Flat Screen Worker consulted. He was diuresed significantly with drop in weight from 144
to 121kg. He is discharge with new prescriptions for Lasix 80mg daily and Farxiga. TTE with normal EF. Nocturnal BiPAP recommended but he refused in-house. He will follow up with pulmonary as outpatient for formal PFT's/ 6MWT and sleep study.
He will follow up as outpatient with cardiology.
2) Syncopal episode resulted in right frontoparietal hematoma without acute calvarial fracture or ICH, and remained stable.
3) Hospital admission c/b metabolic encephalopathy and alcohol withdrawal which is resolved at time of discharge.
4) Fevers and concern for aspiration pneumonia. Patient was treated for aspiration pneumonia from the beginning of his hospital course. While on IV Unasyn he spiked fevers. ID was consulted. Initially thought 2/2 drug reaction and Unasyn stopped
after 8 days. Liver enzymes mildly elevated, RUQ US without e/o cholecystitis and no biliary duct dilation. Elevated liver enzymes may be 2/2 recent antibiotics and he will get repeat in one week. Fevers may have been 2/2 Gout (see below) versus
drug reaction.
5) Patient had podagra prior to discharge and is started on Colchicine (with decreased dosing given concomitant Diltiazem use). He is due for 0.3mg daily starting on 01/28 - to be stopped once gout resolved.
Time spent on discharge was 40 minutes.
Important imaging findings :
TTE 01/15/24
CONCLUSIONS
Normal left ventricular size and systolic function without regional wall motion
abnormality.
Mild concentric left ventricular hypertrophy.
In limited views, the right ventricle appears to be dilated with reduced
systolic function
No significant valvular disease.
Compared to the echo images on 10/01/2023, the findings are likely similar.
However on today's study the proximal ascending aorta was not well-seen.
HEAD CT 01/15
IMPRESSION:
No evidence of acute intracranial abnormality.
CHEST CT 01/17
IMPRESSION:
There is cardiomegaly with small-moderate bilateral pleural effusions larger on the right than the left and associated compressive atelectasis in both lower lobes but no pulmonary edema
CXR 01/18
IMPRESSION:
No significant interval change. Low lung volumes with moderate right and small left pleural effusions with adjacent atelectasis.
Procedure findings :
Discharge Plan
-
Patient Disposition: Custodial/SNF
Discharge Diagnosis/Procedures: acute hypoxic/hypercarbic respiratory failure requiring intubation, acute heart failure exacerbation, toxic metabolic encephalopathy, obstructive sleep apnea
Diet: 2 Gram Sodium and Restrict fluids to 48 oz
Activity: As tolerated
Driving Restrictions: No driving
Bathing Restrictions: None
Blood Work: CMP in 5-7 days
Other Services: PT and OT
Specialty Instructions: Weigh Daily- Call MD for wt gain/loss 3 lbs overnight/5 lbs in 1 week
Referrals:
Simon Chavez MD [Active] - in four to six weeks
(PFTs and 6MWT on day of office visit
will require eventual HST)
Kandace Haddad MD [Active] - in one to two weeks
Juan C Weaver DO [Family Provider] -
Additional Discharge Medication Instructions: Take your next dose of colchicine (0.3mg) in 3 days (January 28). Then daily 0.3mg daily until attack resolved. Do not take colchicine prior to Sunday as you received a 1.2mg dose on Sunday.
You are newly started on Lasix 80mg daily AND Farxiga 10mg daily to help keep fluid off.
Your Metoprolol dosing is decreased from 100mg twice a day to 25mg daily. You are continued on the same Diltiazem dosing
Prescriptions:
New
colchicine 0.6 mg Tablet
0.3 mg PO DAILY Qty: 7 0RF
Rx Instructions:
DO NOT START TAKING UNTIL SUNDAY, 01/28
acetaminophen 325 mg Tablet
650 mg PO Q6HPRN PRN (Reason: mild pain/ fever>100.5F) Qty: 20 0RF
furosemide 80 mg Tablet
80 mg PO DAILY Qty: 30 0RF
metoprolol succinate 25 mg Tablet Extended Release 24 Hr
25 mg PO DAILY Qty: 30 0RF
dapagliflozin propanediol 10 mg Tablet
10 mg PO DAILY Qty: 30 0RF
thiamine HCl (vitamin B1) 100 mg Tablet
100 mg PO BID Qty: 60 0RF
polyethylene glycol 3350 [HealthyLax] 17 gram Powder In Packet
17 g PO DAILY PRN (Reason: CONSTIPATION) Qty: 30 0RF
folic acid 1 mg Tablet
1 mg PO DAILY Qty: 30 0RF
ipratropium-albuterol 0.5 mg-3 mg(2.5 mg base)/3 mL solution for nebulization
3 ml inhalation Q8H PRN (Reason: shortness of breath) Qty: 90 0RF
Continued
Eliquis 5 MG tablet
5 mg PO BID
diltiazem HCl 180 mg Capsule,Extended Release 24 Hr
180 mg PO DAILY
Patient Comments:
01/14/24: Despite most recent fill of 240mg capsules, spouse only had 180mg strength capsules, and confirmed they did not own 240mg capsules.
magnesium oxide 250 mg magnesium Tablet
500 mg PO DAILY
Discontinued
metoprolol succinate 100 MG tablet extended release 24 hr
100 mg PO BID
thiamine HCl (vitamin B1) 100 mg Tablet
100 mg PO BID Qty: 20 0RF
Patient Comments:
01/14/24: Spouse states that despite having prescription, the patient has not been able to get it refilled after using up the initial bottle.
naproxen sodium [Aleve] 220 mg Tablet
440 mg PO DAILYPRN PRN (Reason: mild pain)
Discharge Orders:
Discharge Patient (As Directed); Ordered 01/27/24
Ordered By: Xochilt Hutchison
Discharge Date and Time
Print Language: ALBANIAN
--- NOTE | 2024-01-27 17:06 | PTCARENOTE ---
Assumed care of patient at 15:00 from previous RN. Patient discharged and transported to [facility] by . Report called by previous RN. Discharge packet given to to take to [facility]. PCT took patient out by wheelchair and assisted
getting into car.
== END 2024-01-27 16:23 | DRG 207 ==
LOC: IMU 18:58
PROVIDERS: Internal Medicine Critical Care Medicine; Nurse Practitioner Family; Nurse Practitioner Gerontology; Nurse Practitioner Primary Care; Registered Nurse; ADMITTING PHYSICIAN Internal Medicine; ATTENDING PHYSICIAN Student in an Organized Health Care Education/Training Program; CONSULT PHYSICIAN Internal Medicine Critical Care Medicine; CONSULT PHYSICIAN Student in an Organized Health Care Education/Training Program; EMERGENCY PHYSICIAN Emergency Medicine; FAMILY PHYSICIAN Family Medicine; OTHER PHYSICIAN Internal Medicine
PROC: 0BH17EZ Insertion of Endotracheal Airway into Trachea, Via Natural or Artificial Opening (ICD-10-PCS; 2024-01-14)
PROC: 5A1955Z Respiratory Ventilation, Greater than 96 Consecutive Hours (ICD-10-PCS; 2024-01-14)
PROC: 5A09357 Assistance with Respiratory Ventilation, Less than 24 Consecutive Hours, Continuous Positive Airway Pressure (ICD-10-PCS; 2024-01-14)
DX: J96.02 Acute respiratory failure with hypercapnia (principal); G92.8 Other toxic encephalopathy; I50.31 Acute diastolic (congestive) heart failure; J69.0 Pneumonitis due to inhalation of food and vomit; I48.21 Permanent atrial fibrillation; I42.6 Alcoholic cardiomyopathy; Z68.41 Body mass index [BMI] 40.0-44.9, adult; E87.20 Acidosis, unspecified; I5A Non-ischemic myocardial injury (non-traumatic); J98.11 Atelectasis; F10.239 Alcohol dependence with withdrawal, unspecified; N17.9 Acute kidney failure, unspecified; E87.1 Hypo-osmolality and hyponatremia; J96.01 Acute respiratory failure with hypoxia; G47.33 Obstructive sleep apnea (adult) (pediatric); I11.0 Hypertensive heart disease with heart failure; M10.9 Gout, unspecified; S00.03XA Contusion of scalp, initial encounter; R50.2 Drug induced fever; T36.0X5A Adverse effect of penicillins, initial encounter; D64.9 Anemia, unspecified; E87.5 Hyperkalemia; E66.01 Morbid (severe) obesity due to excess calories; I95.9 Hypotension, unspecified; W18.39XA Other fall on same level, initial encounter; R74.8 Abnormal levels of other serum enzymes; I45.10 Unspecified right bundle-branch block; E78.5 Hyperlipidemia, unspecified; E83.42 Hypomagnesemia; D32.0 Benign neoplasm of cerebral meninges; Z11.52 Encounter for screening for COVID-19; Z87.891 Personal history of nicotine dependence; Z79.01 Long term (current) use of anticoagulants
CPT/HCPCS: 36600; 70450; 71045; 71046; 71250; 74018; 74230; 76604; 76700; 80048; 80053; 80061; 81003; 81015; 82010; 82077; 82140; 82247; 82248; 82330; 82805; 82962; 83036; 83735; 83880; 84075; 84100; 84132; 84145; 84302; 84443; 84450; 84460; 84478; 84484; 84550; 85025; 85027; 85610; 85730; 87040; 87070; 87205; 87449; 87641; 87811; 87899; 92523; 92526; 92610; 92611; 93005; 93306; 94002; 94003; 94640; 94660; 96374; 97116; 97163; 97167; 97530; 97535; 99291

== ENCOUNTER 2024-06-02 05:54 | Day surgery (SDC) | payer BC, SELFPAY ==
[2024-05-20 08:02] VITALS: BMI 37.8
[2024-05-20 08:38] LABS: ALT (SGPT) 23 U/L (0-50); AST (SGOT) 30 U/L (17-59); Albumin 4.9 g/dl (3.5-5.0); Alkaline Phosphatase 132 U/L (38-126); Blood Urea Nitrogen 27 mg/dl (9-20); Calcium 10.5 mg/dl (8.4-10.2); Carbon Dioxide 36 mmol/L (22-30); Chloride 92 mmol/L (98-107); Estimated Creatinine Clearance 55 ml/min; Glucose 109 mg/dl (70-99); Potassium 4.8 mmol/L (3.5-5.1); Sodium 139 mmol/L (135-145); Total Bilirubin 0.8 mg/dl (0.2-1.3); Total Protein 8.3 g/dl (6.3-8.2); eGFR 42.03
[2024-05-20 08:44] LABS: % Basophils 1.3 % (0-2); % Eosinophils 3.7 % (0-6); % Immature Granulocytes 0.3 % (0-0.5); % Lymphocytes 31.3 % (20.5-51.1); % Monocytes 11.5 % (1.7-9.3); % Neutrophils 51.9 % (42.2-75.2); Absolute Basophils 0.1 10^3/uL (0-0.2); Absolute Eosinophils 0.3 10^3/uL (0-0.7); Absolute Lymphocytes 2.1 10^3/uL (1.2-3.4); Absolute Monocytes 0.8 10^3/uL (0.1-0.6); Absolute Neutrophils 3.5 10^3/uL (1.4-6.5); Hematocrit 45.7 % (39.0-52.0); Hemoglobin 13.6 g/dL (13.0-18.0); Mean Corp Hgb Conc. 29.8 g/dL (33.0-37.0); Mean Corpuscular Hgb 22.2 pg (27.0-31.0); Mean Corpuscular Volume 74.7 fL (80.0-94.0); Nucleated Red Blood Cells % 0 % (-); Platelet Count 278 10^3/uL (130-400); Red Blood Cell Count 6.12 10^6/uL (4.70-6.10); Red Cell Dist. Width 19.4 % (11.5-14.5); White Blood Cell Count 6.8 10^3/uL (4.8-10.8)
--- NOTE | 2024-05-20 09:56 | HPS.HSE ---
Family Physician
-
Family Physician: Isac Almodovar
Chief Complaint
-
Persistent atrial fibrillation.
History of Present Illness
The patient is a 63 year old male presenting today for persistent atrial fibrillation. The patient previously underwent a DEBORA-guided cardioversion in October 2021 for his arrhythmia. Unfortunately, it was not successful in keeping him in sinus
rhythm and he reverted back to atrial fibrillation within a few hours of the procedure. He is on current pharmacological therapy with Diltiazem, Metoprolol Succinate, and Amiodarone. He has been compliant with Eliquis for oral anticoagulation. He is
interested in pursuing a FARAPULSE atrial fibrillation ablation for further arrhythmia management in the hopes of one day coming off pharmacological therapy. He denies any current complaints today such as chest pain, shortness of breath at rest,
nausea, vomiting, diarrhea, lightheadedness, dizziness, cough, sore throat, or fever.
Medical History
Past Medical History
Past Medical History: Reports Other
Additional Past Medical History:
1. Persistent atrial fibrillation, status post cardioversion 10/2021; pharmacological therapy with Diltiazem, Metoprolol Succinate, and Amiodarone, oral anticoagulation with Eliquis.
2. Hypertension.
3. Right bundle branch block.
4. Nonischemic cardiomyopathy.
5. Chronic diastolic heart failure, preserved ejection fraction.
6. Acute respiratory failure requiring intubation secondary to acute heart failure 12/2023.
7. Obstructive sleep apnea, improving with weight loss.
8. Acute kidney injury, 05/20/2024, in the setting of diuretic use; improving with dose adjustments.
9. Brain meningioma, stable on serial imaging.
10. Degenerative disc disease.
11. Gout.
12. Obesity, BMI 37.8.
13. Documented history of alcohol abuse.
Past Surgical History: Reports Other
Additional Past Surgical History:
1. DEBORA-guided cardioversion.
2. Cardiac catheterization.
3. Pilonidal cystectomy.
4. Right wrist surgery.
5. Dental implants.
6. [place] teeth extraction.
7. Bilateral cataract extraction.
8. Colonoscopy.
Social History
Tobacco: Non-smoker
Alcohol: Other (Per previous records, he has a history of alcohol abuse. He reports no current alcohol use. )
Personal:
Living: Other (He lives with his and daughter in a 2 story home. )
Family History
Family History: Not pertinent
Allergies / Home Medications
Allergy/Medication List:
Home medications:
1. Acetaminophen 650 mg p.o. every 6 hours as needed.
2. Amiodarone 200 mg p.o. daily.
3. Colchicine 0.3 mg p.o. daily.
4. Farxiga 10 mg p.o. daily.
5. Diltiazem 180 mg p.o. daily.
6. Eliquis 5 mg p.o. twice a day.
7. Folic acid 1 mg p.o. daily.
8. Furosemide 40 mg p.o. daily as needed.
9. Combivent Respimat 1 puff inhaled every 6 hours as needed.
10. Magnesium oxide 500 mg p.o. daily.
11. Metoprolol Succinate 25 mg p.o. daily.
12. Thiamine 100 mg p.o. twice a day.
Allergies: Losartan.
Review of Systems
-
A 12 point ROS was completed and negative except as noted: Yes
Physical Exam
Vital Signs
Blood pressure 135/88. Heart rate 69. Respirations 18. Pulse ox 97% on room air.
Height 5 feet, 10 inches. Weight 119.4 kg. BMI 37.8.
Physical Exam
General: Well Developed, Well Nourished and No Apparent Distress
HEENT: NormoCephalic, Moist mucous membranes and Atraumatic
Respiratory: Clear
Cardiac: Irregular Rhythm
GI: Soft, Non Tender, Non Distended and Other (Obese)
Musculoskeletal: No Edema and Normal Gait & Station
Skin: Warm and Dry
Neuro: AO x 3 and Nonfocal/grossly intact
Laboratory Results
-
05/20/24 08:09
05/20/24 08:09
Laboratory Results
Total Bilirubin 0.8 mg/dl (0.2-1.3) 05/20/24 08:09
AST 30 U/L (17-59) 05/20/24 08:09
ALT 23 U/L (0-50) 05/20/24 08:09
Alkaline Phosphatase 132 U/L (38-126) H 05/20/24 08:09
DIAGNOSTIC STUDIES as of 05/26/2024: Sodium 140. Potassium 5.1. BUN 29. Creatinine 1.5. Glucose 95. Calcium 9.9.
Type and screen AB negative.
EKG 05/20/2024: Atrial fibrillation with slow ventricular response. Right bundle branch block.
Chest CT 05/20/2024: Single, individual right superior and inferior pulmonary veins. 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 No evidence of left atrial thrombus/filing defect.
Echocardiogram 01/15/2024: Normal left ventricular size and systolic function without regional wall motion abnormality. Mild concentric left ventricular hypertrophy. In limited views, the right ventricle appears to be dilated with reduced systolic
function. No significant valvular disease. Compared to the echo images on 10/01/2023, the findings are likely similar. However on today's study the proximal ascending aorta was not well-seen.
Impression/Plan
-
IMPRESSION/PLAN:
1. Persistent atrial fibrillation: The patient is in need of a FARAPULSE atrial fibrillation ablation with Dr. Kandace Haddad on 06/02/2024. The benefits and risks of the procedure have been explained to the patient. The patient understands these
risks and wishes to proceed. He will not be required to undergo a pre-procedural transesophageal echocardiogram as he has been complaint with his home oral anticoagulation. He will remain on Eliquis uninterrupted prior to his procedure.
2. Acute kidney injury: His acute kidney injury is notably improving with Lasix dose adjustments. As of 05/26/2024, he is aware to only use Furosemide 40 mg p.o. daily as needed for heart failure symptoms should they present (shortness of breath,
weight gain, edema). He can proceed as planned with his ablation. A repeat BMP will be drawn the morning of his procedure.
--- NOTE | 2024-05-21 09:04 | W.SUR.PREOP ---
Pre-Operative Surgical Note
-
HORTENSIA noted on pre-op testing for a fib ablation.
HORTENSIA in the setting of diuretic use. Pt has been compliant w/ Furosemide 80 mg daily.
Discussed with Dr. Haddad given pt's h/o acute RF 2* acute CHF requiring intubation 12/2023.
Pt will hold Lasix for next 3 days. After this, he will start 40 mg daily dosing.
He will avoid other nephrotoxins such as NSAIDs.
Repeat BMP will be obtained on Sunday, 05/26 prior to his procedure.
If renal function improved and electrolytes stable, can proceed w/ ablation on 06/02.
[2024-05-26 07:24] LABS: Blood Urea Nitrogen 29 mg/dl (9-20); Calcium 9.9 mg/dl (8.4-10.2); Carbon Dioxide 28 mmol/L (22-30); Chloride 104 mmol/L (98-107); Estimated Creatinine Clearance 66 ml/min; Glucose 95 mg/dl (70-99); Potassium 5.1 mmol/L (3.5-5.1); Sodium 140 mmol/L (135-145); eGFR 52.31
[2024-06-02] VITALS (20 sets, daily range): BP systolic 109–132; BP diastolic 72–85; BMI 38.2
[2024-06-02 08:50] LABS: ACT-LR - POC 369 Seconds (116-155)
[2024-06-02 09:10] LABS: ACT-LR - POC 356 Seconds (116-155)
[2024-06-02 09:36] LABS: ACT-LR - POC 324 Seconds (116-155)
--- NOTE | 2024-06-02 10:19 | ITS.CL.ABL ---
[employer] - Ablation
Ablation
Procedure Report:
AFIB ablation:
Mr. Suárez is a very pleasant 63 yr old gentleman with symptomatic persistent AF failed Amiodarone, Diltiazem and Metoprolol with CHF is recommended for atrial fibrillation ablation.
Date of the Procedure:
06/02/2024
Indications:
Persistent atrial fibrillation / atrial flutter
Pre-Operative Diagnosis:
Persistent atrial fibrillation / atrial flutter
Post-Operative Diagnosis:
Persistent atrial fibrillation / atrial flutter
Procedure Performed:
Atrial fibrillation ablation with Pulsed-Field approach for pulmonary vein isolation
Posterior wall isolation
Performing Physician:
Kandace Haddad MD
Assistants:
EP staff
Anesthesia:
See anesthesia records
Detailed Description of the Procedure:
Written informed consent was obtained from the patient after a full explanation of the risks and benefits of the procedure including the risks of sedation and anesthesia.
The patient was brought to the electrophysiology laboratory in stable condition in fasting state. Continuous electrocardiographic and hemodynamic monitoring was initiated.
The initial rhythm was atrial fibrillation.
The procedure site was meticulously prepared with surgical scrub and allowed to dry with no pooling. Sterile draping was applied to cover the procedure site. The image intensifier was draped with sterile bag and positioned over the patient. After
infusion of local anesthetic, vascular access was obtained under ultrasound guidance and sheaths were placed over guide wire as detailed below.
Sheath and Catheter Placement:
The following catheters / sheaths were placed
Sheaths:
��������� 17Fr steerable sheath (Faradrive�, Traackr) in right femoral
��������� 9Fr in right femoral vein
��������� 7Fr in right femoral vein
Catheters:
��������� THOM HD Grid mapping catheter � at locations of RA, LA
��������� Farawave� PFA catheter
��������� ICE catheter -AcuNav - at locations of RA, SVC, and RV.
��������� Decapolar Bard catheter in RA and CS
Intracardiac ECHO:
An 8-Gibraltarian AcuNav intracardiac ECHO (ICE) probe was advanced through the 9-Gibraltarian sheath in the right femoral vein into the right atrium under fluoroscopic and ICE ultrasound image guidance and a baseline ECHO study was performed. The left atrial
size was dilated. There was moderate tricuspid regurgitation. The aortic valve was grossly normal. There was normal left ventricular systolic functions. There is no pericardial effusion. All the four veins were identified and has flow identified.
There was good flow noted in the DANIEL.
During the procedure, ICE was used for monitoring of complications, guidance of trans-septal puncture, monitor the catheter position and tracking ablation lesions. No change in the pericardial space noted throughout the procedure.
Trans-septal Puncture:
Heparin was initiated and infused to maintain appropriate ACT. A pigtail guidewire was advanced through the 8-Gibraltarian sheath in the right femoral vein into the superior vena cava under fluoroscopic and ICE guidance. The 9-Gibraltarian sheath was exchanged
for a Faradrive sheath which was advanced into the superior vena cava. A transseptal VersaCross RF pigtail via Faradrive connect system was utilized to perform the trans-septal puncture. The apparatus was withdrawn until it was in contact with the
fossa ovalis. The position was adjusted based on fluoroscopy and ultrasound images from ICE. Under fluoroscopic, hemodynamic and ICE ultrasound guidance, left atrium was cannulated by applying RF energy. Once atrial septum was cannulated, the
pigtail wire was advanced into the left atrium. The guide wire was advanced into the left superior pulmonary vein. Both the sheath and the dilator was advanced into the left atrium. The dilator with the needle was withdrawn. Blood was aspirated from
the Faradrive sheath and arterial blood confirmed. The sheath was flushed. Saline injection noted into the left atrium on ICE. The mapping catheter was advanced in the sheath into the left pulmonary vein. Left atrial pressure was measured.
3D Electroanatomic Mapping:
Using the HD Grid catheter advanced through sheath into the left atrium, an electroanatomic map (EAM) of the left atrium was created using DoorDash mapping system. The map was used for localization of catheter position and tacking of ablation
lesions.
The EAM of the left atrium showed 4 pulmonary veins with all 4 veins electrically connected to the body the LA. It showed scattered areas of low voltage on the posterior and anterior wall of the LA in AF but had good signals in sinus rhythm. The LA
was dilated in size.
Following the EAM, preparation were made for ablation.
Ablation:
Ablation # 1: Pulmonary vein Isolation:
Glycopyrrolate 0.2 mg was given prior to the placement of ablation. Using FanFueled pulsed field ablation system, pulmonary vein isolation was achieved. First the ablation catheter was placed in the LSPV and ostial ablation lesions were performed in
a counter clock meo approach all around the PV ostium circumferentially. Then the catheter was placed on the antral location and multiple ablation lesions were placed circumferentially on the antrum of the vein.
In the similar fashion, the LIPV were isolated.
Then the catheter was moved to right sided veins. The ostial and antral ablations were placed as noted above.
Patient remained in atrial fibrillation.
Ablation #2: Posterior wall isolation:
Using the pulsed field ablation catheter, the catheter was placed between left superior pulmonary vein and right severe pulmonary vein with series of overlapping ablation lesions placed.
Using the pulsed field ablation catheter, the catheter was placed on the posterior wall and moved around the posterior wall to have adequate contact and ablations were placed isolating the posterior wall.
Cardioversion:
Once the PV isolation was achieved, decision was made to proceed with cardioversion. A 200 J biphasic shock was applied on the negrita posterior Zoll patches and sinus rhythm was achieved. No significant pause noted.
EPS and Confirmation of the PVI and bidirectional block:
Following achievement of entrance block at the pulmonary veins, pacing from the HD catheter in each of the four veins at 10 milliamps for 2 milliseconds showed entrance and exit block. All PVI were rechecked at the end of the case and remained
isolated. Entrance and exit block were demonstrated in all veins.
Post ablation Electroanatomic mapping:
Once ablation was completed, the EAM of the LA was done again in sinus rhythm with excellent demarcation of LA myocardium and isolated antral tissue. There was only little scattered scar noted on the anterior wall with large anteroseptal patch of
scar.
The DANIEL had healthy signals and was not isolated.
With observation, there were signals noted on the roof of the LA adjacent to the LSPV and RSPV. Decision was made to place further ablations on the roof and the posterior wall.
Anotehr set of overlapping pulse field ablations were placed on the posterior wall and areas of the electrical activity. The patient was observed and there were areas of electrical signals noted in the antral areas of the LSPV. There were already 94
applications of pulse field energy applied and risk of hemolysis was increased with further ablation. There was hx of CKD and risk of HORTENSIA was noted and decision was made to stop further ablation and observe clinically of these unclear areas of
signals observed in the posterior wall.
Procedure End
ICE study was done again that showed no epicardial accumulation. No complications noted.
Following the completion of the EP study, catheters were removed. Protamine 30 mg was given at the end of the procedure and ACT was checked repeatedly. The sheaths were removed and hemostasis achieved with �VASCADE� and manual compression after
acceptable ACT is achieved.
Left atrial Pressure:
Mean LA pressure was 11mmHg
Mean RA pressure was 7 mmHg.
Estimated Blood loss:
<10 cc
Specimens Removed:
None.
Implants / Devices:
None
Urine output:
None
Packs / Drains/ Tubes:
None
Instrument / Sponge Count Correct:
Yes
Complications of the Procedure:
None
Condition of Patient at Time of Transfer:
Hemodynamically stable with no neurological or vascular compromise.
Summary:
Successful atrial fibrillation ablation with Pulsed Field approach for pulmonary vein isolation, and posterior wall isolation. .
Figures from the Procedure:
Figure 1: The electroanatomic mapping (EAM) of the left atrium with bipolar voltage (purple indicates normal electrical activity with loomis as no myocardial muscle electric activity indicating a line of block or scar.
--- NOTE | 2024-06-02 14:17 | W.PN.UPDATE ---
Update Note
Progress Note Update
Pt seen post PFA. Right groin site with vascade closure, no ht/bleeding, oob ambulating, urinating without difficulty. Post EKG NSR w/1st deg AVB, RBBB as before, no acute changes. Resume Eliquis tonight at usual time, continue other meds as before.
Followup with [facility] at [facility] in 2 weeks as scheduled, and with Dr. Prater thereafter. Home today if groin site/tele remain stable.
== END 2024-06-02 14:15 | disposition home or self-care (01) ==
LOC: CATH 05:54
PROVIDERS: ATTENDING PHYSICIAN Internal Medicine Cardiovascular Disease; FAMILY PHYSICIAN Family Medicine; OTHER PHYSICIAN Physician Assistant; OTHER PHYSICIAN Student in an Organized Health Care Education/Training Program
DX: I48.11 Longstanding persistent atrial fibrillation (principal); Z79.01 Long term (current) use of anticoagulants; I11.0 Hypertensive heart disease with heart failure; I45.10 Unspecified right bundle-branch block; I42.8 Other cardiomyopathies; G47.33 Obstructive sleep apnea (adult) (pediatric); M10.9 Gout, unspecified; E66.9 Obesity, unspecified; Z68.37 Body mass index [BMI] 37.0-37.9, adult; F10.11 Alcohol abuse, in remission; Z79.84 Long term (current) use of oral hypoglycemic drugs; Z79.899 Other long term (current) drug therapy; I48.92 Unspecified atrial flutter; I49.1 Atrial premature depolarization; N17.9 Acute kidney failure, unspecified; Z98.890 Other specified postprocedural states; I50.32 Chronic diastolic (congestive) heart failure
CPT/HCPCS: C1894; C1892; C1759; C1732; 36415; 75572; 80048; 80053; 85025; 85347; 86850; 86900; 86901; 93005; 93656; 93657; C1730; C1733; C1760; C1766; Q9967